=== PATIENT | female | born 1945 | race Caucasian/White ===

== ENCOUNTER 2017-11-05 10:30 | Outpatient (RCR) | payer MEDICARE, OTHER, SELFPAY ==
--- NOTE | 2017-10-08 15:15 | PT.OTN ---
On October 08, 2017 our therapy services consisting of Speech, Occupational, and Physical therapy transitioned from [employer] electronic documentation system to a new [employer] electronic system. All documentation prior to October 08 can be found under [employer] saved data. From October 08 forward, all medical record documentation will be in [employer] 6.1.
--- NOTE | 2017-10-08 16:05 | PT.OTN ---
Physical Therapy Treatment Note PT-OP-B Current Condition Start: 10/08/17 15:48 Freq: Status: Active Protocol: Activity Type Activity Date Activity User E-Sign Co-Sign Detail Recorded Client Recorded Date Recorded By Document 10/08/17 13:45 [facility] [email or web address] 10/08/17 16:05 [facility] 10/08/17 13:45 Current Condition [History of Current Condition] -Current Complaints right sided calf pain with walking up hills or inclines PT-OP-C Subjective Start: 10/08/17 15:48 Freq: Status: Active Protocol: Activity Type Activity Date Activity User E-Sign Co-Sign Detail Recorded Client Recorded Date Recorded By Document 10/08/17 13:45 [facility] [email or web address] 10/08/17 16:05 [facility] 10/08/17 13:45 OP-PT Subjective [Patient Comments] -Patient Comments Sachi notes she was walking in [place] yesterday and didn't notice the pain on a small hill. She has not attempted her regular walking hills yet -Patient Reported Progress Improving PT-OP-Q Treatments Start: 10/08/17 15:48 Freq: Status: Active Protocol: Activity Type Activity Date Activity User E-Sign Co-Sign Detail Recorded Client Recorded Date Recorded By Document 10/08/17 13:45 [facility] [email or web address] 10/08/17 16:05 [facility] 10/08/17 13:45 Therapeutic Exercises [Sitting Exercises] 1 -Sitting Exercise Name seated hamstring stretch -Side bilateral -Reps/Minutes 2 minutes [Standing Exercises] 2 -Standing Exercise Name standing hip abduction in pool -Side bilateral -Reps/Minutes work up to 3 sets of 10 reps 1 -Standing Exercise Name standing DARIN calf stretch ( pt to use her half foam roll for home) -Side bilateral -Reps/Minutes 2 minutes Manual Therapy Treatment [Soft Tissue Mobilization] 1 -Mobilization Type Myofacial release and Soft tissue mobilization -Intensity/Depth Moderate -Body Position Prone -Comments prone on body cushion MFR to the right medial calf and poplitius musculature Self-Care/Home Management Treatment [Education] -Patient Education Home Exercise Program PT-OP-R Modalities Start: 10/08/17 15:48 Freq: Status: Active Protocol: Activity Type Activity Date Activity User E-Sign Co-Sign Detail Recorded Client Recorded Date Recorded By Document 10/08/17 13:45 [facility] [email or web address] 10/08/17 16:05 [facility] 10/08/17 13:45 Ultrasound Therapy [Treatment] right medial gastroc -Patient Position Prone -Coupling Medium Ultrasound Gel -Frequency Setting (mHz) 1 -Mode Setting Continuous -Intensity Setting (w/cm2) 1.5 -Patient Tolerance Good PT-OP-T Assessment and Plan Start: 10/08/17 15:48 Freq: Status: Active Protocol: Activity Type Activity Date Activity User E-Sign Co-Sign Detail Recorded Client Recorded Date Recorded By Document 10/08/17 13:45 [facility] [email or web address] 10/08/17 16:05 [facility] 10/08/17 13:45 Physical Therapy Assessment [Rehab Potential] -Rehabilitation Potential Excellent [Impairments] -Impairments Gait Pain Soft Tissue Mobility Strength [Assessment Summary] -Assessment pain has decreased some with ambulation . With gait assessment today Sachi does tend to adduct the right leg across midline. I will start adding in more lateral hip strengthening exercises to help with this along with balance exercises for Sachi. Physical Therapy Plan [Frequency and Duration] -Frequency of Treatment 2x/Week [Therapeutic Interventions] -Therapeutic Interventions Home Exercise Program Patient/ Caregiver Education Self-Care/Home Management Soft Tissue Mobilization Therapeutic Exercises -Modalities Cold Pack/Ice Massage Ultrasound [Next Visit Focus/Plan] -Next Visit Plan begin working on single leg balance exercises and hip abduction, work on releasing tightness in the medial calf and poplitius musculature Current Diagnoses Pain in right knee (10/08/17)
--- NOTE | 2017-10-10 15:57 | PT.OTN ---
Current Diagnoses Pain in right knee (10/10/17) Physical Therapy Treatment Note PT-OP-B Current Condition Start: 10/08/17 15:48 Freq: Status: Active Protocol: Activity Type Activity Date Activity User E-Sign Co-Sign Detail Recorded Client Recorded Date Recorded By Document 10/08/17 13:45 [facility] [email or web address] 10/08/17 16:05 [facility] 10/08/17 13:45 Current Condition [History of Current Condition] -Current Complaints right sided calf pain with walking up hills or inclines PT-OP-C Subjective Start: 10/08/17 15:48 Freq: Status: Active Protocol: Activity Type Activity Date Activity User E-Sign Co-Sign Detail Recorded Client Recorded Date Recorded By Document 10/10/17 02:30 [facility] [email or web address] 10/10/17 15:57 [facility] 10/10/17 02:30 OP-PT Subjective [Patient Comments] -Patient Comments Sachi reports she may have overdone her stretches and pool exercises as she is a sore today PT-OP-Q Treatments Start: 10/08/17 15:48 Freq: Status: Active Protocol: Activity Type Activity Date Activity User E-Sign Co-Sign Detail Recorded Client Recorded Date Recorded By Document 10/10/17 02:30 [facility] [email or web address] 10/10/17 15:57 [facility] 10/10/17 02:30 Therapeutic Exercises [Supine Exercises] 1 -Supine Exercise Name hamstring and adductor stretch with strap -Reps/Minutes 2 minutes [Sidelying Exercises] 1 -Sidelying Exercise Name clam shells -Side bilateral -Reps/Minutes 2 sets of 10 reps [Sitting Exercises] 1 -Sitting Exercise Name seated hamstring stretch -Side bilateral -Reps/Minutes 2 minutes -Comments one foot up on a chair, hinge forward from hips [Standing Exercises] 2 -Standing Exercise Name standing hip abduction at bars -Side bilateral -Reps/Minutes 2 sets of 10 reps 1 -Standing Exercise Name standing DARIN calf stretch ( pt to use her half foam roll for home) -Side bilateral -Reps/Minutes 2 minutes PT-OP-R Modalities Start: 10/08/17 15:48 Freq: Status: Active Protocol: Activity Type Activity Date Activity User E-Sign Co-Sign Detail Recorded Client Recorded Date Recorded By Document 10/10/17 02:30 [facility] [email or web address] 10/10/17 15:57 [facility] 10/10/17 02:30 Hot Pack/Cold Pack [Treatment] Ice Massage -Location posterior calf and pes anserine -Treatment Duration (minutes) 4 -Comments tolerated well PT-OP-T Assessment and Plan Start: 10/08/17 15:48 Freq: Status: Active Protocol: Activity Type Activity Date Activity User E-Sign Co-Sign Detail Recorded Client Recorded Date Recorded By Document 10/10/17 02:30 [facility] [email or web address] 10/10/17 15:57 [facility] 10/10/17 02:30 Physical Therapy Assessment [Impairments] -Impairments Gait Pain Soft Tissue Mobility Strength [Assessment Summary] -Assessment With palpation today Sachi was actually more tender in the pes anserine region . I added in adductor stretches and we also worked on lateral hip stability exercises as she tends to adduct the right leg with walking Physical Therapy Plan [Frequency and Duration] -Frequency of Treatment 2x/Week [Therapeutic Interventions] -Therapeutic Interventions Home Exercise Program Patient/ Caregiver Education Self-Care/Home Management Soft Tissue Mobilization Therapeutic Exercises [Next Visit Focus/Plan] -Next Visit Plan continue working on stretches and lateral hip stabilization, begin to add in balance exercises
--- NOTE | 2017-10-17 13:18 | PT.OTN ---
Current Diagnoses Pain in right knee (10/17/17) Physical Therapy Treatment Note PT-OP-A Visit Information Start: 10/10/17 15:47 Freq: Status: Active Protocol: Document 10/17/17 13:10 [facility] (Rec: 10/17/17 13:15 [facility] [email or web address]) Out-Patient Physical Therapy Visit Information Visit Information Visit Type Treatment Note Visit Start Time 11:15 Visit Stop Time 12:00 Total Visit Minutes 45 Visit Number 4 Number of [employer] LIBRARIAN Visits 0 PT-OP-B Current Condition Start: 10/08/17 15:48 Freq: Status: Active Protocol: Document 10/17/17 13:10 [facility] (Rec: 10/17/17 13:15 [facility] [email or web address]) Current Condition History of Current Condition Current Complaints right sided calf pain with walking up hills or inclines PT-OP-C Subjective Start: 10/08/17 15:48 Freq: Status: Active Protocol: Document 10/17/17 13:10 [facility] (Rec: 10/17/17 13:15 [facility] [email or web address]) OP-PT Subjective Patient Comments Patient Comments Sachi reports no pain today. She will test out a hill this next week and report back PT-OP-Q Treatments Start: 10/08/17 15:48 Freq: Status: Active Protocol: Document 10/17/17 13:10 [facility] (Rec: 10/17/17 13:15 [facility] [email or web address]) Therapeutic Exercises Standing Exercises 5 Standing Exercise Name standing single leg stance Reps/Minutes holding 10 seconds each 2 reps 4 Standing Exercise Name sit-stand chair squat Reps/Minutes 2 sets of 10 reps 2 Standing Exercise Name standing hip abduction at bars Side bilateral Reps/Minutes 2 sets of 10 reps 1 Standing Exercise Name standing DARIN calf stretch (pt to use her half foam roll for home) Side bilateral Reps/Minutes 2 minutes Manual Therapy Treatment Soft Tissue Mobilization 1 Mobilization Type Myofascial Release Intensity/Depth Moderate Comments prone on body cushion MFR to the right medial calf and poplitius musculature PT-OP-R Modalities Start: 10/08/17 15:48 Freq: Status: Active Protocol: Document 10/17/17 13:10 [facility] (Rec: 10/17/17 13:15 [facility] [email or web address]) Ultrasound Therapy Treatment right medial gastroc Patient Position Prone Coupling Medium Ultrasound Gel Frequency Setting (mHz) 1 Mode Setting Continuous Intensity Setting (w/cm2) 1.5 Patient Tolerance Good PT-OP-T Assessment and Plan Start: 10/08/17 15:48 Freq: Status: Active Protocol: Document 10/17/17 13:15 [facility] (Rec: 10/17/17 13:18 [facility] [email or web address]) Physical Therapy Assessment Assessment Summary Assessment Sachi is making great progress. We added in balance exercises today and there was no pain in the right calf. She does tend to IR her right hip with walking so I am working on lateral hip strengthening exercises as well. Physical Therapy Plan Frequency and Duration Frequency of Treatment 2x/Week Plan of Care Start Date 10/03/17 Plan of Care End Date 11/28/17 Therapeutic Interventions Therapeutic Interventions Home Exercise Program Manual Therapy Patient/Caregiver Education Self-Care/Home Management Soft Tissue Mobilization Therapeutic Exercises Modalities Cold Pack/Ice Massage
--- NOTE | 2017-10-22 12:43 | PT.OTN ---
Current Diagnoses Pain in right knee (10/22/17) Physical Therapy Treatment Note PT-OP-A Visit Information Start: 10/10/17 15:47 Freq: Status: Active Protocol: Document 10/22/17 12:36 [facility] (Rec: 10/22/17 12:43 [facility] [email or web address]) Out-Patient Physical Therapy Visit Information Visit Information Visit Type Treatment Note Visit Start Time 10:30 Visit Stop Time 11:20 Total Visit Minutes 50 Visit Number 5 Number of INTERNAL CARVER Visits 0 PT-OP-B Current Condition Start: 10/08/17 15:48 Freq: Status: Active Protocol: Document 10/17/17 13:10 [facility] (Rec: 10/17/17 13:15 [facility] [email or web address]) Current Condition History of Current Condition Current Complaints right sided calf pain with walking up hills or inclines PT-OP-C Subjective Start: 10/08/17 15:48 Freq: Status: Active Protocol: Document 10/22/17 12:36 [facility] (Rec: 10/22/17 12:43 [facility] [email or web address]) OP-PT Subjective Patient Comments Patient Comments dar notes she tried a small hill and she didn't have pain but notes discomfort like her calf isn't quite ready for hills yet PT-OP-Q Treatments Start: 10/08/17 15:48 Freq: Status: Active Protocol: Document 10/22/17 12:36 [facility] (Rec: 10/22/17 12:43 [facility] [email or web address]) Therapeutic Exercises Supine Exercises 1 Supine Exercise Name hamstring and adductor stretch with strap Reps/Minutes 2 minutes Sidelying Exercises 1 Sidelying Exercise Name clam shells Side bilateral Reps/Minutes 3 sets of 10 reps Standing Exercises 5 Standing Exercise Name standing single leg stance Reps/Minutes holding 10 seconds each 2 reps 4 Standing Exercise Name sit-stand chair squat Reps/Minutes 2 sets of 10 reps 2 Standing Exercise Name standing hip abduction at bars Side bilateral Reps/Minutes 2 sets of 10 reps 1 Standing Exercise Name standing DARIN calf stretch (pt to use her half foam roll for home) Side bilateral Reps/Minutes 2 minutes Manual Therapy Treatment Soft Tissue Mobilization 1 Mobilization Type Myofascial Release Intensity/Depth Moderate Comments prone on body cushion MFR to the right medial calf and poplitius musculature PT-OP-R Modalities Start: 10/08/17 15:48 Freq: Status: Active Protocol: Document 10/22/17 12:36 [facility] (Rec: 10/22/17 12:43 [facility] [email or web address]) Hot Pack/Cold Pack Treatment Ice Massage Location posterior calf and pes anserine Treatment Duration (minutes) 4 Comments tolerated well Ultrasound Therapy Treatment right medial gastroc Patient Position Prone Coupling Medium Ultrasound Gel Frequency Setting (mHz) 1 Mode Setting Continuous Intensity Setting (w/cm2) 1.5 Patient Tolerance Good PT-OP-T Assessment and Plan Start: 10/08/17 15:48 Freq: Status: Active Protocol: Document 10/22/17 12:36 [facility] (Rec: 10/22/17 12:43 [facility] [email or web address]) Physical Therapy Assessment Assessment Summary Assessment improving on balance exercises and able to hold 50 seconds each leg today without pain Physical Therapy Plan Frequency and Duration Frequency of Treatment 2x/Week Plan of Care Start Date 10/03/17 Plan of Care End Date 11/28/17 Therapeutic Interventions Therapeutic Interventions Home Exercise Program Manual Therapy Patient/Caregiver Education Self-Care/Home Management Soft Tissue Mobilization Therapeutic Exercises Next Visit Focus/Plan Next Visit Plan continue working on balance, stretching and add calf raises for strength
--- NOTE | 2017-10-29 11:41 | PT.OTN ---
Current Diagnoses Pain in right knee (10/29/17) Physical Therapy Treatment Note PT-OP-A Visit Information Start: 10/10/17 15:47 Freq: Status: Active Protocol: Document 10/29/17 11:36 [facility] (Rec: 10/29/17 11:41 [facility] [email or web address]) Out-Patient Physical Therapy Visit Information Visit Information Visit Type Treatment Note Visit Start Time 10:40 Visit Stop Time 11:25 Total Visit Minutes 45 Visit Number 6 Number of DIRECTOR OF BANDS Visits 0 PT-OP-B Current Condition Start: 10/08/17 15:48 Freq: Status: Active Protocol: Document 10/17/17 13:10 [facility] (Rec: 10/17/17 13:15 [facility] [email or web address]) Current Condition History of Current Condition Current Complaints right sided calf pain with walking up hills or inclines PT-OP-C Subjective Start: 10/08/17 15:48 Freq: Status: Active Protocol: Document 10/29/17 11:36 [facility] (Rec: 10/29/17 11:41 [facility] [email or web address]) OP-PT Subjective Patient Comments Patient Comments Sachi reports she is sore today behind her knee. She walked with a friend yesterday that is tall and walks faster than she does so she walked at a quick pace PT-OP-Q Treatments Start: 10/08/17 15:48 Freq: Status: Active Protocol: Document 10/22/17 12:36 [facility] (Rec: 10/22/17 12:43 [facility] [email or web address]) Therapeutic Exercises Supine Exercises 1 Supine Exercise Name hamstring and adductor stretch with strap Reps/Minutes 2 minutes Sidelying Exercises 1 Sidelying Exercise Name clam shells Side bilateral Reps/Minutes 3 sets of 10 reps Standing Exercises 5 Standing Exercise Name standing single leg stance Reps/Minutes holding 10 seconds each 2 reps 4 Standing Exercise Name sit-stand chair squat Reps/Minutes 2 sets of 10 reps 2 Standing Exercise Name standing hip abduction at bars Side bilateral Reps/Minutes 2 sets of 10 reps 1 Standing Exercise Name standing DARIN calf stretch (pt to use her half foam roll for home) Side bilateral Reps/Minutes 2 minutes Manual Therapy Treatment Soft Tissue Mobilization 1 Mobilization Type Myofascial Release Intensity/Depth Moderate Comments prone on body cushion MFR to the right medial calf and poplitius musculature PT-OP-R Modalities Start: 10/08/17 15:48 Freq: Status: Active Protocol: Document 10/22/17 12:36 [facility] (Rec: 10/22/17 12:43 [facility] [email or web address]) Hot Pack/Cold Pack Treatment Ice Massage Location posterior calf and pes anserine Treatment Duration (minutes) 4 Comments tolerated well Ultrasound Therapy Treatment right medial gastroc Patient Position Prone Coupling Medium Ultrasound Gel Frequency Setting (mHz) 1 Mode Setting Continuous Intensity Setting (w/cm2) 1.5 Patient Tolerance Good PT-OP-T Assessment and Plan Start: 10/08/17 15:48 Freq: Status: Active Protocol: Document 10/29/17 11:36 [facility] (Rec: 10/29/17 11:41 [facility] [email or web address]) Physical Therapy Assessment Assessment Summary Assessment emphasized warming up before walking and icing following. Sachi tends to walk with hir IR and on her toes a bit which could be placing more torque on the medial hamstring and calf Physical Therapy Plan Frequency and Duration Frequency of Treatment 2x/Week Plan of Care Start Date 10/03/17 Plan of Care End Date 11/28/17 Therapeutic Interventions Therapeutic Interventions Home Exercise Program Manual Therapy Patient/Caregiver Education Self-Care/Home Management Soft Tissue Mobilization Therapeutic Exercises Next Visit Focus/Plan Next Visit Plan gait training with heel strike , continue working on flexibility of both the calf and hamstring musculature Please Sign and Return: I have reviewed this Plan of Care and certify that the skilled therapy services above are required to meet the patient???s needs. Physician Signature Date Printed Name and Credentials Clinical Instructor Signature Printed Name and Credentials
--- NOTE | 2017-11-05 11:45 | PT.OTN ---
Current Diagnoses Pain in right knee (11/05/17) Physical Therapy Treatment Note PT-OP-A Visit Information Start: 10/10/17 15:47 Freq: Status: Active Protocol: Document 11/05/17 11:38 [facility] (Rec: 11/05/17 11:44 [facility] [email or web address]) Out-Patient Physical Therapy Visit Information Visit Information Visit Type Treatment Note Visit Start Time 10:45 Visit Stop Time 11:15 Total Visit Minutes 30 Visit Number 7 Number of CONSTRUCTION WORKER Visits 0 Evaluation Information Evaluation Date 10/03/17 PT-OP-B Current Condition Start: 10/08/17 15:48 Freq: Status: Active Protocol: Document 10/17/17 13:10 [facility] (Rec: 10/17/17 13:15 [facility] [email or web address]) Current Condition History of Current Condition Current Complaints right sided calf pain with walking up hills or inclines PT-OP-C Subjective Start: 10/08/17 15:48 Freq: Status: Active Protocol: Document 11/05/17 11:38 [facility] (Rec: 11/05/17 11:44 [facility] [email or web address]) OP-PT Subjective Patient Comments Patient Comments Sachi reports she over slept today for her appointment. She reports she is feeling good with her exercises for home and would like to make today her last visit. Patient Reported Progress Improving PT-OP-Q Treatments Start: 10/08/17 15:48 Freq: Status: Active Protocol: Document 11/05/17 11:38 [facility] (Rec: 11/05/17 11:44 [facility] [email or web address]) Therapeutic Exercises Supine Exercises 1 Supine Exercise Name hamstring and adductor stretch with strap Reps/Minutes 2 minutes Sidelying Exercises 1 Sidelying Exercise Name clam shells Side bilateral Reps/Minutes 3 sets of 10 reps Standing Exercises 1 Standing Exercise Name standing DARIN calf stretch (pt to use her half foam roll for home) Side bilateral Reps/Minutes 2 minutes Manual Therapy Treatment Soft Tissue Mobilization 1 Mobilization Type Myofascial Release Intensity/Depth Moderate Comments prone on body cushion MFR to the right medial calf and poplitius musculature PT-OP-R Modalities Start: 10/08/17 15:48 Freq: Status: Active Protocol: Document 11/05/17 11:38 [facility] (Rec: 11/05/17 11:44 [facility] [email or web address]) Ultrasound Therapy Treatment right medial gastroc Patient Position Prone Coupling Medium Ultrasound Gel Frequency Setting (mHz) 1 Mode Setting Continuous Intensity Setting (w/cm2) 1.5 Patient Tolerance Good PT-OP-T Assessment and Plan Start: 10/08/17 15:48 Freq: Status: Active Protocol: Document 11/05/17 11:38 [facility] (Rec: 11/05/17 11:44 [facility] [email or web address]) Physical Therapy Assessment Assessment Summary Assessment Sachi has made good overall progress. She is ready to return to trying hills with her walking. She is not complaining of calf pain on flat surfaces. Edwar is showing independence with her home exercise program at this time. SHe has decreased tenderness over the medial gastroc head and is showing improved flexibility of both her calf and hamstring musculature. Physical Therapy Plan Discharge Physical Therapy Discharge Reasons Patient Request Discharge Comments Sachi reports she feels independent with her home program and is ready to work on her own Please Sign and Return: I have reviewed this Plan of Care and certify that the skilled therapy services above are required to meet the patient???s needs. Physician Signature Date Printed Name and Credentials Clinical Instructor Signature Printed Name and Credentials
--- NOTE | 2017-11-05 11:45 | PT.OPDS ---
Current Diagnoses Pain in right knee (11/05/17) Provider Visit Care Team Role Provider Type Shandra Harrison MD Family Provider Non-Staff Primary Care Provider Specialty: Medical Address: [address] [place] [address], [phone] Email: Simi Medrano MD Attending Provider Non-Staff Specialty: Family Practice Address: [address] [place] [address], [place], [address] Email: Discharge Summary PT-OP-B Current Condition Start: 10/08/17 15:48 Freq: Status: Active Protocol: Document 10/17/17 13:10 [facility] (Rec: 10/17/17 13:15 [facility] [email or web address]) Current Condition History of Current Condition Current Complaints right sided calf pain with walking up hills or inclines PT-OP-C Subjective Start: 10/08/17 15:48 Freq: Status: Active Protocol: Document 11/05/17 11:38 [facility] (Rec: 11/05/17 11:44 [facility] [email or web address]) OP-PT Subjective Patient Comments Patient Comments Sachi reports she over slept today for her appointment. She reports she is feeling good with her exercises for home and would like to make today her last visit. Patient Reported Progress Improving PT-OP-T Assessment and Plan Start: 10/08/17 15:48 Freq: Status: Active Protocol: Document 11/05/17 11:38 [facility] (Rec: 11/05/17 11:44 [facility] [email or web address]) Physical Therapy Assessment Assessment Summary Assessment Sachi has made good overall progress. She is ready to return to trying hills with her walking. She is not complaining of calf pain on flat surfaces. Sachi is showing independence with her home exercise program at this time. She has decreased tenderness over the medial gastroc head and is showing improved flexibility of both her calf and hamstring musculature. Physical Therapy Plan Discharge Physical Therapy Discharge Reasons Patient Request Discharge Comments Sachi reports she feels independent with her home program and is ready to work on her own Please Sign and Return: I have reviewed this Plan of Care and certify that the skilled therapy services above are required to meet the patient???s needs. Physician Signature Date Printed Name and Credentials Clinical Instructor Signature Printed Name and Credentials
== END 2017-11-08 09:29 ==
LOC: PHYS 10:30
PROVIDERS: Family Provider Family Medicine; PCP Family Medicine; Visit Provider Family Medicine
DX: M25.561 Pain in right knee (principal)
CPT/HCPCS: 97035; 97110; 97140

== ENCOUNTER → 2018-01-23 08:51 | Outpatient (CLI) | payer MEDICARE, OTHER, SELFPAY ==
[2018-01-23 10:03] LABS: Add Manual Diff / Slide Review NO; Basophils Percent Auto 0.9 % (0-2); Eosinophils Percent Auto 4.6 % (2-4); Hematocrit 44.3 % (36-46); Hemoglobin 15.1 g/dL (12.0-16.0); Lymphocytes Percent Auto 23.4 % (25-40); Mean Corpuscular Hemoglobin 31.3 PG (26-34); Monocytes Percent Auto 6.2 % (3-14); Neutrophils Absolute Auto 4000 /uL (3000-5900); Neutrophils Percent Auto 64.9 % (50-75); Platelet Count 317 X10^3/uL (150-400); Red Blood Cell Count 4.82 X10^6/uL (4.0-5.2); Red Cell Distribution Width 14.2 % (11.6-14.8); White Blood Cell Count 6.2 X10^3/uL (4.5-11.0)
[2018-01-23 10:19] LABS: Alanine Aminotransferase 21 IU/L (9-52); Albumin 4.3 g/dL (3.5-5.0); Albumin Globulin Ratio 1.5 (1.0-2.8); Alkaline Phosphatase 66 U/L (38-126); Aspartate Aminotransferase 23 IU/L (14-36); Bilirubin Total 1.1 mg/dL (0.2-1.3); Blood Urea Nitrogen 24 mg/dL (7-17); Calcium 9.3 mg/dL (8.4-10.2); Carbon Dioxide 26 mmol/L (22-32); Chloride 103 mmol/L (98-107); Estimated Glomerular Filt Rate 54.2 mL/min (>60); Globulin 2.8 g/dL (1.7-4.1); Glucose 107 mg/dL (80-110); HEMOLYSIS < 15 (0-50); Potassium 4.5 mmol/L (3.4-5.1); Sodium 140 mmol/L (137-145); Total Protein 7.1 g/dL (6.3-8.2)
[2018-01-24 15:15] LABS: Cancer Antigen 27.29 26 U/mL (< 38)
== END ==
PROVIDERS: Family Provider Family Medicine; PCP Family Medicine
DX: C50.911 Malignant neoplasm of unspecified site of right female breast (principal)
CPT/HCPCS: 36415; 80053; 85025; 86300

== ENCOUNTER 2018-05-28 11:30 | Outpatient (RCR) | payer MEDICARE, OTHER, SELFPAY ==
--- NOTE | 2018-02-09 08:05 | PT.OIE ---
Current Diagnoses Sacroiliitis, not elsewhere classified (02/05/18) Past Surgical History History of lumpectomy Status post colonoscopy Status post tonsillectomy and adenoidectomy Provider Visit Care Team Role Provider Type Shandra Harrison MD Attending Provider Non-Staff Family Provider Primary Care Provider Specialty: Medical Address: [address] [place] [address], [phone] Email: Physical Therapy Initial Evaluation PT-OP-A Visit Information Start: 02/05/18 12:23 Freq: Status: Active Protocol: Document 02/05/18 12:24 [facility] (Rec: 02/05/18 12:55 [facility] [email or web address]) Out-Patient Physical Therapy Visit Information Visit Information Visit Type Initial Evaluation Visit Start Time 10:45 Visit Stop Time 11:45 Total Visit Minutes 60 Visit Number 1 Evaluation Information Evaluation Date 02/05/18 PT-OP-B Current Condition Start: 02/05/18 12:23 Freq: Status: Active Protocol: Document 02/05/18 12:24 [facility] (Rec: 02/05/18 12:55 [facility] [email or web address]) Current Condition History of Current Condition Onset Date sx began several weeks ago Current Complaints c/o right sided hamstring pain that is also referred into the calf History of Current Condition Symptoms started with what Sachi thought was a hamstring strain. She was seen in PT for this earlier in 2018. At that time she only had hamstring pain when she walked uphill. Sachi was working on her exercises independently and she is not sure what brought on the sciatic symptoms but she is wondering if it was the sit-stand chair squats that may have aggravated her pain. Sitting now aggravates her symptoms and when her symptoms are flared she gets pain into the calf. It hurts to walk as well so she has stopped doing her walking program and has just been doing her aqua aerobics. Sachi misses walking and would like to return to her walking program Prior Treatments and Tests Prior PT earlier in 2018 for hamstring strain Treatment Goals Patient/Caregiver Goals to be able to return to a walking program Current Functional Impairments (Reported) Functional Limitations- ADL's sitting aggravates symptoms and lifting aggravates symptoms Functional Limitations- Mobility/Gait walking is limited due to pain PT-OP-C Subjective Start: 02/05/18 12:23 Freq: Status: Active Protocol: Document 02/05/18 12:24 [facility] (Rec: 02/09/18 08:05 [facility] [email or web address]) OP-PT Pain Assessment Location right hamstring Pain Location Details referred pain with intermittent pain into the posterior calf Intensity 5 Scale Used Numeric (1 - 10) Radiating Location to right hamstring and calf PT-OP-F Manual Assessment Start: 02/05/18 12:23 Freq: Status: Active Protocol: Document 02/05/18 12:24 [facility] (Rec: 02/05/18 12:55 [facility] [email or web address]) Manual Assessments Soft Tissue Assessment Soft Tissue Mobility Assessment very guarded lumbar paraspinal musculature and Sachi stands with the lumbar spine in extension Joint Mobility Assessment Joint Mobility Assessment + SI joint march test for right sided dysfunction Right leg longer in supine and right pelvis anteriorly rotated PT-OP-J Posture/Palpation/Skin Start: 02/05/18 12:23 Freq: Status: Active Protocol: Document 02/05/18 12:24 [facility] (Rec: 02/05/18 12:55 [facility] [email or web address]) Palpation Assessment Location Two Palpation Location lumbar paraspinals Palpation Findings Soft Tissue Tightness Spasm Muscle Guarding One Palpation Location right PSIS Palpation Findings Tenderness PT-OP-K Range of Motion Start: 02/05/18 12:56 Freq: Status: Active Protocol: Document 02/05/18 12:56 [facility] (Rec: 02/05/18 12:57 [facility] [email or web address]) Lumbar Spine Range of Motion Lumbar Spine Active ROM Limitations Soft Tissue Tightness Comments Lumbar spine WFL limited by soft tissue tightness at end range flexion Hip Goniometric Range of Motion Hip Measured in Degrees Left Hip ROM WFL Yes Testing Position Supine Right Hip ROM WFL Yes Testing Position Supine PT-OP-L Special Tests Start: 02/05/18 12:23 Freq: Status: Active Protocol: Document 02/05/18 12:24 [facility] (Rec: 02/05/18 12:55 [facility] [email or web address]) Special Tests Lumbar Spine Special Tests Straight Leg Raise Test Results negative with hamstring tightness only PT-OP-M Strength Start: 02/05/18 12:23 Freq: Status: Active Protocol: Document 02/05/18 12:24 [facility] (Rec: 02/05/18 12:55 [facility] [email or web address]) Trunk Strength Trunk Manual Muscle Testing Core Stabilization decreased TA recruitment PT-OP-Q Treatments Start: 02/05/18 12:23 Freq: Status: Active Protocol: Document 02/05/18 12:24 [facility] (Rec: 02/05/18 12:55 [facility] [email or web address]) Therapeutic Exercises Supine Exercises 3 Supine Exercise Name hooklying transverse abdominus palpation Side bilateral Reps/Minutes hold 5 seconds 2 Supine Exercise Name supine adduction isometric with ball Side bilateral Reps/Minutes hold 30 seconds 1 Supine Exercise Name single knee to chest Side bilateral Reps/Minutes hold 1-2 minutes Other Exercises 1 Other Exercise Name quadraped cat-camel Side bilateral Reps/Minutes 10 reps Manual Therapy Treatment Manual Techniques 2 Body Location sidelying posterior glide of the innominant and lumbar paraspinal release Body Position Sidelying 1 Type MET for right anterior innominant Body Position Supine Reps/Duration 5 reps holding 5 seconds PT-OP-R Modalities Start: 02/05/18 12:23 Freq: Status: Active Protocol: Document 02/05/18 12:24 [facility] (Rec: 02/05/18 12:55 [facility] [email or web address]) Hot Pack/Cold Pack Treatment Cold Pack Location low back ice pack Patient Position Hooklying Treatment Duration (minutes) 10 PT-OP-T Assessment and Plan Start: 02/05/18 12:23 Freq: Status: Active Protocol: Document 02/05/18 12:24 [facility] (Rec: 02/05/18 12:55 [facility] [email or web address]) Physical Therapy Assessment Impairments Impairments Functional Activities Functional Mobility Pain Soft Tissue Mobility Strength Goals Four Impairment pain with walking Flavoring Machine Operator Goal (LTG) Sachi is able to return to her walking program including [place] with overall decreased complaints of pain LTG Duration 8 weeks Three Impairment 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 Short Term Goal (STG) Correct SI joint dysfuction with manual therapy techniques and Sachi is instructed in stabilization exercises to keep her pelvis aligned STG Duration 6 weeks Two Impairment Lumbar paraspinal tightness and guarding Flavoring Machine Operator Goal (LTG) decrease lumbar paraspinal tightness with manual techniques and home stretching program to help improve postural positions LTG Duration 8 weeks One Impairment Pain referred down the right leg rated 5/10 made worse with walking/sitting Short Term Goal (STG) Alvins pain has been reduced from 5/10 to 1-2/10 improving her tolerance for activity STG Duration 6 weeks Assessment Summary Assessment Sachi presents to physical therapy with right sided referred pain down the hamstring region and at times into the calf. She does have a history of a hamstring strain on the right side. With special tests she has tenderness to palpation on the right PSIS and has + SI tests for right anterior innominant rotation. I was not able to reproduce hamstring pain with SLR or slump test. Sachi does have very guarded lumbar parapsinal muscles which may be holding her pelvis in the malaligned position. I worked on MET today to help correct the SI dysfunction and then Sachi was given a few stabilizing exercises as well as lumbar flexion stretches. She is a good candidate for PT Physical Therapy Plan Frequency and Duration Frequency of Treatment 2x/Week Duration of Treatment 8 weeks Plan of Care Start Date 02/05/18 Plan of Care End Date 04/02/18 Therapeutic Interventions Therapeutic Interventions Home Exercise Program Manual Therapy Neuromuscular Re-education Self-Care/Home Management Soft Tissue Mobilization Therapeutic Exercises Modalities Cold Pack/Ice Massage
--- NOTE | 2018-02-09 08:06 | PT.OPPOC ---
Current Diagnoses Sacroiliitis, not elsewhere classified (02/05/18) Provider Visit Care Team Role Provider Type Shandra Harrison MD Attending Provider Non-Staff Family Provider Primary Care Provider Specialty: Medical Address: [address] [place] [address], [phone] Email: Plan Of Care PT-OP-T Assessment and Plan Start: 02/05/18 12:23 Freq: Status: Active Protocol: Document 02/05/18 12:24 [facility] (Rec: 02/05/18 12:55 [facility] [email or web address]) Physical Therapy Assessment Impairments Impairments Functional Activities Functional Mobility Pain Soft Tissue Mobility Strength Goals Four Impairment pain with walking Group Home Goal (LTG) Sachi is able to return to her walking program including [place] with overall decreased complaints of pain LTG Duration 8 weeks Three Impairment 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 Short Term Goal (STG) Correct SI joint dysfuction with manual therapy techniques and Sachi is instructed in stabilization exercises to keep her pelvis aligned STG Duration 6 weeks Two Impairment Lumbar paraspinal tightness and guarding Field Seismologist Goal (LTG) decrease lumbar paraspinal tightness with manual techniques and home stretching program to help improve postural positions LTG Duration 8 weeks One Impairment Pain referred down the right leg rated 5/10 made worse with walking/sitting Short Term Goal (STG) Sachi's pain has been reduced from 5/10 to 1-2/10 improving her tolerance for activity STG Duration 6 weeks Assessment Summary Assessment Sachi presents to physical therapy with right sided refered pain down the hamstring region and at times into the calf. She does have a history of a hamstring strain on the right side. With special tests she has tenderness to palpation on the right PSIS and has + SI tests for right anterior innominant rotation. I was not able to reproduce hamstring pain with SLR or slump test. Sachi does have very guarded lumbar parapsinal muscles which may be holding her pelvis in the malaligned position. I worked on MET today to help correct the SI dysfunction and then Sachi was given a few stabilizing exercises as well as lumbar flexion stretches. She is a good candidate for PT Physical Therapy Plan Frequency and Duration Frequency of Treatment 2x/Week Duration of Treatment 8 weeks Plan of Care Start Date 02/05/18 Plan of Care End Date 04/02/18 Therapeutic Interventions Therapeutic Interventions Home Exercise Program Manual Therapy Neuromuscular Re-education Self-Care/Home Management Soft Tissue Mobilization Therapeutic Exercises Modalities Cold Pack/Ice Massage Plan of Care Dates Plan of Care Start Date 02/05/18 Plan of Care End Date 04/02/18 Please Sign and Return: I have reviewed this Plan of Care and certify that the skilled therapy services above are required to meet the patient?s needs. Physician Signature Date Printed Name and Credentials Clinical Instructor Signature Printed Name and Credentials
--- NOTE | 2018-02-11 15:18 | PT.OTN ---
Current Diagnoses Sacroiliitis, not elsewhere classified (02/11/18) Physical Therapy Treatment Note PT-OP-A Visit Information Start: 02/05/18 12:23 Freq: Status: Active Protocol: Document 02/11/18 10:37 SAK (Rec: 02/11/18 11:17 SAK [id number]) Out-Patient Physical Therapy Visit Information Visit Information Visit Type Treatment Note Visit Start Time 10:30 Visit Stop Time 11:30 Total Visit Minutes 60 Visit Number 2 Number of VICE PRESIDENT SALES Visits 0 PT-OP-B Current Condition Start: 02/05/18 12:23 Freq: Status: Active Protocol: Document 02/05/18 12:24 [facility] (Rec: 02/05/18 12:55 [facility] [email or web address]) Current Condition History of Current Condition Onset Date sx began several weeks ago Current Complaints c/o right sided hamstring pain that is also referred into the calf History of Current Condition Symptoms started with what Sachi thought was a hamstring strain. She was seen in PT for this earlier in 2018. At that time she only had hamstring pain when she walked uphill. Sachi was working on her exercises independently and she is not sure what brought on the sciatic symptoms but she is wondering if it was the sit-stand chair squats that may have aggravated her pain. Sitting now aggravates her symptoms and when her symptoms are flared she gets pain into the calf. It hurts to walk as well so she has stopped doing her walking program and has just been doing her aqua aerobics. Sachi misses walking and would like to return to her walking program Prior Treatments and Tests Prior PT earlier in 2018 for hamstring strain Treatment Goals Patient/Caregiver Goals to be able to return to a walking program Current Functional Impairments (Reported) Functional Limitations- ADL's sitting aggravates symptoms and lifting aggravates symptoms Functional Limitations- Mobility/Gait walking is limited due to pain PT-OP-C Subjective Start: 02/05/18 12:23 Freq: Status: Active Protocol: Document 02/11/18 10:37 SAK (Rec: 02/11/18 11:17 SAK [id number]) OP-PT Subjective Patient Comments Patient Comments Pain level 4-5/10, felt some better after last session. Did HEP. OP-PT Pain Assessment Location right hamstring Intensity 5 Comments Pain Comments 4-5/10 PT-OP-F Manual Assessment Start: 02/05/18 12:23 Freq: Status: Active Protocol: Document 02/05/18 12:24 [facility] (Rec: 02/05/18 12:55 [facility] [email or web address]) Manual Assessments Soft Tissue Assessment Soft Tissue Mobility Assessment very guarded lumbar paraspinal musculature and Sachi stands with the lumbar spine in extension Joint Mobility Assessment Joint Mobility Assessment + SI joint march test for right sided dysfunction Right leg longer in supine and right pelvis anteriorly rotated PT-OP-J Posture/Palpation/Skin Start: 02/05/18 12:23 Freq: Status: Active Protocol: Document 02/05/18 12:24 [facility] (Rec: 02/05/18 12:55 [facility] [email or web address]) Palpation Assessment Location Two Palpation Location lumbar paraspinals Palpation Findings Soft Tissue Tightness Spasm Muscle Guarding One Palpation Location right PSIS Palpation Findings Tenderness PT-OP-K Range of Motion Start: 02/05/18 12:56 Freq: Status: Active Protocol: Document 02/05/18 12:56 [facility]H (Rec: 02/05/18 12:57 [facility] [email or web address]) Lumbar Spine Range of Motion Lumbar Spine Active ROM Limitations Soft Tissue Tightness Comments Lumbar spine WFL limited by soft tissue tightness at end range flexion Hip Goniometric Range of Motion Hip Measured in Degrees Left Hip ROM WFL Yes Testing Position Supine Right Hip ROM WFL Yes Testing Position Supine PT-OP-L Special Tests Start: 02/05/18 12:23 Freq: Status: Active Protocol: Document 02/05/18 12:24 [facility] (Rec: 02/05/18 12:55 [facility] [email or web address]) Special Tests Lumbar Spine Special Tests Straight Leg Raise Test Results negative with hamstring tightness only PT-OP-M Strength Start: 02/05/18 12:23 Freq: Status: Active Protocol: Document 02/05/18 12:24 [facility] (Rec: 02/05/18 12:55 [facility] [email or web address]) Trunk Strength Trunk Manual Muscle Testing Core Stabilization decreased TA recruitment PT-OP-Q Treatments Start: 02/05/18 12:23 Freq: Status: Active Protocol: Document 02/11/18 10:37 SAK (Rec: 02/11/18 11:17 SAK [id number]) Therapeutic Exercises Supine Exercises 4 Supine Exercise Name TA with hip ab/ER Resistance L1 TB 3 Supine Exercise Name hooklying transverse abdominus palpation Side bilateral Reps/Minutes hold 5 seconds 2 Supine Exercise Name supine adduction isometric with ball Side bilateral Reps/Minutes hold 30 seconds 1 Supine Exercise Name single knee to chest Side bilateral Reps/Minutes hold 1-2 minutes Sidelying Exercises 1 Sidelying Exercise Name clam shells Side bilateral Reps/Minutes 3 sets of 10 reps Sitting Exercises 1 Sitting Exercise Name seated hamstring stretch Side bilateral Reps/Minutes 2 minutes Comments one foot up on a chair, hinge forward from hips Other Exercises 1 Other Exercise Name quadraped cat-camel Side bilateral Reps/Minutes 10 reps Manual Therapy Treatment Soft Tissue Mobilization 1 Mobilization Type Myofascial Release Strumming Intensity/Depth Moderate Comments prone on body cushion lumbar paraspinals PT-OP-R Modalities Start: 02/05/18 12:23 Freq: Status: Active Protocol: Document 02/11/18 10:37 SAK (Rec: 02/11/18 15:18 SAK [id number]) Hot Pack/Cold Pack Treatment Cold Pack Location low back ice pack Patient Position Hooklying Treatment Duration (minutes) 10 PT-OP-T Assessment and Plan Start: 02/05/18 12:23 Freq: Status: Active Protocol: Document 02/11/18 10:37 SAK (Rec: 02/11/18 15:18 SAK [id number]) Physical Therapy Assessment Goals Four Impairment pain with walking Returning Officer Goal (LTG) Sachi is able to return to her walking program including hills with overall decreased complaints of pain LTG Duration 8 weeks Three Impairment 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 Short Term Goal (STG) Correct SI joint dysfuction with manual therapy techniques and Sachi is instructed in stabilization exercises to keep her pelvis aligned STG Duration 6 weeks Two Impairment Lumbar paraspinal tightness and guarding Fci Goal (LTG) decrease lumbar paraspinal tightness with manual techniques and home stretching program to help improve postural positions LTG Duration 8 weeks One Impairment Pain referred down the right leg rated 5/10 made worse with walking/sitting Short Term Goal (STG) Sachi's pain has been reduced from 5/10 to 1-2/10 improving her tolerance for activity STG Duration 6 weeks Assessment Summary Assessment Patient reported no pain in calf today, pain concentrated mostly in lumbar spine. Pelvic alignment symmetrical today. Physical Therapy Plan Frequency and Duration Frequency of Treatment 2x/Week Duration of Treatment 8 weeks Plan of Care Start Date 02/05/18 Plan of Care End Date 04/02/18 Therapeutic Interventions Therapeutic Interventions Home Exercise Program Manual Therapy Neuromuscular Re-education Self-Care/Home Management Soft Tissue Mobilization Therapeutic Exercises Modalities Cold Pack/Ice Massage Next Visit Focus/Plan Next Note Type Treatment Note Next Visit Plan Continue PT for pain managment , core stabilization, posture and body mechanics, biomechanics of gait.
--- NOTE | 2018-02-13 12:30 | PT.OTN ---
Current Diagnoses Sacroiliitis, not elsewhere classified (02/13/18) Physical Therapy Treatment Note PT-OP-A Visit Information Start: 02/05/18 12:23 Freq: Status: Active Protocol: Document 02/13/18 12:25 [facility] (Rec: 02/13/18 12:30 [facility] [email or web address]) Out-Patient Physical Therapy Visit Information Visit Information Visit Type Treatment Note Visit Start Time 09:00 Visit Stop Time 09:55 Total Visit Minutes 55 Visit Number 3 Number of FABRIC CUTTER Visits 0 PT-OP-B Current Condition Start: 02/05/18 12:23 Freq: Status: Active Protocol: Document 02/05/18 12:24 [facility] (Rec: 02/05/18 12:55 [facility] [email or web address]) Current Condition History of Current Condition Onset Date sx began several weeks ago Current Complaints c/o right sided hamstring pain that is also referred into the calf History of Current Condition Symptoms started with what Sachi thought was a hamstring strain. She was seen in PT for this earlier in 2018. At that time she only had hamstring pain when she walked uphill. Sachi was working on her exercises independently and she is not sure what brought on the sciatic symptoms but she is wondering if it was the sit-stand chair squats that may have aggravated her pain. Sitting now aggravates her symptoms and when her symptoms are flared she gets pain into the calf. It hurts to walk as well so she has stopped doing her walking program and has just been doing her aqua aerobics. Sachi misses walking and would like to return to her walking program Prior Treatments and Tests Prior PT earlier in 2018 for hamstring strain Treatment Goals Patient/Caregiver Goals to be able to return to a walking program Current Functional Impairments (Reported) Functional Limitations- ADL's sitting aggravates symptoms and lifting aggravates symptoms Functional Limitations- Mobility/Gait walking is limited due to pain PT-OP-C Subjective Start: 02/05/18 12:23 Freq: Status: Active Protocol: Document 02/13/18 12:25 [facility] (Rec: 02/13/18 12:30 [facility] [email or web address]) OP-PT Subjective Patient Comments Patient Comments Sachi reports she has been working on her home program. Roll outs seems to aggravate her hamstring pain PT-OP-F Manual Assessment Start: 02/05/18 12:23 Freq: Status: Active Protocol: Document 02/05/18 12:24 [facility] (Rec: 02/05/18 12:55 [facility] [email or web address]) Manual Assessments Soft Tissue Assessment Soft Tissue Mobility Assessment very guarded lumbar paraspinal musculature and Sachi stands with the lumbar spine in extension Joint Mobility Assessment Joint Mobility Assessment + SI joint march test for right sided dysfunction Right leg longer in supine and right pelvis anteriorly rotated PT-OP-J Posture/Palpation/Skin Start: 02/05/18 12:23 Freq: Status: Active Protocol: Document 02/05/18 12:24 [facility] (Rec: 02/05/18 12:55 [facility] [email or web address]) Palpation Assessment Location Two Palpation Location lumbar paraspinals Palpation Findings Soft Tissue Tightness Spasm Muscle Guarding One Palpation Location right PSIS Palpation Findings Tenderness PT-OP-K Range of Motion Start: 02/05/18 12:56 Freq: Status: Active Protocol: Document 02/05/18 12:56 [facility] (Rec: 02/05/18 12:57 [facility] [email or web address]) Lumbar Spine Range of Motion Lumbar Spine Active ROM Limitations Soft Tissue Tightness Comments Lumbar spine WFL limited by soft tissue tightness at end range flexion Hip Goniometric Range of Motion Hip Measured in Degrees Left Hip ROM WFL Yes Testing Position Supine Right Hip ROM WFL Yes Testing Position Supine PT-OP-L Special Tests Start: 02/05/18 12:23 Freq: Status: Active Protocol: Document 02/05/18 12:24 [facility] (Rec: 02/05/18 12:55 [facility] [email or web address]) Special Tests Lumbar Spine Special Tests Straight Leg Raise Test Results negative with hamstring tightness only PT-OP-M Strength Start: 02/05/18 12:23 Freq: Status: Active Protocol: Document 02/05/18 12:24 [facility] (Rec: 02/05/18 12:55 [facility] [email or web address]) Trunk Strength Trunk Manual Muscle Testing Core Stabilization decreased TA recruitment PT-OP-Q Treatments Start: 02/05/18 12:23 Freq: Status: Active Protocol: Document 02/13/18 12:25 [facility] (Rec: 02/13/18 12:30 [facility] [email or web address]) Therapeutic Exercises Supine Exercises 5 Supine Exercise Name supine iliopsoas stretch in adele test position Reps/Minutes hold 1-2 minutes 2 Supine Exercise Name supine adduction isometric with ball Side bilateral Reps/Minutes hold 30 seconds 1 Supine Exercise Name single knee to chest Side bilateral Reps/Minutes hold 1-2 minutes Standing Exercises 1 Standing Exercise Name standing hip flexor stretch in warrion 1 Other Exercises 1 Other Exercise Name quadraped cat-camel Side bilateral Reps/Minutes 10 reps Manual Therapy Treatment Soft Tissue Mobilization 1 Body Location low back Mobilization Type Myofascial Release Strumming Intensity/Depth Moderate Comments prone on body cushion lumbar paraspinals Manual Techniques 2 Body Location sidelying posterior glide of the innominant and lumbar paraspinal release Body Position Sidelying 1 Type MET for right anterior innominant Body Position Supine Reps/Duration 5 reps holding 5 seconds PT-OP-R Modalities Start: 02/05/18 12:23 Freq: Status: Active Protocol: Document 02/13/18 12:25 [facility] (Rec: 02/13/18 12:30 [facility] [email or web address]) Hot Pack/Cold Pack Treatment Cold Pack Location low back ice pack Patient Position Hooklying Treatment Duration (minutes) 10 PT-OP-T Assessment and Plan Start: 02/05/18 12:23 Freq: Status: Active Protocol: Document 02/13/18 12:25 [facility] (Rec: 02/13/18 12:30 [facility] [email or web address]) Physical Therapy Assessment Assessment Summary Assessment tightness in the right greater than left iliopsoas attachment, could feel paraspinal tightness greater on the right as well. Added in a standing and supine hip flexor stretch Physical Therapy Plan Frequency and Duration Frequency of Treatment 2x/Week Duration of Treatment 8 weeks Plan of Care Start Date 02/05/18 Plan of Care End Date 04/02/18 Therapeutic Interventions Therapeutic Interventions Home Exercise Program Manual Therapy Neuromuscular Re-education Self-Care/Home Management Soft Tissue Mobilization Therapeutic Exercises Modalities Cold Pack/Ice Massage Next Visit Focus/Plan Next Note Type Treatment Note Next Visit Plan Continue PT for pain managment , core stabilization, posture and body mechanics, biomechanics of gait.
--- NOTE | 2018-02-19 09:50 | PT.OTN ---
Current Diagnoses Sacroiliitis, not elsewhere classified (02/18/18) Physical Therapy Treatment Note PT-OP-A Visit Information Start: 02/05/18 12:23 Freq: Status: Active Protocol: Document 02/19/18 09:45 [facility] (Rec: 02/19/18 09:50 [facility] [email or web address]) Out-Patient Physical Therapy Visit Information Visit Information Visit Type Treatment Note Visit Start Time 15:15 Visit Stop Time 16:00 Total Visit Minutes 55 Visit Number 4 Number of TERRITORY MANAGER [employer] SALES Visits 0 Evaluation Information Evaluation Date 02/05/18 PT-OP-B Current Condition Start: 02/05/18 12:23 Freq: Status: Active Protocol: Document 02/05/18 12:24 [facility] (Rec: 02/05/18 12:55 [facility] [email or web address]) Current Condition History of Current Condition Onset Date sx began several weeks ago Current Complaints c/o right sided hamstring pain that is also referred into the calf History of Current Condition Symptoms started with what Sachi thought was a hamstring strain. She was seen in PT for this earlier in 2018. At that time she only had hamstring pain when she walked uphill. Sachi was working on her exercises independently and she is not sure what brought on the sciatic symptoms but she is wondering if it was the sit-stand chair squats that may have aggravated her pain. Sitting now aggravates her symptoms and when her symptoms are flared she gets pain into the calf. It hurts to walk as well so she has stopped doing her walking program and has just been doing her aqua aerobics. Sachi misses walking and would like to return to her walking program Prior Treatments and Tests Prior PT earlier in 2018 for hamstring strain Treatment Goals Patient/Caregiver Goals to be able to return to a walking program Current Functional Impairments (Reported) Functional Limitations- ADL's sitting aggravates symptoms and lifting aggravates symptoms Functional Limitations- Mobility/Gait walking is limited due to pain PT-OP-C Subjective Start: 02/05/18 12:23 Freq: Status: Active Protocol: Document 02/19/18 09:45 [facility] (Rec: 02/19/18 09:50 [facility] [email or web address]) OP-PT Subjective Patient Comments Patient Comments Sachi reports she felt really tired following last visit but felt like a lot of toxins were released. She is feeling symptoms into her right calf OP-PT Pain Assessment Location right hamstring Pain Location Details referred pain with intermittent pain into the posterior calf Intensity 5 Scale Used Numeric (1 - 10) Radiating Location to right hamstring and calf PT-OP-F Manual Assessment Start: 02/05/18 12:23 Freq: Status: Active Protocol: Document 02/05/18 12:24 [facility] (Rec: 02/05/18 12:55 [facility] [email or web address]) Manual Assessments Soft Tissue Assessment Soft Tissue Mobility Assessment very guarded lumbar paraspinal musculature and Sachi stands with the lumbar spine in extension Joint Mobility Assessment Joint Mobility Assessment + SI joint march test for right sided dysfunction Right leg longer in supine and right pelvis anteriorly rotated PT-OP-J Posture/Palpation/Skin Start: 02/05/18 12:23 Freq: Status: Active Protocol: Document 02/05/18 12:24 [facility] (Rec: 02/05/18 12:55 [facility] [email or web address]) Palpation Assessment Location Two Palpation Location lumbar paraspinals Palpation Findings Soft Tissue Tightness Spasm Muscle Guarding One Palpation Location right PSIS Palpation Findings Tenderness PT-OP-K Range of Motion Start: 02/05/18 12:56 Freq: Status: Active Protocol: Document 02/05/18 12:56 [facility] (Rec: 02/05/18 12:57 [facility] [email or web address]) Lumbar Spine Range of Motion Lumbar Spine Active ROM Limitations Soft Tissue Tightness Comments Lumbar spine WFL limited by soft tissue tightness at end range flexion Hip Goniometric Range of Motion Hip Measured in Degrees Left Hip ROM WFL Yes Testing Position Supine Right Hip ROM WFL Yes Testing Position Supine PT-OP-L Special Tests Start: 02/05/18 12:23 Freq: Status: Active Protocol: Document 02/05/18 12:24 [facility] (Rec: 02/05/18 12:55 [facility] [email or web address]) Special Tests Lumbar Spine Special Tests Straight Leg Raise Test Results negative with hamstring tightness only PT-OP-M Strength Start: 02/05/18 12:23 Freq: Status: Active Protocol: Document 02/05/18 12:24 [facility] (Rec: 02/05/18 12:55 [facility] [email or web address]) Trunk Strength Trunk Manual Muscle Testing Core Stabilization decreased TA recruitment PT-OP-Q Treatments Start: 02/05/18 12:23 Freq: Status: Active Protocol: Document 02/19/18 09:45 [facility] (Rec: 02/19/18 09:50 [facility] [email or web address]) Therapeutic Exercises Supine Exercises 1 Supine Exercise Name single knee to chest Side bilateral Reps/Minutes hold 1-2 minutes Other Exercises 1 Other Exercise Name quadraped cat-cow and rafaela pose stretch Side bilateral Reps/Minutes 10 reps Manual Therapy Treatment Soft Tissue Mobilization 1 Body Location low back Mobilization Type Myofascial Release Strumming Intensity/Depth Moderate Comments prone on body cushion lumbar paraspinals PT-OP-R Modalities Start: 02/05/18 12:23 Freq: Status: Active Protocol: Document 02/13/18 12:25 [facility] (Rec: 02/13/18 12:30 [facility] [email or web address]) Hot Pack/Cold Pack Treatment Cold Pack Location low back ice pack Patient Position Hooklying Treatment Duration (minutes) 10 PT-OP-T Assessment and Plan Start: 02/05/18 12:23 Freq: Status: Active Protocol: Document 02/19/18 09:45 [facility] (Rec: 02/19/18 09:50 [facility] [email or web address]) Physical Therapy Assessment Assessment Summary Assessment Sachi reports she is doing her exercises at home, still very tender at the right L3-5 parapspinals but decreased in intensity from last visit. Recheck neural symptoms again next visit. Talked to Sachi about avoiding activities that cause a increased arch in her low back Physical Therapy Plan Frequency and Duration Frequency of Treatment 2x/Week Duration of Treatment 8 weeks Plan of Care Start Date 02/05/18 Plan of Care End Date 04/02/18 Therapeutic Interventions Therapeutic Interventions Home Exercise Program Manual Therapy Neuromuscular Re-education Self-Care/Home Management Soft Tissue Mobilization Therapeutic Exercises Modalities Cold Pack/Ice Massage Next Visit Focus/Plan Next Note Type Treatment Note Next Visit Plan Continue PT for pain managment , core stabilization, posture and body mechanics, biomechanics of gait.
--- NOTE | 2018-02-25 17:00 | PT.OTN ---
Current Diagnoses Sacroiliitis, not elsewhere classified (02/25/18) Physical Therapy Treatment Note PT-OP-A Visit Information Start: 02/05/18 12:23 Freq: Status: Active Protocol: Document 02/25/18 16:55 [facility] (Rec: 02/25/18 17:00 [facility] [email or web address]) Out-Patient Physical Therapy Visit Information Visit Information Visit Type Treatment Note Visit Start Time 15:15 Visit Stop Time 16:00 Total Visit Minutes 55 Visit Number 5 Number of [employer]ILLING GENERAL SUPERINTENDENT Visits 0 PT-OP-B Current Condition Start: 02/05/18 12:23 Freq: Status: Active Protocol: Document 02/05/18 12:24 [facility] (Rec: 02/05/18 12:55 [facility] [email or web address]) Current Condition History of Current Condition Onset Date sx began several weeks ago Current Complaints c/o right sided hamstring pain that is also referred into the calf History of Current Condition Symptoms started with what Sachi thought was a hamstring strain. She was seen in PT for this earlier in 2018. At that time she only had hamstring pain when she walked uphill. Sachi was working on her exercises independently and she is not sure what brought on the sciatic symptoms but she is wondering if it was the sit-stand chair squats that may have aggravated her pain. Sitting now aggravates her symptoms and when her symptoms are flared she gets pain into the calf. It hurts to walk as well so she has stopped doing her walking program and has just been doing her aqua aerobics. Sachi misses walking and would like to return to her walking program Prior Treatments and Tests Prior PT earlier in 2018 for hamstring strain Treatment Goals Patient/Caregiver Goals to be able to return to a walking program Current Functional Impairments (Reported) Functional Limitations- ADL's sitting aggravates symptoms and lifting aggravates symptoms Functional Limitations- Mobility/Gait walking is limited due to pain PT-OP-C Subjective Start: 02/05/18 12:23 Freq: Status: Active Protocol: Document 02/25/18 16:55 [facility] (Rec: 02/25/18 17:00 [facility] [email or web address]) OP-PT Subjective Patient Comments Patient Comments Sachi reports she is doing better this week and she walked more than she has without increased c/o leg pain Patient Reported Progress Improving PT-OP-F Manual Assessment Start: 02/05/18 12:23 Freq: Status: Active Protocol: Document 02/05/18 12:24 [facility] (Rec: 02/05/18 12:55 [facility] [email or web address]) Manual Assessments Soft Tissue Assessment Soft Tissue Mobility Assessment very guarded lumbar paraspinal musculature and Sachi stands with the lumbar spine in extension Joint Mobility Assessment Joint Mobility Assessment + SI joint march test for right sided dysfunction Right leg longer in supine and right pelvis anteriorly rotated PT-OP-J Posture/Palpation/Skin Start: 02/05/18 12:23 Freq: Status: Active Protocol: Document 02/05/18 12:24 [facility] (Rec: 02/05/18 12:55 [facility] [email or web address]) Palpation Assessment Location Two Palpation Location lumbar paraspinals Palpation Findings Soft Tissue Tightness Spasm Muscle Guarding One Palpation Location right PSIS Palpation Findings Tenderness PT-OP-K Range of Motion Start: 02/05/18 12:56 Freq: Status: Active Protocol: Document 02/05/18 12:56 [facility] (Rec: 02/05/18 12:57 [facility] [email or web address]) Lumbar Spine Range of Motion Lumbar Spine Active ROM Limitations Soft Tissue Tightness Comments Lumbar spine WFL limited by soft tissue tightness at end range flexion Hip Goniometric Range of Motion Hip Measured in Degrees Left Hip ROM WFL Yes Testing Position Supine Right Hip ROM WFL Yes Testing Position Supine PT-OP-L Special Tests Start: 02/05/18 12:23 Freq: Status: Active Protocol: Document 02/05/18 12:24 [facility] (Rec: 02/05/18 12:55 [facility] [email or web address]) Special Tests Lumbar Spine Special Tests Straight Leg Raise Test Results negative with hamstring tightness only PT-OP-M Strength Start: 02/05/18 12:23 Freq: Status: Active Protocol: Document 02/05/18 12:24 [facility] (Rec: 02/05/18 12:55 [facility] [email or web address]) Trunk Strength Trunk Manual Muscle Testing Core Stabilization decreased TA recruitment PT-OP-Q Treatments Start: 02/05/18 12:23 Freq: Status: Active Protocol: Document 02/25/18 16:55 [facility] (Rec: 02/25/18 17:00 [facility] [email or web address]) Therapeutic Exercises Other Exercises 1 Other Exercise Name quadraped cat-cow and rafaela pose stretch Side bilateral Reps/Minutes 10 reps Manual Therapy Treatment Soft Tissue Mobilization 1 Body Location low back Mobilization Type Myofascial Release Strumming Intensity/Depth Moderate Comments prone on body cushion lumbar paraspinals PT-OP-R Modalities Start: 02/05/18 12:23 Freq: Status: Active Protocol: Document 02/25/18 17:00 [facility] (Rec: 02/25/18 17:00 [facility] [email or web address]) Ultrasound Therapy Treatment Right Back Patient Position Prone Coupling Medium Ultrasound Gel Applicator Size (cm2) 5 Mode Setting Continuous Duty Cycle 100% PT-OP-T Assessment and Plan Start: 02/05/18 12:23 Freq: Status: Active Protocol: Document 02/25/18 16:55 [facility] (Rec: 02/25/18 17:00 [facility] [email or web address]) Physical Therapy Assessment Assessment Summary Assessment decreasing tightness in the right L3-4 and improved lumbar flexion with rafaela pose. Decrease c/o radicular symtoms down the right posterior leg Physical Therapy Plan Frequency and Duration Frequency of Treatment 2x/Week Duration of Treatment 8 weeks Plan of Care Start Date 02/05/18 Plan of Care End Date 04/02/18 Therapeutic Interventions Therapeutic Interventions Home Exercise Program Manual Therapy Neuromuscular Re-education Self-Care/Home Management Soft Tissue Mobilization Therapeutic Exercises Modalities Cold Pack/Ice Massage Next Visit Focus/Plan Next Note Type Treatment Note Next Visit Plan Continue PT for pain managment , core stabilization, posture and body mechanics, biomechanics of gait.
--- NOTE | 2018-03-05 14:41 | PT.OTN ---
Current Diagnoses Sacroiliitis, not elsewhere classified (03/05/18) Physical Therapy Treatment Note PT-OP-A Visit Information Start: 02/05/18 12:23 Freq: Status: Active Protocol: Document 03/05/18 14:32 [facility] (Rec: 03/05/18 14:41 [facility] [id number]) Out-Patient Physical Therapy Visit Information Visit Information Visit Type Treatment Note Visit Start Time 11:30 Visit Stop Time 12:25 Total Visit Minutes 55 Visit Number 6 Number of WIND SITE MANAGER Visits 0 PT-OP-B Current Condition Start: 02/05/18 12:23 Freq: Status: Active Protocol: Document 02/05/18 12:24 [facility] (Rec: 02/05/18 12:55 [facility] [email or web address]) Current Condition History of Current Condition Onset Date sx began several weeks ago Current Complaints c/o right sided hamstring pain that is also referred into the calf History of Current Condition Symptoms started with what Sachi thought was a hamstring strain. She was seen in PT for this earlier in 2018. At that time she only had hamstring pain when she walked uphill. Sachi was working on her exercises independently and she is not sure what brought on the sciatic symptoms but she is wondering if it was the sit-stand chair squats that may have aggravated her pain. Sitting now aggravates her symptoms and when her symptoms are flared she gets pain into the calf. It hurts to walk as well so she has stopped doing her walking program and has just been doing her aqua aerobics. Sachi misses walking and would like to return to her walking program Prior Treatments and Tests Prior PT earlier in 2018 for hamstring strain Treatment Goals Patient/Caregiver Goals to be able to return to a walking program Current Functional Impairments (Reported) Functional Limitations- ADL's sitting aggravates symptoms and lifting aggravates symptoms Functional Limitations- Mobility/Gait walking is limited due to pain PT-OP-C Subjective Start: 02/05/18 12:23 Freq: Status: Active Protocol: Document 03/05/18 14:32 [facility] (Rec: 03/05/18 14:41 [facility] [id number]) OP-PT Subjective Patient Comments Patient Comments Sachi reports she was able to walk on the [place] today without leg pain PT-OP-F Manual Assessment Start: 02/05/18 12:23 Freq: Status: Active Protocol: Document 02/05/18 12:24 [facility] (Rec: 02/05/18 12:55 [facility] [email or web address]) Manual Assessments Soft Tissue Assessment Soft Tissue Mobility Assessment very guarded lumbar paraspinal musculature and Sachi stands with the lumbar spine in extension Joint Mobility Assessment Joint Mobility Assessment + SI joint march test for right sided dysfunction Right leg longer in supine and right pelvis anteriorly rotated PT-OP-J Posture/Palpation/Skin Start: 02/05/18 12:23 Freq: Status: Active Protocol: Document 02/05/18 12:24 [facility] (Rec: 02/05/18 12:55 [facility] [email or web address]) Palpation Assessment Location Two Palpation Location lumbar paraspinals Palpation Findings Soft Tissue Tightness Spasm Muscle Guarding One Palpation Location right PSIS Palpation Findings Tenderness PT-OP-K Range of Motion Start: 02/05/18 12:56 Freq: Status: Active Protocol: Document 02/05/18 12:56 [facility] (Rec: 02/05/18 12:57 [facility] [email or web address]) Lumbar Spine Range of Motion Lumbar Spine Active ROM Limitations Soft Tissue Tightness Comments Lumbar spine WFL limited by soft tissue tightness at end range flexion Hip Goniometric Range of Motion Hip Measured in Degrees Left Hip ROM WFL Yes Testing Position Supine Right Hip ROM WFL Yes Testing Position Supine PT-OP-L Special Tests Start: 02/05/18 12:23 Freq: Status: Active Protocol: Document 02/05/18 12:24 [facility] (Rec: 02/05/18 12:55 [facility] [email or web address]) Special Tests Lumbar Spine Special Tests Straight Leg Raise Test Results negative with hamstring tightness only PT-OP-M Strength Start: 02/05/18 12:23 Freq: Status: Active Protocol: Document 02/05/18 12:24 [facility] (Rec: 02/05/18 12:55 [facility] [email or web address]) Trunk Strength Trunk Manual Muscle Testing Core Stabilization decreased TA recruitment PT-OP-Q Treatments Start: 02/05/18 12:23 Freq: Status: Active Protocol: Document 03/05/18 14:32 [facility] (Rec: 03/05/18 14:41 [facility] [id number]) Therapeutic Exercises Standing Exercises 5 Standing Exercise Name standing wall slides Reps/Minutes 5 Manual Therapy Treatment Soft Tissue Mobilization 1 Body Location low back Mobilization Type Myofascial Release Strumming Intensity/Depth Moderate Comments prone on body cushion lumbar paraspinals Joint Mobilizations 1 Joint PA glides thoracic spine Manual Techniques 1 Type MET for right anterior innominant Body Position Supine Reps/Duration 5 reps holding 5 seconds PT-OP-R Modalities Start: 02/05/18 12:23 Freq: Status: Active Protocol: Document 03/05/18 14:32 [facility] (Rec: 03/05/18 14:41 [facility] [id number]) Ultrasound Therapy Treatment Right Back Patient Position Prone Coupling Medium Ultrasound Gel Applicator Size (cm2) 5 Mode Setting Continuous Duty Cycle 100% PT-OP-T Assessment and Plan Start: 02/05/18 12:23 Freq: Status: Active Protocol: Document 03/05/18 14:32 [facility] (Rec: 03/05/18 14:41 [facility] [id number]) Physical Therapy Assessment Assessment Summary Assessment Began working on postural techniques today and Sachi is feeling better. Worked on wall slides and gave HEP of rolled up yoga mat stretch in supine. Also began PA glides thoracic spine and this tightness is most likely contributing to Andrew symptoms Physical Therapy Plan Frequency and Duration Frequency of Treatment 2x/Week Duration of Treatment 8 weeks Plan of Care Start Date 02/05/18 Plan of Care End Date 04/02/18 Next Visit Focus/Plan Next Note Type Treatment Note Next Visit Plan begin standing rows next visit and demonstrate foam roll stretch
--- NOTE | 2018-03-12 14:03 | PT.OTN ---
Current Diagnoses Sacroiliitis, not elsewhere classified (03/12/18) Physical Therapy Treatment Note PT-OP-A Visit Information Start: 02/05/18 12:23 Freq: Status: Active Protocol: Document 03/05/18 14:32 [facility] (Rec: 03/05/18 14:41 [facility] [id number]) Out-Patient Physical Therapy Visit Information Visit Information Visit Type Treatment Note Visit Start Time 11:30 Visit Stop Time 12:25 Total Visit Minutes 55 Visit Number 6 Number of MONKEY TRAINER Visits 0 PT-OP-B Current Condition Start: 02/05/18 12:23 Freq: Status: Active Protocol: Document 02/05/18 12:24 [facility] (Rec: 02/05/18 12:55 [facility] [email or web address]) Current Condition History of Current Condition Onset Date sx began several weeks ago Current Complaints c/o right sided hamstring pain that is also referred into the calf History of Current Condition Symptoms started with what Sachi thought was a hamstring strain. She was seen in PT for this earlier in 2018. At that time she only had hamstring pain when she walked uphill. Sachi was working on her exercises independently and she is not sure what brought on the sciatic symptoms but she is wondering if it was the sit-stand chair squats that may have aggravated her pain. Sitting now aggravates her symptoms and when her symptoms are flared she gets pain into the calf. It hurts to walk as well so she has stopped doing her walking program and has just been doing her aqua aerobics. Sachi misses walking and would like to return to her walking program Prior Treatments and Tests Prior PT earlier in 2018 for hamstring strain Treatment Goals Patient/Caregiver Goals to be able to return to a walking program Current Functional Impairments (Reported) Functional Limitations- ADL's sitting aggravates symptoms and lifting aggravates symptoms Functional Limitations- Mobility/Gait walking is limited due to pain PT-OP-C Subjective Start: 02/05/18 12:23 Freq: Status: Active Protocol: Document 03/05/18 14:32 [facility] (Rec: 03/05/18 14:41 [facility] [id number]) OP-PT Subjective Patient Comments Patient Comments Sachi reports she was able to walk on the [employer] trail today without leg pain PT-OP-F Manual Assessment Start: 02/05/18 12:23 Freq: Status: Active Protocol: Document 02/05/18 12:24 [facility] (Rec: 02/05/18 12:55 [facility] [email or web address]) Manual Assessments Soft Tissue Assessment Soft Tissue Mobility Assessment very guarded lumbar paraspinal musculature and Sachi stands with the lumbar spine in extension Joint Mobility Assessment Joint Mobility Assessment + SI joint march test for right sided dysfunction Right leg longer in supine and right pelvis anteriorly rotated PT-OP-J Posture/Palpation/Skin Start: 02/05/18 12:23 Freq: Status: Active Protocol: Document 02/05/18 12:24 [facility] (Rec: 02/05/18 12:55 [facility] [email or web address]) Palpation Assessment Location Two Palpation Location lumbar paraspinals Palpation Findings Soft Tissue Tightness Spasm Muscle Guarding One Palpation Location right PSIS Palpation Findings Tenderness PT-OP-K Range of Motion Start: 02/05/18 12:56 Freq: Status: Active Protocol: Document 02/05/18 12:56 [facility] (Rec: 02/05/18 12:57 [facility] [email or web address]) Lumbar Spine Range of Motion Lumbar Spine Active ROM Limitations Soft Tissue Tightness Comments Lumbar spine WFL limited by soft tissue tightness at end range flexion Hip Goniometric Range of Motion Hip Measured in Degrees Left Hip ROM WFL Yes Testing Position Supine Right Hip ROM WFL Yes Testing Position Supine PT-OP-L Special Tests Start: 02/05/18 12:23 Freq: Status: Active Protocol: Document 02/05/18 12:24 [facility] (Rec: 02/05/18 12:55 [facility] [email or web address]) Special Tests Lumbar Spine Special Tests Straight Leg Raise Test Results negative with hamstring tightness only PT-OP-M Strength Start: 02/05/18 12:23 Freq: Status: Active Protocol: Document 02/05/18 12:24 [facility] (Rec: 02/05/18 12:55 [facility] [email or web address]) Trunk Strength Trunk Manual Muscle Testing Core Stabilization decreased TA recruitment PT-OP-Q Treatments Start: 02/05/18 12:23 Freq: Status: Active Protocol: Document 03/12/18 13:56 [facility] (Rec: 03/12/18 14:03 [facility] [email or web address]) Manual Therapy Treatment Soft Tissue Mobilization 1 Body Location low back and mid back Mobilization Type Myofascial Release Strumming Intensity/Depth Moderate Comments prone on body cushion lumbar paraspinals Joint Mobilizations 1 Joint PA glides thoracic spine PT-OP-R Modalities Start: 02/05/18 12:23 Freq: Status: Active Protocol: Document 03/05/18 14:32 [facility] (Rec: 03/05/18 14:41 [facility] [id number]) Ultrasound Therapy Treatment Right Back Patient Position Prone Coupling Medium Ultrasound Gel Applicator Size (cm2) 5 Mode Setting Continuous Duty Cycle 100% PT-OP-T Assessment and Plan Start: 02/05/18 12:23 Freq: Status: Active Protocol: Document 03/12/18 13:56 [facility] (Rec: 03/12/18 14:03 [facility] [email or web address]) Physical Therapy Assessment Assessment Summary Assessment Sachi notes no complaints of leg pain at this time. She tried using her yoga mat rolled up to stretch over but this did not work well Physical Therapy Plan Frequency and Duration Frequency of Treatment 2x/Week Duration of Treatment 8 weeks Plan of Care Start Date 02/05/18 Plan of Care End Date 04/02/18 Next Visit Focus/Plan Next Note Type Treatment Note Next Visit Plan begin standing rows next visit and continue to emphaszise posture
--- NOTE | 2018-03-26 09:54 | PT.OTN ---
Current Diagnoses Sacroiliitis, not elsewhere classified (03/25/18) Physical Therapy Treatment Note PT-OP-A Visit Information Start: 02/05/18 12:23 Freq: Status: Active Protocol: Document 03/25/18 09:45 [facility] (Rec: 03/26/18 09:54 [facility] [email or web address]) Out-Patient Physical Therapy Visit Information Visit Information Visit Type Treatment Note Visit Start Time 09:00 Visit Stop Time 09:45 Total Visit Minutes 45 Visit Number 8 Number of CLEANER INDUSTRIAL Visits 0 PT-OP-B Current Condition Start: 02/05/18 12:23 Freq: Status: Active Protocol: Document 02/05/18 12:24 [facility] (Rec: 02/05/18 12:55 [facility] [email or web address]) Current Condition History of Current Condition Onset Date sx began several weeks ago Current Complaints c/o right sided hamstring pain that is also referred into the calf History of Current Condition Symptoms started with what Sachi thought was a hamstring strain. She was seen in PT for this earlier in 2018. At that time she only had hamstring pain when she walked uphill. Sachi was working on her exercises independently and she is not sure what brought on the sciatic symptoms but she is wondering if it was the sit-stand chair squats that may have aggravated her pain. Sitting now aggravates her symptoms and when her symptoms are flared she gets pain into the calf. It hurts to walk as well so she has stopped doing her walking program and has just been doing her aqua aerobics. Sachi misses walking and would like to return to her walking program Prior Treatments and Tests Prior PT earlier in 2018 for hamstring strain Treatment Goals Patient/Caregiver Goals to be able to return to a walking program Current Functional Impairments (Reported) Functional Limitations- ADL's sitting aggravates symptoms and lifting aggravates symptoms Functional Limitations- Mobility/Gait walking is limited due to pain PT-OP-C Subjective Start: 02/05/18 12:23 Freq: Status: Active Protocol: Document 03/25/18 09:45 [facility] (Rec: 03/26/18 09:54 [facility] [email or web address]) OP-PT Subjective Patient Comments Patient Comments Sachi reports she is hurting in her neck today and is having a constant headache. She is doing better overall with her leg pain and also reports reduced low back pain PT-OP-F Manual Assessment Start: 02/05/18 12:23 Freq: Status: Active Protocol: Document 02/05/18 12:24 [facility] (Rec: 02/05/18 12:55 [facility] [email or web address]) Manual Assessments Soft Tissue Assessment Soft Tissue Mobility Assessment very guarded lumbar paraspinal musculature and Sachi stands with the lumbar spine in extension Joint Mobility Assessment Joint Mobility Assessment + SI joint march test for right sided dysfunction Right leg longer in supine and right pelvis anteriorly rotated PT-OP-J Posture/Palpation/Skin Start: 02/05/18 12:23 Freq: Status: Active Protocol: Document 02/05/18 12:24 [facility] (Rec: 02/05/18 12:55 [facility] [email or web address]) Palpation Assessment Location Two Palpation Location lumbar paraspinals Palpation Findings Soft Tissue Tightness Spasm Muscle Guarding One Palpation Location right PSIS Palpation Findings Tenderness PT-OP-K Range of Motion Start: 02/05/18 12:56 Freq: Status: Active Protocol: Document 02/05/18 12:56 [facility] (Rec: 02/05/18 12:57 [facility] [email or web address]) Lumbar Spine Range of Motion Lumbar Spine Active ROM Limitations Soft Tissue Tightness Comments Lumbar spine WFL limited by soft tissue tightness at end range flexion Hip Goniometric Range of Motion Hip Measured in Degrees Left Hip ROM WFL Yes Testing Position Supine Right Hip ROM WFL Yes Testing Position Supine PT-OP-L Special Tests Start: 02/05/18 12:23 Freq: Status: Active Protocol: Document 02/05/18 12:24 [facility] (Rec: 02/05/18 12:55 [facility] [email or web address]) Special Tests Lumbar Spine Special Tests Straight Leg Raise Test Results negative with hamstring tightness only PT-OP-M Strength Start: 02/05/18 12:23 Freq: Status: Active Protocol: Document 02/05/18 12:24 [facility] (Rec: 02/05/18 12:55 [facility] [email or web address]) Trunk Strength Trunk Manual Muscle Testing Core Stabilization decreased TA recruitment PT-OP-Q Treatments Start: 02/05/18 12:23 Freq: Status: Active Protocol: Document 03/25/18 09:45 [facility] (Rec: 03/26/18 09:54 [facility] [email or web address]) Therapeutic Exercises Supine Exercises 6 Supine Exercise Name supine chin tucks Manual Therapy Treatment Soft Tissue Mobilization 2 Body Location cervical spine suboccipital release and STM to the upper trapezius region Manual Techniques 2 Type manual cervical traction Self-Care/Home Management Treatment Education Patient Education Home Exercise Program PT-OP-R Modalities Start: 02/05/18 12:23 Freq: Status: Active Protocol: Document 03/05/18 14:32 [facility] (Rec: 03/05/18 14:41 [facility] [id number]) Ultrasound Therapy Treatment Right Back Patient Position Prone Coupling Medium Ultrasound Gel Applicator Size (cm2) 5 Mode Setting Continuous Duty Cycle 100% PT-OP-T Assessment and Plan Start: 02/05/18 12:23 Freq: Status: Active Protocol: Document 03/25/18 09:45 [facility] (Rec: 03/26/18 09:54 [facility] [email or web address]) Physical Therapy Assessment Assessment Summary Assessment worked on stretching and releasing the cervcial spine and added in chin tucks. Sachi would benefit from reviewing her postural exercises. Leg pain is improved overall and she has returned to her walking program Physical Therapy Plan Frequency and Duration Frequency of Treatment 2x/Week Duration of Treatment 8 weeks Plan of Care Start Date 02/05/18 Plan of Care End Date 04/02/18 Therapeutic Interventions Therapeutic Interventions Home Exercise Program Manual Therapy Neuromuscular Re-education Self-Care/Home Management Soft Tissue Mobilization Therapeutic Exercises Modalities Cold Pack/Ice Massage Next Visit Focus/Plan Next Note Type Treatment Note Next Visit Plan revisit standing rows and postural program
--- NOTE | 2018-04-01 16:35 | PT.OPPN ---
Current Diagnoses Sacroiliitis, not elsewhere classified (04/01/18) Physical Therapy Progress Note PT-OP-A Visit Information Start: 02/05/18 12:23 Freq: Status: Active Protocol: Document 04/01/18 16:27 [facility] (Rec: 04/01/18 16:35 [facility] [email or web address]) Out-Patient Physical Therapy Visit Information Visit Information Visit Type Progress Note Visit Start Time 13:45 Visit Stop Time 14:30 Total Visit Minutes 45 Visit Number 9 Number of KOSHER SEALER Visits 0 PT-OP-B Current Condition Start: 02/05/18 12:23 Freq: Status: Active Protocol: Document 02/05/18 12:24 [facility] (Rec: 02/05/18 12:55 [facility] [email or web address]) Current Condition History of Current Condition Onset Date sx began several weeks ago Current Complaints c/o right sided hamstring pain that is also referred into the calf History of Current Condition Symptoms started with what Sachi thought was a hamstring strain. She was seen in PT for this earlier in 2018. At that time she only had hamstring pain when she walked uphill. Sachi was working on her exercises independently and she is not sure what brought on the sciatic symptoms but she is wondering if it was the sit-stand chair squats that may have aggravated her pain. Sitting now aggravates her symptoms and when her symptoms are flared she gets pain into the calf. It hurts to walk as well so she has stopped doing her walking program and has just been doing her aqua aerobics. Sachi misses walking and would like to return to her walking program Prior Treatments and Tests Prior PT earlier in 2018 for hamstring strain Treatment Goals Patient/Caregiver Goals to be able to return to a walking program Current Functional Impairments (Reported) Functional Limitations- ADL's sitting aggravates symptoms and lifting aggravates symptoms Functional Limitations- Mobility/Gait walking is limited due to pain PT-OP-C Subjective Start: 02/05/18 12:23 Freq: Status: Active Protocol: Document 04/01/18 16:27 [facility] (Rec: 04/01/18 16:35 [facility] [email or web address]) OP-PT Subjective Patient Comments Patient Comments Sachi notes her headache decreased significantly after last visit. She was able to take a dance lesson this past week as well Patient Reported Progress Improving PT-OP-F Manual Assessment Start: 02/05/18 12:23 Freq: Status: Active Protocol: Document 02/05/18 12:24 [facility] (Rec: 02/05/18 12:55 [facility] [email or web address]) Manual Assessments Soft Tissue Assessment Soft Tissue Mobility Assessment very guarded lumbar paraspinal musculature and Sachi stands with the lumbar spine in extension Joint Mobility Assessment Joint Mobility Assessment + SI joint march test for right sided dysfunction Right leg longer in supine and right pelvis anteriorly rotated PT-OP-J Posture/Palpation/Skin Start: 02/05/18 12:23 Freq: Status: Active Protocol: Document 02/05/18 12:24 [facility] (Rec: 02/05/18 12:55 [facility] [email or web address]) Palpation Assessment Location Two Palpation Location lumbar paraspinals Palpation Findings Soft Tissue Tightness Spasm Muscle Guarding One Palpation Location right PSIS Palpation Findings Tenderness PT-OP-K Range of Motion Start: 02/05/18 12:56 Freq: Status: Active Protocol: Document 02/05/18 12:56 [facility] (Rec: 02/05/18 12:57 [facility] [email or web address]) Lumbar Spine Range of Motion Lumbar Spine Active ROM Limitations Soft Tissue Tightness Comments Lumbar spine WFL limited by soft tissue tightness at end range flexion Hip Goniometric Range of Motion Hip Measured in Degrees Left Hip ROM WFL Yes Testing Position Supine Right Hip ROM WFL Yes Testing Position Supine PT-OP-L Special Tests Start: 02/05/18 12:23 Freq: Status: Active Protocol: Document 02/05/18 12:24 [facility] (Rec: 02/05/18 12:55 [facility] [email or web address]) Special Tests Lumbar Spine Special Tests Straight Leg Raise Test Results negative with hamstring tightness only PT-OP-M Strength Start: 02/05/18 12:23 Freq: Status: Active Protocol: Document 02/05/18 12:24 [facility] (Rec: 02/05/18 12:55 [facility] [email or web address]) Trunk Strength Trunk Manual Muscle Testing Core Stabilization decreased TA recruitment PT-OP-T Assessment and Plan Start: 02/05/18 12:23 Freq: Status: Active Protocol: Document 04/01/18 16:27 [facility] (Rec: 04/01/18 16:35 [facility] [email or web address]) Physical Therapy Assessment Assessment Summary Assessment Sachi has made great overall progress. She is no longer complaining of posterior nerve pain and has been able to return to a modified walking routine. She has experienced a flare of upper back and neck pain so we have been addressing this as well. Today we reviewed postural exercise for Sachi to do at home along with her stretching routine. She would benefit from continued PT Physical Therapy Plan Frequency and Duration Frequency of Treatment 2x/Week Duration of Treatment 8 weeks Plan of Care Start Date 04/01/18 Plan of Care End Date 05/28/18 Therapeutic Interventions Therapeutic Interventions Home Exercise Program Manual Therapy Neuromuscular Re-education Self-Care/Home Management Soft Tissue Mobilization Therapeutic Exercises Modalities Cold Pack/Ice Massage Next Visit Focus/Plan Next Note Type Treatment Note Next Visit Plan continue progressing postural exercises and focus on a home program
--- NOTE | 2018-04-01 16:35 | PT.OPPOC ---
Current Diagnoses Sacroiliitis, not elsewhere classified (04/01/18) Provider Visit Care Team Role Provider Type Shandra Harrison MD Attending Provider Non-Staff Family Provider Primary Care Provider Specialty: Medical Address: [address] [place] [address], [phone] Email: Plan Of Care PT-OP-T Assessment and Plan Start: 02/05/18 12:23 Freq: Status: Active Protocol: Document 04/01/18 16:27 [facility] (Rec: 04/01/18 16:35 [facility] [email or web address]) Physical Therapy Assessment Assessment Summary Assessment Sachi has made great overall progress. She is no longer complaining of posterior nerve pain and has been able to return to a modified walking routine. She has experienced a flare of upper back and neck pain so we have been addressing this as well. Today we reviewed postural exercise for Sachi to do at home along with her stretching routine. She would benefit from continued PT Physical Therapy Plan Frequency and Duration Frequency of Treatment 2x/Week Duration of Treatment 8 weeks Plan of Care Start Date 04/01/18 Plan of Care End Date 05/28/18 Therapeutic Interventions Therapeutic Interventions Home Exercise Program Manual Therapy Neuromuscular Re-education Self-Care/Home Management Soft Tissue Mobilization Therapeutic Exercises Modalities Cold Pack/Ice Massage Next Visit Focus/Plan Next Note Type Treatment Note Next Visit Plan continue progressing postural exercises and focus on a home program Plan of Care Dates Plan of Care Start Date 04/01/18 Plan of Care End Date 05/28/18 Please Sign and Return: I have reviewed this Plan of Care and certify that the skilled therapy services above are required to meet the patient?s needs. Physician Signature Date Printed Name and Credentials Clinical Instructor Signature Printed Name and Credentials
--- NOTE | 2018-04-03 13:24 | PT.OTN ---
Current Diagnoses Sacroiliitis, not elsewhere classified (04/03/18) Physical Therapy Treatment Note PT-OP-A Visit Information Start: 02/05/18 12:23 Freq: Status: Active Protocol: Document 04/03/18 13:21 [facility] (Rec: 04/03/18 13:23 [facility] [email or web address]) Out-Patient Physical Therapy Visit Information Visit Information Visit Type Treatment Note Visit Start Time 09:00 Visit Stop Time 09:45 Total Visit Minutes 45 Visit Number 10 Number of TRADE MARK EXAMINER Visits 0 Evaluation Information Evaluation Date 02/05/18 PT-OP-B Current Condition Start: 02/05/18 12:23 Freq: Status: Active Protocol: Document 02/05/18 12:24 [facility] (Rec: 02/05/18 12:55 [facility] [email or web address]) Current Condition History of Current Condition Onset Date sx began several weeks ago Current Complaints c/o right sided hamstring pain that is also referred into the calf History of Current Condition Symptoms started with what Sachi thought was a hamstring strain. She was seen in PT for this earlier in 2018. At that time she only had hamstring pain when she walked uphill. Sachi was working on her exercises independently and she is not sure what brought on the sciatic symptoms but she is wondering if it was the sit-stand chair squats that may have aggravated her pain. Sitting now aggravates her symptoms and when her symptoms are flared she gets pain into the calf. It hurts to walk as well so she has stopped doing her walking program and has just been doing her aqua aerobics. Sachi misses walking and would like to return to her walking program Prior Treatments and Tests Prior PT earlier in 2018 for hamstring strain Treatment Goals Patient/Caregiver Goals to be able to return to a walking program Current Functional Impairments (Reported) Functional Limitations- ADL's sitting aggravates symptoms and lifting aggravates symptoms Functional Limitations- Mobility/Gait walking is limited due to pain PT-OP-C Subjective Start: 02/05/18 12:23 Freq: Status: Active Protocol: Document 04/01/18 16:27 [facility] (Rec: 04/01/18 16:35 [facility] [email or web address]) OP-PT Subjective Patient Comments Patient Comments Sachi notes her headache decreased significantly after last visit. She was able to take a dance lesson this past week as well Patient Reported Progress Improving PT-OP-F Manual Assessment Start: 02/05/18 12:23 Freq: Status: Active Protocol: Document 02/05/18 12:24 [facility] (Rec: 02/05/18 12:55 [facility] [email or web address]) Manual Assessments Soft Tissue Assessment Soft Tissue Mobility Assessment very guarded lumbar paraspinal musculature and Sachi stands with the lumbar spine in extension Joint Mobility Assessment Joint Mobility Assessment + SI joint march test for right sided dysfunction Right leg longer in supine and right pelvis anteriorly rotated PT-OP-J Posture/Palpation/Skin Start: 02/05/18 12:23 Freq: Status: Active Protocol: Document 02/05/18 12:24 [facility] (Rec: 02/05/18 12:55 [facility] [email or web address]) Palpation Assessment Location Two Palpation Location lumbar paraspinals Palpation Findings Soft Tissue Tightness Spasm Muscle Guarding One Palpation Location right PSIS Palpation Findings Tenderness PT-OP-K Range of Motion Start: 02/05/18 12:56 Freq: Status: Active Protocol: Document 02/05/18 12:56 [facility] (Rec: 02/05/18 12:57 [facility] [email or web address]) Lumbar Spine Range of Motion Lumbar Spine Active ROM Limitations Soft Tissue Tightness Comments Lumbar spine WFL limited by soft tissue tightness at end range flexion Hip Goniometric Range of Motion Hip Measured in Degrees Left Hip ROM WFL Yes Testing Position Supine Right Hip ROM WFL Yes Testing Position Supine PT-OP-L Special Tests Start: 02/05/18 12:23 Freq: Status: Active Protocol: Document 02/05/18 12:24 [facility] (Rec: 02/05/18 12:55 [facility] [email or web address]) Special Tests Lumbar Spine Special Tests Straight Leg Raise Test Results negative with hamstring tightness only PT-OP-M Strength Start: 02/05/18 12:23 Freq: Status: Active Protocol: Document 02/05/18 12:24 [facility] (Rec: 02/05/18 12:55 [facility] [email or web address]) Trunk Strength Trunk Manual Muscle Testing Core Stabilization decreased TA recruitment PT-OP-Q Treatments Start: 02/05/18 12:23 Freq: Status: Active Protocol: Document 04/03/18 13:21 [facility] (Rec: 04/03/18 13:23 [facility] [email or web address]) Manual Therapy Treatment Soft Tissue Mobilization 2 Body Location cervical spine suboccipital release and STM to the upper trapezius region 1 Body Location low back and mid back Mobilization Type Myofascial Release Strumming Intensity/Depth Moderate Comments prone on body cushion lumbar paraspinals Manual Techniques 2 Type manual cervical traction PT-OP-R Modalities Start: 02/05/18 12:23 Freq: Status: Active Protocol: Document 04/03/18 13:23 [facility] (Rec: 04/03/18 13:24 [facility] [email or web address]) Ultrasound Therapy Treatment Right Neck Treatment Duration (minutes) 8 Patient Position Prone Applicator Size (cm2) 5 Mode Setting Continuous Intensity Setting (w/cm2) 1.0 PT-OP-T Assessment and Plan Start: 02/05/18 12:23 Freq: Status: Active Protocol: Document 04/03/18 13:21 [facility] (Rec: 04/03/18 13:23 [facility] [email or web address]) Physical Therapy Assessment Assessment Summary Assessment working on improving thoracic kyphosis and chin retraction. Reviewed home postural program for Sachi to be working on Physical Therapy Plan Frequency and Duration Frequency of Treatment 2x/Week Duration of Treatment 8 weeks Plan of Care Start Date 04/01/18 Plan of Care End Date 05/28/18 Next Visit Focus/Plan Next Note Type Treatment Note Next Visit Plan continue progressing postural exercises and focus on a home program
--- NOTE | 2018-04-08 17:59 | PT.OTN ---
Current Diagnoses Sacroiliitis, not elsewhere classified (04/08/18) Physical Therapy Treatment Note PT-OP-A Visit Information Start: 02/05/18 12:23 Freq: Status: Active Protocol: Document 04/08/18 17:56 [facility] (Rec: 04/08/18 17:59 [facility] [email or web address]) Out-Patient Physical Therapy Visit Information Visit Information Visit Type Treatment Note Visit Start Time 13:45 Visit Stop Time 14:30 Total Visit Minutes 45 Visit Number 11 Number of [employer] P[employer] Visits 0 PT-OP-B Current Condition Start: 02/05/18 12:23 Freq: Status: Active Protocol: Document 02/05/18 12:24 [facility] (Rec: 02/05/18 12:55 [facility] [email or web address]) Current Condition History of Current Condition Onset Date sx began several weeks ago Current Complaints c/o right sided hamstring pain that is also referred into the calf History of Current Condition Symptoms started with what Sachi thought was a hamstring strain. She was seen in PT for this earlier in 2018. At that time she only had hamstring pain when she walked uphill. Sachi was working on her exercises independently and she is not sure what brought on the sciatic symptoms but she is wondering if it was the sit-stand chair squats that may have aggravated her pain. Sitting now aggravates her symptoms and when her symptoms are flared she gets pain into the calf. It hurts to walk as well so she has stopped doing her walking program and has just been doing her aqua aerobics. Sachi misses walking and would like to return to her walking program Prior Treatments and Tests Prior PT earlier in 2018 for hamstring strain Treatment Goals Patient/Caregiver Goals to be able to return to a walking program Current Functional Impairments (Reported) Functional Limitations- ADL's sitting aggravates symptoms and lifting aggravates symptoms Functional Limitations- Mobility/Gait walking is limited due to pain PT-OP-C Subjective Start: 02/05/18 12:23 Freq: Status: Active Protocol: Document 04/01/18 16:27 [facility] (Rec: 04/01/18 16:35 [facility] [email or web address]) OP-PT Subjective Patient Comments Patient Comments Sachi notes her headache decreased significantly after last visit. She was able to take a dance lesson this past week as well Patient Reported Progress Improving PT-OP-F Manual Assessment Start: 02/05/18 12:23 Freq: Status: Active Protocol: Document 02/05/18 12:24 [facility] (Rec: 02/05/18 12:55 [facility] [email or web address]) Manual Assessments Soft Tissue Assessment Soft Tissue Mobility Assessment very guarded lumbar paraspinal musculature and Sachi stands with the lumbar spine in extension Joint Mobility Assessment Joint Mobility Assessment + SI joint march test for right sided dysfunction Right leg longer in supine and right pelvis anteriorly rotated PT-OP-J Posture/Palpation/Skin Start: 02/05/18 12:23 Freq: Status: Active Protocol: Document 02/05/18 12:24 [facility] (Rec: 02/05/18 12:55 [facility] [email or web address]) Palpation Assessment Location Two Palpation Location lumbar paraspinals Palpation Findings Soft Tissue Tightness Spasm Muscle Guarding One Palpation Location right PSIS Palpation Findings Tenderness PT-OP-K Range of Motion Start: 02/05/18 12:56 Freq: Status: Active Protocol: Document 02/05/18 12:56 [facility] (Rec: 02/05/18 12:57 [facility] [email or web address]) Lumbar Spine Range of Motion Lumbar Spine Active ROM Limitations Soft Tissue Tightness Comments Lumbar spine WFL limited by soft tissue tightness at end range flexion Hip Goniometric Range of Motion Hip Measured in Degrees Left Hip ROM WFL Yes Testing Position Supine Right Hip ROM WFL Yes Testing Position Supine PT-OP-L Special Tests Start: 02/05/18 12:23 Freq: Status: Active Protocol: Document 02/05/18 12:24 [facility] (Rec: 02/05/18 12:55 [facility] [email or web address]) Special Tests Lumbar Spine Special Tests Straight Leg Raise Test Results negative with hamstring tightness only PT-OP-M Strength Start: 02/05/18 12:23 Freq: Status: Active Protocol: Document 02/05/18 12:24 [facility] (Rec: 02/05/18 12:55 [facility] [email or web address]) Trunk Strength Trunk Manual Muscle Testing Core Stabilization decreased TA recruitment PT-OP-Q Treatments Start: 02/05/18 12:23 Freq: Status: Active Protocol: Document 04/08/18 17:56 [facility] (Rec: 04/08/18 17:59 [facility] [email or web address]) Manual Therapy Treatment Soft Tissue Mobilization 2 Body Location cervical spine suboccipital release and STM to the upper trapezius region 1 Body Location low back and mid back Mobilization Type Myofascial Release Strumming Intensity/Depth Moderate Comments prone on body cushion lumbar paraspinals Manual Techniques 2 Type manual cervical traction PT-OP-R Modalities Start: 02/05/18 12:23 Freq: Status: Active Protocol: Document 04/08/18 17:56 [facility] (Rec: 04/08/18 17:59 [facility] [email or web address]) Ultrasound Therapy Treatment Right Neck Treatment Duration (minutes) 8 Patient Position Prone Applicator Size (cm2) 5 Mode Setting Continuous Intensity Setting (w/cm2) 1.0 PT-OP-T Assessment and Plan Start: 02/05/18 12:23 Freq: Status: Active Protocol: Document 04/08/18 17:56 [facility] (Rec: 04/08/18 17:59 [facility] [email or web address]) Physical Therapy Assessment Assessment Summary Assessment much improvement overall and no complaints of headaches or vertigo. Sachi reports she has been taking dancing lessons and has been tolerating this well Physical Therapy Plan Frequency and Duration Frequency of Treatment 2x/Week Duration of Treatment 8 weeks Plan of Care Start Date 04/01/18 Plan of Care End Date 05/28/18 Next Visit Focus/Plan Next Note Type Treatment Note Next Visit Plan reassess next visit and DC to independent home program if she continues to do well
--- NOTE | 2018-04-15 15:57 | PT.OTN ---
Current Diagnoses Sacroiliitis, not elsewhere classified (04/15/18) Physical Therapy Treatment Note PT-OP-A Visit Information Start: 02/05/18 12:23 Freq: Status: Active Protocol: Document 04/10/18 09:45 [facility] (Rec: 04/15/18 15:56 [facility] [email or web address]) Out-Patient Physical Therapy Visit Information Visit Information Visit Type Treatment Note Visit Start Time 09:45 Visit Stop Time 10:30 Total Visit Minutes 45 Visit Number 12 Number of TEST CLERK Visits 0 PT-OP-B Current Condition Start: 02/05/18 12:23 Freq: Status: Active Protocol: Document 02/05/18 12:24 [facility] (Rec: 02/05/18 12:55 [facility] [email or web address]) Current Condition History of Current Condition Onset Date sx began several weeks ago Current Complaints c/o right sided hamstring pain that is also referred into the calf History of Current Condition Symptoms started with what Sachi thought was a hamstring strain. She was seen in PT for this earlier in 2018. At that time she only had hamstring pain when she walked uphill. Sachi was working on her exercises independently and she is not sure what brought on the sciatic symptoms but she is wondering if it was the sit-stand chair squats that may have aggravated her pain. Sitting now aggravates her symptoms and when her symptoms are flared she gets pain into the calf. It hurts to walk as well so she has stopped doing her walking program and has just been doing her aqua aerobics. Sachi misses walking and would like to return to her walking program Prior Treatments and Tests Prior PT earlier in 2018 for hamstring strain Treatment Goals Patient/Caregiver Goals to be able to return to a walking program Current Functional Impairments (Reported) Functional Limitations- ADL's sitting aggravates symptoms and lifting aggravates symptoms Functional Limitations- Mobility/Gait walking is limited due to pain PT-OP-C Subjective Start: 02/05/18 12:23 Freq: Status: Active Protocol: Document 04/10/18 09:45 [facility] (Rec: 04/15/18 15:56 [facility] [email or web address]) OP-PT Subjective Patient Comments Patient Comments Sachi reprots she has been able to take her dancing class but she is still sore in her neck PT-OP-F Manual Assessment Start: 02/05/18 12:23 Freq: Status: Active Protocol: Document 02/05/18 12:24 [facility] (Rec: 02/05/18 12:55 [facility] [email or web address]) Manual Assessments Soft Tissue Assessment Soft Tissue Mobility Assessment very guarded lumbar paraspinal musculature and Sachi stands with the lumbar spine in extension Joint Mobility Assessment Joint Mobility Assessment + SI joint march test for right sided dysfunction Right leg longer in supine and right pelvis anteriorly rotated PT-OP-J Posture/Palpation/Skin Start: 02/05/18 12:23 Freq: Status: Active Protocol: Document 02/05/18 12:24 [facility] (Rec: 02/05/18 12:55 [facility] [email or web address]) Palpation Assessment Location Two Palpation Location lumbar paraspinals Palpation Findings Soft Tissue Tightness Spasm Muscle Guarding One Palpation Location right PSIS Palpation Findings Tenderness PT-OP-K Range of Motion Start: 02/05/18 12:56 Freq: Status: Active Protocol: Document 02/05/18 12:56 [facility] (Rec: 02/05/18 12:57 [facility] [email or web address]) Lumbar Spine Range of Motion Lumbar Spine Active ROM Limitations Soft Tissue Tightness Comments Lumbar spine WFL limited by soft tissue tightness at end range flexion Hip Goniometric Range of Motion Hip Measured in Degrees Left Hip ROM WFL Yes Testing Position Supine Right Hip ROM WFL Yes Testing Position Supine PT-OP-L Special Tests Start: 02/05/18 12:23 Freq: Status: Active Protocol: Document 02/05/18 12:24 [facility] (Rec: 02/05/18 12:55 [facility] [email or web address]) Special Tests Lumbar Spine Special Tests Straight Leg Raise Test Results negative with hamstring tightness only PT-OP-M Strength Start: 02/05/18 12:23 Freq: Status: Active Protocol: Document 02/05/18 12:24 [facility] (Rec: 02/05/18 12:55 [facility] [email or web address]) Trunk Strength Trunk Manual Muscle Testing Core Stabilization decreased TA recruitment PT-OP-Q Treatments Start: 02/05/18 12:23 Freq: Status: Active Protocol: Document 04/10/18 09:45 [facility] (Rec: 04/15/18 15:56 [facility] [email or web address]) Therapeutic Exercises Supine Exercises 8 Supine Exercise Name chin tuck 7 Supine Exercise Name foam roll stretch Manual Therapy Treatment Soft Tissue Mobilization 2 Body Location cervical spine suboccipital release and STM to the upper trapezius region 1 Body Location low back and mid back Mobilization Type Myofascial Release Strumming Intensity/Depth Moderate Comments prone on body cushion lumbar paraspinals Manual Techniques 2 Type manual cervical traction PT-OP-R Modalities Start: 02/05/18 12:23 Freq: Status: Active Protocol: Document 04/08/18 17:56 [facility] (Rec: 04/08/18 17:59 [facility] [email or web address]) Ultrasound Therapy Treatment Right Neck Treatment Duration (minutes) 8 Patient Position Prone Applicator Size (cm2) 5 Mode Setting Continuous Intensity Setting (w/cm2) 1.0 PT-OP-T Assessment and Plan Start: 02/05/18 12:23 Freq: Status: Active Protocol: Document 04/10/18 09:45 [facility] (Rec: 04/15/18 15:56 [facility] [email or web address]) Physical Therapy Assessment Assessment Summary Assessment good tolerance of the foam roll, very tender today at T1 with treatment. We talked about her postural exercises and how loosening up that thoracic spine can help her neck Physical Therapy Plan Frequency and Duration Frequency of Treatment 2x/Week Duration of Treatment 8 weeks Plan of Care Start Date 04/01/18 Plan of Care End Date 05/28/18 Therapeutic Interventions Therapeutic Interventions Home Exercise Program Manual Therapy Neuromuscular Re-education Self-Care/Home Management Soft Tissue Mobilization Therapeutic Exercises Modalities Cold Pack/Ice Massage Next Visit Focus/Plan Next Note Type Treatment Note Next Visit Plan continue PT focusing on postural exercises and stretching as well as manual release of the cervical spine
--- NOTE | 2018-04-15 16:00 | PT.OTN ---
Current Diagnoses Sacroiliitis, not elsewhere classified (04/15/18) Physical Therapy Treatment Note PT-OP-A Visit Information Start: 02/05/18 12:23 Freq: Status: Active Protocol: Document 04/15/18 15:57 [facility] (Rec: 04/15/18 16:00 [facility] [email or web address]) Out-Patient Physical Therapy Visit Information Visit Information Visit Type Treatment Note Visit Start Time 13:45 Visit Stop Time 14:30 Total Visit Minutes 45 Visit Number 13 Evaluation Information Evaluation Date 02/05/18 PT-OP-B Current Condition Start: 02/05/18 12:23 Freq: Status: Active Protocol: Document 02/05/18 12:24 [facility] (Rec: 02/05/18 12:55 [facility] [email or web address]) Current Condition History of Current Condition Onset Date sx began several weeks ago Current Complaints c/o right sided hamstring pain that is also referred into the calf History of Current Condition Symptoms started with what Sachi thought was a hamstring strain. She was seen in PT for this earlier in 2018. At that time she only had hamstring pain when she walked uphill. Sachi was working on her exercises independently and she is not sure what brought on the sciatic symptoms but she is wondering if it was the sit-stand chair squats that may have aggravated her pain. Sitting now aggravates her symptoms and when her symptoms are flared she gets pain into the calf. It hurts to walk as well so she has stopped doing her walking program and has just been doing her aqua aerobics. Sachi misses walking and would like to return to her walking program Prior Treatments and Tests Prior PT earlier in 2018 for hamstring strain Treatment Goals Patient/Caregiver Goals to be able to return to a walking program Current Functional Impairments (Reported) Functional Limitations- ADL's sitting aggravates symptoms and lifting aggravates symptoms Functional Limitations- Mobility/Gait walking is limited due to pain PT-OP-C Subjective Start: 02/05/18 12:23 Freq: Status: Active Protocol: Document 04/15/18 15:57 [facility] (Rec: 04/15/18 16:00 [facility] [email or web address]) OP-PT Subjective Patient Comments Patient Comments Sachi notes she has been really working on the postural stretch at home over her yoga mat. PT-OP-F Manual Assessment Start: 02/05/18 12:23 Freq: Status: Active Protocol: Document 02/05/18 12:24 [facility] (Rec: 02/05/18 12:55 [facility] [email or web address]) Manual Assessments Soft Tissue Assessment Soft Tissue Mobility Assessment very guarded lumbar paraspinal musculature and Sachi stands with the lumbar spine in extension Joint Mobility Assessment Joint Mobility Assessment + SI joint march test for right sided dysfunction Right leg longer in supine and right pelvis anteriorly rotated PT-OP-J Posture/Palpation/Skin Start: 02/05/18 12:23 Freq: Status: Active Protocol: Document 02/05/18 12:24 [facility] (Rec: 02/05/18 12:55 [facility] [email or web address]) Palpation Assessment Location Two Palpation Location lumbar paraspinals Palpation Findings Soft Tissue Tightness Spasm Muscle Guarding One Palpation Location right PSIS Palpation Findings Tenderness PT-OP-K Range of Motion Start: 02/05/18 12:56 Freq: Status: Active Protocol: Document 02/05/18 12:56 [facility] (Rec: 02/05/18 12:57 [facility] [email or web address]) Lumbar Spine Range of Motion Lumbar Spine Active ROM Limitations Soft Tissue Tightness Comments Lumbar spine WFL limited by soft tissue tightness at end range flexion Hip Goniometric Range of Motion Hip Measured in Degrees Left Hip ROM WFL Yes Testing Position Supine Right Hip ROM WFL Yes Testing Position Supine PT-OP-L Special Tests Start: 02/05/18 12:23 Freq: Status: Active Protocol: Document 02/05/18 12:24 [facility] (Rec: 02/05/18 12:55 [facility] [email or web address]) Special Tests Lumbar Spine Special Tests Straight Leg Raise Test Results negative with hamstring tightness only PT-OP-M Strength Start: 02/05/18 12:23 Freq: Status: Active Protocol: Document 02/05/18 12:24 [facility] (Rec: 02/05/18 12:55 [facility] [email or web address]) Trunk Strength Trunk Manual Muscle Testing Core Stabilization decreased TA recruitment PT-OP-Q Treatments Start: 02/05/18 12:23 Freq: Status: Active Protocol: Document 04/15/18 15:57 [facility] (Rec: 04/15/18 16:00 [facility] [email or web address]) Manual Therapy Treatment Soft Tissue Mobilization 2 Body Location cervical spine suboccipital release and STM to the upper trapezius region 1 Body Location low back and mid back Mobilization Type Myofascial Release Strumming Intensity/Depth Moderate Comments prone on body cushion lumbar paraspinals Manual Techniques 2 Type manual cervical traction PT-OP-R Modalities Start: 02/05/18 12:23 Freq: Status: Active Protocol: Document 04/08/18 17:56 [facility] (Rec: 04/08/18 17:59 [facility] [email or web address]) Ultrasound Therapy Treatment Right Neck Treatment Duration (minutes) 8 Patient Position Prone Applicator Size (cm2) 5 Mode Setting Continuous Intensity Setting (w/cm2) 1.0 PT-OP-T Assessment and Plan Start: 02/05/18 12:23 Freq: Status: Active Protocol: Document 04/15/18 15:57 [facility] (Rec: 04/15/18 16:00 [facility] [email or web address]) Physical Therapy Assessment Assessment Summary Assessment left greater than right sided upper trapezius tightness but overall improving cervical ROM Physical Therapy Plan Frequency and Duration Frequency of Treatment 2x/Week Duration of Treatment 8 weeks Plan of Care Start Date 04/01/18 Plan of Care End Date 05/28/18 Therapeutic Interventions Therapeutic Interventions Home Exercise Program Manual Therapy Neuromuscular Re-education Self-Care/Home Management Soft Tissue Mobilization Therapeutic Exercises Modalities Cold Pack/Ice Massage Next Visit Focus/Plan Next Note Type Treatment Note Next Visit Plan continue PT focusing on postural exercises and stretching as well as manual release of the cervical spine
--- NOTE | 2018-05-06 17:36 | PT.OTN ---
Current Diagnoses Sacroiliitis, not elsewhere classified (05/06/18) Physical Therapy Treatment Note PT-OP-A Visit Information Start: 02/05/18 12:23 Freq: Status: Active Protocol: Document 05/06/18 17:33 [facility] (Rec: 05/06/18 17:36 [facility] [email or web address]) Out-Patient Physical Therapy Visit Information Visit Information Visit Type Treatment Note Visit Start Time 13:45 Visit Stop Time 14:30 Total Visit Minutes 45 Visit Number 14 Evaluation Information Evaluation Date 02/05/18 PT-OP-B Current Condition Start: 02/05/18 12:23 Freq: Status: Active Protocol: Document 02/05/18 12:24 [facility] (Rec: 02/05/18 12:55 [facility] [email or web address]) Current Condition History of Current Condition Onset Date sx began several weeks ago Current Complaints c/o right sided hamstring pain that is also referred into the calf History of Current Condition Symptoms started with what Sachi thought was a hamstring strain. She was seen in PT for this earlier in 2018. At that time she only had hamstring pain when she walked uphill. Sachi was working on her exercises independently and she is not sure what brought on the sciatic symptoms but she is wondering if it was the sit-stand chair squats that may have aggravated her pain. Sitting now aggravates her symptoms and when her symptoms are flared she gets pain into the calf. It hurts to walk as well so she has stopped doing her walking program and has just been doing her aqua aerobics. Sachi misses walking and would like to return to her walking program Prior Treatments and Tests Prior PT earlier in 2018 for hamstring strain Treatment Goals Patient/Caregiver Goals to be able to return to a walking program Current Functional Impairments (Reported) Functional Limitations- ADL's sitting aggravates symptoms and lifting aggravates symptoms Functional Limitations- Mobility/Gait walking is limited due to pain PT-OP-C Subjective Start: 02/05/18 12:23 Freq: Status: Active Protocol: Document 05/06/18 17:33 [facility] (Rec: 05/06/18 17:36 [facility] [email or web address]) OP-PT Subjective Patient Comments Patient Comments Sachi notes she hasn't been able to do as many stretches this week with the holida PT-OP-F Manual Assessment Start: 02/05/18 12:23 Freq: Status: Active Protocol: Document 02/05/18 12:24 [facility] (Rec: 02/05/18 12:55 [facility] [email or web address]) Manual Assessments Soft Tissue Assessment Soft Tissue Mobility Assessment very guarded lumbar paraspinal musculature and Sachi stands with the lumbar spine in extension Joint Mobility Assessment Joint Mobility Assessment + SI joint march test for right sided dysfunction Right leg longer in supine and right pelvis anteriorly rotated PT-OP-J Posture/Palpation/Skin Start: 02/05/18 12:23 Freq: Status: Active Protocol: Document 02/05/18 12:24 [facility] (Rec: 02/05/18 12:55 [facility] [email or web address]) Palpation Assessment Location Two Palpation Location lumbar paraspinals Palpation Findings Soft Tissue Tightness Spasm Muscle Guarding One Palpation Location right PSIS Palpation Findings Tenderness PT-OP-K Range of Motion Start: 02/05/18 12:56 Freq: Status: Active Protocol: Document 02/05/18 12:56 [facility] (Rec: 02/05/18 12:57 [facility] [email or web address]) Lumbar Spine Range of Motion Lumbar Spine Active ROM Limitations Soft Tissue Tightness Comments Lumbar spine WFL limited by soft tissue tightness at end range flexion Hip Goniometric Range of Motion Hip Measured in Degrees Left Hip ROM WFL Yes Testing Position Supine Right Hip ROM WFL Yes Testing Position Supine PT-OP-L Special Tests Start: 02/05/18 12:23 Freq: Status: Active Protocol: Document 02/05/18 12:24 [facility] (Rec: 02/05/18 12:55 [facility] [email or web address]) Special Tests Lumbar Spine Special Tests Straight Leg Raise Test Results negative with hamstring tightness only PT-OP-M Strength Start: 02/05/18 12:23 Freq: Status: Active Protocol: Document 02/05/18 12:24 [facility] (Rec: 02/05/18 12:55 [facility] [email or web address]) Trunk Strength Trunk Manual Muscle Testing Core Stabilization decreased TA recruitment PT-OP-Q Treatments Start: 02/05/18 12:23 Freq: Status: Active Protocol: Document 05/06/18 17:33 [facility] (Rec: 05/06/18 17:36 [facility] [email or web address]) Manual Therapy Treatment Soft Tissue Mobilization 2 Body Location cervical spine suboccipital release and STM to the upper trapezius region 1 Body Location low back and mid back Mobilization Type Myofascial Release Strumming Intensity/Depth Moderate Comments prone on body cushion lumbar paraspinals Manual Techniques 2 Type manual cervical traction PT-OP-R Modalities Start: 02/05/18 12:23 Freq: Status: Active Protocol: Document 04/08/18 17:56 [facility] (Rec: 04/08/18 17:59 [facility] [email or web address]) Ultrasound Therapy Treatment Right Neck Treatment Duration (minutes) 8 Patient Position Prone Applicator Size (cm2) 5 Mode Setting Continuous Intensity Setting (w/cm2) 1.0 PT-OP-T Assessment and Plan Start: 02/05/18 12:23 Freq: Status: Active Protocol: Document 05/06/18 17:33 [facility] (Rec: 05/06/18 17:36 [facility] [email or web address]) Physical Therapy Assessment Assessment Summary Assessment tolerated well, decreased c/o vertigo symptoms and headaches Physical Therapy Plan Frequency and Duration Frequency of Treatment 2x/Week Duration of Treatment 8 weeks Plan of Care Start Date 04/01/18 Plan of Care End Date 05/28/18 Therapeutic Interventions Therapeutic Interventions Home Exercise Program Manual Therapy Neuromuscular Re-education Self-Care/Home Management Soft Tissue Mobilization Therapeutic Exercises Modalities Cold Pack/Ice Massage Next Visit Focus/Plan Next Note Type Treatment Note Next Visit Plan emphasize postural education for home and stretching
--- NOTE | 2018-05-22 13:27 | PT.OTN ---
Current Diagnoses Sacroiliitis, not elsewhere classified (05/21/18) Physical Therapy Treatment Note PT-OP-A Visit Information Start: 02/05/18 12:23 Freq: Status: Active Protocol: Document 05/21/18 13:20 [facility] (Rec: 05/22/18 13:27 [facility] [email or web address]) Out-Patient Physical Therapy Visit Information Visit Information Visit Type Treatment Note Visit Start Time 11:35 Visit Stop Time 12:15 Total Visit Minutes 40 Visit Number 15 Evaluation Information Evaluation Date 02/05/18 PT-OP-B Current Condition Start: 02/05/18 12:23 Freq: Status: Active Protocol: Document 02/05/18 12:24 [facility] (Rec: 02/05/18 12:55 [facility] [email or web address]) Current Condition History of Current Condition Onset Date sx began several weeks ago Current Complaints c/o right sided hamstring pain that is also referred into the calf History of Current Condition Symptoms started with what Sachi thought was a hamstring strain. She was seen in PT for this earlier in 2018. At that time she only had hamstring pain when she walked uphill. Sachi was working on her exercises independently and she is not sure what brought on the sciatic symptoms but she is wondering if it was the sit-stand chair squats that may have aggravated her pain. Sitting now aggravates her symptoms and when her symptoms are flared she gets pain into the calf. It hurts to walk as well so she has stopped doing her walking program and has just been doing her aqua aerobics. Sachi misses walking and would like to return to her walking program Prior Treatments and Tests Prior PT earlier in 2018 for hamstring strain Treatment Goals Patient/Caregiver Goals to be able to return to a walking program Current Functional Impairments (Reported) Functional Limitations- ADL's sitting aggravates symptoms and lifting aggravates symptoms Functional Limitations- Mobility/Gait walking is limited due to pain PT-OP-C Subjective Start: 02/05/18 12:23 Freq: Status: Active Protocol: Document 05/21/18 13:20 [facility] (Rec: 05/22/18 13:27 [facility] [email or web address]) OP-PT Subjective Patient Comments Patient Comments Sachi states she has been walking more now she can feel her hamstring again. Her headaches are better PT-OP-F Manual Assessment Start: 02/05/18 12:23 Freq: Status: Active Protocol: Document 02/05/18 12:24 [facility] (Rec: 02/05/18 12:55 [facility] [email or web address]) Manual Assessments Soft Tissue Assessment Soft Tissue Mobility Assessment very guarded lumbar paraspinal musculature and Sachi stands with the lumbar spine in extension Joint Mobility Assessment Joint Mobility Assessment + SI joint march test for right sided dysfunction Right leg longer in supine and right pelvis anteriorly rotated PT-OP-J Posture/Palpation/Skin Start: 02/05/18 12:23 Freq: Status: Active Protocol: Document 02/05/18 12:24 [facility] (Rec: 02/05/18 12:55 [facility] [email or web address]) Palpation Assessment Location Two Palpation Location lumbar paraspinals Palpation Findings Soft Tissue Tightness Spasm Muscle Guarding One Palpation Location right PSIS Palpation Findings Tenderness PT-OP-K Range of Motion Start: 02/05/18 12:56 Freq: Status: Active Protocol: Document 02/05/18 12:56 [facility] (Rec: 02/05/18 12:57 [facility] [email or web address]) Lumbar Spine Range of Motion Lumbar Spine Active ROM Limitations Soft Tissue Tightness Comments Lumbar spine WFL limited by soft tissue tightness at end range flexion Hip Goniometric Range of Motion Hip Measured in Degrees Left Hip ROM WFL Yes Testing Position Supine Right Hip ROM WFL Yes Testing Position Supine PT-OP-L Special Tests Start: 02/05/18 12:23 Freq: Status: Active Protocol: Document 02/05/18 12:24 [facility] (Rec: 02/05/18 12:55 [facility] [email or web address]) Special Tests Lumbar Spine Special Tests Straight Leg Raise Test Results negative with hamstring tightness only PT-OP-M Strength Start: 02/05/18 12:23 Freq: Status: Active Protocol: Document 02/05/18 12:24 [facility] (Rec: 02/05/18 12:55 [facility] [email or web address]) Trunk Strength Trunk Manual Muscle Testing Core Stabilization decreased TA recruitment PT-OP-Q Treatments Start: 02/05/18 12:23 Freq: Status: Active Protocol: Document 05/21/18 13:20 [facility] (Rec: 05/22/18 13:27 [facility] [email or web address]) Manual Therapy Treatment Soft Tissue Mobilization 3 Body Location upper trapezius Comments MFR in prone and supine 2 Body Location cervical spine suboccipital release and STM to the upper trapezius region 1 Body Location mid back Mobilization Type Myofascial Release Strumming Intensity/Depth Moderate Comments prone on body cushion lumbar paraspinals Manual Techniques 2 Type manual cervical traction PT-OP-R Modalities Start: 02/05/18 12:23 Freq: Status: Active Protocol: Document 04/08/18 17:56 [facility] (Rec: 04/08/18 17:59 [facility] [email or web address]) Ultrasound Therapy Treatment Right Neck Treatment Duration (minutes) 8 Patient Position Prone Applicator Size (cm2) 5 Mode Setting Continuous Intensity Setting (w/cm2) 1.0 PT-OP-T Assessment and Plan Start: 02/05/18 12:23 Freq: Status: Active Protocol: Document 05/21/18 13:20 [facility] (Rec: 05/22/18 13:27 [facility] [email or web address]) Physical Therapy Assessment Assessment Summary Assessment Headaches reduced and Sachi has been stretching on her yoga mat rolled up to act like a foam roll. This has helped loosen her mid back Physical Therapy Plan Frequency and Duration Frequency of Treatment 2x/Week Duration of Treatment 8 weeks Plan of Care Start Date 04/01/18 Plan of Care End Date 05/28/18 Therapeutic Interventions Therapeutic Interventions Home Exercise Program Manual Therapy Neuromuscular Re-education Self-Care/Home Management Soft Tissue Mobilization Therapeutic Exercises Modalities Cold Pack/Ice Massage Next Visit Focus/Plan Next Note Type Treatment Note Next Visit Plan emphasize postural education for home and stretching
--- NOTE | 2018-05-28 14:16 | PT.OTN ---
Current Diagnoses Sacroiliitis, not elsewhere classified (05/28/18) Physical Therapy Treatment Note PT-OP-A Visit Information Start: 02/05/18 12:23 Freq: Status: Active Protocol: Document 05/28/18 14:11 [facility] (Rec: 05/28/18 14:15 [facility] [email or web address]) Out-Patient Physical Therapy Visit Information Visit Information Visit Type Discharge Summary Visit Start Time 11:35 Visit Stop Time 12:15 Total Visit Minutes 40 Visit Number 16 Evaluation Information Evaluation Date 02/05/18 PT-OP-B Current Condition Start: 02/05/18 12:23 Freq: Status: Active Protocol: Document 02/05/18 12:24 [facility] (Rec: 02/05/18 12:55 [facility] [email or web address]) Current Condition History of Current Condition Onset Date sx began several weeks ago Current Complaints c/o right sided hamstring pain that is also referred into the calf History of Current Condition Symptoms started with what Sachi thought was a hamstring strain. She was seen in PT for this earlier in 2018. At that time she only had hamstring pain when she walked uphill. Sachi was working on her exercises independently and she is not sure what brought on the sciatic symptoms but she is wondering if it was the sit-stand chair squats that may have aggravated her pain. Sitting now aggravates her symptoms and when her symptoms are flared she gets pain into the calf. It hurts to walk as well so she has stopped doing her walking program and has just been doing her aqua aerobics. Sachi misses walking and would like to return to her walking program Prior Treatments and Tests Prior PT earlier in 2018 for hamstring strain Treatment Goals Patient/Caregiver Goals to be able to return to a walking program Current Functional Impairments (Reported) Functional Limitations- ADL's sitting aggravates symptoms and lifting aggravates symptoms Functional Limitations- Mobility/Gait walking is limited due to pain PT-OP-C Subjective Start: 02/05/18 12:23 Freq: Status: Active Protocol: Document 05/21/18 13:20 [facility] (Rec: 05/22/18 13:27 [facility] [email or web address]) OP-PT Subjective Patient Comments Patient Comments Sachi states she has been walking more now she can feel her hamstring again. Her headaches are better PT-OP-F Manual Assessment Start: 02/05/18 12:23 Freq: Status: Active Protocol: Document 02/05/18 12:24 [facility] (Rec: 02/05/18 12:55 [facility] [email or web address]) Manual Assessments Soft Tissue Assessment Soft Tissue Mobility Assessment very guarded lumbar paraspinal musculature and Sachi stands with the lumbar spine in extension Joint Mobility Assessment Joint Mobility Assessment + SI joint march test for right sided dysfunction Right leg longer in supine and right pelvis anteriorly rotated PT-OP-J Posture/Palpation/Skin Start: 02/05/18 12:23 Freq: Status: Active Protocol: Document 02/05/18 12:24 [facility] (Rec: 02/05/18 12:55 [facility] [email or web address]) Palpation Assessment Location Two Palpation Location lumbar paraspinals Palpation Findings Soft Tissue Tightness Spasm Muscle Guarding One Palpation Location right PSIS Palpation Findings Tenderness PT-OP-K Range of Motion Start: 02/05/18 12:56 Freq: Status: Active Protocol: Document 05/28/18 14:11 [facility] (Rec: 05/28/18 14:15 [facility] [email or web address]) Lumbar Spine Range of Motion Lumbar Spine Active Comments ROM now WFL PT-OP-L Special Tests Start: 02/05/18 12:23 Freq: Status: Active Protocol: Document 02/05/18 12:24 [facility] (Rec: 02/05/18 12:55 [facility] [email or web address]) Special Tests Lumbar Spine Special Tests Straight Leg Raise Test Results negative with hamstring tightness only PT-OP-M Strength Start: 02/05/18 12:23 Freq: Status: Active Protocol: Document 02/05/18 12:24 [facility] (Rec: 02/05/18 12:55 [facility] [email or web address]) Trunk Strength Trunk Manual Muscle Testing Core Stabilization decreased TA recruitment PT-OP-Q Treatments Start: 02/05/18 12:23 Freq: Status: Active Protocol: Document 05/28/18 14:15 [facility] (Rec: 05/28/18 14:16 [facility] [email or web address]) Manual Therapy Treatment Soft Tissue Mobilization 3 Body Location upper trapezius Comments MFR in prone and supine 2 Body Location cervical spine suboccipital release and STM to the upper trapezius region 1 Body Location mid back Mobilization Type Myofascial Release Strumming Intensity/Depth Moderate Comments prone on body cushion lumbar paraspinals PT-OP-R Modalities Start: 02/05/18 12:23 Freq: Status: Active Protocol: Document 05/28/18 14:16 [facility] (Rec: 05/28/18 14:16 [facility] [email or web address]) Ultrasound Therapy Treatment Right Neck Treatment Duration (minutes) 8 Patient Position Prone Applicator Size (cm2) 5 Mode Setting Continuous Intensity Setting (w/cm2) 1.0 PT-OP-T Assessment and Plan Start: 02/05/18 12:23 Freq: Status: Active Protocol: Document 05/28/18 14:11 [facility] (Rec: 05/28/18 14:15 [facility] [email or web address]) Physical Therapy Assessment Progress Towards Goals Progress Towards Goals Goals Met Assessment Summary Assessment Sachi has been able to return to her exercise program and walking routine. Although she is not 100% she is improved with her ROM and decreased muscular tightness and decreased pain. She will be discharged from PT at this time Physical Therapy Plan Discharge Physical Therapy Discharge Reasons Goals Met
--- NOTE | 2018-07-23 10:39 | PT.OPDS ---
Current Diagnoses Sacroiliitis, not elsewhere classified (05/28/18) Provider Visit Care Team Role Provider Type Shandra Harrison MD Attending Provider Non-Staff Family Provider Primary Care Provider Specialty: Medical Address: [address] [place] [address], [phone] Email: Visit Number Visit Number 16 Discharge Summary PT-OP-B Current Condition Start: 02/05/18 12:23 Freq: Status: Active Protocol: Document 02/05/18 12:24 [facility] (Rec: 02/05/18 12:55 [facility] [email or web address]) Current Condition History of Current Condition Onset Date sx began several weeks ago Current Complaints c/o right sided hamstring pain that is also referred into the calf History of Current Condition Symptoms started with what Sachi thought was a hamstring strain. She was seen in PT for this earlier in 2018. At that time she only had hamstring pain when she walked uphill. Sachi was working on her exercises independently and she is not sure what brought on the sciatic symptoms but she is wondering if it was the sit-stand chair squats that may have aggravated her pain. Sitting now aggravates her symptoms and when her symptoms are flared she gets pain into the calf. It hurts to walk as well so she has stopped doing her walking program and has just been doing her aqua aerobics. Sachi misses walking and would like to return to her walking program Prior Treatments and Tests Prior PT earlier in 2018 for hamstring strain Treatment Goals Patient/Caregiver Goals to be able to return to a walking program Current Functional Impairments (Reported) Functional Limitations- ADL's sitting aggravates symptoms and lifting aggravates symptoms Functional Limitations- Mobility/Gait walking is limited due to pain PT-OP-C Subjective Start: 02/05/18 12:23 Freq: Status: Active Protocol: Document 05/21/18 13:20 [facility] (Rec: 05/22/18 13:27 [facility] [email or web address]) OP-PT Subjective Patient Comments Patient Comments Sachi states she has been walking more now she can feel her hamstring again. Her headaches are better PT-OP-F Manual Assessment Start: 02/05/18 12:23 Freq: Status: Active Protocol: Document 02/05/18 12:24 [facility] (Rec: 02/05/18 12:55 [facility] [email or web address]) Manual Assessments Soft Tissue Assessment Soft Tissue Mobility Assessment very guarded lumbar paraspinal musculature and Sachi stands with the lumbar spine in extension Joint Mobility Assessment Joint Mobility Assessment + SI joint march test for right sided dysfunction Right leg longer in supine and right pelvis anteriorly rotated PT-OP-J Posture/Palpation/Skin Start: 02/05/18 12:23 Freq: Status: Active Protocol: Document 02/05/18 12:24 [facility] (Rec: 02/05/18 12:55 [facility] [email or web address]) Palpation Assessment Location Two Palpation Location lumbar paraspinals Palpation Findings Soft Tissue Tightness Spasm Muscle Guarding One Palpation Location right PSIS Palpation Findings Tenderness PT-OP-K Range of Motion Start: 02/05/18 12:56 Freq: Status: Active Protocol: Document 05/28/18 14:11 [facility] (Rec: 05/28/18 14:15 [facility] [email or web address]) Lumbar Spine Range of Motion Lumbar Spine Active Comments ROM now WFL PT-OP-L Special Tests Start: 02/05/18 12:23 Freq: Status: Active Protocol: Document 02/05/18 12:24 [facility] (Rec: 02/05/18 12:55 [facility] [email or web address]) Special Tests Lumbar Spine Special Tests Straight Leg Raise Test Results negative with hamstring tightness only PT-OP-M Strength Start: 02/05/18 12:23 Freq: Status: Active Protocol: Document 02/05/18 12:24 [facility] (Rec: 02/05/18 12:55 [facility] [email or web address]) Trunk Strength Trunk Manual Muscle Testing Core Stabilization decreased TA recruitment PT-OP-T Assessment and Plan Start: 02/05/18 12:23 Freq: Status: Active Protocol: Document 07/23/18 10:38 [facility] (Rec: 07/23/18 10:39 [facility] [email or web address]) Physical Therapy Assessment Progress Towards Goals Progress Towards Goals Progressing Toward Goals Goals Met Progress Comments Sachi has been able to return to her walking routine which was one of her goals. She feels independent with her home program at this time Assessment Summary Assessment Sachi has been able to return to her exercise program and walking routine. Although she is not 100% she is improved with her ROM and decreased muscular tightness and decreased pain. She will be discharged from PT at this time Physical Therapy Plan Discharge Physical Therapy Discharge Reasons Goals Met
== END 2018-05-29 11:55 ==
LOC: PHYS 11:30
PROVIDERS: Family Provider Family Medicine; PCP Family Medicine; Visit Provider Family Medicine
DX: M46.1 Sacroiliitis, not elsewhere classified (principal)
CPT/HCPCS: 97010; 97035; 97110; 97140; 97161; 97530

== ENCOUNTER → 2018-07-17 08:45 | Outpatient (CLI) | payer MEDICARE, OTHER, SELFPAY ==
[2018-07-17 09:35] LABS: Add Manual Diff / Slide Review NO; Basophils Absolute Auto 100 /uL (0-100); Basophils Percent Auto 0.9 % (0-2); Eosinophils Absolute Auto 100 /uL (0-450); Hematocrit 46.1 % (36-46); Hemoglobin 15.3 g/dL (12.0-16.0); Lymphocytes Absolute Auto 1400 /uL (1100-4500); Lymphocytes Percent Auto 23.7 % (25-40); Mean Corpuscular HGB Conc 33.2 % (30-36); Mean Corpuscular Hemoglobin 30.2 PG (26-34); Monocytes Absolute Auto 400 /uL (0-900); Monocytes Percent Auto 6.7 % (3-14); Neutrophils Absolute Auto 3900 /uL (1500-7000); Neutrophils Percent Auto 67.7 % (50-75); Platelet Count 347 X10^3/uL (150-400); Red Blood Cell Count 5.07 X10^6/uL (4.0-5.2); Red Cell Distribution Width 14.6 % (11.6-14.8); White Blood Cell Count 5.8 X10^3/uL (4.5-11.0)
[2018-07-17 10:27] LABS: Alanine Aminotransferase 31 IU/L (9-52); Albumin 4.7 g/dL (3.5-5.0); Albumin Globulin Ratio 1.8 (1.0-2.8); Alkaline Phosphatase 66 U/L (38-126); Aspartate Aminotransferase 26 IU/L (14-36); BUN Creatinine Ratio 28.3 (6-22); Bilirubin Total 1.7 mg/dL (0.2-1.3); Blood Urea Nitrogen 34 mg/dL (7-17); Carbon Dioxide 27 mmol/L (22-32); Chloride 100 mmol/L (98-107); Estimated Glomerular Filt Rate 43.9 mL/min (>60); Globulin 2.6 g/dL (1.7-4.1); Glucose 84 mg/dL (80-110); HEMOLYSIS < 15 (0-50); Potassium 5.1 mmol/L (3.4-5.1); Sodium 138 mmol/L (137-145); Total Protein 7.3 g/dL (6.3-8.2)
[2018-07-18 14:59] LABS: Cancer Antigen 27.29 28 U/mL (< 38)
== END ==
PROVIDERS: Family Provider Family Medicine; PCP Family Medicine
DX: C50.911 Malignant neoplasm of unspecified site of right female breast (principal)
CPT/HCPCS: 36415; 80053; 85025; 86300

== ENCOUNTER → 2018-07-29 11:30 | Outpatient (CLI) | payer MEDICARE, OTHER, SELFPAY ==
--- NOTE | 2018-07-29 11:33 | DI.RAD.S_ITS ---
PROCEDURE: XR HIP W PEL IF DONE LT 2V INDICATIONS: l hip pain x 6 weeks TECHNIQUE: AP pelvis with lateral view(s) of the left hip(s). COMPARISON: [facility], , [id number] W PEL IF PERFORMED, 04/11/2017, 12:20. FINDINGS: Bones: No fractures or dislocations. Pelvic ring appears intact. No suspicious bony lesions. Mild bilateral degeneration which appears grossly unchanged. Lower lumbar spondylosis. Soft tissues: The visualized bowel gas pattern is normal. No suspicious soft tissue calcifications. IMPRESSION: Mild bilateral hip degeneration, grossly unchanged since 04/11/17. Dictated by: Alexander Ventura M.D. on 07/29/2018 at 14:14 Approved by: Alexander Ventura M.D. on 07/29/2018 at 14:16
== END ==
PROVIDERS: PCP Family Medicine
DX: M25.552 Pain in left hip (principal); C50.919 Malignant neoplasm of unspecified site of unspecified female breast; M16.0 Bilateral primary osteoarthritis of hip
CPT/HCPCS: 73502; 99214

== ENCOUNTER → 2018-07-30 13:51 | Outpatient (CLI) | payer MEDICARE, OTHER, SELFPAY | PROVIDERS: PCP Family Medicine | DX: C50.919 Malignant neoplasm of unspecified site of unspecified female breast (principal); M85.851 Other specified disorders of bone density and structure, right thigh; Z78.0 Asymptomatic menopausal state; Z82.62 Family history of osteoporosis; Z87.891 Personal history of nicotine dependence | CPT/HCPCS: 77080 ==

== ENCOUNTER → 2018-10-08 12:42 | Outpatient (CLI) | payer MEDICARE, OTHER, SELFPAY ==
--- NOTE | 2018-10-08 12:43 | DI.MG.S_ITS ---
BILATERAL DIGITAL DIAGNOSTIC MAMMOGRAM 3D/2D: 10/08/2018 CLINICAL: Personal history of right breast cancer. Comparison is made to exams dated: 10/07/2017 mammogram - [facility], 10/05/2016 mammogram, and 10/03/2015 mammogram - [facility]. The tissue of both breasts is heterogeneously dense. This may lower the sensitivity of mammography. There are a stable benign area of fat necrosis and post operative findings in the right breast. There also are stable benign calcifications in the right breast. Additionally, there are benign calcifications in the left breast. No significant masses, calcifications, or other findings are seen in either breast. There has been no significant interval change. IMPRESSION: There is no mammographic evidence of malignancy. A 1 year screening mammogram is recommended. This exam was interpreted at Station ID: [id number]. NOTE: For mammograms, a report in lay terms will be sent to the patient. Approximately 15% of breast malignancies will not be visualized mammographically. In the management of a palpable breast mass, a negative mammogram must not discourage biopsy of a clinically suspicious lesion. Electronically Signed By: Philippe demarco/roya:10/08/2018 13:37:40 copy to: Omayra Man M.D., [facility] [employer], ph: [phone], fax: [phone] copy to: Greg Moralez letter sent: Normal Exam ACR BI-RADS Category 2: Benign Finding(s) 3342F
== END ==
PROVIDERS: Family Provider Internal Medicine; PCP Family Medicine
DX: R92.8 Other abnormal and inconclusive findings on diagnostic imaging of breast (principal); Z85.3 Personal history of malignant neoplasm of breast
CPT/HCPCS: 77066; G0279

== ENCOUNTER → 2018-11-20 10:33 | Outpatient (CLI) | payer MEDICARE, OTHER, SELFPAY ==
[2018-11-20 11:26] LABS: Add Manual Diff / Slide Review NO; Basophils Absolute Auto 100 /uL (0-100); Eosinophils Absolute Auto 100 /uL (0-450); Eosinophils Percent Auto 1.5 % (2-4); Hematocrit 43.9 % (36-46); Hemoglobin 14.8 g/dL (12.0-16.0); Lymphocytes Absolute Auto 1400 /uL (1100-4500); Lymphocytes Percent Auto 27.3 % (25-40); Mean Corpuscular HGB Conc 33.6 % (30-36); Mean Corpuscular Hemoglobin 30.7 PG (26-34); Mean Corpuscular Volume 91.3 fL (80-100); Monocytes Absolute Auto 300 /uL (0-900); Monocytes Percent Auto 5.9 % (3-14); Neutrophils Absolute Auto 3400 /uL (1500-7000); Neutrophils Percent Auto 64.3 % (50-75); Platelet Count 311 X10^3/uL (150-400); Red Blood Cell Count 4.81 X10^6/uL (4.0-5.2); Red Cell Distribution Width 14.9 % (11.6-14.8); White Blood Cell Count 5.3 X10^3/uL (4.5-11.0)
[2018-11-20 12:01] LABS: Erythrocyte Sedimentation Rate 10 MM/HR (0-20)
[2018-11-20 12:07] LABS: Alanine Aminotransferase 28 IU/L (9-52); Albumin 4.5 g/dL (3.5-5.0); Albumin Globulin Ratio 1.6 (1.0-2.8); Alkaline Phosphatase 82 U/L (38-126); Aspartate Aminotransferase 35 IU/L (14-36); BUN Creatinine Ratio 23.1 (6-22); Bilirubin Total 1.4 mg/dL (0.2-1.3); Blood Urea Nitrogen 30 mg/dL (7-17); C-Reactive Protein Quant 0.5 mg/dL (<1.0); Calcium 11.9 mg/dL (8.4-10.2); Carbon Dioxide 32 mmol/L (22-32); Chloride 100 mmol/L (98-107); Cholesterol 182 mg/dL (140-199); Estimated Glomerular Filt Rate 39.9 mL/min (>60); Globulin 2.8 g/dL (1.7-4.1); Glucose 101 mg/dL (80-110); HDL Cholesterol 50 mg/dL (40-60); HEMOLYSIS < 15 (0-50); LDL Cholesterol Calculated 106 mg/dL (<100); Potassium 4.7 mmol/L (3.4-5.1); Sodium 139 mmol/L (137-145); Total Protein 7.3 g/dL (6.3-8.2); Triglycerides 129 mg/dL (35-150)
[2018-11-20 12:36] LABS: TSH w/ Reflex to FT4 1.18 uIU/mL (0.47-4.68)
[2018-11-20 14:41] LABS: Vitamin D 25 Hydroxy (D3) 59.4 ng/mL (30.0-100.0)
[2018-11-22 14:39] LABS: Parathyroid Hormone Int 14 pg/mL (14-64)
[2018-11-22 15:23] LABS: ANA Screen, IFA Positive (Negative); ANA Titer 1:40 titer (<1:40)
== END ==
PROVIDERS: PCP Family Medicine; Visit Provider Internal Medicine
DX: K51.919 Ulcerative colitis, unspecified with unspecified complications (principal); N18.3 Chronic kidney disease, stage 3 (moderate); R76.8 Other specified abnormal immunological findings in serum; R53.82 Chronic fatigue, unspecified; Z13.220 Encounter for screening for lipoid disorders; E83.52 Hypercalcemia; M85.869 Other specified disorders of bone density and structure, unspecified lower leg; Z85.3 Personal history of malignant neoplasm of breast
CPT/HCPCS: 36415; 80053; 80061; 82306; 83970; 84443; 85025; 85651; 86038; 86140

== ENCOUNTER → 2018-12-15 09:01 | Outpatient (CLI) | payer MEDICARE, OTHER, SELFPAY ==
[2018-12-15 11:15] LABS: Albumin 4.5 g/dL (3.5-5.0); BUN Creatinine Ratio 25.5 (6-22); Blood Urea Nitrogen 28 mg/dL (7-17); Calcium 11.8 mg/dL (8.4-10.2); Carbon Dioxide 30 mmol/L (22-32); Chloride 99 mmol/L (98-107); Estimated Glomerular Filt Rate 48.4 mL/min (>60); Glucose 83 mg/dL (80-110); HEMOLYSIS < 15 (0-50); Magnesium 1.8 mg/dL (1.6-2.3); Phosphorous 4.4 mg/dL (2.8-4.1); Potassium 4.4 mmol/L (3.4-5.1); Sodium 138 mmol/L (137-145)
[2018-12-15 11:17] LABS: Collection Time Urine 24 Hours; Creatinine 24 Hour Urine 1072 mg/day (800-1800); Creatinine Urine Random 38.3 mg/dL; Total Volume Urine 2800 mL
[2018-12-15 11:20] LABS: Creatinine Urine Random 38.6 mg/dL; Protein (Total) Urine Random 19 mg/dL (0-12); Protein Creatinine Ratio Urine 0.49 GRAM/24H
[2018-12-15 11:59] LABS: Calcium 24 Hour Urine 417 mg/day (100-300); Calcium Urine Random 14.9; Collection Time Urine 24 Hours; Total Volume Urine 2800 mL
[2018-12-15 12:44] LABS: Globulin 2.5 g/dL (1.7-4.1)
[2018-12-18 15:44] LABS: Ionized Calcium 6.2 mg/dL (4.8-5.6)
== END ==
PROVIDERS: PCP Internal Medicine; Visit Provider Internal Medicine
DX: R13.10 Dysphagia, unspecified (principal)
CPT/HCPCS: 36415; 80048; 82040; 82330; 82340; 82570; 83735; 84100; 84155; 84156

== ENCOUNTER → 2018-12-17 08:39 | Outpatient (CLI) | payer MEDICARE, OTHER, SELFPAY ==
--- NOTE | 2018-12-17 | DI.CT.S_ITS ---
PROCEDURE: CT CHEST WO CON INDICATIONS: Dysphagia, unspecified TECHNIQUE: Noncontrast 5 mm thick sections acquired from the pulmonary apices to the posterior costophrenic angles. 7 mm thick coronal and sagittal MIP reformats were then acquired. For radiation dose reduction, the following was used: automated exposure control, adjustment of mA and/or kV according to patient size. COMPARISON: [facility], CT, THORAX WITHOUT CONTRAST, 12/14/2015, 9:37. FINDINGS: Image quality: Excellent. Lungs and pleura: Mild platelike atelectatic changes are seen in the right middle lobe, and along the posterior aspect of the lingula, similar to slightly progressed compared to the prior study. Chronic nodular density centrally at the base of the right lower lobe. Mild posterior lung base scarring. Minor bilateral upper lobe emphysema. No pleural effusions or pneumothorax. Central and peripheral airways are patent and normal in caliber. Mediastinum: Heart size is at the upper limits of normal. No pericardial effusion. No mediastinal adenopathy by size criteria. Thoracic aorta and central pulmonary arteries are normal in size. The esophagus is mildly patulous. The proximal portion is air-filled. The subcarinal, mid to distal portion demonstrates a small amount of dependent mucus or debris. The distal portion is decompressed. There is no hiatal hernia visible. No suspicious wall thickening or periesophageal nodules. Bones and chest wall: No suspicious bony lesions. Prominent degenerative endplate sclerotic changes, anterior disc height loss and anterior spurring in the thoracic spine, mildly progressed compared to the prior study. No vertebral body compression fractures. No axillary or supraclavicular adenopathy by size criteria. Surgical clips present in the right breast medially. Thyroid gland is normal. Abdomen: Visualized upper abdomen demonstrates a stable low density 1.4 cm nodule arising from the medial limb of the right adrenal gland. IMPRESSION: 1. Mildly patulous esophagus with small amount of mid to distal esophageal fluid/debris demonstrates stable morphology when compared to the prior study. 2. Heart size at the upper limits of normal. 3. Chronic right middle lobe and lingular atelectatic changes. No other suspicious pulmonary pathology. 4. Stable right adrenal nodule, likely benign adenoma. 5. Right breast surgical changes. Dictated by: Holly Mcclure M.D. on 12/17/2018 at 10:21 Approved by: Holly Mcclure M.D. on 12/17/2018 at 10:33
--- NOTE | 2018-12-17 | DI.RAD.S_ITS ---
PROCEDURE: [place] BARIUM SWALLOW INDICATIONS: Dysphagia, unspecified COMPARISON: None. FINDINGS: Function: There is normal esophageal peristalsis. There was only mild elicited gastroesophageal reflux. There is delayed transit of a calibrated barium tablet through the distal esophagus into the stomach where a fixed stricture may be present with slight irregularity. Morphology: Air-contrast images demonstrate normal mucosal morphology. Single contrast views show no or superior esophageal strictures, extrinsic mass effects, or diverticula. Limited images of the stomach demonstrate normal appearance. IMPRESSION: The patient reports significant history of reflux symptoms but during the course of this study only a mild degree of gastroesophageal reflux was observed. There was a delay in transit of a 13 mm caliber barium tablet through the far distal esophagus or a fixed stricture is suspected. The distal esophageal borders at the site of narrowing are slightly irregular but a definite malignant appearing mass is not found. At approximately the junction of the [id number] esophagus a persistent smoothly marginated esophageal ring was identified, above the expected level for a Schatzki's ring but this may represent sequela of chronic reflux. Endoscopic evaluation appears warranted for more accurate assessment through these areas. Dictated by: Johny Cooper M.D. on 12/17/2018 at 12:16 Approved by: Johny Cooper M.D. on 12/17/2018 at 12:20
--- NOTE | 2018-12-17 08:55 | DI.CT.S_ITS ---
PROCEDURE: CT SOFT TISSUE NECK W CON INDICATIONS: Dysphagia, unspecified TECHNIQUE: After the administration of intravenous contrast, 3.0 mm axial sections acquired from the sella to the aortic arch. Additional oblique axial 3.0 mm sections acquired through the pharynx. 3 mm thick coronal and sagittal reformats were generated. For radiation dose reduction, the following was used: automated exposure control. COMPARISON: [facility], [place], [place] BARIUM SWMLLOW, 12/17/2018, 9:57. [facility], CT, CT CHEST WO CON, 12/17/2018, 8:54. FINDINGS: Image quality: Excellent. Lymph nodes: No enlarged lymph nodes seen throughout the neck. Vessels: Visualized vasculature appears patent. Neck spaces: The oropharynx, nasopharynx, and pharynx demonstrate no mucosal lesions. The vocal cords, false vocal cords, pyriform sinuses, epiglottis, vallecula, and tongue base all appear normal. Extramucosal spaces appear unremarkable. Glands: The parotid and submandibular glands appear normal. Thyroid gland demonstrates no significant CT abnormality. Miscellaneous: Visualized brain and orbits appear normal. Lung apices appear clear. Superficial soft tissues appear normal. Bones: No suspicious bony lesions. Visualized sinuses and mastoids appear unremarkable. Degenerative changes are seen, which are overall most prominent at the C5-C6 level. IMPRESSION: A cause of dysphasia is not identified. No masses or enlarged lymph nodes are detected. As clinically appropriate, please consider laryngoscopy for further evaluation. Incidental note is made of: Scoliotic curvature and degenerative change. Dictated by: Malick Laureano M.D. on 12/17/2018 at 10:05 Approved by: Malick Laureano M.D. on 12/17/2018 at 10:08
== END ==
PROVIDERS: PCP Internal Medicine; Visit Provider Internal Medicine
DX: R13.10 Dysphagia, unspecified (principal); K21.9 Gastro-esophageal reflux disease without esophagitis; E27.9 Disorder of adrenal gland, unspecified; M47.812 Spondylosis without myelopathy or radiculopathy, cervical region; M41.9 Scoliosis, unspecified
CPT/HCPCS: 70491; 71250; 74220; Q9967

== ENCOUNTER → 2019-01-13 11:40 | Oncology outpatient (ONC) | payer MEDICARE, OTHER, SELFPAY ==
[2018-01-29 11:49] VITALS: BP 146/96; PULSE 79; RESP 15; TEMP 36.8; O2SAT 98
--- NOTE | 2018-01-29 12:32 | ONC.PN ---
Assessment and Plan (1) Breast cancer Problem details: 72-year-old woman with a history of stage I her 2 positive ER positive breast cancer. She has about 5 years out from her diagnosis. She has no evidence of recurrence and is doing well. She will continue with her hormone therapy for about 1 more year. She will be due for denosumab injection in the fall. She will return to clinic in about 6 months for follow-up. She will be due for a mammogram next September. Current visit: No Status: Acute PN -Subjective Interval history: Diagnosis: Right-sided breast cancer, T1 N0 triple positive Previous treatment: 1. Lumpectomy in August 2012. 2. Adriamycin and Cytoxan for 4 cycles followed by weekly paclitaxel and Herceptin followed by maintenance Herceptin finishing in November 2013. 3. Exemestane beginning in December 2013 later changing to the anastrozole her to be completed in December 2018. 4. Denosumab 60 mg every 6 months. Interval history: The patient is a 72-year-old woman who returns today for follow-up. She has a history of stage I her 2 positive ER positive breast cancer. She continues on hormone therapy with anastrozole and has been tolerating it reasonably well. She does have some difficulty sleeping and insomnia. She denies any significant hot flashes. She has not noted any adenopathy or changes in the breast. No shortness of breath or cough. She has had some pain in her right leg behind the knee. She did see physical therapy but it was not particularly helpful. She has not had any swelling in the legs. There has not been any erythema the skin. She is otherwise without complaints today. Her past medical history is notable for ulcerative colitis. She has a history of some osteopenia. She did have an outbreak of shingles about 5 or 6 months ago. - Patient Self-Reported Symptoms SR Musculoskeletal issues: Muscle pain or cramps Results - Imaging Additional studies: Procedures Arthroscopy, shoulder (04/12/11) Injection of anesthetic into peripheral nerve for analgesia (04/12/11) Other partial ostectomy, scapula, clavicle, and thorax [ribs and sternum] (04/12/11) Rotator cuff repair (04/12/11) Home Medications and Allergies Home Medications Medication Instructions Recorded Confirmed Type CA PANTOTHENATE/FOLIC ACID/VIT 1 tab PO QDAY #0 12/09/12 History (MULTIVITAMIN) mesalamine [Lialda] 1.2 gm PO Q DAY #0 12/09/12 History lorazepam [Ativan] 0.5 mg PO PRN #60 04/11/17 Rx anastrozole 1 mg PO QDAY #90 tab 05/21/17 Rx omeprazole #0 09/21/17 History acyclovir 400 mg PO 5XD #25 tab 09/24/17 Rx ciprofloxacin HCl [Cipro] 500 mg PO BID #20 tab 09/24/17 Rx Allergies Allergy/AdvReac Type Severity Reaction Status Date / Time codeine Allergy Unknown Verified 01/29/18 11:52 Sulfa (Sulfonamide Allergy Unknown Verified 01/29/18 11:52 Antibiotics) Exam Vital signs: Last Vital Signs Temp 98.3 F 01/29/18 11:49 Pulse 79 01/29/18 11:49 Resp 15 01/29/18 11:49 BP 146/96 H 01/29/18 11:49 Pulse Ox 98 01/29/18 11:49 - Constitutional positive no acute distress, positive average body habitus - Routine HEENT Exam Head: Present: normocephalic, atraumatic Eye: Present: EOMI, PERRL. Absent: conjunctival icterus, scleral injection ENT: Present: mucous membranes moist, oropharynx clear, dentition normal - Routine Neck Exam Present: supple. Absent: lymphadenopathy, thyromegaly - Routine Chest/Breast/Axilla Exam Chest wall exam standard: Absent: tenderness Breast: Absent: tenderness, mass (She has a well-healed incision on the medial right breast. There are no masses in the left breast. She does have fibrocystic changes.) Axillae: Absent: lymphadenopathy - Routine Respiratory Exam Present: Clear to auscultation bilaterally. Absent: rales, wheezes - Routine Cardiovascular Exam Present: RRR, S1, S2. Absent: murmur - Routine Abdominal Exam Present: soft, normoactive bowel sounds. Absent: tenderness, organomegaly, mass - Routine Extremities Exam Present: full ROM, pulses intact. Absent: edema, palpable cord, Chidi's sign, joint swelling - Routine Back/Spine Exam Back/Spine: Absent: paraspinal tenderness, vertebral tenderness - Routine Neurological Exam Present: alert, oriented X3 - Routine Psychiatric Exam Present: normal affect, normal thought process
[2018-04-08] MEDS: DENOSUMAB 60 MG/ML SYRINGE SUBCUT (15:17)
[2018-07-29 10:56] VITALS: BP 133/78; PULSE 66; RESP 16; TEMP 36.5
--- NOTE | 2018-07-29 11:12 | ONC.PN ---
PN -Subjective Interval history: Diagnosis: Right-sided breast cancer, T1 N0 triple positive Previous treatment: 1. Lumpectomy in August 2012. 2. Adriamycin and Cytoxan for 4 cycles followed by weekly paclitaxel and Herceptin followed by maintenance Herceptin finishing in November 2013. 3. Exemestane beginning in December 2013 later changing to the anastrozole her to be completed in December 2018. 4. Denosumab 60 mg every 6 months. Interval history: The patient is a 72-year-old woman who returns today for follow-up. She has a history of stage I her 2 positive ER positive breast cancer. She continues on hormone therapy with anastrozole and has been tolerating it reasonably well. Since her last visit here, she has been feeling about the same. She has noted some pain in her left hip area that is been present for about 6 or 8 weeks. There is no prior trauma. She notices the pain worse while she is walking, particularly uphill. She takes an occasional Tylenol for it. She has not noticed any other aches or pains. She has not noted any adenopathy. Her appetite and energy level have been stable. She denies any worsening shortness of breath or cough. No GI complaints. She does continue to struggle with some insomnia which has been a chronic problem for her. She denies any other changes in her health. - Patient Self-Reported Symptoms SR Musculoskeletal issues: Muscle pain or cramps Home Medications and Allergies Home Medications Medication Instructions Recorded Confirmed Type CA PANTOTHENATE/FOLIC ACID/VIT 1 tab PO QDAY #0 12/09/12 01/29/18 History (MULTIVITAMIN) mesalamine [Lialda] 1.2 gm PO Q DAY #0 12/09/12 01/29/18 History anastrozole 1 mg PO QDAY #90 tab 05/21/17 01/29/18 Rx omeprazole 1 tab PO DAILY #0 09/21/17 01/29/18 History anastrozole 1 mg PO DAILY #90 tab 07/29/18 Rx biotin 07/29/18 History cyanocobalamin (vitamin B-12) 07/29/18 History [Vitamin B-12] krill oil 07/29/18 History lorazepam [Ativan] 0.5 mg PO PRN #60 tab 07/29/18 Rx Allergies Allergy/AdvReac Type Severity Reaction Status Date / Time codeine Allergy Unknown Verified 01/29/18 11:52 Sulfa (Sulfonamide Allergy Unknown Verified 01/29/18 11:52 Antibiotics) Exam - Constitutional positive no acute distress, positive average body habitus - Routine HEENT Exam Head: Present: normocephalic, atraumatic Eye: Present: EOMI, PERRL. Absent: conjunctival icterus, scleral injection ENT: Present: mucous membranes moist, oropharynx clear - Routine Neck Exam Present: supple. Absent: lymphadenopathy, thyromegaly - Routine Chest/Breast/Axilla Exam Breast: Absent: tenderness, mass Axillae: Absent: lymphadenopathy - Routine Respiratory Exam Present: Clear to auscultation bilaterally. Absent: rales, wheezes - Routine Cardiovascular Exam Present: RRR, S1, S2, murmur Comments: She has a 2/6 systolic murmur - Routine Abdominal Exam Present: soft, normoactive bowel sounds. Absent: tenderness, organomegaly, mass - Routine Extremities Exam Absent: cyanosis, clubbing, edema Comments: There is no tenderness to palpation over the pelvic bones or over the proximal femur on the left. - Routine Back/Spine Exam Back/Spine: Absent: paraspinal tenderness, vertebral tenderness - Routine Skin Exam Present: intact. Absent: petechiae, rash - Routine Neurological Exam Present: alert, oriented X3 - Routine Psychiatric Exam Present: normal affect, normal thought process Results - Labs White count was 5.8 hemoglobin 15.3 hematocrit 46 platelets [id number] creatinine was 1.2. - Imaging Additional studies: Procedures Arthroscopy, shoulder (04/12/11) Injection of anesthetic into peripheral nerve for analgesia (04/12/11) Other partial ostectomy, scapula, clavicle, and thorax [ribs and sternum] (04/12/11) Rotator cuff repair (04/12/11) Assessment and Plan (1) Breast cancer Problem details: 72-year-old woman with a history of stage I her 2 positive ER positive breast cancer. She has completed about 4 and half years of endocrine therapy. She has no evidence of disease and is doing well. She is due for a mammogram in September. She will be due for a DEXA scan at the same time. I would anticipate that she will complete her hormone therapy this summer. She does have some left hip pain that I think is probably bursitis. I recommended that she continue with Tylenol as needed. We will plan on checking plain x-ray just to rule out any bony problem. She will return to clinic in 6 months for follow-up. Current visit: No Status: Acute
--- NOTE | 2018-12-30 15:54 | PC.NURSE ---
Patient was informed per her inquiry that last prolia injection was 04/08/18. Dr. Wick was informed by this nurse and it was reported to patient that he he will discuss this with her at her January appointment.
[2019-01-13 11:40] VITALS: BP 135/85; PULSE 77; RESP 16; TEMP 36.9; O2SAT 95
--- NOTE | 2019-01-13 12:39 | ONC.PN ---
PN -Subjective Interval history: Diagnosis: Right-sided breast cancer, T1 N0 triple positive Previous treatment: 1. Lumpectomy in August 2012. 2. Adriamycin and Cytoxan for 4 cycles followed by weekly paclitaxel and Herceptin followed by maintenance Herceptin finishing in November 2013. 3. Exemestane beginning in December 2013 later changing to the anastrozole until January 2019 4. Denosumab 60 mg every 6 months. Interval history: The patient is a 72-year-old woman who returns today for follow-up. She has a history of stage I her 2 positive ER positive breast cancer. Since her last visit, she has been feeling more poorly. She notes that she has been found to have a high calcium. Her parathyroid hormone was normal. She had a CT scan of the neck and chest that did not show any obvious masses. She does have an appointment pending with a supervisor cell operation. She has had some reflux symptoms as well as some trouble swallowing. Her weight has been stable however. She denies any nausea or vomiting. She has not noted any adenopathy. No fevers chills or sweats. She does note some increasing fatigue, dyspnea on exertion and has had a little bit of a cough as well. She denies any diarrhea or constipation. She has not noticed any focal numbness or weakness. She has not noticed any changes in the breast. - Patient Self-Reported Symptoms SR Constitution: Weight loss/gain, Fatigue/Malaise, Night Sweats SR respiratory issues: Cough SR Gastrointestinal issues: Heartburn SR Musculoskeletal issues: Joint pain or swelling Home Medications and Allergies Home Medications Medication Instructions Recorded Confirmed Type CA PANTOTHENATE/FOLIC ACID/VIT 1 tab PO QDAY #0 12/09/12 01/29/18 History (MULTIVITAMIN) mesalamine [Lialda] 1.2 gm PO Q DAY #0 12/09/12 01/29/18 History omeprazole 1 tab PO DAILY #0 09/21/17 01/29/18 History anastrozole 1 mg PO DAILY #90 tab 07/29/18 01/13/19 Rx biotin 07/29/18 History cyanocobalamin (vitamin B-12) 07/29/18 History [Vitamin B-12] krill oil 07/29/18 History lorazepam [Ativan] 0.5 mg PO PRN #60 tab 07/29/18 Rx Allergies Allergy/AdvReac Type Severity Reaction Status Date / Time codeine Allergy Unknown Verified 01/29/18 11:52 Sulfa (Sulfonamide Allergy Unknown Verified 01/29/18 11:52 Antibiotics) Exam Vital signs: Vital Signs Temp Pulse Resp BP Pulse Ox 01/13/19 11:40 98.4 F 77 16 135/85 95 Intake and Output 01/12/19 01/13/19 01/13/19 23:59 07:59 15:59 Other: Weight 70.3 kg Patient Weight 01/13/19 23:59 Weight 70.3 kg - Constitutional positive no acute distress, positive average body habitus - Routine HEENT Exam Head: Present: normocephalic, atraumatic Eye: Present: EOMI, PERRL. Absent: conjunctival icterus, scleral injection ENT: Present: mucous membranes moist, oropharynx clear - Routine Neck Exam Present: supple. Absent: lymphadenopathy, thyromegaly - Routine Chest/Breast/Axilla Exam Comments: Breast exam shows a well-healed incision on the medial right breast. There are no suspicious masses. I do not feel any masses in the left breast. No axillary adenopathy on either side. - Routine Respiratory Exam Present: Clear to auscultation bilaterally. Absent: rales, wheezes - Routine Cardiovascular Exam Present: RRR, S1, S2. Absent: murmur - Routine Abdominal Exam Present: soft, normoactive bowel sounds. Absent: tenderness, organomegaly, mass - Routine Extremities Exam Absent: cyanosis, clubbing, edema - Routine Skin Exam Present: intact. Absent: petechiae, rash - Routine Neurological Exam Present: alert, oriented X3 - Routine Psychiatric Exam Present: normal affect, normal thought process Results - Imaging Additional studies: Procedures Arthroscopy, shoulder (04/12/11) Injection of anesthetic into peripheral nerve for analgesia (04/12/11) Other partial ostectomy, scapula, clavicle, and thorax [ribs and sternum] (04/12/11) Rotator cuff repair (04/12/11) Assessment and Plan (1) Breast cancer Problem details: 72-year-old woman with a history of stage I her 2 positive ER positive breast cancer. She has completed 5 years of hormone therapy and will stop her anastrozole at this point. She will be due for mammogram next winter. She did have a DEXA scan that showed only mild osteopenia with a T-score of -1.3 in the hip. Bone density in other locations was normal. I think she can stop her Prolia. She will follow up with her other physicians regarding her hypercalcemia. She return to clinic in 1 year for follow-up. Current visit: No Status: Acute
--- NOTE | 2019-04-07 09:32 | ONC.SCHED ---
Patient called back and doesn't know why she is being referred over here as she is already a patient seeing Dr. Wick annually. She was quite frustrated because her primary Catalina Gregory did not give her any information. I told patient I would contact her pcp and have their office contact her. I did call Yuki Gregory's office and let them know and they said they would contact the patient.
== END ==
PROVIDERS: Family Provider Internal Medicine; PCP Internal Medicine
DX: C50.911 Malignant neoplasm of unspecified site of right female breast (principal); M85.88 Other specified disorders of bone density and structure, other site; E83.52 Hypercalcemia; Z17.0 Estrogen receptor positive status [ER+]; Z79.811 Long term (current) use of aromatase inhibitors
CPT/HCPCS: 96372; 99214; 99215; J0897

== ENCOUNTER → 2019-03-09 08:20 | Outpatient (CLI) | payer MEDICARE, OTHER, SELFPAY ==
--- NOTE | 2019-03-09 | DI.US.S_ITS ---
PROCEDURE: US THYROID INDICATIONS: HYPERCALCEMIA TECHNIQUE: Real-time scanning was performed of the thyroid gland, with image documentation. COMPARISON: None. FINDINGS: Right: Thyroid lobe measures 4.6 x 1.5 x 1.3 cm. Left: Thyroid lobe measures 4.4 x 1.5 x 1.1 cm. Isthmus: Approximately 2 mm thick. Nodule number: 1 Location: Left inferior Size: 0.6 x 0.4 x 0.7 cm. Composition: Predominantly solid Echogenicity: Hypoechoic Shape: wider than tall. Margins: Smooth Echogenic foci: None Total points: 4 ACR TI-RADS category: 4, moderately suspicious. By published criteria, no followup is recommended for a nodule of this size. Nodule number: 2 Location: Right superior thyroid Size: 0.7 x 0.4 x 0.7 cm. Composition: Solid Echogenicity: Hypoechoic Shape: wider than tall. Margins: Smooth Echogenic foci: None Total points: 4 ACR TI-RADS category: 4, moderately suspicious. By published criteria, no followup is recommended for a nodule of this size. Posterior to the inferior aspect of the right thyroid, there is a nodule seen, which is believed to be separate thyroid itself measures 0.8 x 0.5 x 0.8 cm. This nodule has a solid appearance and is hypoechoic to the adjacent normal thyroid. It has smooth margins, without internal calcification. No abnormal vascularity can be seen. IMPRESSION: There is an 8mm nodule seen posterior to the inferior pole of the right thyroid, which is suspicious for a parathyroid adenoma in this patient with a given history of hypercalcemia. If clinically appropriate, please consider a dedicated parathyroid protocol CT for further evaluation. Bilateral subcentimeter thyroid nodules are seen, for which no specific followup is recommended. ACR TI-RADS definitions and recommendations: TI-RADS 1 (benign): 0 points. FNA not needed. TI-RADS 2 (not suspicious): 2 points. FNA not needed. TI-RADS 3 (mildly suspicious): 3 points. * FNA if 2.5 cm or larger, follow up if 1.5 cm or larger (at 1, 3, and 5 years). TI-RADS 4 (moderately suspicious): 4-6 points. * FNA if 1.5 cm or larger, follow up if 1 cm or larger (at 1, 2, 3, and 5 years). TI-RADS 5 (highly suspicious): 7 points or more. * FNA if 1 cm or larger, follow up if 0.5 cm or larger (every year for 5 years). Dictated by: Malick Laureano M.D. on 03/09/2019 at 8:56 Approved by: Malick Laureano M.D. on 03/09/2019 at 9:02
[2019-03-09 11:25] LABS: Alanine Aminotransferase 22 IU/L (9-52); Albumin 4.5 g/dL (3.5-5.0); Albumin Globulin Ratio 1.6 (1.0-2.8); Alkaline Phosphatase 108 U/L (38-126); Aspartate Aminotransferase 27 IU/L (14-36); Bilirubin Total 1.2 mg/dL (0.2-1.3); Blood Urea Nitrogen 26 mg/dL (7-17); Calcium 10.5 mg/dL (8.4-10.2); Carbon Dioxide 30 mmol/L (22-32); Chloride 100 mmol/L (98-107); Estimated Glomerular Filt Rate 54.1 mL/min (>60); Globulin 2.9 g/dL (1.7-4.1); Glucose 101 mg/dL (80-110); HEMOLYSIS < 15 (0-50); Potassium 4.1 mmol/L (3.4-5.1); Sodium 138 mmol/L (137-145); Total Protein 7.4 g/dL (6.3-8.2)
[2019-03-09 11:54] LABS: TSH w/ Reflex to FT4 3.38 uIU/mL (0.47-4.68)
[2019-03-11 13:47] LABS: Parathyroid Hormone Int 20 pg/mL (14-64)
[2019-03-11 21:25] LABS: Alpha 1 Globulin 0.3 g/dL (0.2-0.3); Alpha 2 Globulin 0.8 g/dL (0.5-0.9); Beta 1 Globulin 0.4 g/dL (0.4-0.6); Gamma Globulin 0.8 g/dL (0.8-1.7); Protein, Total 6.6 g/dL (6.1-8.1)
[2019-03-12 13:59] LABS: 1 25 Dihydroxy Vitamin D 19 pg/mL (18-72)
[2019-03-12 19:21] LABS: Albumin 100 %; Protein/ Creatinine Ratio 106 mg/g creat (21-161); Total Urine Protein 6 mg/dL (5-24); Urine Creatinine, Random 57 mg/dL (20-275)
[2019-03-13 03:29] LABS: Vitamin A 83 mcg/dL (38-98)
== END ==
PROVIDERS: PCP Internal Medicine; Visit Provider Internal Medicine
DX: E83.52 Hypercalcemia (principal); E04.2 Nontoxic multinodular goiter
CPT/HCPCS: 76536; 80053; 82306; 82652; 83970; 84155; 84156; 84165; 84166; 84443; 84590

== ENCOUNTER → 2019-03-31 08:48 | Outpatient (CLI) | payer MEDICARE, OTHER, SELFPAY ==
[2019-04-02 10:39] LABS: Ionized Calcium 5.4 mg/dL (4.8-5.6)
[2019-04-04 15:14] LABS: Parathyroid Hormone Int 29 pg/mL (14-64)
== END ==
PROVIDERS: PCP Internal Medicine; Visit Provider Internal Medicine Endocrinology, Diabetes & Metabolism
DX: E83.52 Hypercalcemia (principal)
CPT/HCPCS: 36415; 82330; 83970

== ENCOUNTER → 2019-07-15 08:55 | Outpatient (CLI) | payer MEDICARE, OTHER, SELFPAY ==
[2019-07-17 12:59] LABS: Ionized Calcium 5.3 mg/dL (4.8-5.6)
[2019-07-18 13:33] LABS: Parathyroid Hormone Int 17 pg/mL (14-64)
== END ==
PROVIDERS: PCP Internal Medicine; Referring Provider Internal Medicine Endocrinology, Diabetes & Metabolism; Visit Provider Internal Medicine Endocrinology, Diabetes & Metabolism
DX: E83.52 Hypercalcemia (principal)
CPT/HCPCS: 36415; 82330; 83970

== ENCOUNTER 2019-10-11 15:12 | Emergency (ER) | payer MEDICARE, OTHER, SELFPAY ==
[2019-10-11] VITALS (11 sets, daily range): BP systolic 152–182; BP diastolic 65–79; PULSE 63–66; RESP 14–27; TEMP 36.4–36.6; O2SAT 96–97
--- NOTE | 2019-10-11 15:18 | ED_ITS ---
HPI - Altered Mental Status General Chief Complaint: Neuro Symptoms/Deficit Stated Complaint: stroke symptoms, memory issues Time Seen by Provider: 10/11/19 15:13 Source: patient Mode of arrival: Wheelchair Limitations: altered mental status History of Present Illness HPI narrative: This is a 74-year-old female who is brought to the emergency department by a friend. Patient had sudden onset confusion with difficulty remembering things like her birthday and other details about 20 minutes prior to arrival. She does not appreciate any facial droop. She states she can say the words she wants to stay she does does not remember details about her life. Patient denies any numbness, tingling weakness. She does feel off balance. She denies any chest pain or shortness of breath. No nausea, vomiting other GI or urinary symptoms. Patient states she can not remember her current medications but denies any blood thinners and states she does take something for her stomach. She know she has had a surgery in the past but not exactly what. She knows she has allergies but cannot remember them. For her medical record she has history of breast cancer, COPD and hypertension. Related Data Home Medications Medication Instructions Recorded Confirmed CA PANTOTHENATE/FOLIC ACID/VIT 1 tab PO QDAY #0 12/09/12 01/29/18 (MULTIVITAMIN) mesalamine [Lialda] 1.2 gm PO Q DAY #0 12/09/12 01/29/18 omeprazole 1 tab PO DAILY #0 09/21/17 01/29/18 biotin 07/29/18 cyanocobalamin (vitamin B-12) 07/29/18 [Vitamin B-12] krill oil 07/29/18 Previous Rx's Medication Instructions Recorded anastrozole 1 mg PO DAILY #90 tab 07/29/18 lorazepam [Ativan] 0.5 mg PO PRN #60 tab 07/29/18 Allergies Allergy/AdvReac Type Severity Reaction Status Date / Time codeine Allergy Unknown Verified 01/29/18 11:52 Sulfa (Sulfonamide Allergy Unknown Verified 01/29/18 11:52 Antibiotics) Review of Systems Review of Systems ROS Unobtainable: All systems reviewed & are unremarkable except as noted in HPI and below Patient History Surgical History History of lumpectomy Status post colonoscopy Status post tonsillectomy and adenoidectomy Family History (Updated 04/25/16 @ 00:00 by Conversion Provider) Father Malignant neoplasm of lung, unspecified laterality, unspecified part of lung ST elevation myocardial infarction (STEMI), unspecified artery Mother Emphysema, unspecified Exam Narrative Exam Narrative: GEN: well nourished, well appearing female, alert, patient has difficulty with the year, patient appears to be in mild distress. HEENT: Atraumatic, pupils are equal round reactive to light, extraocular movements are intact, nares are clear, throat is clear without any exudates, erythema, tonsillar enlargement or uvular deviation, no facial droop HEART: Regular rate and rhythm without murmur, clicks, rubs. Pulses are equal in upper extremities LUNGS:Lungs clear to auscultation, no wheezes, rales, crackles, chest moves symmetrically, no tachypnea, no accessory muscle use. ABD:bowel sounds normal, soft, non-tender, no guarding, rebound, rigidity, no masses noted, no hepatosplenomegaly :No CVA tenderness MSCL: Non-tender, no muscle atrophy, muscles strength 5/5 upper and lower ex tremities, full range of motion, gait not tested. NEURO:CN 2-12 intact, sensation normal, reflexes 2/4 upper and lower extremities. finger nose finger test normal, heel benito test normal, romberg norm al. + for expressive aphasia, no dysarthria noted. Patient is unable to visualize fingers accurately on right and on right side of NIH (picture/words/sentences) cards. Initial Vital Signs Initial Vital Signs: Vital Signs Pulse Rate 65 10/11/19 16:00 Blood Pressure 162/79 H 10/11/19 16:00 Pulse Oximetry 96 10/11/19 16:00 Scores NIH Stroke Scale Level of Conciousness: Alert, keenly responsive Ask month/age: Answers neither question correctly, aphasic, stuporous, coma Open/close eyes, close hand: Performs both tasks correctly Best gaze horizontal: Normal Visual figueroa: Complete hemianopia Facial palsy: Normal symetrical movement Left arm drift: No drift for full 10 sec Right arm drift: No drift for full 10 sec Left leg drift: No drift for full 10 sec Right leg drift: No drift for full 10 sec Limb ataxia: Absent Sensory on face/arms/legs: Normal, no sensory loss Best language: Mild to moderate, slurs some words Dysarthria: Normal Extinction or inattention: No abnormality Total NIH Stroke scale score: 5 Course Orders Ordered: ED Orders 10/11/19 15:[address] angio head and neck Stat Urine Drug Screen, Rapid Stat EKG-12 Lead Stat 10/11/19 15:25 Basic Metabolic Panel Stat Complete Blood Count AUTO DIFF Stat Partial Thromboplastin Time Stat Prothrombin Time INR Stat Troponin & CK Cardiac Panel Stat 10/11/19 17:47 CT head/brain wo con Stat 10/11/19 18:13 Urinalysis and Microscopic Stat Sodium Chloride (Normal Saline 0.9%) 1,000 mls @ 150 mls/hr IV CONT LORNE Last Admin: 10/11/19 15:55 Dose: 150 mls/hr Documented by: DAVID Ondansetron HCl (Zofran) 4 mg IV Q6HR PRN PRN Reason: Nausea And Vomiting Discontinued Medications Alteplase, Recombinant (Activase) 66.2 mg IV NOW ONE Stop: 10/11/19 17:01 Last Admin: 10/11/19 16:55 Dose: 66.2 mg Documented by: DAVID Aspirin (Aspirin Chew) 324 mg PO NOW ONE Stop: 10/11/19 16:20 Last Admin: 10/11/19 16:40 Dose: 324 mg Documented by: DAVID Fentanyl (Sublimaze) 25 mcg IV NOW ONE Stop: 10/11/19 17:48 Vital Signs Vital signs: Vital Signs - 8 hr 10/11/19 16:00 10/11/19 16:31 10/11/19 16:56 Temperature Pulse Rate 65 66 66 Respiratory Rate 14 24 Blood Pressure [Right Arm] 162/79 H 162/79 H 152/70 H Pulse Oximetry 96 97 96 10/11/19 17:00 10/11/19 17:15 10/11/19 17:30 Temperature Pulse Rate 66 65 66 Respiratory Rate 24 24 16 Blood Pressure [Right Arm] 159/70 H 182/73 H 155/77 H Pulse Oximetry 97 97 96 10/11/19 18:00 Temperature 97.6 F Pulse Rate 66 Respiratory Rate 24 Blood Pressure [Right Arm] 153/77 H Pulse Oximetry 96 MDM - Altered Mental Status Lab Data Attestation: I reviewed the patient's lab results. Result diagrams: 10/11/19 15:25 10/11/19 15:25 Labs: Lab Results 10/11/19 10/11/19 10/11/19 Range/Units 15:25 15:25 15:25 WBC 7.3 (4.5-11.0) X10^3/uL RBC 4.82 (4.0-5.2) X10^6/uL Hgb 14.7 (12.0-16.0) g/dL Hct 44.0 (36-46) % MCV 91.2 (80-100) fL MCH 30.5 (26-34) PG MCHC 33.4 (30-36) % RDW 14.2 (11.6-14.8) % Plt Count 328 (150-400) X10^3/uL Neut % (Auto) 61.3 (50-75) % Lymph % (Auto) 29.2 (25-40) % [place] % (Auto) 6.3 (3-14) % Eos % (Auto) 2.1 (2-4) % Baso % (Auto) 1.1 (0-2) % Neut # (Auto) 4400 (1889-5568) /uL Lymph # (Auto) 2100 (6994-0069) /uL [place] # (Auto) 500 (0-900) /uL Eos # (Auto) 200 (0-450) /uL Baso # (Auto) 100 (0-100) /uL PT 10.3 (10.1-12.7) SECONDS INR 0.9 (0.9-1.3) APTT 32 (26.4-36.2) SECONDS Sodium 135 L (137-145) mmol/L Potassium 4.5 (3.4-5.1) mmol/L Chloride 105 (98-107) mmol/L Carbon Dioxide 21 L (22-32) mmol/L BUN 39 H (7-17) mg/dL Creatinine 1.10 H (0.52-1.04) mg/dL Estimated GFR 48.3 L (>60) mL/min BUN/Creatinine Ratio 35.5 H (6-22) Glucose 113 H (80-110) mg/dL Calcium 10.0 (8.4-10.2) mg/dL Total Creatine Kinase 106 (30-135) U/L CK-MB (CK-2) < 0.22 (<2.37) ng/mL CK-MB (CK-2) Rel Index 0.2 L (1.5-5.0) % Troponin I < 0.012 (0.01-0.034) ng/mL Point of Care Testing Glucose POC [address] scan - head: Radiologist's Impression: [address] [address] [address] Scan Report Signed Patient: Sachi Garza [facility]#: [id number] : 4Acct:[id number] Age/Sex: 74 / FDate of Service: 10/11/19 Loc: ED Accession Number: [id number] Procedure: CT Stroke Ordering Provider: Ellen Palma D.O. PROCEDURE: CT STROKE INDICATIONS: confusion, feels off balance TECHNIQUE: Noncontrast 4.5 mm thick angled axial sections acquired from the foramen magnum to the vertex, with coronal reformats. For radiation dose reduction, the following was used: automated exposure control, adjustment of mA and/or kV according to patient size. COMPARISON: [facility] [address] [facility] , CT, BRAIN W/O CONTRAST, 08/08/2006, 11:16. FINDINGS: Image quality: Diagnostic. CSF spaces: Basal cisterns are patent. No extra-axial fluid collections. Ventricles are mildly prominent with coarse parenchymal volume loss. Brain: No midline shift. No intracranial masses or hemorrhage. Reyes-white matter interface is normal. Small areas of low-attenuation are seen within the periventricular white matter of the bilateral frontal lobes, similar to the previous exam. No large area of parenchymal edema is appreciated. Skull and face: Calvarium and visualized facial bones are intact, without suspicious lesions. Sinuses: Visualized sinuses and mastoids are clear. IMPRESSION: 1. No acute intracranial hemorrhage. 2. Mild chronic small vessel ischemic changes improvement volume loss are similar to the previous study. Note: Findings were discussed with Dr. Palma at 1547 hours (PST) on 10/11/19. This study fulfills neurological imaging criteria for inclusion or exclusion of acute stroke therapies based on available published neurological imaging guidelines. Dictated by: Adria Reid M.D. on 10/11/2019 at 14:45 Approved by: Adria Reid M.D. on 10/11/2019 at 14:48 CTA head and neck: Radiologist's Impression: [address] [address] [address] Scan Report Signed Patient: Sachi Garza [facility]#: [id number] : 4Acct:[id number] Age/Sex: 74 / FDate of Service: 10/11/19 Loc: ED Accession Number: [id number] Procedure: CT angio head and neck Ordering Provider: Ellen Palma D.O. PROCEDURE: CT ANGIO HEAD AND NECK INDICATIONS: confusion, feels off balance TECHNIQUE: Pre-contrast 4.5 mm thick sections acquired from the foramen magnum to the vert ex. After the administration of intravenous contrast, 1 mm thick sections acquired from the aortic arch through the [employer] [place] [facility] [place]. Post-contrast 4.5 mm thick sections then re- acquired from the foramen magnum to the vertex. 3-dimensional fnyiwsj-mbodidcjg-dxbodijypp (MIP) and/or volume rendering reformats were acquired of the central intracranial vasculature and neck separately. COMPARISON: [facility], CT, CT SOFT TISSUE NECK W CON, 12/17/2018, 8:54. FINDINGS: Image quality: Excellent. BRAIN: CSF spaces: Ventricles are normal in size and shape. Basal cisterns are patent. No extra-axial fluid collections. Brain: No midline shift. No intracranial bleeds or masses. Reyes-white matter interface appears intact. No suspicious enhancement involving the brain is evident. Skull and face: Calvarium and facial bones appear intact, without suspicious lesions. Orbits appear normal. Sinuses: Sinuses and mastoids are clear. HEAD CT ANGIOGRAPHY: Anterior circulation: Intracranial internal carotid arteries are normal in size and flow. However, there is minimal associated atherosclerosis involving the intracranial portions of the bilateral internal carotid arteries without significant luminal narrowing. The flow within the paired anterior cerebral arteries is normal and symmetric. The flow within the middle cerebral arteries is normal and symmetric. The anterior communicating artery is seen. No aneurysms are seen. Posterior circulation: Visualized portions of the vertebral arteries demonstrate normal caliber, and join to form a normal appearing basilar artery. Flow within the posterior cerebral arteries is normal and symmetric. No aneurysms are seen. NECK CT ANGIOGRAPHY: Carotid system: The great vessels demonstrate a conventional anatomy as they arise from the aortic arch. The origins of the common carotid arteries appear patent. The common carotid arteries demonstrate normal caliber and courses. The bifurcation regions are both widely patent. The internal carotid arteries demonstrate normal calibers and courses. There is mild atherosclerosis evident involving the left carotid bulb without significant luminal narrowing. Otherwise, the remainder of the cervical left internal carotid artery is unremarkable. No significant atherosclerosis of the right carotid bulb or cervical right internal carotid artery is evident. Posterior circulation: The origins of the vertebral arteries both appear widely patent. The more superior extracranial portions of both vertebral arteries also demonstrate normal courses and calibers. They join to form a normal appearing basilar artery. Soft tissues: Visualized neck soft tissues demonstrate no suspicious abnormalities. Bones: No suspicious bony lesions. Visualized cervical spine appears normally aligned. IMPRESSION: 1. Mild atherosclerosis of the left carotid bulb without hemodynamically significant stenosis. 2. Minimal atherosclerosis involving the intracranial portions of the bilateral internal carotid arteries without significant narrowing or hemodynamically significant stenosis. 3. No occlusions, aneurysms, dissections, or high-grade narrowing is evident involving the vertebral/carotid arteries of the neck or of the major intracranial arteries of the brain. Any quantitative measurements of stenosis were performed using NASCET criteria. Dictated by: Adria Reid M.D. on 10/11/2019 at 15:11 Approved by: Adria Reid M.D. on 10/11/2019 at 15:[address]: Radiologist's Impression: [place] [address] CT Scan Report Signed Patient: Sachi Garza [facility]#: [id number] : 4Acct:[id number] Age/Sex: 74 / FDate of Service: 10/11/19 Loc: ED Accession Number: [id number] Procedure: CT head/brain wo con Ordering Provider: Ellen Palma D.O. PROCEDURE: CT HEAD/BRAIN WO CON INDICATIONS: headache is worse, s/p tpa TECHNIQUE: Noncontrast 4.5 mm thick angled axial sections acquired from the foramen magnum to the vertex, with coronal and sagittal reformats. For radiation dose reduction, the following was used: automated exposure control, adjustment of mA and/or kV according to patient size. COMPARISON: [facility], CT, CT STROKE, 10/11/2019, 15:14. FINDINGS: Image quality: Excellent. CSF spaces: Basal cisterns are patent. No extra-axial fluid collections. The ventricles are symmetric in size and shape. Brain: No intracranial bleeds or masses. There is cerebral volume loss for age, with resultant ventricular and sulcal prominence. There are periventricular and deep white matter chronic small vessel ischemic changes. There is intracranial internal carotid artery atherosclerosis. Skull and face: Calvarium and visualized facial bones appear intact, without suspicious lesions. Sinuses: Visualized sinuses and mastoids are clear. IMPRESSION: No CT evidence of acute intracranial pathology. No significant changes from earlier study. Dictated by: Jose Damon M.D. on 10/11/2019 at 18:18 Approved by: Jose Damon M.D. on 10/11/2019 at 18:20 ECG Data Attestation: I personally reviewed and interpreted this ECG as follows: Prior ECG tracings: not available for review Interpretation: Sinus rhythm rate of 61 NH 168 QRS 84 and QTC of 436. No ST elevation or depression appreciated. MDM Narrative Medical decision making narrative: This is a 74-year-old female who comes in with complaint of sudden onset expressive aphasia, feeling off balance with severe left sided headache. Patient's NIH is 5. Patient is within the window for tPA, she does not have any obvious contraindications at this time. Case was discussed with Dr. Altman-Red with tele stroke and we discussed plan to give tPA. She asked that we would speak with the ICU hospitalist for transfer as she would not be the accepting physician at this time. We did discuss with the patient risks versus benefits she is aware of the potential for serious sometimes fatal bleeding. Patient elects at this time to go ahead and receive tPA. Her head CT initially is negative, CTA does not show any severe stenosis, it does show some mild atherosclerosis but no hemodynamically significant stenosis. No occlusions Dara aneurysms or dissections or high-grade narrowing are evident. Patient's EKG shows a sinus rhythm. Her CBC does not show any acute changes with normal platelets, normal coags, creatinine is 1.1 with a GFR 48, electrolytes show mild low sodium, CO2 of 21 and BUN of 39 and glucose of 113, patient's troponin is negative. Spoke with the neurointensivist, Dr. Sapp who accepts for transfer. Patient has had headache, she states it does feel worse after tpa. Head CT repeated and is negative. Patient given morphine and zofran IV for headache. BP has been below 180 in department. Critical Care Time Critical Care Time Critical Care Time: Yes Total Critical Care Time: 70 Attestation: The high probability of a clinically significant, sudden or life threatening deterioration of the [neurological] system(s) required my full and direct attention, intervention and personal management. The aggregate critical care time was [] minutes. This time is in addition to time spent performing reported procedures but includes the following: [x] Data Review and interpretation [x] Patient assessment and monitoring of vital signs [x] Documentation [x] Medication orders and management Discharge Plan Departure Patient Disposition: [facility] Clinical Impression: Acute CVA (cerebrovascular accident) Prescriptions: No Action mesalamine [Lialda] 1.2 GM tablet,delayed release (DR/EC) 1.2 gm PO Q DAY Qty: 0 RF: 0 CA PANTOTHENATE/FOLIC ACID/VIT (MULTIVITAMIN) 1 tab PO QDAY Qty: 0 RF: 0 omeprazole 20 MG capsule,delayed release(DR/EC) 1 tab PO DAILY Qty: 0 RF: 0 lorazepam [Ativan] 0.5 MG tablet 0.5 mg PO PRN Qty: 60 RF: 1 biotin 5 mg Capsule RF: 0 cyanocobalamin (vitamin B-12) [Vitamin B-12] 1,000 mcg Tablet RF: 0 krill oil 500 mg Capsule RF: 0 anastrozole 1 mg Tablet 1 mg PO DAILY Qty: 90 RF: 1 Referrals: Yuki Gregory MD [Primary Care Provider] -
[2019-10-11 15:32] LABS: Add Manual Diff / Slide Review NO; Basophils Absolute Auto 100 /uL (0-100); Basophils Percent Auto 1.1 % (0-2); Eosinophils Absolute Auto 200 /uL (0-450); Eosinophils Percent Auto 2.1 % (2-4); Hemoglobin 14.7 g/dL (12.0-16.0); Lymphocytes Absolute Auto 2100 /uL (1100-4500); Lymphocytes Percent Auto 29.2 % (25-40); Mean Corpuscular HGB Conc 33.4 % (30-36); Mean Corpuscular Hemoglobin 30.5 PG (26-34); Mean Corpuscular Volume 91.2 fL (80-100); Monocytes Absolute Auto 500 /uL (0-900); Monocytes Percent Auto 6.3 % (3-14); Neutrophils Absolute Auto 4400 /uL (1500-7000); Neutrophils Percent Auto 61.3 % (50-75); Platelet Count 328 X10^3/uL (150-400); Red Blood Cell Count 4.82 X10^6/uL (4.0-5.2); Red Cell Distribution Width 14.2 % (11.6-14.8); White Blood Cell Count 7.3 X10^3/uL (4.5-11.0)
[2019-10-11 15:42] LABS: INR 0.9 (0.9-1.3); Prothrombin Time 10.3 SECONDS (10.1-12.7)
[2019-10-11 15:45] LABS: PTT Partial Thromboplastin Tim 32 SECONDS (26.4-36.2)
[2019-10-11 15:51] LABS: BUN Creatinine Ratio 35.5 (6-22); Blood Urea Nitrogen 39 mg/dL (7-17); Carbon Dioxide 21 mmol/L (22-32); Chloride 105 mmol/L (98-107); Creatine Kinase 106 U/L (30-135); Estimated Glomerular Filt Rate 48.3 mL/min (>60); Glucose 113 mg/dL (80-110); HEMOLYSIS < 15 (0-50); Potassium 4.5 mmol/L (3.4-5.1); Sodium 135 mmol/L (137-145)
--- NOTE | 2019-10-11 15:51 | PC.NURSE ---
Patient having difficulty remembering birthdate and address. Reports headache left temporal
[2019-10-11] MEDS: SODIUM CHLORIDE 0.9% 1,000 ML 150 ML IV (15:55)
[2019-10-11 16:02] LABS: Troponin I < 0.012 ng/mL (0.01-0.034)
[2019-10-11 16:07] LABS: CKMB % Relative Index 0.2 % (1.5-5.0); Creatine Kinase MB < 0.22 ng/mL (<2.37)
[2019-10-11] MEDS: ASPIRIN 81 MG CHEW TAB 324 MG PO (16:40)
[2019-10-11] MEDS: ALTEPLASE 100 MG VIAL 66.2 MG IV (16:55)
--- NOTE | 2019-10-11 17:30 | PC.NURSE ---
Pt reports decreasing vision in Right eye. States no change in FRANCES. 6/10 pain.
--- NOTE | 2019-10-11 17:47 | DI.CT.S_ITS ---
PROCEDURE: CT HEAD/BRAIN WO CON INDICATIONS: headache is worse, s/p tpa TECHNIQUE: Noncontrast 4.5 mm thick angled axial sections acquired from the foramen magnum to the vertex, with coronal and sagittal reformats. For radiation dose reduction, the following was used: automated exposure control, adjustment of mA and/or kV according to patient size. COMPARISON: [facility], CT, CT STROKE, 10/11/2019, 15:14. FINDINGS: Image quality: Excellent. CSF spaces: Basal cisterns are patent. No extra-axial fluid collections. The ventricles are symmetric in size and shape. Brain: No intracranial bleeds or masses. There is cerebral volume loss for age, with resultant ventricular and sulcal prominence. There are periventricular and deep white matter chronic small vessel ischemic changes. There is intracranial internal carotid artery atherosclerosis. Skull and face: Calvarium and visualized facial bones appear intact, without suspicious lesions. Sinuses: Visualized sinuses and mastoids are clear. IMPRESSION: No CT evidence of acute intracranial pathology. No significant changes from earlier study. Dictated by: Jose Damon M.D. on 10/11/2019 at 18:18 Approved by: Jose Damon M.D. on 10/11/2019 at 18:20
[2019-10-11 18:38] LABS: Appearance Urine UA CLEAR; Bilirubin Urine UA NEGATIVE (NEGATIVE); Color Urine UA YELLOW; Glucose Urine UA NEGATIVE (Negative); Ketones Urine UA NEGATIVE (NEGATIVE); Leukocyte Esterase Urine UA TRACE (NEGATIVE); Nitrite Urine UA NEGATIVE (Negative); Occult Blood Urine UA 1+ (Negative); Protein Urine UA NEGATIVE (Negative); Specific Gravity Urine UA <=1.005 (1.000-1.035); Urobilinogen Urine UA 0.2 E.U./dL (0.2)
[2019-10-11 18:43] LABS: UR Morphine/Opiate cutoff 300 Negative (Negative); Ur Creatinine Normal (Normal); Ur Specific Gravity Normal (Normal); Urine Amphetamines Negative (Negative); Urine Barbiturates Negative (Negative); Urine Benzodiazepines Negative (Negative); Urine Cocaine Negative (Negative); Urine MDMA Negative (Negative); Urine Methadone Negative (Negative); Urine Methamphetamines Negative (Negative); Urine Oxycodone Negative (Negative); Urine Phencyclidine Negative (Negative); Urine Tetrahydrocannabinol Negative (Negative); Urine Tricyclic Antidepressant Negative (Negative); Urine pH Normal (Normal)
[2019-10-11 18:45] LABS: Bacteria Urine Moderate (10-30); Culture Indicated Urine Specimen Cultured; RBC Urine 1-5/HPF (0-5/HPF); Squamous Epithelial Cell Urine 0-1 /HPF (0-5/HPF); WBC Urine 5-10/HPF (0-5/HPF)
== END 2019-10-11 19:10 | disposition short-term general hospital (02) ==
PROVIDERS: Emergency Provider Emergency Medicine; PCP Internal Medicine
DX: I63.9 Cerebral infarction, unspecified (principal); R47.01 Aphasia; R51 Headache
CPT/HCPCS: 36415; 70450; 70496; 70498; 80048; 80305; 81001; 82550; 82553; 82962; 84484; 85025; 85610; 85730; 87077; 87086; 87186; 93005; 96361; 96374; 99285; 99291; 99292; J2997; Q9967

== ENCOUNTER 2019-10-19 13:21 | Emergency (ER) | payer MEDICARE, OTHER, SELFPAY ==
[2019-10-19 13:35] VITALS: BP 201/91; PULSE 65; RESP 16; TEMP 36.6; O2SAT 95
--- NOTE | 2019-10-19 13:41 | DI.RAD.S_ITS ---
PROCEDURE: XR CHEST 1V INDICATIONS: Possible stroke TECHNIQUE: One view of the chest was acquired. COMPARISON: [facility], CT, CT CHEST WO CON, 12/17/2018, 8:54. [facility], CT, CT STROKE, 10/19/2019, 13:38. [facility], CR, CHEST 2 VIEW, 09/24/2017, 13:18. FINDINGS: Surgical changes and devices: Right breast clips are seen. Lungs and pleura: Lungs are clear. No pleural effusions or pneumothorax. Mediastinum: The cardiac contours are within normal limits. The aorta demonstrates calcification and tortuosity. Bones and chest wall: No suspicious bony lesions. Age-appropriate bony degenerative changes are seen. Mild dextroconvex scoliotic curvature is seen. Overlying soft tissues appear unremarkable. IMPRESSION: Portable chest within normal limits for age. Postoperative and degenerative changes are seen. Dictated by: Malick Laureano M.D. on 10/19/2019 at 14:09 Approved by: Malick Laureano M.D. on 10/19/2019 at 14:10
--- NOTE | 2019-10-19 13:41 | DI.CT.S_ITS ---
PROCEDURE: CT STROKE INDICATIONS: vision changes TECHNIQUE: Noncontrast 4.5 mm thick angled axial sections acquired from the foramen magnum to the vertex, with coronal reformats. For radiation dose reduction, the following was used: automated exposure control, adjustment of mA and/or kV according to patient size. COMPARISON: [facility], CT, CT HEAD/BRAIN WO CON, 10/11/2019, 17:44. FINDINGS: Image quality: Excellent. CSF spaces: Basal cisterns are patent. No extra-axial fluid collections. The ventricles are symmetric in size and shape. Brain: No intracranial bleeds or masses. Hypodensity with loss of summers-white matter differentiation noted in the inferior and mesial margin of the left occipital lobe compatible with subacute infarct. There is cerebral volume loss for age, with resultant ventricular and sulcal prominence. There are periventricular and deep white matter chronic small vessel ischemic changes. There is intracranial internal carotid artery and vertebral artery atherosclerosis. Skull and face: Calvarium and visualized facial bones appear intact, without suspicious lesions. Sinuses: Visualized sinuses and mastoids are clear. IMPRESSION: 1. Subacute left occipital infarct. 2. No intracranial hemorrhage. Findings telephoned to Dr. Hdz on 10/19/2019 at 1401 hrs. This study fulfills neurological imaging criteria for inclusion or exclusion of acute stroke therapies based on available published neurological guidelines. Dictated by: Gunjan Ventura MD, PhD on 10/19/2019 at 14:00 Approved by: Gunjan Ventura MD, PhD on 10/19/2019 at 14:04
--- NOTE | 2019-10-19 14:02 | ED_ITS ---
HPI - Eye Problem General Chief complaint: Eye Problems Stated complaint: prev stroke Time Seen by Provider: 10/19/19 14:01 Source: patient Mode of arrival: Ambulatory History of Present Illness HPI Narrative: CC: Had a stroke 1 week ago and now she has abnormal changes in her vision. HPI: The patient is a 74-year-old female who states that she is normally very active and walking all the time. She was seen on October 10 here in [facility] diagnosed to have a in occipital stroke and was started on tPA and transferred to [facility]. The patient states that she has had the loss of her peripheral vision in her right eye. The patient sometimes has difficulty in walking because of the loss of vision. Today the that change in vision seem to change a little bit and was curving. The patient's primary care physician is Dr. Yuki Gregory. Patient states that since she has had her stroke she has a posterior occipital headache which seems to be relieved by Tylenol or ibuprofen. The patient denies a history of myocardial infarction congestive heart failure hypertension diabetes mellitus but admits to the stroke as we described it. Her blood pressure today was 140/80. The patient denies being seen by a neuro mortar worker. Related Data Home Medications Medication Instructions Recorded Confirmed CA PANTOTHENATE/FOLIC ACID/VIT 1 tab PO QDAY #0 12/09/12 01/29/18 (MULTIVITAMIN) mesalamine [Lialda] 1.2 gm PO Q DAY #0 12/09/12 01/29/18 omeprazole 1 tab PO DAILY #0 09/21/17 01/29/18 biotin 07/29/18 cyanocobalamin (vitamin B-12) 07/29/18 [Vitamin B-12] krill oil 07/29/18 Previous Rx's Medication Instructions Recorded anastrozole 1 mg PO DAILY #90 tab 07/29/18 lorazepam [Ativan] 0.5 mg PO PRN #60 tab 07/29/18 Allergies Allergy/AdvReac Type Severity Reaction Status Date / Time codeine Allergy Unknown Verified 10/19/19 13:34 Sulfa (Sulfonamide Allergy Unknown Verified 10/19/19 13:34 Antibiotics) Review of Systems Review of Systems Narrative: REVIEW OF SYSTEMS: CONSTITUTIONAL: No fever chills or sweats NEUROLOGICAL: The patient has a posterior occipital headache but denies any numbness tingling paresthesias paresis or paralysis EENT: The patient denies any nasal drainage sinus congestion sore throat or dysphagia. The patient has a homonymous hemianopsia on the right. CARDIO-PULMONARY: The patient denies any chest pain cough shortness of breath palpitations irregular heartbeat. GASTROINTESTINAL: The patient denies any abdominal pain nausea vomiting diarrhea change in bowel habits GENITAL URINARY: She denies any urinary symptoms. MUSCULOSKELETAL/ RHEUMATOLOGICAL: She has no back pain or joint pain more than usual. Patient History Surgical History History of lumpectomy Status post colonoscopy Status post tonsillectomy and adenoidectomy Family History Father Malignant neoplasm of lung, unspecified laterality, unspecified part of lung ST elevation myocardial infarction (STEMI), unspecified artery Mother Emphysema, unspecified Social History Smoking Status: Former smoker Smoking Status: Former smoker alcohol intake frequency: a few times a week Substance Use Type: does not use Exam Narrative Exam Narrative: PHYSICAL EXAM: CONSTITUTIONAL: Awake, Alert, Oriented, Coherent, Cooperative in NAD. The patient is very anxious over her symptomatology HEAD: AT/NC, the patient is diffusely tender to palpation of the occipital nuchal ridge EENT: PERRL, FROM of eyes, no discharge, the patient has a right homonymous hemianopsia out visual field defect MOUTH: The patient is wearing a mask NECK: Supple, no obvious JVD, Trachea is midline without stridor, no palpable LN. SPINE: Palpationof the cervical, Thoracic, Lumbar or Sacral spine reveals no gross deformity or tenderness. No CVA tenderness. THORAX: No deformity, retractions, chest wall tenderness. LUNGS: Clear, symmetrical breath sounds without respiratory distress. HEART: Normal heart tones, regular rhythm and rate without murmur. The patient's heart rate at this time is not irregular irregular ABDOMEN: Soft, non-tender, normal bowel sounds without guarding, rebound, rigidity or palpable mass. EXTREMITIES: No edema, deformity, tenderness or cyanosis. SKIN: No rash, bruising, petechiae or purpura. NEURO: Awake, alert, oriented, conversive, cranial nerves II-XII are symmetrical , moves all 4 extremities and is ambulatory. Initial Vital Signs Initial Vital Signs: Vital Signs Temperature 97.8 F 10/19/19 13:35 Pulse Rate 65 10/19/19 13:35 Respiratory Rate 16 10/19/19 13:35 Blood Pressure 201/91 H 10/19/19 13:35 Pulse Oximetry 95 10/19/19 13:35 Course Course Course Narrative: 1400: Radiology called stating that the patient has a subacute left occipital infarct ( stroke). 1436: I am currently calling the [facility] neurology consult. The patient's repeat CT scan today shows a subacute left occipital infarct. There is no intracranial hemorrhage per the radiologist. The patient is complaining of peripheral loss of vision on the right side and on confrontation appears to have a right hemianopsia. With a posterior occipital headache. 1512: I discussed this with the neurologist at [facility] and they had no other recommendations other than continuing to have the repeat CT scan at [facility] to make sure that she is not bleeding into the area before they start her on anticoagulation. They agree that her slight changes in symptoms is secondary to the her brain injury and adaptations. 1613 the patient's EKG obtained on October 18 at 15:5 7:13 a.m. revealed a sinus bradycardia with a ventricular rate of 59. The patient's QRS is 92 milliseconds. QTC is normal at 427 milliseconds the patient has a left axis deviation. The patient has a QS wave in lead V1. There are inverted T-waves in V1 and lead III. There are no other acute diagnostic ST segment changes. Orders Ordered: ED Orders 10/19/19 13:41 CT Stroke Stat XR chest 1V Stat EKG-12 Lead Stat Vital Signs Vital signs: Vital Signs - 8 hr 10/19/19 13:35 10/19/19 15:12 10/19/19 17:10 Temperature 97.8 F Pulse Rate 65 65 64 Respiratory Rate 16 16 16 Blood Pressure 201/91 H 150/78 H Blood Pressure [Left Arm] 163/74 H Pulse Oximetry 95 95 94 Discharge Plan Departure Patient Disposition: Home Clinical Impression: Hemianopia, homonymous, right, Occipital stroke, Paroxysmal A-fib, Occipital headache Discharge Date/Time: 10/19/19 17:19 Instructions: DI for Stroke-Ischemic, DI for Atrial Fibrillation, DI for Hemianopsia Activity Restrictions/Additional Instructions: 1. Follow-up with your primary care physician and your neurologist for your stroke at [facility]. 2. Continue your current medications. 3. Follow-up with CT scan ordered by Dr. Ventura at [facility]. Dr. Ventura once that repeat CT scan to check the extent of damage in injury from your stroke and to use that CT scan to determine his anticoagulation therapy 4. If you develop any other symptoms of a stroke such as loss of sensation in arm or leg weakness or paralysis of your arm or your leg face you need to return to the emergency department for further evaluation. 5. For the posterior occipital headache take Tylenol/acetaminophen 500 mg every 4 hours or 1 g every 6 hours for the pain and discomfort. You may also use ibuprofen 3, 200 mg tablets every 6 hours for pain and discomfort. Prescriptions: No Action mesalamine [Lialda] 1.2 GM tablet,delayed release (DR/EC) 1.2 gm PO Q DAY Qty: 0 RF: 0 CA PANTOTHENATE/FOLIC ACID/VIT (MULTIVITAMIN) 1 tab PO QDAY Qty: 0 RF: 0 omeprazole 20 MG capsule,delayed release(DR/EC) 1 tab PO DAILY Qty: 0 RF: 0 lorazepam [Ativan] 0.5 MG tablet 0.5 mg PO PRN Qty: 60 RF: 1 biotin 5 mg Capsule RF: 0 cyanocobalamin (vitamin B-12) [Vitamin B-12] 1,000 mcg Tablet RF: 0 krill oil 500 mg Capsule RF: 0 anastrozole 1 mg Tablet 1 mg PO DAILY Qty: 90 RF: 1 Referrals: Yuki Gregory MD [Primary Care Provider] -
[2019-10-19 15:12] VITALS: BP 163/74; PULSE 65; RESP 16; O2SAT 95
[2019-10-19 17:10] VITALS: BP 150/78; PULSE 64; RESP 16; O2SAT 94
== END 2019-10-19 17:19 | disposition home or self-care (01) ==
PROVIDERS: Emergency Provider Emergency Medicine; PCP Internal Medicine
DX: I63.9 Cerebral infarction, unspecified (principal); H53.461 Homonymous bilateral field defects, right side; R51 Headache; I48.0 Paroxysmal atrial fibrillation
CPT/HCPCS: 70450; 71045; 93005; 99283; 99284

== ENCOUNTER → 2019-12-22 09:26 | Outpatient (CLI) | payer MEDICARE, OTHER, SELFPAY ==
[2019-12-22 10:51] LABS: Alanine Aminotransferase 52 IU/L (<35); Albumin 4.5 g/dL (3.5-5.0); Alkaline Phosphatase 166 U/L (38-126); Aspartate Aminotransferase 50 IU/L (14-36); BUN Creatinine Ratio 22.8 (6-22); Bilirubin Total 1.8 mg/dL (0.2-1.3); Blood Urea Nitrogen 26 mg/dL (7-17); Calcium 10.4 mg/dL (8.4-10.2); Carbon Dioxide 24 mmol/L (22-32); Chloride 103 mmol/L (98-107); Estimated Glomerular Filt Rate 46.3 mL/min (>60); Globulin 2.3 g/dL (1.7-4.1); Glucose 91 mg/dL (80-110); HEMOLYSIS < 15 (0-50); Potassium 4.7 mmol/L (3.4-5.1); Sodium 137 mmol/L (137-145); Total Protein 6.8 g/dL (6.3-8.2)
[2019-12-24 13:10] LABS: Cholesterol, Total 131 mg/dL (100-199); HDL-Cholesterol 58 mg/dL (>39); HDL-Particle (Total) 37.5 umol/L (>=30.5); LDL Particle 729 nmol/L (<1000); LDL Size 20.2 nm (>20.5); LDL-Cholsterol 56 mg/dL (0-99); LP-IR Score 36 (<=45); Small LDL- Particle 396 nmol/L (<=527); Triglycerides 83 mg/dL (0-149)
== END ==
PROVIDERS: PCP Internal Medicine; Referring Provider Specialist; Visit Provider Specialist
DX: I48.0 Paroxysmal atrial fibrillation (principal); E78.2 Mixed hyperlipidemia
CPT/HCPCS: 36415; 80053; 80061; 83704

== ENCOUNTER → 2020-01-01 15:02 | Outpatient (CLI) | payer MEDICARE, OTHER, SELFPAY ==
--- NOTE | 2020-01-01 | DI.MG.S_ITS ---
BILATERAL DIGITAL SCREENING MAMMOGRAM 3D/2D WITH CAD POST LUMPECTOMY: 01/01/2020 CLINICAL: Routine screening. Personal history of right breast cancer. Comparison is made to exams dated: 10/08/2018 mammogram, 10/07/2017 mammogram - [facility], and 10/05/2016 mammogram - [facility]. The tissue of both breasts is heterogeneously dense. This may lower the sensitivity of mammography. Current study was also evaluated with a Computer Aided Detection (CAD) system. There are benign calcifications in both breasts. There also are benign post operative findings in the right breast. No significant masses, calcifications, or other findings are seen in either breast. There has been no significant interval change. IMPRESSION: There is no mammographic evidence of malignancy. A 1 year screening mammogram is recommended. This exam was interpreted at Station ID: [id number]. NOTE: For mammograms, a report in lay terms will be sent to the patient. Approximately 15% of breast malignancies will not be visualized mammographically. In the management of a palpable breast mass, a negative mammogram must not discourage biopsy of a clinically suspicious lesion. Electronically Signed By: Mary Alice connolly/roya:01/01/2020 15:45:17 letter sent: Normal Exam ACR BI-RADS Category 2: Benign Finding(s) 3342F
== END ==
PROVIDERS: PCP Internal Medicine; Referring Provider Internal Medicine; Visit Provider Internal Medicine
DX: Z12.31 Encounter for screening mammogram for malignant neoplasm of breast (principal); Z85.3 Personal history of malignant neoplasm of breast
CPT/HCPCS: 77063; 77067

== ENCOUNTER → 2020-04-29 09:15 | Outpatient (CLI) | payer MEDICARE, OTHER, SELFPAY ==
[2020-04-29 11:06] LABS: Alanine Aminotransferase 27 IU/L (<35); Albumin 4.1 g/dL (3.5-5.0); Albumin Globulin Ratio 1.5 (1.0-2.8); Alkaline Phosphatase 94 U/L (38-126); Aspartate Aminotransferase 31 IU/L (14-36); BUN Creatinine Ratio 24.2 (6-22); Bilirubin Total 1.6 mg/dL (0.2-1.3); Blood Urea Nitrogen 29 mg/dL (7-17); Calcium 10.1 mg/dL (8.4-10.2); Carbon Dioxide 27 mmol/L (22-32); Chloride 102 mmol/L (98-107); Estimated Glomerular Filt Rate 43.7 mL/min (>60); Globulin 2.8 g/dL (1.7-4.1); Glucose 94 mg/dL (80-110); HEMOLYSIS < 15 (0-50); Magnesium 2.2 mg/dL (1.6-2.3); Potassium 4.8 mmol/L (3.4-5.1); Sodium 134 mmol/L (137-145); Total Protein 6.9 g/dL (6.3-8.2)
[2020-05-11 13:24] LABS: LDL Particle 708; LDL-Cholsterol 60
[2020-05-11 13:25] LABS: HDL-Cholesterol 58
[2020-05-11 13:26] LABS: Cholesterol, Total 136; Triglycerides 94
[2020-05-11 13:27] LABS: HDL-Particle (Total) 38.8; LDL Size 20.6; Small LDL- Particle 313
[2020-05-11 13:31] LABS: LP-IR Score 31
== END ==
PROVIDERS: PCP Internal Medicine; Referring Provider Specialist; Visit Provider Specialist
DX: E78.2 Mixed hyperlipidemia (principal); I48.0 Paroxysmal atrial fibrillation; R94.5 Abnormal results of liver function studies
CPT/HCPCS: 36415; 80053; 80061; 83704; 83735

== ENCOUNTER → 2020-08-17 09:17 | Outpatient (CLI) | payer MEDICARE, OTHER, SELFPAY ==
[2020-08-17 10:37] LABS: Add Manual Diff / Slide Review NO; Basophils Absolute Auto 100 /uL (0-100); Basophils Percent Auto 0.8 % (0-2); Eosinophils Absolute Auto 100 /uL (0-450); Eosinophils Percent Auto 1.6 % (2-4); Hematocrit 45.2 % (36-46); Hemoglobin 14.6 g/dL (12.0-16.0); Lymphocytes Absolute Auto 1500 /uL (1100-4500); Lymphocytes Percent Auto 22.8 % (25-40); Mean Corpuscular HGB Conc 32.2 % (30-36); Mean Corpuscular Hemoglobin 29.7 PG (26-34); Mean Corpuscular Volume 92.1 fL (80-100); Monocytes Absolute Auto 400 /uL (0-900); Monocytes Percent Auto 5.9 % (3-14); Neutrophils Absolute Auto 4600 /uL (1500-7000); Neutrophils Percent Auto 68.9 % (50-75); Platelet Count 309 X10^3/uL (150-400); Red Blood Cell Count 4.91 X10^6/uL (4.0-5.2); Red Cell Distribution Width 14.3 % (11.6-14.8); White Blood Cell Count 6.7 X10^3/uL (4.5-11.0)
[2020-08-17 11:10] LABS: Alanine Aminotransferase 26 IU/L (<35); Albumin 4.2 g/dL (3.5-5.0); Albumin Globulin Ratio 1.8 (1.0-2.8); Alkaline Phosphatase 93 U/L (38-126); Aspartate Aminotransferase 32 IU/L (14-36); BUN Creatinine Ratio 30.4 (6-22); Bilirubin Total 1.4 mg/dL (0.2-1.3); Blood Urea Nitrogen 34 mg/dL (7-17); Calcium 9.9 mg/dL (8.4-10.2); Carbon Dioxide 26 mmol/L (22-32); Chloride 103 mmol/L (98-107); Estimated Glomerular Filt Rate 47.3 mL/min (>60); Globulin 2.4 g/dL (1.7-4.1); Glucose 96 mg/dL (80-110); HEMOLYSIS < 15 (0-50); Potassium 4.4 mmol/L (3.4-5.1); Sodium 137 mmol/L (137-145); Total Protein 6.6 g/dL (6.3-8.2)
== END ==
PROVIDERS: PCP Internal Medicine; Referring Provider Internal Medicine Gastroenterology; Visit Provider Internal Medicine Gastroenterology
DX: K51.90 Ulcerative colitis, unspecified, without complications (principal)
CPT/HCPCS: 36415; 80053; 85025

== ENCOUNTER → 2021-01-02 10:01 | Outpatient (CLI) | payer MEDICARE, OTHER, SELFPAY ==
--- NOTE | 2021-01-02 | DI.MG.S_ITS ---
BILATERAL DIGITAL SCREENING MAMMOGRAM 3D/2D WITH CAD: 01/02/2021 CLINICAL: Routine screening. Breast cancer. Comparison is made to exams dated: 01/01/2020 mammogram, 10/08/2018 mammogram, and 10/07/2017 mammogram - [facility]. The tissue of both breasts is heterogeneously dense. This may lower the sensitivity of mammography. Current study was also evaluated with a Computer Aided Detection (CAD) system. There are benign calcifications in both breasts. There also are benign post operative findings in the right breast. No significant masses, calcifications, or other findings are seen in either breast. There has been no significant interval change. IMPRESSION: BENIGN There is no mammographic evidence of malignancy. A 1 year screening mammogram is recommended. This exam was interpreted at Station ID: [id number]. NOTE: For mammograms, a report in lay terms will be sent to the patient. Approximately 15% of breast malignancies will not be visualized mammographically. In the management of a palpable breast mass, a negative mammogram must not discourage biopsy of a clinically suspicious lesion. Electronically Signed By: Romulo martínez/roya:01/02/2021 10:49:21 letter sent: Normal Exam ACR BI-RADS Category 2: Benign Finding(s) [id number]
== END ==
PROVIDERS: PCP Internal Medicine; Referring Provider Internal Medicine; Visit Provider Internal Medicine
DX: Z85.3 Personal history of malignant neoplasm of breast (principal); Z12.31 Encounter for screening mammogram for malignant neoplasm of breast; M85.852 Other specified disorders of bone density and structure, left thigh; Z78.0 Asymptomatic menopausal state; Z87.891 Personal history of nicotine dependence; Z82.62 Family history of osteoporosis
CPT/HCPCS: 77063; 77067; 77080

== ENCOUNTER 2021-01-11 10:30 | Outpatient (RCR) | payer MEDICARE, OTHER, SELFPAY ==
--- NOTE | 2020-11-01 11:30 | PT.OIE ---
Current Diagnoses Strain of muscle, fascia and tendon of pelvis, initial encounter (10/25/20) Past Surgical History (Last Reviewed 10/19/19 @ 18:30 by Mark Davis MD) History of lumpectomy Status post colonoscopy Status post tonsillectomy and adenoidectomy Visit Care Team Role Provider Type Han Chinchilla MD Attending Provider Physician Primary Care Provider Referring Provider Specialty: Internal Medicine Address: [address] [place] [address], [facility] Email: [email or web address] Physical Therapy Initial Evaluation PT-OP-A Visit Information Start: 10/25/20 15:18 Freq: Status: Active Protocol: Document 10/25/20 15:15 [facility] (Rec: 10/25/20 15:28 [facility] [id number]) Out-Patient Physical Therapy Visit Information Visit Information Visit Type Initial Evaluation Visit Start Time 15:15 Visit Stop Time 16:00 Total Visit Minutes 45 Visit Number 1 Evaluation Information Evaluation Date 10/25/20 PT-OP-B Current Condition Start: 10/25/20 15:18 Freq: Status: Active Protocol: Document 10/25/20 15:15 [facility] (Rec: 10/25/20 15:28 [facility] [id number]) Current Condition History of Current Condition Onset Date October 2019 Current Complaints Right side inner hip and groin pain History of Current Condition pt reports she had a stroke Oct 11 2019. She lost her peripheral vision right side. She finally got back to driving this past month. She had PT and speech therapy at home. She walks every day 1-2 miles. Walking isn't a issue but getting into bed is painful. Several months now. She reports pain getting into and out of bed and getting into and out of the car Treatment Goals Patient/Caregiver Goals Sachi's goals include decreasing hip pain especially with climbing into and out of bed and getting into and out of the car PT-OP-C Subjective Start: 10/25/20 15:18 Freq: Status: Active Protocol: Document 10/25/20 15:15 [facility] (Rec: 11/01/20 10:00 [facility] [email or web address]) OP-PT Pain Assessment Location right anterior hip Intensity 1 Scale Used Numeric (0 - 10) Description With Movement Frequency Intermittent PT-OP-J Posture/Palpation/Skin Start: 10/25/20 15:18 Freq: Status: Active Protocol: Document 10/25/20 15:15 [facility] (Rec: 11/01/20 09:55 [facility] [id number]) Posture Evaluation Comments Posture Comments pt stands with a slight lean to the left side Palpation Assessment Location right anterior hip Palpation Location right anterior hip Palpation Findings Soft Tissue Tightness, Tenderness PT-OP-K Range of Motion Start: 10/25/20 15:18 Freq: Status: Active Protocol: Document 10/25/20 15:15 [facility] (Rec: 11/01/20 09:55 [facility] [email or web address]) Hip Goniometric Range of Motion Hip Left Hip ROM WFL Yes Testing Position Supine Right Hip ROM WFL No Flexion w/Knee Flexed 100 Comments hip impingement pain with hip flexion past 100 degrees, increased pain with hip IR Hip ROM Limitations Hip ROM Limitations Soft Tissue Tightness,Pain Comments impingement type pain with hip flexion and internal rotation PT-OP-M Strength Start: 10/25/20 15:18 Freq: Status: Active Protocol: Document 10/25/20 15:15 [facility] (Rec: 11/01/20 09:56 [facility] [email or web address]) Hip Strength Hip Manual Muscle Testing Left Flexion (L2) 4 Good Extension (S1) 4 Good Abduction 4 Good External Rotation 4 Good Right Flexion (L2) 3 Fair Extension (S1) 3 Fair Abduction 3 Fair External Rotation 3 Fair PT-OP-Q Treatments Start: 10/25/20 15:18 Freq: Status: Active Protocol: Document 10/25/20 15:15 [facility] (Rec: 10/25/20 15:56 [facility] [id number]) Therapeutic Exercises Supine Exercises bridges with theraband Reps/Minutes level 2 x 10 reps theraband roll outs Reps/Minutes level 2 3x10 PT-OP-T Assessment and Plan Start: 10/25/20 15:18 Freq: Status: Active Protocol: Document 10/25/20 15:15 [facility] (Rec: 11/01/20 10:01 [facility] [email or web address]) Physical Therapy Assessment Goals Sachi is limited with hip ROM R Short Term Goal (STG) Sachi is able to perform full hip flexion and IR without increased complaints of pain STG Duration 4 weeks decreased hip strength right Halfway Goal (LTG) improve right sided hip strength with emphasis on the gluteus medius to 4/5 MMT or better LTG Duration 8 weeks right hip pain made worse with getting in and out of bed Halfway Goal (LTG) Sachi is able to transfer in and out of bed without complaints of right sided hip pain LTG Duration 8 weeks Assessment Summary Assessment Sachi is a 75 year old female who presents to PT today with right sided hip pain with specific activites. She reports pain getting into and out of bed and getting into and out of the car. The pain is located in the anterior groin. Sachi did also suffer from a CVA October 2019. Her greatest deficit following the stroke that she reports is loss of perpherial vision on the right side of her eyes. She does not notice any residual weakness. With evaluation today she tests weaker on her right side in her hip musculature, she is impinging with hip flexion and has pain past 100 degrees. Treatment will emphasis improved hip ROM, reducing muscle spasm, and improving strength of the gluteus medius musculature. Treatment will progress to gait and dynamic strengthening in standing. Physical Therapy Plan Frequency and Duration Frequency of Treatment 2x/Week Duration of Treatment 8 Plan of Care Start Date 10/25/20 Plan of Care End Date 12/20/20 Therapeutic Interventions Therapeutic Interventions Balance Training,Home Exercise Program,Manual Therapy, Patient/Caregiver Education, Self-Care/Home Management,Soft Tissue Mobilization, Therapeutic Exercises Next Visit Focus/Plan Next Note Type Treatment Note Next Visit Plan review stabilization exercises that were given, manual therapy techniques to decompress the hip joint, core stabilization, lateral hip stabilization progression.
--- NOTE | 2020-11-01 11:30 | PT.OPPOC ---
Physical, Occupational & Speech Therapy At [facility] Current Diagnoses Strain of muscle, fascia and tendon of pelvis, initial encounter (10/25/20) Visit Care Team Role Provider Type Han Chinchilla MD Attending Provider Physician Primary Care Provider Referring Provider Specialty: Internal Medicine Address: [address] [place] [address], [id number] Email: [email or web address] Plan Of Care PT-OP-T Assessment and Plan Start: 10/25/20 15:18 Freq: Status: Active Protocol: Document 10/25/20 15:15 [facility] (Rec: 11/01/20 10:01 [facility] [email or web address]) Physical Therapy Assessment Goals Sachi is limited with hip ROM R Short Term Goal (STG) Sachi is able to perform WFL hip flexion and IR without increased complaints of pain STG Duration 4 weeks decreased hip strength right Long-Term Goal (LTG) improve right sided hip strength with emphasis on the gluteus medius to 4/5 MMT or better LTG Duration 8 weeks right hip pain made worse with getting in and out of bed Marketing Communications Coordinator Goal (LTG) Sachi is able to transfer in and out of bed without complaints of right sided hip pain LTG Duration 8 weeks Assessment Summary Assessment Sachi is a 75 year old female who presents to PT today with right sided hip pain with specific activities. She reports pain getting into and out of bed and getting into and out of the car. The pain is located in the anterior groin. Sachi did also suffer from a CVA October 2019. Her greatest deficit following the stroke that she reports is loss of peripheral vision on the right side of her eyes. She does not notice any residual weakness. With evaluation today she tests weaker on her right side in her hip musculature, she is impinging with hip flexion and has pain past 100 degrees. Treatment will emphasis improved hip ROM, reducing muscle spasm, and improving strength of the gluteus medius musculature. Treatment will progress to gait and dynamic strengthening in standing. Physical Therapy Plan Frequency and Duration Frequency of Treatment 2x/Week Duration of Treatment 8 Plan of Care Start Date 10/25/20 Plan of Care End Date 12/20/20 Therapeutic Interventions Therapeutic Interventions Balance Training,Home Exercise Program,Manual Therapy, Patient/Caregiver Education, Self-Care/Home Management,Soft Tissue Mobilization, Therapeutic Exercises Next Visit Focus/Plan Next Note Type Treatment Note Next Visit Plan review stabilization exercises that were given, manual therapy techniques to decompress the hip joint, core stabilization, lateral hip stabilization progression. Plan of Care Dates Plan of Care Start Date 10/25/20 Plan of Care End Date 12/20/20 Electronically Signed by: Kavya Woodruff, PT 11/01/20 9320 Please Sign and Return: I have reviewed this Plan of Care and certify that the skilled therapy services above are required to meet the patient?s needs. Physician Signature Date Printed Name and Credentials Clinical Instructor Signature Printed Name and Credentials
--- NOTE | 2020-11-08 13:16 | PT.OTN ---
Current Diagnoses Strain of muscle, fascia and tendon of pelvis, initial encounter (11/08/20) Physical Therapy Treatment Note PT-OP-A Visit Information Start: 10/25/20 15:18 Freq: Status: Active Protocol: Document 11/08/20 11:25 [facility] (Rec: 11/08/20 11:50 [facility] [id number]) Out-Patient Physical Therapy Visit Information Visit Information Visit Type Treatment Note Visit Start Time 11:25 Visit Stop Time 12:05 Total Visit Minutes 40 Visit Number 2 PT-OP-B Current Condition Start: 10/25/20 15:18 Freq: Status: Active Protocol: Document 10/25/20 15:15 [facility] (Rec: 10/25/20 15:28 [facility] [id number]) Current Condition History of Current Condition Onset Date October 2019 Current Complaints Right side inner hip and groin pain History of Current Condition pt reports she had a stroke Oct 11 2019. She lost her perpherial vision right side. SHe finally got back to driving this past month. She had PT and speech therapy at home. SHe walks every day 1-2 miles. Walking isn't a issue but getting into bed is painful. Several months now. She reports pain getting into and out of bed and getting into and out of the car Treatment Goals Patient/Caregiver Goals Sharons goals include decreasing hip pain especially with climbing into and out of bed and getting into and out of the car PT-OP-C Subjective Start: 10/25/20 15:18 Freq: Status: Active Protocol: Document 11/08/20 11:25 [facility] (Rec: 11/08/20 11:50 [facility] [id number]) OP-PT Subjective Patient Comments Patient Comments pt reports she has been dealing with vertigo this past week and had to cx last visit . Patient Reported Progress Same PT-OP-J Posture/Palpation/Skin Start: 10/25/20 15:18 Freq: Status: Active Protocol: Document 10/25/20 15:15 [facility] (Rec: 11/01/20 09:55 [facility] [email or web address]) Posture Evaluation Comments Posture Comments pt stands with a slight lean to the left side Palpation Assessment Location right anterior hip Palpation Location right anterior hip Palpation Findings Soft Tissue Tightness, Tenderness PT-OP-K Range of Motion Start: 10/25/20 15:18 Freq: Status: Active Protocol: Document 10/25/20 15:15 [facility] (Rec: 11/01/20 09:55 [facility] [email or web address]) Hip Goniometric Range of Motion Hip Left Hip ROM WFL Yes Testing Position Supine Right Hip ROM WFL No Flexion w/Knee Flexed 100 Comments hip impingement pain with hip flexion past 100 degrees, increased pain with hip IR Hip ROM Limitations Hip ROM Limitations Soft Tissue Tightness,Pain Comments impingement type pain with hip flexion and internal rotation PT-OP-M Strength Start: 10/25/20 15:18 Freq: Status: Active Protocol: Document 10/25/20 15:15 [facility] (Rec: 11/01/20 09:56 [facility] [email or web address]) Hip Strength Hip Manual Muscle Testing Left Flexion (L2) 4 Good Extension (S1) 4 Good Abduction 4 Good External Rotation 4 Good Right Flexion (L2) 3 Fair Extension (S1) 3 Fair Abduction 3 Fair External Rotation 3 Fair PT-OP-Q Treatments Start: 10/25/20 15:18 Freq: Status: Active Protocol: Document 11/08/20 11:25 [facility] (Rec: 11/08/20 13:16 [facility] [email or web address]) Manual Therapy Treatment Soft Tissue Mobilization adductor release Mobilization Type Myofascial Release Body Position Hooklying Comments tenderness right adductors Manual Techniques gentle long axis hip distration Comments good tolerance PT-OP-T Assessment and Plan Start: 10/25/20 15:18 Freq: Status: Active Protocol: Document 11/08/20 11:25 [facility] (Rec: 11/08/20 13:14 [facility] [email or web address]) Physical Therapy Assessment Assessment Summary Assessment worked on log rolling today and core stabilization, she didn't have the pain with getting onto the treatment table today. We stayed in one positon on her back today due to vertigo she is experiencing Physical Therapy Plan Frequency and Duration Frequency of Treatment 2x/Week Duration of Treatment 8 Plan of Care Start Date 10/25/20 Plan of Care End Date 12/20/20 Therapeutic Interventions Therapeutic Interventions Balance Training,Home Exercise Program,Manual Therapy, Patient/Caregiver Education, Self-Care/Home Management,Soft Tissue Mobilization, Therapeutic Exercises Next Visit Focus/Plan Next Note Type Treatment Note Next Visit Plan review stabilization exercises that were given, manual therapy techniques to decompress the hip joint, core stabilization, lateral hip stabilization progression.
--- NOTE | 2020-11-15 12:23 | PT.OTN ---
Current Diagnoses Strain of muscle, fascia and tendon of pelvis, initial encounter (11/15/20) Physical Therapy Treatment Note PT-OP-A Visit Information Start: 10/25/20 15:18 Freq: Status: Active Protocol: Document 11/15/20 11:20 [facility] (Rec: 11/15/20 11:24 [facility] [id number]) Out-Patient Physical Therapy Visit Information Visit Information Visit Type Treatment Note Visit Start Time 11:21 Visit Stop Time 12:00 Total Visit Minutes 39 Visit Number 3 PT-OP-B Current Condition Start: 10/25/20 15:18 Freq: Status: Active Protocol: Document 10/25/20 15:15 [facility] (Rec: 10/25/20 15:28 [facility] [id number]) Current Condition History of Current Condition Onset Date October 2019 Current Complaints Right side inner hip and groin pain History of Current Condition pt reports she had a stroke Oct 11 2019. She lost her perpherial vision right side. SHe finally got back to driving this past month. She had PT and speech therapy at home. SHe walks every day 1-2 miles. Walking isn't a issue but getting into bed is painful. Several months now. She reports pain getting into and out of bed and getting into and out of the car Treatment Goals Patient/Caregiver Goals Sharons goals include decreasing hip pain especially with climbing into and out of bed and getting into and out of the car PT-OP-C Subjective Start: 10/25/20 15:18 Freq: Status: Active Protocol: Document 11/15/20 11:20 [facility] (Rec: 11/15/20 11:24 [facility] [id number]) OP-PT Subjective Patient Comments Patient Comments hip feeling a little better with her hip. Her hip seems to be better getting in and out of bed. PT-OP-J Posture/Palpation/Skin Start: 10/25/20 15:18 Freq: Status: Active Protocol: Document 10/25/20 15:15 [facility] (Rec: 11/01/20 09:55 [facility] [email or web address]) Posture Evaluation Comments Posture Comments pt stands with a slight lean to the left side Palpation Assessment Location right anterior hip Palpation Location right anterior hip Palpation Findings Soft Tissue Tightness, Tenderness PT-OP-K Range of Motion Start: 10/25/20 15:18 Freq: Status: Active Protocol: Document 10/25/20 15:15 [facility] (Rec: 11/01/20 09:55 [facility] [id number]) Hip Goniometric Range of Motion Hip Left Hip ROM WFL Yes Testing Position Supine Right Hip ROM WFL No Flexion w/Knee Flexed 100 Comments hip impingement pain with hip flexion past 100 degrees, increased pain with hip IR Hip ROM Limitations Hip ROM Limitations Soft Tissue Tightness,Pain Comments impingement type pain with hip flexion and internal rotation PT-OP-M Strength Start: 10/25/20 15:18 Freq: Status: Active Protocol: Document 10/25/20 15:15 [facility] (Rec: 11/01/20 09:56 [facility] [email or web address]) Hip Strength Hip Manual Muscle Testing Left Flexion (L2) 4 Good Extension (S1) 4 Good Abduction 4 Good External Rotation 4 Good Right Flexion (L2) 3 Fair Extension (S1) 3 Fair Abduction 3 Fair External Rotation 3 Fair PT-OP-Q Treatments Start: 10/25/20 15:18 Freq: Status: Active Protocol: Document 11/15/20 11:20 [facility] (Rec: 11/15/20 12:15 [facility] [id number]) Therapeutic Exercises Supine Exercises TA with marches Reps/Minutes x 20 reps pelvic tilts Reps/Minutes x 10 reps bridges with theraband Reps/Minutes 2 x10 theraband roll outs Reps/Minutes 3 x 10 reps Standing Exercises single leg stance Reps/Minutes 2 x 30 sec each standing hip abduction Reps/Minutes 2 x 10 reps side steps with support Reps/Minutes x 2 minutes Manual Therapy Treatment Soft Tissue Mobilization adductor release Mobilization Type Myofascial Release Body Position Hooklying Comments tenderness right adductors Manual Techniques gentle long axis hip distration Comments good tolerance PT-OP-T Assessment and Plan Start: 10/25/20 15:18 Freq: Status: Active Protocol: Document 11/15/20 11:20 [facility] (Rec: 11/15/20 12:23 [facility] [email or web address]) Physical Therapy Assessment Assessment Summary Assessment pt tolerating exercises well and no pain with exercises. She is suffering from vertigo and rolling over increases her symptoms. I have stayed away from sidelying exercises but she may benefit from adding these in in the future if vertigo subsides Physical Therapy Plan Frequency and Duration Frequency of Treatment 2x/Week Duration of Treatment 8 Plan of Care Start Date 10/25/20 Plan of Care End Date 12/20/20 Therapeutic Interventions Therapeutic Interventions Balance Training,Home Exercise Program,Manual Therapy, Patient/Caregiver Education, Self-Care/Home Management,Soft Tissue Mobilization, Therapeutic Exercises Next Visit Focus/Plan Next Note Type Treatment Note Next Visit Plan continue to progress ther ex for hip and abdominal stabilization.
--- NOTE | 2020-11-22 14:09 | PT.OTN ---
Current Diagnoses Strain of muscle, fascia and tendon of pelvis, initial encounter (11/22/20) Physical Therapy Treatment Note PT-OP-A Visit Information Start: 10/25/20 15:18 Freq: Status: Active Protocol: Document 11/22/20 11:27 [facility] (Rec: 11/22/20 11:32 [facility] [id number]) Out-Patient Physical Therapy Visit Information Visit Information Visit Type Treatment Note Visit Start Time 11:25 Visit Stop Time 12:10 Total Visit Minutes 45 Visit Number 4 PT-OP-B Current Condition Start: 10/25/20 15:18 Freq: Status: Active Protocol: Document 10/25/20 15:15 [facility] (Rec: 10/25/20 15:28 [facility] [id number]) Current Condition History of Current Condition Onset Date October 2019 Current Complaints Right side inner hip and groin pain History of Current Condition pt reports she had a stroke Oct 11 2019. She lost her perpherial vision right side. SHe finally got back to driving this past month. She had PT and speech therapy at home. SHe walks every day 1-2 miles. Walking isn't a issue but getting into bed is painful. Several months now. She reports pain getting into and out of bed and getting into and out of the car Treatment Goals Patient/Caregiver Goals Sharons goals include decreasing hip pain especially with climbing into and out of bed and getting into and out of the car PT-OP-C Subjective Start: 10/25/20 15:18 Freq: Status: Active Protocol: Document 11/22/20 11:27 [facility] (Rec: 11/22/20 11:32 [facility] [id number]) OP-PT Subjective Patient Comments Patient Comments pt notes she is feeling worse with her vertigo PT-OP-J Posture/Palpation/Skin Start: 10/25/20 15:18 Freq: Status: Active Protocol: Document 10/25/20 15:15 [facility] (Rec: 11/01/20 09:55 [facility] [email or web address]) Posture Evaluation Comments Posture Comments pt stands with a slight lean to the left side Palpation Assessment Location right anterior hip Palpation Location right anterior hip Palpation Findings Soft Tissue Tightness, Tenderness PT-OP-K Range of Motion Start: 10/25/20 15:18 Freq: Status: Active Protocol: Document 10/25/20 15:15 [facility] (Rec: 11/01/20 09:55 [facility] [email or web address]) Hip Goniometric Range of Motion Hip Left Hip ROM WFL Yes Testing Position Supine Right Hip ROM WFL No Flexion w/Knee Flexed 100 Comments hip impingement pain with hip flexion past 100 degrees, increased pain with hip IR Hip ROM Limitations Hip ROM Limitations Soft Tissue Tightness,Pain Comments impingement type pain with hip flexion and internal rotation PT-OP-M Strength Start: 10/25/20 15:18 Freq: Status: Active Protocol: Document 10/25/20 15:15 [facility] (Rec: 11/01/20 09:56 [facility] [email or web address]) Hip Strength Hip Manual Muscle Testing Left Flexion (L2) 4 Good Extension (S1) 4 Good Abduction 4 Good External Rotation 4 Good Right Flexion (L2) 3 Fair Extension (S1) 3 Fair Abduction 3 Fair External Rotation 3 Fair PT-OP-Q Treatments Start: 10/25/20 15:18 Freq: Status: Active Protocol: Document 11/22/20 12:09 [facility] (Rec: 11/22/20 12:11 [facility] [id number]) Therapeutic Exercises Supine Exercises adductor stretch Comments withstrap hamstring stretch Comments with strap pelvic tilts Reps/Minutes x 10 reps bridges with theraband Reps/Minutes 2 x10 theraband roll outs Reps/Minutes 3 x 10 reps Manual Therapy Treatment Soft Tissue Mobilization adductor release Mobilization Type Myofascial Release Body Position Hooklying Comments tenderness right adductors, worked into the attachements at the medial knee PT-OP-T Assessment and Plan Start: 10/25/20 15:18 Freq: Status: Active Protocol: Document 11/22/20 14:02 [facility] (Rec: 11/22/20 14:08 [facility] [email or web address]) Physical Therapy Assessment Goals Sachi is limited with hip ROM R Short Term Goal (STG) Sachi is able to perform full hip flexion and IR without increased complaints of pain Excellent progress with decreased c/o pain rolling in bed STG Duration 4 weeks decreased hip strength right Group Home Goal (LTG) improve right sided hip strength with emphasis on the gluteus medius to 4/5 MMT or better Good progress LTG Duration 8 weeks right hip pain made worse with getting in and out of bed Group Home Goal (LTG) Sachi is able to transfer in and out of bed without complaints of right sided hip pain EXCELLENT PROGRESS LTG Duration 8 weeks Progress Towards Goals Progress Comments Sachi is progressing towards her goals and reports decreased c/o hip pain. She has been doing her exercises and walking regularly. She has pretty severe vertigo that comes on with positional changes so we have stayed in a supine position for most of her exercises. She would benefit from a recheck in 4-6 weeks Assessment Summary Assessment I worked today on the adductor attachment to the medial knee as Sachi was sore here. THis released well with US, manual work and stretching and felt better following treatment. Treatment today was limited to supine position due to severe vertigo. Sachi is I with her home program but will recheck in 4- 6 weeks. Her hip pain has improved overall Physical Therapy Plan Frequency and Duration Frequency of Treatment 2x/Week Duration of Treatment 8 Plan of Care Start Date 11/22/20 Plan of Care End Date 01/24/21 Therapeutic Interventions Therapeutic Interventions Balance Training,Home Exercise Program,Manual Therapy, Patient/Caregiver Education, Self-Care/Home Management,Soft Tissue Mobilization, Therapeutic Exercises Next Visit Focus/Plan Next Note Type Treatment Note Next Visit Plan recheck hip ROM and strength next visit, review HEP. Pt to seek MD consult for persistent vertigo
--- NOTE | 2020-11-22 14:09 | PT.OPPOC ---
Physical, Occupational & Speech Therapy At [facility] Current Diagnoses Strain of muscle, fascia and tendon of pelvis, initial encounter (11/22/20) Visit Care Team Role Provider Type Han Chinchilla MD Attending Provider Physician Primary Care Provider Referring Provider Specialty: Internal Medicine Address: [address] [place] [address], [id number] Email: [email or web address] PT-OP-T Assessment and Plan Start: 10/25/20 15:18 Freq: Status: Active Protocol: Document 11/22/20 14:02 [facility] (Rec: 11/22/20 14:08 [facility] [email or web address]) Physical Therapy Assessment Goals Sachi is limited with hip ROM R Short Term Goal (STG) Sachi is able to perform full hip flexion and IR without increased complaints of pain Excellent progress with decreased c/o pain rolling in bed STG Duration 4 weeks decreased hip strength right [employer] Goal (LTG) improve right sided hip strength with emphasis on the gluteus medius to 4/5 MMT or better Good progress LTG Duration 8 weeks right hip pain made worse with getting in and out of bed Intermediate Goal (LTG) Sachi is able to transfer in and out of bed without complaints of right sided hip pain EXCELLENT PROGRESS LTG Duration 8 weeks Progress Towards Goals Progress Comments Sachi is progressing towards her goals and reports decreased c/o hip pain. She has been doing her exercises and walking regularly. She has pretty severe vertigo that comes on with positional changes so we have stayed in a supine position for most of her exercises. She would benefit from a recheck in 4-6 weeks Assessment Summary Assessment I worked today on the adductor attachment to the medial knee as Sachi was sore here. THis released well with manual work and stretching and felt better following treatment. Treatment today was limited to supine position due to severe vertigo. Sachi is I with her home program but will recheck in 4- 6 weeks. Her hip pain has improved overall Physical Therapy Plan Frequency and Duration Frequency of Treatment 2x/Week Duration of Treatment 8 Plan of Care Start Date 11/22/20 Plan of Care End Date 01/24/21 Therapeutic Interventions Therapeutic Interventions Balance Training,Home Exercise Program,Manual Therapy, Patient/Caregiver Education, Self-Care/Home Management,Soft Tissue Mobilization, Therapeutic Exercises Next Visit Focus/Plan Next Note Type Treatment Note Next Visit Plan recheck hip ROM and strength next visit, review HEP. Pt to seek MD consult for persistent vertigo Plan of Care Dates Plan of Care Start Date 11/22/20 Plan of Care End Date 01/24/21 Electronically Signed by: Kavya Woodruff, PT 11/22/20 [id number] Please Sign and Return: I have reviewed this Plan of Care and certify that the skilled therapy services above are required to meet the patient?s needs. Physician Signature Date Printed Name and Credentials Clinical Instructor Signature Printed Name and Credentials
--- NOTE | 2021-01-12 17:39 | PT.OTN ---
Current Diagnoses Strain of muscle, fascia and tendon of pelvis, initial encounter (01/11/21) Physical Therapy Treatment Note PT-OP-A Visit Information Start: 10/25/20 15:18 Freq: Status: Active Protocol: Document 01/11/21 10:35 [facility] (Rec: 01/12/21 17:39 [facility] [email or web address]) Out-Patient Physical Therapy Visit Information Visit Information Visit Type Treatment Note Visit Start Time 10:35 Visit Stop Time 11:20 Total Visit Minutes 45 Visit Number 5 PT-OP-B Current Condition Start: 10/25/20 15:18 Freq: Status: Active Protocol: Document 10/25/20 15:15 [facility] (Rec: 10/25/20 15:28 [facility] [id number]) Current Condition History of Current Condition Onset Date October 2019 Current Complaints Right side inner hip and groin pain History of Current Condition pt reports she had a stroke Oct 11 2019. She lost her perpherial vision right side. SHe finally got back to driving this past month. She had PT and speech therapy at home. SHe walks every day 1-2 miles. Walking isn't a issue but getting into bed is painful. Several months now. She reports pain getting into and out of bed and getting into and out of the car Treatment Goals Patient/Caregiver Goals Sharons goals include decreasing hip pain especially with climbing into and out of bed and getting into and out of the car PT-OP-C Subjective Start: 10/25/20 15:18 Freq: Status: Active Protocol: Document 01/11/21 10:35 [facility] (Rec: 01/12/21 17:39 [facility] [email or web address]) OP-PT Subjective Patient Comments Patient Comments pt reports her hip is feeling better and she is doing her stretches. Her pain is now in her calf. She is also doing speech therapy so feels that she needs to hold off on her hip PT at this time PT-OP-J Posture/Palpation/Skin Start: 10/25/20 15:18 Freq: Status: Active Protocol: Document 10/25/20 15:15 [facility] (Rec: 11/01/20 09:55 [facility] [email or web address]) Posture Evaluation Comments Posture Comments pt stands with a slight lean to the left side Palpation Assessment Location right anterior hip Palpation Location right anterior hip Palpation Findings Soft Tissue Tightness, Tenderness PT-OP-K Range of Motion Start: 10/25/20 15:18 Freq: Status: Active Protocol: Document 10/25/20 15:15 [facility] (Rec: 11/01/20 09:55 [facility] [email or web address]) Hip Goniometric Range of Motion Hip Left Hip ROM WFL Yes Testing Position Supine Right Hip ROM WFL No Flexion w/Knee Flexed 100 Comments hip impingement pain with hip flexion past 100 degrees, increased pain with hip IR Hip ROM Limitations Hip ROM Limitations Soft Tissue Tightness,Pain Comments impingement type pain with hip flexion and internal rotation PT-OP-M Strength Start: 10/25/20 15:18 Freq: Status: Active Protocol: Document 10/25/20 15:15 [facility] (Rec: 11/01/20 09:56 [facility] [email or web address]) Hip Strength Hip Manual Muscle Testing Left Flexion (L2) 4 Good Extension (S1) 4 Good Abduction 4 Good External Rotation 4 Good Right Flexion (L2) 3 Fair Extension (S1) 3 Fair Abduction 3 Fair External Rotation 3 Fair PT-OP-Q Treatments Start: 10/25/20 15:18 Freq: Status: Active Protocol: Document 01/11/21 10:35 [facility] (Rec: 01/12/21 17:39 [facility] [email or web address]) Therapeutic Exercises Supine Exercises ankle circles, DF.PF with theraband Reps/Minutes x 20 reps each hamstring stretch Comments with strap Standing Exercises standing heel rises Reps/Minutes x 20 standing calf stretch Reps/Minutes 60 seconds Manual Therapy Treatment Soft Tissue Mobilization right posterior tibialis release Mobilization Type Myofascial Release Body Position Prone Comments pt advised to use a arch support for her walking as her posterior tibials was very tight today Manual Techniques gentle long axis hip distration Comments good tolerance PT-OP-T Assessment and Plan Start: 10/25/20 15:18 Freq: Status: Active Protocol: Document 01/11/21 10:35 [facility] (Rec: 01/12/21 17:39 [facility] [email or web address]) Physical Therapy Assessment Assessment Summary Assessment Sachi is doing better overall with her hip and is I with a HEP. At this point she will be discharged so that she can focus on speech therapy. Physical Therapy Plan Discharge Physical Therapy Discharge Reasons Patient Request
== END 2021-01-17 14:04 | disposition home or self-care (01) ==
LOC: PHYS 10:30
PROVIDERS: PCP Internal Medicine; Referring Provider Internal Medicine; Visit Provider Internal Medicine
DX: S39.013A Strain of muscle, fascia and tendon of pelvis, initial encounter (principal)
CPT/HCPCS: 97110; 97140; 97161

== ENCOUNTER 2021-01-31 10:30 | Outpatient (RCR) | payer MEDICARE, OTHER, SELFPAY ==
--- NOTE | 2020-12-28 17:19 | ST.OPIE ---
Visit Care Team Role Provider Type Elbert Mckinley MD Attending Provider Non-Staff Primary Care Provider Referring Provider Specialty: Internal Medicine Address: [address] [place] [address], [id number] Email: Speech-Language Pathology Initial Evaluation [facility] Adult Cognitive Linguistic Eval Start: 12/28/20 11:51 Freq: Status: Active Protocol: Document 12/28/20 18:09 EB (Rec: 12/28/20 18:12 EB [id number]) Adult Cognitive Linguistic Evaluation Session Time Visit Start Time 14:30 Visit Stop Time 15:30 Total Visit Minutes 60 Visit Information Visit Number Initial Evaluation Plan of Care Dates 12/28/20-03/30/21 Insurance Information Medicare Referral Referring Provider Elbert Mckinley Reason for Referral Difficulty with speech Setting Assessment Location Outpatient Care Visit Type Note Type Initial evaluation Next Note Type Next Note Type Treatment Note Patient Information Identification Type Name Medical History Pt is a 75 year old female who experienced a 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 Her primary complaint at this time is WFD. Pt also reported hx of arthritis, blood clots, dizziness, heart disease, kidney disease, and osteopenia . 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 Vision Vision Status Impaired Comments Half of peripheral in right eye; midpoint to nose in left eye Previous Therapy Previous Speech-Language Therapy Yes History of Therapy Pt previously received 4-5 sessions of speech services via homehealth sometime after her stroke in 2019. Pt discontinued therapy because she felt what was being targeted during these sessions was not functional/beneficial . Subjective Patient Report Pt arrived on time and unaccompanied for assessment. Pt reported that she feels she is high functioning and that her primary concern is word finding which she most often notices when attempting to recall locations such as names of countries she has visited or when recalling numbers (i.e. house numbers or zip code). Pt was initially resistant to participating in assessment, but once it was explained that it was needed for insurance and to guide POC , she did participate. Pt specifically requested to work with [employer] due to attending 3 of [employer]'s community memory workshops. Assessment conducted and note written by student [employer] Nancy Hidalgo. Mental Status Alert,Responsive,Cooperative, Impulsive Assessment Oral Motor Examination Completed No Informal Assessment Receptive Language Normal Yes Expressive Language Normal Yes Pragmatic Language Normal Yes Speech Normal Yes Cognition Normal No: Mild Deficits Cognitive Impairment(s) Attention,Executive functioning,Impulsivity Formal Assessment Standardized Test/Screener Type Cognitive Linguistic Quick Test (CLQT) Administration Complete Results Pt scored WNL on scales of Memory and Language, as well as the Clock Drawing task. Pt scored Mild severity on scales of Attention, Executive Functions, and Visuospatial Skills. These scores combined give the pt a composite severity rating of mild. Pt completed all tasks in a timely manner but had a tendency of starting tasks before [employer] student was finished providing directions. Notable subtest scores include: Picture Cancellation pt scored 9/12, Mazes scored 0 /8, and Design Generation scored 5/13 (created 13 total but 6 were perseverations and 2 were errors). Pt's scores on these subtests may have been impacted by her visual deficits. In the story task, pt recalled 10/18 details and answered 5/ 6 related questions (memory recognition). Findings/Results Language Function Within normal limits Cognitive Function Mildly impaired Findings The pt presents with mild cognitive communication deficits primarily in areas of attention, executive functions, and visuospatial skills which may impact her activities and participation in overall communication/ conversation. Pt was noted to be mildly impulsive during the assessment, several times interrupting or starting tasks while [employer] student was still giving directions. Pt also incorrectly stated that a shirt is an accessory worn by men with a suit, likely due to decreased attention when this prompt was given. While expressive, receptive, and pragmatic language were WNL during the assessment, pt reports that she is bothered by WFD in conversation and further assessment is warranted to determine what contexts/patterns her WFD presents itself. Skilled intervention is medically necessary to improve her cognitive linguistic skills so she can fully participate in conversation and ADL. Cognitive Communication Deficits Self-awareness of Cognitive- Situational awareness ( Communication Deficits recognition of problem in context;in real time) Concomitant Factors Concomitant Factors Visual field neglect,Hearing loss Prognosis Prognosis Good Based on Cognitive status,Time since onset Plan of Care Speech-Language Treatment Yes Frequency Weekly Duration 45 Minutes Patient/Caregiver Education Patient expressed understanding of evaluation, Patient expressed agreement with goals and treatment plans ,Patient requires further education/training Short Term Goals 1. The pt will participate in further assessment of expressive and receptive communication skills to guide POC. 2. Pt will demonstrate understanding of word recall strategies by completing structured tasks with 90% accuracy. 3. The pt will complete sustained attention tasks with 80% accuracy to improve ability to attend to stimuli. 4. The pt will complete visuospatial tasks with 80% accuracy to decrease visual neglect. 5. The pt will perform tasks targeting inhibitory control and planning with 90% accuracy to improve executive functions. Clock Smith Goals 1. The pt will demonstrate expressive, receptive, cognitive skills WFL to maintain independence and complete ADL as measured by pt report and clinician judgment. Discharge Recommendations Home,Outpatient therapy [facility] Clinical Instructor Line Start: 01/02/21 15:01 Freq: Status: Active Protocol: Document 01/02/21 17:14 PAUL (Rec: 01/02/21 17:14 [email or web address] [email or web address]) Clinical Instructor Signature Clinical Instructor Clinical Instructor Yes
--- NOTE | 2021-01-02 17:15 | ST.OPIE ---
Visit Care Team Role Provider Type Elbert Mckinley MD Attending Provider Non-Staff Primary Care Provider Referring Provider Specialty: Internal Medicine Address: [address] [place] [address], [id number] Email: Speech-Language Pathology Initial Evaluation CALL SPECIALIST Adult Cognitive Linguistic Eval Start: 12/28/20 11:51 Freq: Status: Active Protocol: Document 12/28/20 18:09 EB (Rec: 12/28/20 18:12 EB [id number]) Adult Cognitive Linguistic Evaluation Session Time Visit Start Time 14:30 Visit Stop Time 15:30 Total Visit Minutes 60 Visit Information Visit Number Initial Evaluation Plan of Care Dates 12/28/20-03/30/21 Insurance Information Medicare Referral Referring Provider Elbert Mckinley Reason for Referral Difficulty with speech Setting Assessment Location Outpatient Care Visit Type Note Type Initial evaluation Next Note Type Next Note Type Treatment Note Patient Information Identification Type Name Medical History Pt is a 75 year old female who experienced a 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 Her primary complaint at this time is WFD. Pt also reported hx of arthritis, blood clots, dizziness, heart disease, kidney disease, and osteopenia . 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 Vision Vision Status Impaired Comments Half of peripheral in right eye; midpoint to nose in left eye Previous Therapy Previous Speech-Language Therapy Yes History of Therapy Pt previously received 4-5 sessions of speech services via home health sometime after her stroke in 2019. Pt discontinued therapy because she felt what was being targeted during these sessions was not functional/beneficial . Subjective Patient Report Pt arrived on time and unaccompanied for assessment. Pt reported that she feels she is high functioning and that her primary concern is word finding which she most often notices when attempting to recall locations such as names of countries she has visited or when recalling numbers (i.e. house numbers or zip code). Pt was initially resistant to participating in assessment, but once it was explained that it was needed for insurance and to guide POC , she did participate. Pt specifically requested to work with CALL SPECIALIST due to attending 3 of CALL SPECIALIST's community memory workshops. Assessment conducted and note written by student CALL SPECIALIST Nancy Hidalgo. Mental Status Alert,Responsive,Cooperative, Impulsive Assessment Oral Motor Examination Completed No Informal Assessment Receptive Language Normal Yes Expressive Language Normal Yes Pragmatic Language Normal Yes Speech Normal Yes Cognition Normal No: Mild Deficits Cognitive Impairment(s) Attention,Executive functioning,Impulsivity Formal Assessment Standardized Test/Screener Type Cognitive Linguistic Quick Test (CLQT) Administration Complete Results Pt scored WNL on scales of Memory and Language, as well as the Clock Drawing task. Pt scored Mild severity on scales of Attention, Executive Functions, and Visuospatial Skills. These scores combined give the pt a composite severity rating of mild. Pt completed all tasks in a timely manner but had a tendency of starting tasks before CALL SPECIALIST student was finished providing directions. Notable sub-test scores include: Picture Cancellation pt scored 9/12, Mazes scored 0 /8, and Design Generation scored 5/13 (created 13 total but 6 were perseverations and 2 were errors). Pt's scores on these sub-tests may have been impacted by her visual deficits. In the story task, pt recalled 10/18 details and answered 5/ 6 related questions (memory recognition). Findings/Results Language Function Within normal limits Cognitive Function Mildly impaired Findings The pt presents with mild cognitive communication deficits primarily in areas of attention, executive functions, and visuospatial skills which may impact her activities and participation in overall communication/ conversation. Pt was noted to be mildly impulsive during the assessment, several times interrupting or starting tasks while CALL SPECIALIST student was still giving directions. Pt also incorrectly stated that a shirt is an accessory worn by men with a suit, likely due to decreased attention when this prompt was given. While expressive, receptive, and pragmatic language were WNL during the assessment, pt reports that she is bothered by WFD in conversation and further assessment is warranted to determine what contexts/patterns her WFD presents itself. Skilled intervention is medically necessary to improve her cognitive linguistic skills so she can fully participate in conversation and ADL. Cognitive Communication Deficits Self-awareness of Cognitive- Situational awareness ( Communication Deficits recognition of problem in context;in real time) Concomitant Factors Concomitant Factors Visual field neglect,Hearing loss Prognosis Prognosis Good Based on Cognitive status,Time since onset Plan of Care Speech-Language Treatment Yes Frequency Weekly Duration 45 Minutes Patient/Caregiver Education Patient expressed understanding of evaluation, Patient expressed agreement with goals and treatment plans ,Patient requires further education/training Short Term Goals 1. The pt will participate in further assessment of expressive and receptive communication skills to guide POC. 2. Pt will demonstrate understanding of word recall strategies by completing structured tasks with 90% accuracy. 3. The pt will complete sustained attention tasks with 80% accuracy to improve ability to attend to stimuli. 4. The pt will complete visuospatial tasks with 80% accuracy to decrease visual neglect. 5. The pt will perform tasks targeting inhibitory control and planning with 90% accuracy to improve executive functions. Rn Vascular Goals 1. The pt will demonstrate expressive, receptive, cognitive skills WFL to maintain independence and complete ADL as measured by pt report and clinician judgement. Discharge Recommendations Home,Outpatient therapy CALL SPECIALIST Clinical Instructor Line Start: 01/02/21 15:01 Freq: Status: Active Protocol: Document 01/02/21 17:14 PAUL (Rec: 01/02/21 17:14 PAUL [email or web address]) Clinical Instructor Signature Clinical Instructor Clinical Instructor Yes
--- NOTE | 2021-01-04 15:25 | ST.OPTN ---
Visit Care Team Role Provider Type Elbert Mckinley MD Attending Provider Non-Staff Primary Care Provider Referring Provider Address: [address] [place] [address], [id number] STEAM FLATTENER Treatment Note STEAM FLATTENER Clinical Instructor Line Start: 01/02/21 15:01 Freq: Status: Active Protocol: Document 01/02/21 17:14 PAUL (Rec: 01/02/21 17:14 PAUL [email or web address]) Clinical Instructor Signature Clinical Instructor Clinical Instructor Yes STEAM FLATTENER Treatment Note Start: 01/05/21 11:55 Freq: Status: Active Protocol: Document 01/05/21 11:55 PAUL (Rec: 01/05/21 11:56 PAUL [email or web address]) Speech Pathology Treatment Note Session Time Visit Start Time 14:30 Visit Stop Time 15:25 Total Visit Minutes 55 Visit Information Visit Number 06/19 Plan of Care Dates 12/28/20-03/30/21 Insurance Information Medicare Setting Treatment Setting Outpatient Care Next Note Type Next Note Type Treatment Note General Information General Information Pt is a 75 year old female who experienced a 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 Her primary complaint at this time is WFD. Pt also reported hx of arthritis, blood clots, dizziness, heart disease, kidney disease, and osteopenia . Subjective Others Present Student Observations/Patient Presentation Pt arrived on time. She expressed being very unhappy about being assessed a student STEAM FLATTENER last week. The student was present to hear the pt's comments. Today's session was led by primary/supervising STEAM FLATTENER . At end of session, the pt was agreeable to continuing with treatment beyond today. Chief Complaint(s) Cognitive Rehab Expectation/Goals: Patient Goals Improve recall of words, primarily places and numbers Patient Knowledge/Awareness of STEAM FLATTENER Role Good in Treatment Objective Short Term Goals 1. The pt will participate in further assessment of expressive and receptive communication skills to guide POC. 2. Pt will demonstrate understanding of word recall strategies by completing structured tasks with 90% accuracy. 3. The pt will complete sustained attention tasks with 80% accuracy to improve ability to attend to stimuli. 4. The pt will complete visuospatial tasks with 80% accuracy to decrease visual neglect. 5. The pt will perform tasks targeting inhibtory control and planning with 90% accuracy to improve executive functions. Senior Living Goals 1. The pt will demonstrate expressive, receptive, cognitive skills WFL to maintain independence and complete ADL as measured by pt report and clinician judgement. Treatment Activities Educated pt in assessment results. Discussed likely impacts of vision deficits (vs cognition) on visuospatial scores. Administered [place] Naming Test for further evaluation of word recall skills. Pt independently named 49/60 items (82% acc) with delayed responses (up to 5 sec) x2 items. She was responsive to stimulus cues x3/14 (21% responsiveness), phonemic cues x5/12 (42% responsiveness), and to multiple choices x5/6 ( 83% responsiveness). Initiated internal memory strategy training targeting giving oneself extended time for word recall; association, visualization, and increased attention. Pt was highly engaged in training, initially verbalizing doubt of effectiveness of strategies but expressing an openness to trying to use them by end of session. Recommended the pt initiate a daily journal to promote word recall via written expression, including keeping a log of words she has difficulty recalling in conversation. She was agreeable to this. Assessment Patient Response to Treatment Good Rehab Potential Good Impairments Identified Cognitive-Linguistic Skills, Expressive Language,Memory - Short Term,Memory - Working, Written Expression Assessment of Improvement The pt presented with mild- moderate WFDs as measured by [place] Naming Test. She was most responsive to phonemic cueing and exhibited high word recognition when presented with multiple choices. The pt was increasingly receptive to education and training provided today, and agreeable to STEAM FLATTENER's recommendations. Reviewed with Patient Goals,Home Exercise Program Patient/Caregiver Understanding Good Plan Amount of Therapy Recommended 1-2 Months Frequency of Treatment Once a Week Length of Session 45 Minutes Therapeutic Contents Client Education,Cognitive- Linguistic Training,Expressive Language Training,Home Exercise Program,Written Expression Provided Patient/Caregiver Instruction Home Exercise Program,Plan of Care,Questions/Concerns Therapy Recommendations Continue with Current Program
--- NOTE | 2021-01-04 15:58 | ST.OPTN ---
Visit Care Team Role Provider Type Elbert Mckinley MD Attending Provider Non-Staff Primary Care Provider Referring Provider Address: [address] [place] [address], [id number] CUSTOMER RESOLUTION SPECIALIST Treatment Note CUSTOMER RESOLUTION SPECIALIST Clinical Instructor Line Start: 01/02/21 15:01 Freq: Status: Active Protocol: Document 01/02/21 17:14 PAUL (Rec: 01/02/21 17:14 PAUL [email or web address]) Clinical Instructor Signature Clinical Instructor Clinical Instructor Yes CUSTOMER RESOLUTION SPECIALIST Treatment Note Start: 01/05/21 11:55 Freq: Status: Active Protocol: Document 01/05/21 11:55 PAUL (Rec: 01/05/21 11:56 PAUL [email or web address]) Speech Pathology Treatment Note Session Time Visit Start Time 14:30 Visit Stop Time 15:25 Total Visit Minutes 55 Visit Information Visit Number 06/19 Plan of Care Dates 12/28/20-03/30/21 Insurance Information Medicare Setting Treatment Setting Outpatient Care Next Note Type Next Note Type Treatment Note General Information General Information Pt is a 75 year old female who experienced a 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 Her primary complaint at this time is WFD. Pt also reported hx of arthritis, blood clots, dizziness, heart disease, kidney disease, and osteopenia . Subjective Others Present Student Observations/Patient Presentation Pt arrived on time. She expressed being very unhappy about being assessed a student CUSTOMER RESOLUTION SPECIALIST last week. The student was present to hear the pt's comments. Today's session was led by primary/supervising CUSTOMER RESOLUTION SPECIALIST . At end of session, the pt was agreeable to continuing with treatment beyond today. Chief Complaint(s) Cognitive Rehab Expectation/Goals: Patient Goals Improve recall of words, primarily places and numbers Patient Knowledge/Awareness of CUSTOMER RESOLUTION SPECIALIST Role Good in Treatment Objective Short Term Goals 1. The pt will participate in further assessment of expressive and receptive communication skills to guide POC. 2. Pt will demonstrate understanding of word recall strategies by completing structured tasks with 90% accuracy. 3. The pt will complete sustained attention tasks with 80% accuracy to improve ability to attend to stimuli. 4. The pt will complete visuospatial tasks with 80% accuracy to decrease visual neglect. 5. The pt will perform tasks targeting inhibtory control and planning with 90% accuracy to improve executive functions. Correction Goals 1. The pt will demonstrate expressive, receptive, cognitive skills WFL to maintain independence and complete ADL as measured by pt report and clinician judgement. Treatment Activities Educated pt in assessment results. Discussed likely impacts of vision deficits (vs cognition) on visuospatial scores. Administered [place] Naming Test for further evaluation of word recall skills. Pt independently named 49/60 items (82% acc) with delayed responses (up to 5 sec) x2 items. She was responsive to stimulus cues x3/14 (21% responsiveness), phonemic cues x5/12 (42% responsiveness), and to multiple choices x5/6 ( 83% responsiveness). Initiated internal memory strategy training targeting giving oneself extended time for word recall; association, visualization, and increased attention. Pt was highly engaged in training, initially verbalizing doubt of effectiveness of strategies but expressing an openness to trying to use them by end of session. Recommended the pt initiate a daily journal to promote word recall via written expression, including keeping a log of words she has difficulty recalling in conversation. She was agreeable to this. Assessment Patient Response to Treatment Good Rehab Potential Good Impairments Identified Cognitive-Linguistic Skills, Expressive Language,Memory - Short Term,Memory - Working, Written Expression Assessment of Improvement The pt presented with mild- moderate WFDs as measured by [place] Naming Test. She was most responsive to phonemic cueing and exhibited high word recognition when presented with multiple choices. The pt was increasingly receptive to education and training provided today, and agreeable to CUSTOMER RESOLUTION SPECIALIST's recommendations. Reviewed with Patient Goals,Home Exercise Program Patient/Caregiver Understanding Good Plan Amount of Therapy Recommended 1-2 Months Frequency of Treatment Once a Week Length of Session 45 Minutes Therapeutic Contents Client Education,Cognitive- Linguistic Training,Expressive Language Training,Home Exercise Program,Written Expression Provided Patient/Caregiver Instruction Home Exercise Program,Plan of Care,Questions/Concerns Therapy Recommendations Continue with Current Program
--- NOTE | 2021-01-04 17:36 | ST.OPTN ---
Visit Care Team Role Provider Type Elbert Mckinley MD Attending Provider Non-Staff Primary Care Provider Referring Provider Address: [address] [place] [address], [id number] NUCLEAR REACTOR OPERATOR Treatment Note Freq: Status: Active Protocol: Document 01/02/21 17:14 PAUL (Rec: 01/02/21 17:14 PAUL [email or web address]) Clinical Instructor Signature Clinical Instructor Clinical Instructor Yes NUCLEAR REACTOR OPERATOR Treatment Note Start: 01/04/21 11:55 Freq: Status: Active Protocol: Document 01/04/21 11:55 PAUL (Rec: 01/05/21 11:56 PAUL [email or web address]) Speech Pathology Treatment Note Session Time Visit Start Time 14:30 Visit Stop Time 15:25 Total Visit Minutes 55 Visit Information Visit Number 06/19 Plan of Care Dates 12/28/20-03/30/21 Insurance Information Medicare Setting Treatment Setting Outpatient Care Next Note Type Next Note Type Treatment Note General Information General Information Pt is a 75 year old female who experienced a 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 Her primary complaint at this time is WFD. Pt also reported hx of arthritis, blood clots, dizziness, heart disease, kidney disease, and osteopenia . Subjective Others Present Student Observations/Patient Presentation Pt arrived on time. She expressed being very unhappy about being assessed a student NUCLEAR REACTOR OPERATOR last week. The student was present to hear the pt's comments. Today's session was led by primary/supervising NUCLEAR REACTOR OPERATOR . At end of session, the pt was agreeable to continuing with treatment beyond today. Chief Complaint(s) Cognitive Rehab Expectation/Goals: Patient Goals Improve recall of words, primarily places and numbers Patient Knowledge/Awareness of NUCLEAR REACTOR OPERATOR Role Good in Treatment Objective Short Term Goals 1. The pt will participate in further assessment of expressive and receptive communication skills to guide POC. 2. Pt will demonstrate understanding of word recall strategies by completing structured tasks with 90% accuracy. 3. The pt will complete sustained attention tasks with 80% accuracy to improve ability to attend to stimuli. 4. The pt will complete visuospatial tasks with 80% accuracy to decrease visual neglect. 5. The pt will perform tasks targeting inhibtory control and planning with 90% accuracy to improve executive functions. Baking Factory Worker Goals 1. The pt will demonstrate expressive, receptive, cognitive skills WFL to maintain independence and complete ADL as measured by pt report and clinician judgement. Treatment Activities Educated pt in assessment results. Discussed likely impacts of vision deficits (vs cognition) on visuospatial scores. Administered [place] Naming Test for further evaluation of word recall skills. Pt independently named 49/60 items (82% acc) with delayed responses (up to 5 sec) x2 items. She was responsive to stimulus cues x3/14 (21% responsiveness), phonemic cues x5/12 (42% responsiveness), and to multiple choices x5/6 ( 83% responsiveness). Initiated internal memory strategy training targeting giving oneself extended time for word recall; association, visualization, and increased attention. Pt was highly engaged in training, initially verbalizing doubt of effectiveness of strategies but expressing an openness to trying to use them by end of session. Recommended the pt initiate a daily journal to promote word recall via written expression, including keeping a log of words she has difficulty recalling in conversation. She was agreeable to this. Assessment Patient Response to Treatment Good Rehab Potential Good Impairments Identified Cognitive-Linguistic Skills, Expressive Language,Memory - Short Term,Memory - Working, Written Expression Assessment of Improvement The pt presented with mild- moderate WFDs as measured by [place] Naming Test. She was most responsive to phonemic cueing and exhibited high word recognition when presented with multiple choices. The pt was increasingly receptive to education and training provided today, and agreeable to NUCLEAR REACTOR OPERATOR's recommendations. Reviewed with Patient Goals,Home Exercise Program Patient/Caregiver Understanding Good Plan Amount of Therapy Recommended 1-2 Months Frequency of Treatment Once a Week Length of Session 45 Minutes Therapeutic Contents Client Education,Cognitive- Linguistic Training,Expressive Language Training,Home Exercise Program,Written Expression Provided Patient/Caregiver Instruction Home Exercise Program,Plan of Care,Questions/Concerns Therapy Recommendations Continue with Current Program
--- NOTE | 2021-01-17 16:39 | ST.OPTN ---
Visit Care Team Role Provider Type Elbert Mckinley MD Attending Provider Non-Staff Primary Care Provider Referring Provider Address: [address] [place] [address], [id number] VALUE STREAM COACH Treatment Note VALUE STREAM COACH Clinical Instructor Line Start: 01/02/21 15:01 Freq: Status: Active Protocol: Document 01/02/21 17:14 PAUL (Rec: 01/02/21 17:14 PAUL [email or web address]) Clinical Instructor Signature Clinical Instructor Clinical Instructor Yes VALUE STREAM COACH Treatment Note Start: 01/05/21 11:55 Freq: Status: Active Protocol: Document 01/17/21 16:36 PAUL (Rec: 01/17/21 16:39 PAUL [email or web address]) Speech Pathology Treatment Note Session Time Visit Start Time 15:30 Visit Stop Time 16:20 Total Visit Minutes 50 Visit Information Visit Number 07/20 Plan of Care Dates 12/28/20-03/30/21 Insurance Information Medicare Setting Treatment Setting Outpatient Care Next Note Type Next Note Type Treatment Note General Information General Information Pt is a 75 year old female who experienced a 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 Her primary complaint at this time is WFD. Pt also reported hx of arthritis, blood clots, dizziness, heart disease, kidney disease, and osteopenia . Subjective Others Present Student Observations/Patient Presentation Pt arrived on time. No new complaints. Unable to journal d/t arthritis in hands. Chief Complaint(s) Cognitive Rehab Expectation/Goals: Patient Goals Improve recall of words, primarily places and numbers Patient Knowledge/Awareness of VALUE STREAM COACH Role Good in Treatment Objective Short Term Goals 1. The pt will participate in further assessment of expressive and receptive communication skills to guide POC. 2. Pt will demonstrate understanding of word recall strategies by completing structured tasks with 90% accuracy. 3. The pt will complete sustained attention tasks with 80% accuracy to improve ability to attend to stimuli. 4. The pt will complete visuospatial tasks with 80% accuracy to decrease visual neglect. 5. The pt will perform tasks targeting inhibtory control and planning with 90% accuracy to improve executive functions. Shelter Goals 1. The pt will demonstrate expressive, receptive, cognitive skills WFL to maintain independence and complete ADL as measured by pt report and clinician judgement. Treatment Activities Continued training in internal memory strategies including associations, plays on words, visualizations, and increasing attention. Using names of places the pt has visited, pt and VALUE STREAM COACH collaborated to create associations. Pt demonstrated increased independence over course of session. Skilled feedback and answers to pt's questions were provided. Assessment Patient Response to Treatment Good Rehab Potential Good Impairments Identified Cognitive-Linguistic Skills, Expressive Language,Memory - Short Term,Memory - Working, Written Expression Progress Towards Goals Slow Progress Assessment of Overall Progress Improving Assessment of Improvement The pt was responsive to training and education provided. Demonstrated improved ability to create associations. Able to recall geographic locations with extended time (~15-20 sec) x2. Reviewed with Patient Goals,Progress Being Made,Home Exercise Program Patient/Caregiver Understanding Good Plan Amount of Therapy Recommended 1-2 Months Frequency of Treatment Once a Week Length of Session 45 Minutes Therapeutic Contents Client Education,Cognitive- Linguistic Training,Expressive Language Training,Home Exercise Program,Written Expression Provided Patient/Caregiver Instruction Home Exercise Program,Plan of Care,Questions/Concerns Therapy Recommendations Continue with Current Program
--- NOTE | 2021-01-31 12:17 | ST.OPTN ---
Visit Care Team Role Provider Type Elbert Mckinley MD Attending Provider Non-Staff Primary Care Provider Referring Provider Address: [address] [place] [address], [id number] FLIGHT KITCHEN MANAGER Treatment Note FLIGHT KITCHEN MANAGER Clinical Instructor Line Start: 01/02/21 15:01 Freq: Status: Active Protocol: Document 01/02/21 17:14 PAUL (Rec: 01/02/21 17:14 [facility]UL [email or web address]) Clinical Instructor Signature Clinical Instructor Clinical Instructor Yes FLIGHT KITCHEN MANAGER Treatment Note Start: 01/05/21 11:55 Freq: Status: Active Protocol: Document 01/31/21 11:59 PAUL (Rec: 01/31/21 12:17 PAUL [email or web address]) Speech Pathology Treatment Note Session Time Visit Start Time 10:30 Visit Stop Time 11:20 Total Visit Minutes 50 Visit Information Visit Number 08/17 Plan of Care Dates 12/28/20-03/30/21 Insurance Information Medicare Setting Treatment Setting Outpatient Care Visit Type Note Type Treatment Note Next Note Type Next Note Type Treatment Note General Information General Information Pt is a 75 year old female who experienced a 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 Her primary complaint at this time is WFD. Pt also reported hx of arthritis, blood clots, dizziness, heart disease, kidney disease, and osteopenia . Subjective Observations/Patient Presentation Pt arrived on time. No new complaints. Chief Complaint(s) Cognitive Rehab Expectation/Goals: Patient Goals Improve recall of words, primarily places and numbers Patient Knowledge/Awareness of FLIGHT KITCHEN MANAGER Role Good in Treatment Objective Short Term Goals 1. The pt will participate in further assessment of expressive and receptive communication skills to guide POC. 2. Pt will demonstrate understanding of word recall strategies by completing structured tasks with 90% accuracy. 3. The pt will complete sustained attention tasks with 80% accuracy to improve ability to attend to stimuli. 4. The pt will complete visuospatial tasks with 80% accuracy to decrease visual neglect. 5. The pt will perform tasks targeting inhibtory control and planning with 90% accuracy to improve executive functions. Prison Goals 1. The pt will demonstrate expressive, receptive, cognitive skills WFL to maintain independence and complete ADL as measured by pt report and clinician judgement. Treatment Activities Initiated training in thought organization and word recall using categorical naming. Following education and instruction, the pt named 17- 27 items in concrete categories, including 23 names of countries the pt has visited. Difficulty recalling these places is the pt's primary complaint and goal for improvement. Skilled feedback was provided. Pt benefited from giving herself mildly extended processing time, talking aloud about associations, and using gestures. Assessment Patient Response to Treatment Good Rehab Potential Good Impairments Identified Cognitive-Linguistic Skills, Expressive Language,Memory - Short Term,Memory - Working, Written Expression Progress Towards Goals Slow Progress Assessment of Overall Progress Improving Assessment of Improvement The pt was responsive to training and education provided. Generated good numbers of items in concrete categories without time limits imposed. She verbalized feeling that she is improving and was positive in her responses to treatment tasks and FLIGHT KITCHEN MANAGER feedback. Reviewed with Patient Goals,Progress Being Made,Home Exercise Program Patient/Caregiver Understanding Good Plan Amount of Therapy Recommended 1-2 Months Frequency of Treatment Once a Week Length of Session 45 Minutes Therapeutic Contents Client Education,Cognitive- Linguistic Training,Expressive Language Training,Home Exercise Program,Written Expression Provided Patient/Caregiver Instruction Home Exercise Program,Plan of Care,Questions/Concerns Therapy Recommendations Continue with Current Program
--- NOTE | 2021-04-26 13:52 | ST.OPDS ---
Visit Care Team Role Provider Type Elbert Mckinley MD Attending Provider Non-Staff Primary Care Provider Referring Provider Address: [address] [place] [address], [id number] FRANCHISE FIELD CONSULTANT Treatment Note FRANCHISE FIELD CONSULTANT Clinical Instructor Line Start: 01/02/21 15:01 Freq: Status: Active Protocol: Document 01/02/21 17:14 PAUL (Rec: 01/02/21 17:14 PAUL [email or web address]) Clinical Instructor Signature Clinical Instructor Clinical Instructor Yes FRANCHISE FIELD CONSULTANT Treatment Note Start: 01/05/21 11:55 Freq: Status: Active Protocol: Document 04/26/21 13:50 PAUL (Rec: 04/26/21 13:52 PAUL [email or web address]) Speech Pathology Treatment Note Visit Information Plan of Care Dates 12/28/20-03/30/21 Insurance Information Medicare Setting Treatment Setting Outpatient Care Visit Type Note Type Discharge Summary General Information General Information Pt is a 75 year old female who experienced a 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 Her primary complaint at this time is WFD. Pt also reported hx of arthritis, blood clots, dizziness, heart disease, kidney disease, and osteopenia . Subjective Observations/Patient Presentation The pt was last seen Jan 31, when she noted improvement in cognitive communication skills. She has not returned nor contacted this clinic for further intervention. She is discharged from Speech Therapy services at this time. Chief Complaint(s) Cognitive Objective Short Term Goals 1. The pt will participate in further assessment of expressive and receptive communication skills to guide POC. 2. Pt will demonstrate understanding of word recall strategies by completing structured tasks with 90% accuracy. 3. The pt will complete sustained attention tasks with 80% accuracy to improve ability to attend to stimuli. 4. The pt will complete visuospatial tasks with 80% accuracy to decrease visual neglect. 5. The pt will perform tasks targeting inhibtory control and planning with 90% accuracy to improve executive functions. Prison Goals 1. The pt will demonstrate expressive, receptive, cognitive skills WFL to maintain independence and complete ADL as measured by pt report and clinician judgement. Plan Therapy Recommendations Discharge from Speech Therapy
== END 2021-07-11 09:41 ==
LOC: SP 10:30
PROVIDERS: PCP Internal Medicine; Referring Provider Internal Medicine; Visit Provider Internal Medicine
DX: R47.9 Unspecified speech disturbances (principal)
CPT/HCPCS: 92507; 96125; 97129; 97130

== ENCOUNTER → 2021-02-14 09:04 | Outpatient (CLI) | payer MEDICARE, OTHER, SELFPAY ==
[2021-02-14 10:05] LABS: Add Manual Diff / Slide Review NO; Basophils Absolute Auto 100 /uL (0-100); Basophils Percent Auto 0.9 % (0-2); Eosinophils Absolute Auto 100 /uL (0-450); Eosinophils Percent Auto 1.9 % (2-4); Hemoglobin 14.8 g/dL (12.0-16.0); Lymphocytes Absolute Auto 1500 /uL (1100-4500); Lymphocytes Percent Auto 21.7 % (25-40); Mean Corpuscular HGB Conc 32.9 % (30-36); Mean Corpuscular Hemoglobin 30.3 PG (26-34); Monocytes Absolute Auto 400 /uL (0-900); Monocytes Percent Auto 5.7 % (3-14); Neutrophils Absolute Auto 4900 /uL (1500-7000); Neutrophils Percent Auto 69.8 % (50-75); Platelet Count 317 X10^3/uL (150-400); Red Cell Distribution Width 14.5 % (11.6-14.8)
[2021-02-14 10:13] LABS: Hemoglobin A1C% w Est Avg Glu 5.8 % (4.0-6.0)
[2021-02-14 10:17] LABS: Alanine Aminotransferase 26 IU/L (<35); Albumin 4.3 g/dL (3.5-5.0); Albumin Globulin Ratio 1.7 (1.0-2.8); Alkaline Phosphatase 87 U/L (38-126); Aspartate Aminotransferase 33 IU/L (14-36); BUN Creatinine Ratio 31.4 (6-22); Bilirubin Total 1.5 mg/dL (0.2-1.3); Blood Urea Nitrogen 32 mg/dL (7-17); Calcium 9.5 mg/dL (8.4-10.2); Carbon Dioxide 21 mmol/L (22-32); Chloride 109 mmol/L (98-107); Estimated Glomerular Filt Rate 52.5 mL/min (>60); Globulin 2.5 g/dL (1.7-4.1); Glucose 109 mg/dL (80-110); HEMOLYSIS < 15 (0-50); Potassium 4.1 mmol/L (3.4-5.1); Sodium 136 mmol/L (137-145); Total Protein 6.8 g/dL (6.3-8.2)
[2021-02-14 11:18] LABS: Vitamin D 25 Hydroxy (D3) 64.2 ng/mL (30.0-100.0)
[2021-02-14 11:30] LABS: TSH w/ Reflex to FT4 2.26 uIU/mL (0.47-4.68)
[2021-02-15 07:36] LABS: Parathyroid Hormone Int 57 pg/mL (15-65)
== END ==
PROVIDERS: PCP Internal Medicine; Referring Provider Internal Medicine; Visit Provider Internal Medicine
DX: N18.31 Chronic kidney disease, stage 3a (principal)
CPT/HCPCS: 36415; 80053; 82306; 83036; 83970; 84100; 84443; 85025

== ENCOUNTER → 2021-02-22 08:05 | Outpatient (CLI) | payer MEDICARE, OTHER, SELFPAY ==
--- NOTE | 2021-02-22 08:09 | DI.ECHO.S_ITS ---
[facility]---------+ [facility] +---------+ : : [address] : : : : [id number] : : : : Phone: [phone]+ Echocardiogram Report + + :Name: ROXANE MILLARD Study Date: 02/22/2021 Height: 64 in : :[facility] ReadingLocation: Weight: 165 lb : : Gender: Female BSA: 1.8 m2 : :: 1945 Age: 75 yrs BP: 131/86 mmHg: :Reason For Study: AORTIC STENOSIS : :Ordering Physician: DUSTY, : :ALDEN Performed By: Chika Nava : :Referring: ALDEN MONTANO : + + Interpretation Summary Left ventricular systolic function remains normal with an estimated ejection fraction of 60 to 65% without any focal wall motion abnormality. There is borderline concentric LVH with slight septal prominence but this is unchanged from the previous exam. There is a probable diastolic relaxation abnormality with probable normal filling pressures although likely slightly higher compared to the previous study. The right ventricle appears normal and unchanged. Right ventricular systolic pressure is estimated at 32 mmHg with a CVP of 3 mmHg, and is likely higher compared to the previous study. The left atrium is mildly enlarged and measures larger compared to the previous study. There is mild mitral regurgitation that is slightly more prominent compared to the previous study. There is mild aortic stenosis, mildly progressive since the previous study, with a peak velocity of 2.6 m/s and a mean gradient of 13 mmHg, compared to 1.8 m/s and 7 mmHg, respectively, on the previous study. The severity ratio is 0.39 compared to 0.53 previously. There is trace aortic regurgitation that appears unchanged. The ascending aorta is mildly enlarged but unchanged from the previous exam. Procedure: A two-dimensional transthoracic echocardiogram with color flow and Doppler was performed. The study quality was technically adequate. Comparison is made with the echocardiogram of 12/14/2016. The patient was in sinus rhythm with heart rates between 60-70 bpm during the exam. Left Ventricle: The left ventricle is normal in size. There is borderline concentric left ventricular hypertrophy. There is mild proximal septal thickening noted. Left ventricular systolic function appears normal without focal wall motion abnormalities. The ejection fraction is estimated to be 60- 65%. This is unchanged compared to the previous study. Diastolic parameters suggest a relaxation abnormality of the left ventricle, consistent with probable normal filling pressures. This is slightly higher compared to the previous study. Right Ventricle: The right ventricle is normal in size and function. This is unchanged compared to the previous study. Atria: The left atrium is mildly dilated. The left atrium has mildly increased in size since the prior echo exam. Right atrial size is normal. This is unchanged compared to the previous study. There is no Doppler evidence for an interatrial shunt. Mitral Valve: There is mild to moderate mitral annular calcification. There is mild mitral regurgitation. This is slightly more prominent compared to the previous study. Aortic Valve: The aortic valve is trileaflet. The aortic valve is moderately calcified. There is mildly reduced leaflet mobility. There is mild aortic stenosis. This is more prominent compared to the previous study. The peak aortic velocity is 2.6 m/sec. The peak aortic velocity on the previous exam was 1.8 m/sec. The aortic valve mean gradient is 13 mmHg. The calculated aortic valve area is 1.1 cm2. There is trace aortic regurgitation. This is unchanged compared to the previous study. Tricuspid Valve: The tricuspid valve is normal in structure and function. There is trace tricuspid regurgitation. This is unchanged compared to the previous study. The right ventricular systolic pressure is estimated to be at least 32 mmHg based on an estimated right atrial pressure of 3 mm Hg. This is likely higher compared to the previous study. Pulmonic Valve: The pulmonic valve leaflets are thin and pliable; valve motion is normal. There is no pulmonic valvular regurgitation. Great Vessels: The aortic root is normal size. The ascending aorta is mildly enlarged. This is unchanged compared to the previous study. The IVC is of normal diameter and collapses greater than 50% with a sniff. This suggests a low right atrial pressure of 3 mm Hg. Pericardium/ Pleura There is no pericardial effusion. There is no pleural effusion. MMode/2D Measurements & Calculations LVIDd: 4.2 cm LVOT diam: 2.0 cm LVIDs: 2.8 cm Ao root diam: 3.0 cm FS: 33.2 % asc Aorta Diam: 3.6 cm IVSd: 1.3 cm Ao Arch Diam (Prox Trans): 2.5 cm LVPWd: 0.89 cm LV tovar. diameter/BSA (cm/m^2): 2.3 LV sys. diameter/BSA (cm/m^2): 1.6 LA A2 area: 21.3 cm2 RA long axis: 4.9 cm LA A4 area: 18.0 cm2 RA area: 13.5 cm2 LA length (vol): 5.0 cm RA vol: 31.4 ml LA vol: 65.1 ml RA : 17.4 ml/m2 LA vol index: 36.1 ml/m2 IVC diam: 0.73 cm RVD1 (basal): 3.4 cm TAPSE: 2.2 cm Doppler Measurements & Calculations Ao V2 max: 255.6 cm/sec LVOT Max Nnamdi: 89.2 cm/sec Ao V2 mean: 161.6 cm/sec LV V1 max P.2 mmHg Ao max P.8 mmHg LV V1 VTI: 21.5 cm Ao mean P.4 mmHg DIA(I,D): 1.3 cm2 Ao V2 VTI: 55.1 cm DIA(V,D): 1.1 cm2 sev ratio: 0.39 DIA indexed to BSA (cm^2/m^2): 0.71 MV E max nnamdi: 65.6 cm/sec TR max nnamdi: 267.6 cm/sec MV A max nnamdi: 78.1 cm/sec TR max P.6 mmHg MV E/A: 0.84 PA V2 max: 109.6 cm/sec Med Peak E' Nnamdi: 5.8 cm/sec PA V2 mean: 69.8 cm/sec E/E' med: 11.4 PA mean P.3 mmHg Lat Peak E' Nnamdi: 6.1 cm/sec PA pr(Accel): 49.9 mmHg E/E' lat: 10.8 E/e' average: 11.1 MV dec time: 0.30 sec SV(LVOT): 70.9 ml Reading Physician:04:57 PM
[2021-02-22 09:49] LABS: Alanine Aminotransferase 33 IU/L (<35); Albumin 4.5 g/dL (3.5-5.0); Albumin Globulin Ratio 1.6 (1.0-2.8); Alkaline Phosphatase 85 U/L (38-126); Aspartate Aminotransferase 39 IU/L (14-36); BUN Creatinine Ratio 21.7 (6-22); Bilirubin Total 1.4 mg/dL (0.2-1.3); Blood Urea Nitrogen 23 mg/dL (7-17); Calcium 10.1 mg/dL (8.4-10.2); Carbon Dioxide 30 mmol/L (22-32); Chloride 105 mmol/L (98-107); Estimated Glomerular Filt Rate 50.3 mL/min (>60); Globulin 2.9 g/dL (1.7-4.1); Glucose 102 mg/dL (80-110); HEMOLYSIS < 15 (0-50); Magnesium 2.3 mg/dL (1.6-2.3); Potassium 4.4 mmol/L (3.4-5.1); Sodium 140 mmol/L (137-145); Total Protein 7.4 g/dL (6.3-8.2)
[2021-02-24 18:21] LABS: Cholesterol, Total 136 mg/dL (100-199); HDL-Cholesterol 62 mg/dL (>39); HDL-Particle (Total) 39.9 umol/L (>=30.5); LDL Particle 670 nmol/L (<1000); LDL Size 20.7 nm (>20.5); LDL-Cholsterol 58 mg/dL (0-99); LP-IR Score 35 (<=45); Small LDL- Particle 329 nmol/L (<=527); Triglycerides 86 mg/dL (0-149)
== END ==
PROVIDERS: PCP Internal Medicine; Visit Provider Specialist
DX: I35.0 Nonrheumatic aortic (valve) stenosis (principal); I48.0 Paroxysmal atrial fibrillation; E78.5 Hyperlipidemia, unspecified; E78.2 Mixed hyperlipidemia; I34.0 Nonrheumatic mitral (valve) insufficiency; I51.7 Cardiomegaly
CPT/HCPCS: 36415; 80053; 80061; 83704; 83735; 93306

== ENCOUNTER → 2021-05-25 07:03 | Outpatient (CLI) | payer MEDICARE, OTHER, SELFPAY ==
--- NOTE | 2021-05-25 | DI.US.S_ITS ---
PROCEDURE: US RENAL COMPLETE INDICATIONS: STAGE 3A CHRONIC KIDNEY DISEASE TECHNIQUE: Real-time scanning was performed of the kidneys and bladder, with image documentation. COMPARISON: CT, CT CHEST WO CON, 12/17/2018, 8:54. FINDINGS: Kidneys: Kidneys are normal in size. Right kidney measures 9.7 cm long; left kidney measures 10 cm long. Right renal cortical thickness is 1.8 cm; left renal cortical thickness is 1.4 cm. Renal cortical echotexture is normal. No hydronephrosis or nephrolithiasis. No suspicious solid mass lesions. Bladder: Urinary bladder decompressed and suboptimally visualized. Miscellaneous: No free pelvic fluid. IMPRESSION: Normal appearance of the kidneys bilaterally. Dictated by: David Shoemaker RR Interpreted: Iain Robin MD on 05/25/2021 at 10:06 Transcribed by: YANIV on 05/25/2021 at 10:07 Approved by: Iain Robin M.D. on 05/25/2021 at 13:51
[2021-05-25 08:43] LABS: Phosphorous 3.9 mg/dL (2.8-4.1)
[2021-05-26 07:36] LABS: Calcium 9.5 mg/dL (8.7-10.3); Parathyroid Hormone, Intact 37 pg/mL (15-65)
[2021-06-01 14:51] LABS: 1,25-Dihydroxy, Vitamin D-2 <10 pg/mL (.)
== END ==
PROVIDERS: PCP Internal Medicine; Referring Provider Internal Medicine; Visit Provider Internal Medicine
DX: N18.31 Chronic kidney disease, stage 3a (principal); R10.9 Unspecified abdominal pain
CPT/HCPCS: 36415; 76770; 82310; 82652; 83970; 84100

== ENCOUNTER → 2021-07-18 09:08 | Outpatient (CLI) | payer MEDICARE, OTHER, SELFPAY ==
[2021-07-18 10:54] LABS: Add Manual Diff / Slide Review NO; Basophils Absolute Auto 100 /uL (0-100); Basophils Percent Auto 0.9 % (0-2); Eosinophils Absolute Auto 100 /uL (0-450); Eosinophils Percent Auto 1.8 % (2-4); Hematocrit 44.1 % (36-46); Hemoglobin 14.7 g/dL (12.0-16.0); Lymphocytes Absolute Auto 1300 /uL (1100-4500); Lymphocytes Percent Auto 18.4 % (25-40); Mean Corpuscular HGB Conc 33.4 % (30-36); Mean Corpuscular Hemoglobin 30.5 PG (26-34); Mean Corpuscular Volume 91.5 fL (80-100); Monocytes Absolute Auto 400 /uL (0-900); Monocytes Percent Auto 6.3 % (3-14); Neutrophils Absolute Auto 5000 /uL (1500-7000); Neutrophils Percent Auto 72.6 % (50-75); Platelet Count 280 X10^3/uL (150-400); Red Blood Cell Count 4.82 X10^6/uL (4.0-5.2); Red Cell Distribution Width 14.1 % (11.6-14.8); White Blood Cell Count 6.8 X10^3/uL (4.5-11.0)
[2021-07-20 10:54] LABS: Alanine Aminotransferase 27 IU/L (<35); Albumin 4.2 g/dL (3.5-5.0); Albumin Globulin Ratio 1.8 (1.0-2.8); Alkaline Phosphatase 83 U/L (38-126); Aspartate Aminotransferase 36 IU/L (14-36); Blood Urea Nitrogen 29 mg/dL (7-17); Calcium 10.1 mg/dL (8.4-10.2); Carbon Dioxide 28 mmol/L (22-32); Chloride 103 mmol/L (98-107); Globulin 2.4 g/dL (1.7-4.1); Glucose 76 mg/dL (80-110); HEMOLYSIS < 15 (0-50); Potassium 4.8 mmol/L (3.4-5.1); Sodium 137 mmol/L (137-145); Total Protein 6.6 g/dL (6.3-8.2)
[2021-07-20 11:17] LABS: Bilirubin Total 1.6 mg/dL (0.2-1.3)
== END ==
PROVIDERS: Internal Medicine Gastroenterology; PCP Internal Medicine; Referring Provider Internal Medicine; Visit Provider Internal Medicine
DX: K51.90 Ulcerative colitis, unspecified, without complications (principal)
CPT/HCPCS: 36415; 80053; 85025

== ENCOUNTER → 2021-10-10 08:20 | Outpatient (CLI) | payer MEDICARE, OTHER, SELFPAY ==
[2021-10-10 10:35] LABS: Alanine Aminotransferase 24 IU/L (<35); Albumin Globulin Ratio 1.7 (1.0-2.8); Alkaline Phosphatase 85 U/L (38-126); Aspartate Aminotransferase 30 IU/L (14-36); BUN Creatinine Ratio 20.2 (6-22); Bilirubin Total 1.3 mg/dL (0.2-1.3); Blood Urea Nitrogen 24 mg/dL (7-17); Calcium 9.6 mg/dL (8.4-10.2); Carbon Dioxide 23 mmol/L (22-32); Chloride 105 mmol/L (98-107); Estimated Glomerular Filt Rate 47 mL/min (>60); Globulin 2.3 g/dL (1.7-4.1); Glucose 106 mg/dL (80-110); HEMOLYSIS < 15 (0-50); Potassium 4.6 mmol/L (3.4-5.1); Sodium 137 mmol/L (137-145); Total Protein 6.3 g/dL (6.3-8.2)
[2021-10-12 10:45] LABS: Cholesterol, Total 132 mg/dL (100-199); HDL-Cholesterol 60 mg/dL (>39); LDL Particle 747 nmol/L (<1000); LDL Size 20.2 nm (>20.5); LDL-Cholsterol 54 mg/dL (0-99); LP-IR Score 27 (<=45); Small LDL- Particle 415 nmol/L (<=527); Triglycerides 99 mg/dL (0-149)
== END ==
PROVIDERS: PCP Internal Medicine; Referring Provider Specialist; Visit Provider Specialist
DX: I48.0 Paroxysmal atrial fibrillation (principal); E78.2 Mixed hyperlipidemia
CPT/HCPCS: 36415; 80053; 80061; 83704; 83735

== ENCOUNTER → 2022-01-04 10:18 | Outpatient (CLI) | payer MEDICARE, OTHER, SELFPAY ==
--- NOTE | 2022-01-04 | DI.MG.S_ITS ---
BILATERAL DIGITAL SCREENING MAMMOGRAM 3D/2D WITH CAD: 01/04/2022 CLINICAL: Routine screening. Personal history of right breast cancer. Comparison is made to exams dated: 01/02/2021 mammogram, 01/01/2020 mammogram, and 10/08/2018 mammogram - [facility]. There are scattered fibroglandular elements in both breasts. Current study was also evaluated with a Computer Aided Detection (CAD) system. There are benign calcifications in both breasts. There also are benign post operative findings in the right breast. No significant masses, calcifications, or other findings are seen in either breast. There has been no significant interval change. IMPRESSION: BENIGN There is no mammographic evidence of malignancy. A 1 year screening mammogram is recommended. This exam was interpreted at Station ID: [id number]. NOTE: For mammograms, a report in lay terms will be sent to the patient. Approximately 15% of breast malignancies will not be visualized mammographically. In the management of a palpable breast mass, a negative mammogram must not discourage biopsy of a clinically suspicious lesion. Electronically Signed By: Holly pollack/roya:01/04/2022 13:49:21 letter sent: Normal Exam ACR BI-RADS Category 2: Benign Finding(s) 3342F
== END ==
PROVIDERS: PCP Internal Medicine; Referring Provider Internal Medicine; Visit Provider Internal Medicine
DX: Z12.31 Encounter for screening mammogram for malignant neoplasm of breast (principal); Z85.3 Personal history of malignant neoplasm of breast
CPT/HCPCS: 77063; 77067

== ENCOUNTER → 2022-05-22 15:07 | Outpatient (CLI) | payer MEDICARE, OTHER, SELFPAY ==
--- NOTE | 2022-05-22 | DI.RAD.S_ITS ---
PROCEDURE: XR CHEST 2V INDICATIONS: left chest wall pain TECHNIQUE: 2 views of the chest were acquired. COMPARISON: [facility], , XR CHEST 1V, 10/19/2019, 14:47. FINDINGS: Surgical changes and devices: Right breast surgical clips.. Lungs and pleura: Lungs are clear. No pleural effusions or pneumothorax. Mediastinum: Mediastinal contours are normal. Heart size is normal. Bones and chest wall: No suspicious bony abnormalities. Soft tissues appear unremarkable. IMPRESSION: No acute cardiopulmonary disease process. Dictated by: Gunjan Ventura MD, PhD on 05/22/2022 at 15:55 Approved by: Gunjan Ventura MD, PhD on 05/22/2022 at 15:57
== END ==
PROVIDERS: PCP Internal Medicine; Referring Provider Internal Medicine; Visit Provider Internal Medicine
DX: R07.89 Other chest pain (principal)
CPT/HCPCS: 71046

== ENCOUNTER → 2022-06-01 09:24 | Outpatient (CLI) | payer MEDICARE, OTHER, SELFPAY ==
--- NOTE | 2022-06-01 09:26 | DI.US.S_ITS ---
PROCEDURE: US CAROTID DOPPLER BI INDICATIONS: History of cerebrovascular accident TECHNIQUE: Color and pulse Doppler interrogation was performed of both carotid systems, with image documentation and velocity measurements. COMPARISON: [facility], CT, CT ANGIO HEAD AND NECK, 10/11/2019, 15:14. FINDINGS: Stenosis calculations are based on SRU (Society of Radiologists in Ultrasound) criteria. Right side: Brachial blood pressure: 152/93 mm Hg. Common carotid artery peak systolic velocity: 78 cm/sec. Internal carotid artery peak systolic velocity: 113 cm/sec. Internal carotid artery end diastolic velocity: 13 cm/sec. External carotid artery peak systolic velocity: 75 cm/sec. ICA/CCA peak systolic ratio: 0.96. Reyes scale imaging description: Trace plaque. Percent internal carotid artery stenosis: Less than 50% stenosis . Vertebral artery: Flow direction is antegrade. Left side: Brachial blood pressure: 162/98 mm Hg. Common carotid artery peak systolic velocity: 63 cm/sec. Internal carotid artery peak systolic velocity: 81 cm/sec. Internal carotid artery end diastolic velocity: 26 cm/sec. External carotid artery peak systolic velocity: 90 cm/sec. ICA/CCA peak systolic ratio: 1.28. Reyes scale imaging description: Mild calcified plaque. Percent internal carotid artery stenosis: Less than 50% stenosis. . Vertebral artery: Flow direction is antegrade. IMPRESSION: 1. Right ICA: Less than 50 % stenosis. 2. Left ICA: Less than 50 % stenosis. 3. Antegrade flow in the bilateral vertebral arteries. Dictated by: Power Power M.D. on 06/01/2022 at 10:51 Approved by: Power Power M.D. on 06/01/2022 at 10:58
== END ==
PROVIDERS: PCP Internal Medicine; Referring Provider Specialist; Visit Provider Specialist
DX: Z86.73 Personal history of transient ischemic attack (TIA), and cerebral infarction without residual deficits (principal); I65.23 Occlusion and stenosis of bilateral carotid arteries
CPT/HCPCS: 93880

== ENCOUNTER → 2022-06-07 08:18 | Outpatient (CLI) | payer MEDICARE, OTHER, SELFPAY ==
[2022-06-07 09:26] LABS: Alanine Aminotransferase 34 IU/L (<35); Albumin 4.3 g/dL (3.5-5.0); Albumin Globulin Ratio 1.6 (1.0-2.8); Alkaline Phosphatase 87 U/L (38-126); Aspartate Aminotransferase 38 IU/L (14-36); BUN Creatinine Ratio 27.8 (6-22); Bilirubin Total 1.3 mg/dL (0.2-1.3); Blood Urea Nitrogen 32 mg/dL (7-17); Carbon Dioxide 26 mmol/L (22-32); Chloride 102 mmol/L (98-107); Cholesterol 140 mg/dL (140-199); Estimated Glomerular Filt Rate 49 mL/min (>60); Globulin 2.7 g/dL (1.7-4.1); Glucose 93 mg/dL (80-110); HDL Cholesterol 59 mg/dL (40-60); HEMOLYSIS < 15 (0-50); LDL Cholesterol Calculated 56 mg/dL (<100); Potassium 4.4 mmol/L (3.4-5.1); Sodium 139 mmol/L (137-145); Triglycerides 126 mg/dL (35-150)
== END ==
PROVIDERS: PCP Internal Medicine; Referring Provider Specialist; Visit Provider Specialist
DX: E78.2 Mixed hyperlipidemia (principal)
CPT/HCPCS: 36415; 80053; 80061

== ENCOUNTER → 2022-08-22 08:21 | Outpatient (CLI) | payer MEDICARE, SELFPAY ==
[2022-08-22 10:03] LABS: Add Manual Diff / Slide Review NO; Basophils Absolute Auto 100 /uL (0-100); Basophils Percent Auto 1.2 % (0-2); Eosinophils Absolute Auto 100 /uL (0-450); Eosinophils Percent Auto 2.2 % (2-4); Hematocrit 45.3 % (36-46); Hemoglobin 14.6 g/dL (12.0-16.0); Lymphocytes Absolute Auto 1500 /uL (1100-4500); Lymphocytes Percent Auto 25.4 % (25-40); Mean Corpuscular HGB Conc 32.3 % (30-36); Mean Corpuscular Hemoglobin 30.1 PG (26-34); Mean Corpuscular Volume 93.2 fL (80-100); Monocytes Absolute Auto 400 /uL (0-900); Monocytes Percent Auto 7.2 % (3-14); Neutrophils Absolute Auto 3900 /uL (1500-7000); Platelet Count 278 X10^3/uL (150-400); Red Blood Cell Count 4.86 X10^6/uL (4.0-5.2); Red Cell Distribution Width 13.9 % (11.6-14.8)
[2022-08-22 10:30] LABS: Alanine Aminotransferase 24 IU/L (<35); Albumin 4.1 g/dL (3.5-5.0); Albumin Globulin Ratio 1.6 (1.0-2.8); Alkaline Phosphatase 90 U/L (38-126); Aspartate Aminotransferase 29 IU/L (14-36); BUN Creatinine Ratio 22.2 (6-22); Bilirubin Total 1.5 mg/dL (0.2-1.3); Blood Urea Nitrogen 26 mg/dL (7-17); Carbon Dioxide 28 mmol/L (22-32); Chloride 103 mmol/L (98-107); Estimated Glomerular Filt Rate 48 mL/min (>60); Globulin 2.5 g/dL (1.7-4.1); Glucose 98 mg/dL (80-110); HEMOLYSIS < 15 (0-50); Potassium 4.6 mmol/L (3.4-5.1); Sodium 139 mmol/L (137-145); Total Protein 6.6 g/dL (6.3-8.2)
[2022-08-22 10:32] LABS: Erythrocyte Sedimentation Rate 6 MM/HR (0-20)
== END ==
PROVIDERS: PCP Family Medicine; Referring Provider Internal Medicine Gastroenterology; Visit Provider Internal Medicine Gastroenterology
DX: K51.90 Ulcerative colitis, unspecified, without complications (principal)
CPT/HCPCS: 36415; 80053; 85025; 85651

== ENCOUNTER → 2022-10-26 08:42 | Outpatient (CLI) | payer MEDICARE, SELFPAY ==
[2022-10-26 09:05] LABS: COVID19 -Nasal RAPID Negative (Negative)
== END ==
PROVIDERS: PCP Family Medicine; Visit Provider Nurse Practitioner Family
DX: Z20.822 Contact with and (suspected) exposure to COVID-19 (principal); J02.9 Acute pharyngitis, unspecified
CPT/HCPCS: 87070; 87635

== ENCOUNTER → 2023-01-08 09:14 | Outpatient (CLI) | payer MEDICARE, SELFPAY ==
--- NOTE | 2023-01-08 | DI.MG.S_ITS ---
BILATERAL DIGITAL SCREENING MAMMOGRAM 3D/2D WITH CAD: 01/08/2023 CLINICAL: Routine screening. Breast cancer. Comparison is made to exams dated: 01/04/2022 mammogram, 01/02/2021 mammogram, and 01/01/2020 mammogram - [facility]. There are scattered areas of fibroglandular density in both breasts (category b / 25%-50% glandular tissue). Current study was also evaluated with a Computer Aided Detection (CAD) system. There are benign calcifications in both breasts. There also are benign post operative findings in the right breast. No significant masses, calcifications, or other findings are seen in either breast. There has been no significant interval change. IMPRESSION: BENIGN There is no mammographic evidence of malignancy. A 1 year screening mammogram is recommended. This exam was interpreted at Station ID: [id number]. NOTE: For mammograms, a report in lay terms will be sent to the patient. Approximately 15% of breast malignancies will not be visualized mammographically. In the management of a palpable breast mass, a negative mammogram must not discourage biopsy of a clinically suspicious lesion. Electronically Signed By: Castillo Becerra M.D. acr/penrad:01/08/2023 10:10:42 letter sent: Normal Exam ACR BI-RADS Category 2: Benign Finding(s) 3342F
== END ==
PROVIDERS: PCP Family Medicine; Referring Provider Family Medicine; Visit Provider Family Medicine
DX: Z12.31 Encounter for screening mammogram for malignant neoplasm of breast (principal); Z85.3 Personal history of malignant neoplasm of breast
CPT/HCPCS: 77063; 77067

== ENCOUNTER → 2023-04-30 08:43 | Outpatient (CLI) | payer MEDICARE, SELFPAY ==
[2023-04-30 10:41] LABS: Alanine Aminotransferase 34 IU/L (<35); Albumin 4.2 g/dL (3.5-5.0); Albumin Globulin Ratio 1.5 (1.0-2.8); Alkaline Phosphatase 91 U/L (38-126); Aspartate Aminotransferase 38 IU/L (14-36); BUN Creatinine Ratio 22.8 (6-22); Bilirubin Total 1.8 mg/dL (0.2-1.3); Blood Urea Nitrogen 26 mg/dL (7-17); Calcium 10.6 mg/dL (8.4-10.2); Carbon Dioxide 26 mmol/L (22-32); Chloride 102 mmol/L (98-107); Estimated Glomerular Filt Rate 49 mL/min (>60); Globulin 2.8 g/dL (1.7-4.1); Glucose 101 mg/dL (80-110); HEMOLYSIS < 15 (0-50); Magnesium 2.1 mg/dL (1.6-2.3); Potassium 4.7 mmol/L (3.4-5.1); Sodium 136 mmol/L (137-145)
[2023-05-03 18:07] LABS: Cholesterol, Total 144 mg/dL (100-199); HDL-Cholesterol 58 mg/dL (>39); HDL-Particle (Total) 39.8 umol/L (>=30.5); LDL Particle 846 nmol/L (<1000); LDL Size 20.7 nm (>20.5); LDL-Cholsterol 68 mg/dL (0-99); LP-IR Score 35 (<=45); Small LDL- Particle 351 nmol/L (<=527); Triglycerides 99 mg/dL (0-149)
== END ==
PROVIDERS: Family Provider Family Medicine; PCP Family Medicine; Referring Provider Specialist; Visit Provider Specialist
DX: E78.2 Mixed hyperlipidemia (principal); I48.0 Paroxysmal atrial fibrillation
CPT/HCPCS: 36415; 80053; 80061; 83704; 83735

== ENCOUNTER → 2023-05-01 12:31 | Outpatient (CLI) | payer MEDICARE, SELFPAY ==
--- NOTE | 2023-05-01 | DI.ECHO.S_ITS ---
[facility] +---------+ : : [address] [place] : : : : [id number] : : : : Phone: [phone]---------+ Echocardiogram Report + + :Name: ROXANE MILLARD Study Date: 05/01/2023 Height: 64 in : :[facility] ReadingLocation: Weight: 160 lb : : Gender: Female BSA: 1.8 m2 : :: 1945 Age: 77 yrs BP: 134/87 mmHg: :Reason For Study: CHEST PAIN : :Ordering Physician: DUSTY, : :ALDEN Performed By: Chika Nava : :Referring: ALDEN MONTANO : + + Interpretation Summary Left ventricular systolic function remains normal with an estimated ejection fraction of 60 to 65% without any focal wall motion abnormality. Left ventricular size and wall thickness remain normal with a probable diastolic relaxation abnormality with normal filling pressures, possibly slightly lower compared to the previous exam. The right ventricle remains normal and unchanged. Right ventricular systolic pressure is likely 29 mmHg with a CVP of 3 mmHg and is similar to the previous exam. There is mild left atrial enlargement but that is unchanged. There is mild to moderate mitral regurgitation that is slightly more prominent and mild tricuspid regurgitation that is unchanged. There is moderate aortic stenosis with a peak velocity of 2.5 m/s and a mean gradient of 13 mmHg, nearly identical to the previous exam, although the severity ratio has decreased from 0.39 down to 0.34. There continues to be mild aortic regurgitation that is unchanged. The ascending aorta remains mildly enlarged at 3.5 cm but unchanged from the previous exam. Procedure: A two-dimensional transthoracic echocardiogram with color flow and Doppler was performed. The study quality was technically adequate. Comparison is made with the echocardiogram of 02/22/2021. The patient was in sinus rhythm with heart rates between 57-61 bpm during the exam. Left Ventricle: The left ventricle is normal in size and wall thickness. Proximal septal thickening is noted. The estimated left ventricular end diastolic volume is 53 ml compared to previous 56 ml. Left ventricular systolic function appears normal without focal wall motion abnormalities. The ejection fraction is estimated to be 60-65%. Diastolic parameters suggest a relaxation abnormality of the left ventricle, consistent with probable normal filling pressures. This is possibly slightly lower compared to the previous study. Right Ventricle: The right ventricle is normal in size and function. This is unchanged compared to the previous study. Atria: The left atrium is mildly dilated. Right atrial size is normal. This is unchanged compared to the previous study. There is no Doppler evidence for an interatrial shunt. Mitral Valve: There is mild to moderate mitral annular calcification. The mitral valve leaflets appear borderline thickened, but open well. There is mild to moderate mitral regurgitation. This is slightly more prominent compared to the previous study. Aortic Valve: The aortic valve is trileaflet. The aortic valve is moderately calcified. There is moderately reduced leaflet mobility. There is moderate aortic stenosis. This is unchanged compared to the previous study. The peak aortic velocity is 2.5 m/sec. The aortic valve mean gradient is 13 mmHg. The severity ratio has decreased from 0.39 down to 0.34. There is mild aortic regurgitation. This is unchanged compared to the previous study. Tricuspid Valve: The tricuspid valve is normal in structure and function. There is mild tricuspid regurgitation. This is unchanged compared to the previous study. The right ventricular systolic pressure is estimated to be at least 29 mmHg based on an estimated right atrial pressure of 3 mm Hg. This is similar compared to the previous study. Pulmonic Valve: The pulmonic valve leaflets are thin and pliable; valve motion is normal. There is trace pulmonic regurgitation. Great Vessels: The aortic root is normal size. The ascending aorta is mildly enlarged. This is unchanged compared to the previous study. The IVC is of normal diameter and collapses greater than 50% with a sniff. This suggests a low right atrial pressure of 3 mm Hg. Pericardium/ Pleura There is no pericardial effusion. There is no pleural effusion. MMode/2D Measurements & Calculations LVIDd: 4.3 cm LVOT diam: 2.0 cm LVIDs: 3.0 cm Ao root diam: 3.0 cm FS: 30.2 % asc Aorta Diam: 3.5 cm EPSS: 0.78 cm Ao Arch Diam (Prox Trans): 2.6 cm IVSd: 1.1 cm LVPWd: 0.86 cm LV tovar. diameter/BSA (cm/m^2): 2.4 LV sys. diameter/BSA (cm/m^2): 1.7 LA A2 area: 19.7 cm2 RA long axis: 4.7 cm LA A4 area: 18.3 cm2 RA area: 13.3 cm2 LA length (vol): 4.9 cm RA vol: 31.7 ml LA vol: 62.7 ml RA : 17.8 ml/m2 LA vol index: 35.3 ml/m2 IVC diam: 1.2 cm RVD1 (basal): 2.9 cm RVD2 (mid): 2.5 cm TAPSE: 2.1 cm Doppler Measurements & Calculations Ao V2 max: 247.1 cm/sec LVOT Max Nnamdi: 86.1 cm/sec Ao V2 mean: 171.0 cm/sec LV V1 max P.0 mmHg Ao max P.8 mmHg LV V1 VTI: 19.0 cm Ao mean P.1 mmHg DIA(I,D): 1.1 cm2 Ao V2 VTI: 55.7 cm DIA(V,D): 1.1 cm2 sev ratio: 0.34 DIA indexed to BSA (cm^2/m^2): 0.61 MV E max nnamdi: 48.0 cm/sec TR max nnamdi: 247.6 cm/sec MV A max nnamdi: 72.3 cm/sec TR max P.5 mmHg MV E/A: 0.66 PA V2 max: 94.1 cm/sec Med Peak E' Nnamdi: 5.9 cm/sec PA V2 mean: 62.6 cm/sec E/E' med: 8.2 PA mean P.7 mmHg Lat Peak E' Nnamdi: 6.3 cm/sec PA pr(Accel): 43.0 mmHg E/E' lat: 7.7 E/e' average: 7.9 MV dec time: 0.40 sec SV(LVOT): 60.5 ml Reading Physician:07:55 AM
== END ==
PROVIDERS: Family Provider Family Medicine; PCP Family Medicine; Referring Provider Specialist; Visit Provider Specialist
DX: I08.3 Combined rheumatic disorders of mitral, aortic and tricuspid valves (principal); I77.89 Other specified disorders of arteries and arterioles
CPT/HCPCS: 93306

== ENCOUNTER → 2023-08-13 08:34 | Outpatient (CLI) | payer MEDICARE, SELFPAY ==
[2023-08-13 09:45] LABS: Add Manual Diff / Slide Review NO; Basophils Absolute Auto 0 /uL (0-100); Basophils Percent Auto 0.7 % (0-2); Eosinophils Absolute Auto 100 /uL (0-450); Eosinophils Percent Auto 1.4 % (2-4); Hematocrit 43.2 % (36-46); Hemoglobin 14.6 g/dL (12.0-16.0); Lymphocytes Absolute Auto 1300 /uL (1100-4500); Lymphocytes Percent Auto 20.6 % (25-40); Mean Corpuscular HGB Conc 33.8 % (30-36); Mean Corpuscular Hemoglobin 31.1 PG (26-34); Mean Corpuscular Volume 91.9 fL (80-100); Monocytes Absolute Auto 500 /uL (0-900); Monocytes Percent Auto 7.5 % (3-14); Neutrophils Absolute Auto 4400 /uL (1500-7000); Neutrophils Percent Auto 69.8 % (50-75); Platelet Count 278 X10^3/uL (150-400); Red Cell Distribution Width 14.4 % (11.6-14.8); White Blood Cell Count 6.3 X10^3/uL (4.5-11.0)
[2023-08-13 10:55] LABS: Alanine Aminotransferase 23 IU/L (<35); Albumin 4.1 g/dL (3.5-5.0); Albumin Globulin Ratio 1.5 (1.0-2.8); Alkaline Phosphatase 79 U/L (38-126); Aspartate Aminotransferase 30 IU/L (14-36); BUN Creatinine Ratio 24.8 (6-22); Bilirubin Total 1.4 mg/dL (0.2-1.3); Blood Urea Nitrogen 30 mg/dL (7-17); C-Reactive Protein Quant 0.6 mg/dL (<1.0); Calcium 9.8 mg/dL (8.4-10.2); Carbon Dioxide 26 mmol/L (22-32); Chloride 105 mmol/L (98-107); Estimated Glomerular Filt Rate 46 mL/min (>60); Globulin 2.7 g/dL (1.7-4.1); Glucose 92 mg/dL (80-110); HEMOLYSIS < 15 (0-50); Potassium 4.3 mmol/L (3.4-5.1); Sodium 137 mmol/L (137-145); Total Protein 6.8 g/dL (6.3-8.2)
== END ==
PROVIDERS: Family Provider Family Medicine; PCP Family Medicine; Referring Provider Internal Medicine Gastroenterology; Visit Provider Internal Medicine Gastroenterology
DX: K51.90 Ulcerative colitis, unspecified, without complications (principal)
CPT/HCPCS: 36415; 80053; 85025; 86140

== ENCOUNTER → 2023-08-15 09:46 | Outpatient (CLI) | payer MEDICARE, SELFPAY ==
[2023-08-22 17:49] LABS: Calprotectin, Stool 59 ug/g (0-120)
== END ==
PROVIDERS: Family Provider Family Medicine; PCP Family Medicine; Referring Provider Internal Medicine Gastroenterology; Visit Provider Internal Medicine Gastroenterology
DX: K51.90 Ulcerative colitis, unspecified, without complications (principal)
CPT/HCPCS: 83993

== ENCOUNTER → 2023-12-30 08:07 | Outpatient (CLI) | payer MEDICARE, SELFPAY ==
[2023-12-30 09:29] LABS: Alanine Aminotransferase 17 IU/L (<35); Albumin 3.9 g/dL (3.5-5.0); Albumin Globulin Ratio 1.8 (1.0-2.8); Alkaline Phosphatase 85 U/L (38-126); Aspartate Aminotransferase 24 IU/L (14-36); BUN Creatinine Ratio 26.2 (6-22); Bilirubin Total 1.5 mg/dL (0.2-1.3); Blood Urea Nitrogen 27 mg/dL (7-17); Calcium 9.4 mg/dL (8.4-10.2); Carbon Dioxide 20 mmol/L (22-32); Chloride 110 mmol/L (98-107); Estimated Glomerular Filt Rate 55 mL/min (>60); Globulin 2.2 g/dL (1.7-4.1); Glucose 102 mg/dL (80-110); HEMOLYSIS < 15 (0-50); Magnesium 2.1 mg/dL (1.6-2.3); Potassium 4.5 mmol/L (3.4-5.1); Sodium 138 mmol/L (137-145); Total Protein 6.1 g/dL (6.3-8.2)
== END ==
PROVIDERS: Family Provider Family Medicine; PCP Family Medicine; Referring Provider Specialist; Visit Provider Specialist
DX: I48.0 Paroxysmal atrial fibrillation (principal); E78.2 Mixed hyperlipidemia
CPT/HCPCS: 80053; 83735

== ENCOUNTER → 2024-01-13 09:03 | Outpatient (CLI) | payer MEDICARE, SELFPAY ==
--- NOTE | 2024-01-13 09:04 | DI.MG.S_ITS ---
BILATERAL DIGITAL SCREENING MAMMOGRAM 3D/2D WITH CAD POST LUMPECTOMY: 01/13/2024 CLINICAL: Routine screening. Breast cancer. Comparison is made to exams dated: 01/08/2023 mammogram, 01/04/2022 mammogram, and 01/02/2021 mammogram - [facility]. There are scattered areas of fibroglandular density in both breasts (category b / 25%-50% glandular tissue). Current study was also evaluated with a Computer Aided Detection (CAD) system. There are benign calcifications in both breasts. There also are benign post operative findings in the right breast. No significant masses, calcifications, or other findings are seen in either breast. There has been no significant interval change. IMPRESSION: BENIGN There is no mammographic evidence of malignancy. A 1 year screening mammogram is recommended. This exam was interpreted at Station ID: [id number]. NOTE: For mammograms, a report in lay terms will be sent to the patient. Approximately 15% of breast malignancies will not be visualized mammographically. In the management of a palpable breast mass, a negative mammogram must not discourage biopsy of a clinically suspicious lesion. Electronically Signed By: Romulo martínez/roya:01/13/2024 13:50:06 letter sent: Normal Exam ACR BI-RADS Category 2: Benign Finding(s) 3342F
== END ==
PROVIDERS: Family Provider Family Medicine; PCP Family Medicine; Referring Provider Family Medicine; Visit Provider Family Medicine
DX: Z12.31 Encounter for screening mammogram for malignant neoplasm of breast (principal); R92.323 Mammographic fibroglandular density, bilateral breasts; Z85.3 Personal history of malignant neoplasm of breast
CPT/HCPCS: 77063; 77067

== ENCOUNTER → 2024-06-29 14:47 | Outpatient (RCR) | payer MEDICARE, SELFPAY ==
--- NOTE | 2023-03-28 13:02 | PT.OIE ---
Current Diagnoses Other instability, right shoulder (03/28/23) Stiffness of right shoulder, not elsewhere classified (03/28/23) Stiffness of left shoulder, not elsewhere classified (03/28/23) Other shoulder lesions, left shoulder (03/28/23) Pain in right arm (03/28/23) Pain in left arm (03/28/23) Past Medical History (Last Updated 12/06/22 @ 11:45 by Corine Sigala DO) Atrial fibrillation (~2019) Carpal tunnel syndrome Cataracts, bilateral Chicken pox Chronic obstructive pulmonary disease (04/24/16) Deafness in left ear Essential hypertension (04/24/16) Glaucoma (~2009) History of kidney disease (~1973) Malignant neoplasm of female breast (04/24/16) Measles Nonrheumatic aortic valve insufficiency (04/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) Osteopenia Other ulcerative colitis without complication (1994) Partial blindness (~2019) Stroke (~2019) Past Surgical History (Last Updated 08/26/22 @ 18:45 by Jane Smith) Anesthesia History of eye surgery History of kidney surgery (~1983) History of lumpectomy History of rotator cuff surgery (~2002) Status post colonoscopy Status post tonsillectomy and adenoidectomy Visit Care Team Role Provider Type Corine Sigala DO Attending Provider Physician Family Provider Primary Care Provider Referring Provider Specialty: Medical Address: [address] [place] [address], [facility] [address], [place], [facility] Email: [email or web address] Physical Therapy Initial Evaluation PT-OP-A Visit Information Start: 03/28/23 10:29 Freq: Status: Active Protocol: Document 03/28/23 10:30 [facility] (Rec: 03/28/23 10:37 [facility] [id number]) Out-Patient Physical Therapy Visit Information Visit Information Visit Type Initial Evaluation Visit Start Time 10:30 Visit Stop Time 11:15 Total Visit Minutes 45 Visit Number 1 PT-OP-B Current Condition Start: 03/28/23 10:29 Freq: Status: Active Protocol: Document 03/28/23 10:30 [facility] (Rec: 03/28/23 10:37 [facility] [id number]) Current Condition History of Current Condition Onset Date several months History of Current Condition L>R sided shoulder pain, moving her shoulder back causes pain, she calls this a stabbing pain, it feels like its in the muscle PT-OP-C Subjective Start: 03/28/23 10:29 Freq: Status: Active Protocol: Document 03/28/23 10:30 [facility] (Rec: 04/02/23 12:49 [facility] [id number]) Patient Questionnaires Quick Dash- Upper Extremity Quick Dash UE Score 30 Quick Dash UE Impairment 20 to 39% Impaired (Score 20- 39) OP-PT Pain Assessment Pain Assessment Grid Paper Pain Assessment Grid Completed Yes Location posterior B shoulders Pain Location Details pain is in posterior shoulder with shoulder extension L>R side Intensity 4 Scale Used Numeric (0 - 10) Frequency Intermittent Pain Duration with shoulder extension activities Pain Aggravating Factors Activity PT-OP-F Manual Assessment Start: 03/28/23 10:29 Freq: Status: Active Protocol: Document 03/28/23 10:30 [facility] (Rec: 04/02/23 12:49 [facility] [id number]) Manual Assessments Soft Tissue Assessment Soft Tissue Mobility Assessment decreased soft tissue mobility of the upper trapezius and pec minor for forward displacement of the shoulders B L>R Joint Mobility Assessment Joint Mobility Assessment poor posterior glide of the shoulder joint B, shoulder is in an anteriorly rotated position PT-OP-J Posture/Palpation/Skin Start: 03/28/23 10:29 Freq: Status: Active Protocol: Document 03/28/23 10:30 [facility] (Rec: 04/02/23 12:49 [facility] [id number]) Palpation Assessment Location shoulders Palpation Location posterior shoulder capsule Palpation Findings Tenderness PT-OP-K Range of Motion Start: 03/28/23 10:29 Freq: Status: Active Protocol: Document 03/28/23 10:30 [facility] (Rec: 04/02/23 12:49 [facility] [id number]) Shoulder Goniometric Range of Motion Shoulder Right Shoulder ROM WFL No Testing Position Standing Flexion 155 Extension 10 Abduction 115 External Rotation at 0 degrees Abduction 30 Internal Rotation Behind Back (text) sacrum Comments pain at end range ER Left Shoulder ROM WFL No Testing Position Standing Flexion 150 Extension 10 Abduction 110 External Rotation at 0 degrees Abduction 30 Internal Rotation Behind Back (text) sacrum Comments pain at end range ER worse in position of abduction with ER PT-OP-M Strength Start: 03/28/23 10:29 Freq: Status: Active Protocol: Document 03/28/23 10:30 [facility] (Rec: 04/02/23 12:49 [facility] [id number]) Shoulder Strength Shoulder Manual Muscle Testing Left Flexion 3 Fair Extension 3 Fair Abduction (C5) 3 Fair External Rotation 3 Fair Internal Rotation 3 Fair Right Flexion 3 Fair Extension 3 Fair Abduction (C5) 3 Fair External Rotation 3 Fair Internal Rotation 3 Fair PT-OP-Q Treatments Start: 03/28/23 10:29 Freq: Status: Active Protocol: Document 03/28/23 10:30 [facility] (Rec: 03/28/23 16:19 [facility] [id number]) Therapeutic Exercises Standing Exercises standing doorway stretch Reps/Minutes standing pec stretch in the doorway Comments hold 30 sec x 2 reps standing B shoulder ER Reps/Minutes 2 x 10 reps Comments with elbows at the side standign posterior shoulder rolls Reps/Minutes x 10 2 xms per day Manual Therapy Treatment Soft Tissue Mobilization left upper trapzeius Mobilization Type Myofascial Release Intensity/Depth Moderate Body Position Sidelying Comments pt in right sidelying working on releasing the left upper trapezius PT-OP-T Assessment and Plan Start: 03/28/23 10:29 Freq: Status: Active Protocol: Document 03/28/23 10:30 [facility] (Rec: 03/28/23 16:21 [facility] [id number]) Physical Therapy Assessment Goals 4 Impairment Decreased shoulder ROM B with pain at end range ER and abduction with ER and extension Assisted Goal (LTG) Sachi presents with ROM WFL and is no longer complaining of pain at the end range LTG Duration 12 weeks 3 Impairment Decreased shoulder strength B Short Term Goal (STG) Sachi is educated in a HEP for shoulder strengthening STG Duration 8 weeks 2 Impairment pec minor and upper trapezius tightness bilaterally Assisted Goal (LTG) with a home stretching program and manual therapy techniques Sachi presents with improved mobility of her shoulder with decreased fascial tightness LTG Duration 8 weeks 1 Impairment Bilateral shoulder pain L>R rated 4/10 with shoulder extension, abduction, ER Dairy Nutritionist Goal (LTG) Sachi reports a overall reduction in pain and is no longer experiencing sharp shoulder pain when with reaching behind her LTG Duration 8 weeks Assessment Summary Assessment Sachi is a 77 year old female who presents to PT today with L>R sided shoulder pain with reaching behind her. She notes she will experience a sharp jolt of pain with reaching behind her. It is short lived but very painful at the time. With evaluation Sachi presents with anteriorly rotated shoulders B and tightness of the pec minor and upper trapezius muscles. She is in a forward shoulder posture. Her posterior capsule is tight B and pain is reproduced with shoulder ER end range and with abduction and ER. She presents with shoulder weakness B and would benefit from both a flexibility as well as strengthening program. Manual therapy techniques to reduce fascial and muscle tightness will also be used. Sachi is a good candidate for PT Physical Therapy Plan Frequency and Duration Frequency of Treatment 2x/Week Duration of treatment (weeks) 8 Plan of Care Start Date 03/28/23 Plan of Care End Date 05/23/23 Therapeutic Interventions Therapeutic Interventions Home Exercise Program,Joint Mobilizations,Manual Therapy, Patient/Caregiver Education, Self-Care/Home Management,Soft Tissue Mobilization, Therapeutic Exercises Modalities Ultrasound Next Visit Focus/Plan Next Note Type Treatment Note Next Visit Plan review stretches started today and progress HEP, manual therapy techniques for fascial release and stretching
--- NOTE | 2023-03-28 13:03 | PT.OPPOC ---
Physical, Occupational & Speech Therapy At [facility] Current Diagnoses Other instability, right shoulder (03/28/23) Stiffness of right shoulder, not elsewhere classified (03/28/23) Stiffness of left shoulder, not elsewhere classified (03/28/23) Other shoulder lesions, left shoulder (03/28/23) Pain in right arm (03/28/23) Pain in left arm (03/28/23) Visit Care Team Role Provider Type Corine Sigala DO Attending Provider Physician Family Provider Primary Care Provider Referring Provider Specialty: Medical Address: [address] [place] [address], [address], [place], [address] Email: [email or web address] Plan Of Care PT-OP-T Assessment and Plan Start: 03/28/23 10:29 Freq: Status: Active Protocol: Document 03/28/23 10:30 [facility] (Rec: 03/28/23 16:21 [facility] [id number]) Physical Therapy Assessment Goals 4 Impairment Decreased shoulder ROM B with pain at end range ER and abduction with ER and extension Stave Saw Operator Goal (LTG) Sachi presents with ROM WFL and is no longer complaining of pain at the end range LTG Duration 12 weeks 3 Impairment Decreased shoulder strength B Short Term Goal (STG) Sachi is educated in a HEP for shoulder strengthening STG Duration 8 weeks 2 Impairment pec minor and upper trapezius tightness bilaterally Half-Way Goal (LTG) with a home stretching program and manual therapy techniques Sachi presents with improved mobility of her shoulder with decreased fascial tightness LTG Duration 8 weeks 1 Impairment Bilateral shoulder pain L>R rated 4/10 with shoulder extension, abduction, ER Stave Saw Operator Goal (LTG) Sachi reports a overall reduction in pain and is no longer experiencing sharp shoulder pain when with reaching behind her LTG Duration 8 weeks Assessment Summary Assessment Sachi is a 77 year old female who presents to PT today with L>R sided shoulder pain with reaching behind her. She notes she will experience a sharp jolt of pain with reaching behind her. It is short lived but very painful at the time. With evaluation Sachi presents with anteriorly rotated shoulders B and tightness of the pec minor and upper trapezius muscles. She is in a forward shoulder posture. Her posterior capsule is tight B and pain is reproduced with shoulder ER end range and with abduction and ER. She presents with shoulder weakness B and would benefit from both a flexibility as well as strengthening program. Manual therapy techniques to reduce fascial and muscle tightness will also be used. Sachi is a good candidate for PT Physical Therapy Plan Frequency and Duration Frequency of Treatment 2x/Week Duration of treatment (weeks) 8 Plan of Care Start Date 03/28/23 Plan of Care End Date 05/23/23 Therapeutic Interventions Therapeutic Interventions Home Exercise Program,Joint Mobilizations,Manual Therapy, Patient/Caregiver Education, Self-Care/Home Management,Soft Tissue Mobilization, Therapeutic Exercises Modalities Ultrasound Next Visit Focus/Plan Next Note Type Treatment Note Next Visit Plan review stretches started today and progress HEP, manual therapy techniques for fascial release and stretching Plan of Care Dates Plan of Care Start Date 03/28/23 Plan of Care End Date 05/23/23 Electronically Signed by: Kavya Woodruff, PT 04/02/23 [id number] If you are in agreement with this Plan of Care, please return a signed and dated copy. I have reviewed this Plan of Care and certify that the skilled therapy services above are required to meet the patient?s needs. Physician Signature Date Printed Name and Credentials Clinical Instructor Signature Printed Name and Credentials
--- NOTE | 2023-04-04 16:47 | PT.OTN ---
Current Diagnoses Other instability, right shoulder (04/04/23) Stiffness of right shoulder, not elsewhere classified (04/04/23) Stiffness of left shoulder, not elsewhere classified (04/04/23) Other shoulder lesions, left shoulder (04/04/23) Pain in right arm (04/04/23) Pain in left arm (04/04/23) Physical Therapy Treatment Note PT-OP-A Visit Information Start: 03/28/23 10:29 Freq: Status: Active Protocol: Document 04/04/23 09:08 [facility] (Rec: 04/04/23 10:14 [facility] [id number]) Out-Patient Physical Therapy Visit Information Visit Information Visit Type Treatment Note Visit Start Time 09:15 Visit Stop Time 10:00 Total Visit Minutes 45 PT-OP-B Current Condition Start: 03/28/23 10:29 Freq: Status: Active Protocol: Document 03/28/23 10:30 [facility] (Rec: 03/28/23 10:37 [facility] [id number]) Current Condition History of Current Condition Onset Date several months History of Current Condition L>R sided shoulder pain, moving her shoulder back causes pain, she calls this a stabbing pain, it feels like its in the muscle PT-OP-C Subjective Start: 03/28/23 10:29 Freq: Status: Active Protocol: Document 04/04/23 09:08 [facility] (Rec: 04/04/23 16:42 [facility] [id number]) OP-PT Subjective Patient Comments Patient Comments Sachi notes her pain is sharp but intermittent and only when she moves her shoulder behind her and out to the side , I dont like the doorway stretch PT-OP-F Manual Assessment Start: 03/28/23 10:29 Freq: Status: Active Protocol: Document 03/28/23 10:30 [facility] (Rec: 04/02/23 12:49 [facility] [id number]) Manual Assessments Soft Tissue Assessment Soft Tissue Mobility Assessment decreased soft tissue mobility of the upper trapezius and pec minor for forward displacement of the shoulders B L>R Joint Mobility Assessment Joint Mobility Assessment poor posterior glide of the shoulder joint B, shoulder is in an anteriorly rotated position PT-OP-J Posture/Palpation/Skin Start: 03/28/23 10:29 Freq: Status: Active Protocol: Document 03/28/23 10:30 [facility] (Rec: 04/02/23 12:49 [facility] [id number]) Palpation Assessment Location shoulders Palpation Location posterior shoulder capsule Palpation Findings Tenderness PT-OP-K Range of Motion Start: 03/28/23 10:29 Freq: Status: Active Protocol: Document 03/28/23 10:30 [facility] (Rec: 04/02/23 12:49 [facility] [id number]) Shoulder Goniometric Range of Motion Shoulder Right Shoulder ROM WFL No Testing Position Standing Flexion 155 Extension 10 Abduction 115 External Rotation at 0 degrees Abduction 30 Internal Rotation Behind Back (text) sacrum Comments pain at end range ER Left Shoulder ROM WFL No Testing Position Standing Flexion 150 Extension 10 Abduction 110 External Rotation at 0 degrees Abduction 30 Internal Rotation Behind Back (text) sacrum Comments pain at end range ER worse in position of abduction with ER PT-OP-M Strength Start: 03/28/23 10:29 Freq: Status: Active Protocol: Document 03/28/23 10:30 [facility] (Rec: 04/02/23 12:49 [facility] [id number]) Shoulder Strength Shoulder Manual Muscle Testing Left Flexion 3 Fair Extension 3 Fair Abduction (C5) 3 Fair External Rotation 3 Fair Internal Rotation 3 Fair Right Flexion 3 Fair Extension 3 Fair Abduction (C5) 3 Fair External Rotation 3 Fair Internal Rotation 3 Fair PT-OP-Q Treatments Start: 03/28/23 10:29 Freq: Status: Active Protocol: Document 04/04/23 09:08 [facility] (Rec: 04/04/23 10:14 [facility] [id number]) Therapeutic Exercises Standing Exercises standing wall slides Equipment Used x2x10 reps Reps/Minutes with pillow case standing wall slides standing wand shoulder abduction AAROM Reps/Minutes 2 x 10 B standing wand shoulder extension Reps/Minutes 2 x 10 reps standign posterior shoulder rolls Reps/Minutes x 10 2 xms per day Manual Therapy Treatment Soft Tissue Mobilization left upper trapzeius Mobilization Type Myofascial Release Intensity/Depth Moderate Body Position Sidelying Comments pt in right sidelying working on releasing the left upper trapezius then switched sides to work on right side Manual Techniques PROM shoulder B Comments with end range stretch each direction of flexion,abduction , ER PT-OP-R Modalities Start: 03/28/23 10:29 Freq: Status: Active Protocol: Document 04/04/23 16:44 [facility] (Rec: 04/04/23 16:44 [facility] [id number]) Ultrasound Therapy Treatment left lateral shoulder Treatment Duration (minutes) 8 Patient Position Sidelying Coupling Medium Ultrasound Gel Applicator Size (cm2) 5 Mode Setting Continuous Intensity Setting (w/cm2) 1.5 PT-OP-T Assessment and Plan Start: 03/28/23 10:29 Freq: Status: Active Protocol: Document 04/04/23 09:08 [facility] (Rec: 04/04/23 16:42 [facility] [id number]) Physical Therapy Assessment Assessment Summary Assessment Door way stretch was switched to wall slides today and AAROM was added for shoulder abduction and extension. Sachi presents with forward shoulder posture placing her at risk for impingement Physical Therapy Plan Frequency and Duration Frequency of Treatment 2x/Week Duration of treatment (weeks) 8 Plan of Care Start Date 03/28/23 Plan of Care End Date 05/23/23 Therapeutic Interventions Therapeutic Interventions Home Exercise Program,Joint Mobilizations,Manual Therapy, Patient/Caregiver Education, Self-Care/Home Management,Soft Tissue Mobilization, Therapeutic Exercises Modalities Ultrasound Next Visit Focus/Plan Next Note Type Treatment Note Next Visit Plan review stretches started today and progress HEP, manual therapy techniques for fascial release and stretching
--- NOTE | 2023-04-09 09:06 | PT.OTN ---
Current Diagnoses Other instability, right shoulder (04/09/23) Stiffness of right shoulder, not elsewhere classified (04/09/23) Stiffness of left shoulder, not elsewhere classified (04/09/23) Other shoulder lesions, left shoulder (04/09/23) Pain in right arm (04/09/23) Pain in left arm (04/09/23) Physical Therapy Treatment Note PT-OP-A Visit Information Start: 03/28/23 10:29 Freq: Status: Active Protocol: Document 04/09/23 08:00 [facility] (Rec: 04/09/23 15:00 [facility] [id number]) Out-Patient Physical Therapy Visit Information Visit Information Visit Type Treatment Note Visit Start Time 08:00 Visit Stop Time 08:45 Total Visit Minutes 45 Visit Number 3 PT-OP-B Current Condition Start: 03/28/23 10:29 Freq: Status: Active Protocol: Document 03/28/23 10:30 [facility] (Rec: 03/28/23 10:37 [facility] [id number]) Current Condition History of Current Condition Onset Date several months History of Current Condition L>R sided shoulder pain, moving her shoulder back causes pain, she calls this a stabbing pain, it feels like its in the muscle PT-OP-C Subjective Start: 03/28/23 10:29 Freq: Status: Active Protocol: Document 04/09/23 08:00 [facility] (Rec: 04/09/23 15:00 [facility] [id number]) OP-PT Subjective Patient Comments Patient Comments Sachi reports she has been doing the yoga class at [facility] and the movements aggravaged her shoulders. PT-OP-F Manual Assessment Start: 03/28/23 10:29 Freq: Status: Active Protocol: Document 03/28/23 10:30 [facility] (Rec: 04/02/23 12:49 [facility] [id number]) Manual Assessments Soft Tissue Assessment Soft Tissue Mobility Assessment decreased soft tissue mobility of the upper trapezius and pec minor for forward displacement of the shoulders B L>R Joint Mobility Assessment Joint Mobility Assessment poor posterior glide of the shoulder joint B, shoulder is in an anteriorly rotated position PT-OP-J Posture/Palpation/Skin Start: 03/28/23 10:29 Freq: Status: Active Protocol: Document 03/28/23 10:30 [facility] (Rec: 04/02/23 12:49 [facility] [id number]) Palpation Assessment Location shoulders Palpation Location posterior shoulder capsule Palpation Findings Tenderness PT-OP-K Range of Motion Start: 03/28/23 10:29 Freq: Status: Active Protocol: Document 03/28/23 10:30 [facility] (Rec: 04/02/23 12:49 [facility] [id number]) Shoulder Goniometric Range of Motion Shoulder Right Shoulder ROM WFL No Testing Position Standing Flexion 155 Extension 10 Abduction 115 External Rotation at 0 degrees Abduction 30 Internal Rotation Behind Back (text) sacrum Comments pain at end range ER Left Shoulder ROM WFL No Testing Position Standing Flexion 150 Extension 10 Abduction 110 External Rotation at 0 degrees Abduction 30 Internal Rotation Behind Back (text) sacrum Comments pain at end range ER worse in position of abduction with ER PT-OP-M Strength Start: 03/28/23 10:29 Freq: Status: Active Protocol: Document 03/28/23 10:30 [facility] (Rec: 04/02/23 12:49 [facility] [id number]) Shoulder Strength Shoulder Manual Muscle Testing Left Flexion 3 Fair Extension 3 Fair Abduction (C5) 3 Fair External Rotation 3 Fair Internal Rotation 3 Fair Right Flexion 3 Fair Extension 3 Fair Abduction (C5) 3 Fair External Rotation 3 Fair Internal Rotation 3 Fair PT-OP-Q Treatments Start: 03/28/23 10:29 Freq: Status: Active Protocol: Document 04/09/23 08:00 [facility] (Rec: 04/10/23 09:05 [facility] [id number]) Therapeutic Exercises Standing Exercises standing shoulder rows with TB Equipment Used level 2 TB Reps/Minutes 2 x 10 reps standing wall slides Equipment Used x2x10 reps Reps/Minutes with pillow case standing wall slides standing wand shoulder abduction AAROM Reps/Minutes 2 x 10 B standing wand shoulder extension Reps/Minutes 2 x 10 reps standing doorway stretch Reps/Minutes hold 30 sec B standing B shoulder ER Reps/Minutes x 20 standign posterior shoulder rolls Reps/Minutes 2x10 reps Manual Therapy Treatment Soft Tissue Mobilization left upper trapzeius Mobilization Type Myofascial Release Intensity/Depth Moderate Body Position Sidelying Comments pt in right sidelying working on releasing the left upper trapezius then switched sides to work on right side Manual Techniques PROM shoulder B Comments with end range stretch each direction of flexion,abduction , ER PT-OP-R Modalities Start: 03/28/23 10:29 Freq: Status: Active Protocol: Document 04/09/23 08:00 [facility] (Rec: 04/10/23 09:05 [facility] [id number]) Ultrasound Therapy Treatment left lateral shoulder Treatment Duration (minutes) 8 Patient Position Sidelying Coupling Medium Ultrasound Gel Applicator Size (cm2) 5 Mode Setting Continuous Intensity Setting (w/cm2) 1.5 PT-OP-T Assessment and Plan Start: 03/28/23 10:29 Freq: Status: Active Protocol: Document 04/09/23 08:00 [facility] (Rec: 04/10/23 09:05 [facility] [id number]) Physical Therapy Assessment Assessment Summary Assessment continue to encourage shoulder extension and ER and stretch the anterior chest to decrease forward shoulder position Physical Therapy Plan Frequency and Duration Frequency of Treatment 2x/Week Duration of treatment (weeks) 8 Plan of Care Start Date 03/28/23 Plan of Care End Date 05/23/23 Therapeutic Interventions Therapeutic Interventions Home Exercise Program,Joint Mobilizations,Manual Therapy, Patient/Caregiver Education, Self-Care/Home Management,Soft Tissue Mobilization, Therapeutic Exercises Modalities Ultrasound Next Visit Focus/Plan Next Note Type Treatment Note Next Visit Plan continue with exercises to open up the anterior chest and strengthen rotator cuff and posterior stabilizers
--- NOTE | 2023-04-30 16:24 | PT.OTN ---
Current Diagnoses Other instability, right shoulder (05/07/23) Stiffness of right shoulder, not elsewhere classified (05/07/23) Stiffness of left shoulder, not elsewhere classified (05/07/23) Other shoulder lesions, left shoulder (05/07/23) Pain in right arm (05/07/23) Pain in left arm (05/07/23) Physical Therapy Treatment Note PT-OP-A Visit Information Start: 03/28/23 10:29 Freq: Status: Active Protocol: Document 04/30/23 13:45 [facility] (Rec: 05/07/23 16:24 [facility] [id number]) Out-Patient Physical Therapy Visit Information Visit Information Visit Type Treatment Note Visit Start Time 13:45 Visit Stop Time 14:30 Total Visit Minutes 45 Visit Number 4 PT-OP-B Current Condition Start: 03/28/23 10:29 Freq: Status: Active Protocol: Document 03/28/23 10:30 [facility] (Rec: 03/28/23 10:37 [facility] [id number]) Current Condition History of Current Condition Onset Date several months History of Current Condition L>R sided shoulder pain, moving her shoulder back causes pain, she calls this a stabbing pain, it feels like its in the muscle PT-OP-C Subjective Start: 03/28/23 10:29 Freq: Status: Active Protocol: Document 04/30/23 13:35 [facility] (Rec: 04/30/23 14:31 [facility] [id number]) OP-PT Subjective Patient Comments Patient Comments Sachi notes she has some good days and some not so good, left shoulder bothers her more than the right PT-OP-F Manual Assessment Start: 03/28/23 10:29 Freq: Status: Active Protocol: Document 03/28/23 10:30 [facility] (Rec: 04/02/23 12:49 [facility] [id number]) Manual Assessments Soft Tissue Assessment Soft Tissue Mobility Assessment decreased soft tissue mobility of the upper trapezius and pec minor for forward displacement of the shoulders B L>R Joint Mobility Assessment Joint Mobility Assessment poor posterior glide of the shoulder joint B, shoulder is in an anteriorly rotated position PT-OP-J Posture/Palpation/Skin Start: 03/28/23 10:29 Freq: Status: Active Protocol: Document 03/28/23 10:30 [facility] (Rec: 04/02/23 12:49 [facility] [id number]) Palpation Assessment Location shoulders Palpation Location posterior shoulder capsule Palpation Findings Tenderness PT-OP-K Range of Motion Start: 03/28/23 10:29 Freq: Status: Active Protocol: Document 03/28/23 10:30 [facility] (Rec: 04/02/23 12:49 [facility] [id number]) Shoulder Goniometric Range of Motion Shoulder Right Shoulder ROM WFL No Testing Position Standing Flexion 155 Extension 10 Abduction 115 External Rotation at 0 degrees Abduction 30 Internal Rotation Behind Back (text) sacrum Comments pain at end range ER Left Shoulder ROM WFL No Testing Position Standing Flexion 150 Extension 10 Abduction 110 External Rotation at 0 degrees Abduction 30 Internal Rotation Behind Back (text) sacrum Comments pain at end range ER worse in position of abduction with ER PT-OP-M Strength Start: 03/28/23 10:29 Freq: Status: Active Protocol: Document 03/28/23 10:30 [facility] (Rec: 04/02/23 12:49 [facility] [id number]) Shoulder Strength Shoulder Manual Muscle Testing Left Flexion 3 Fair Extension 3 Fair Abduction (C5) 3 Fair External Rotation 3 Fair Internal Rotation 3 Fair Right Flexion 3 Fair Extension 3 Fair Abduction (C5) 3 Fair External Rotation 3 Fair Internal Rotation 3 Fair PT-OP-Q Treatments Start: 03/28/23 10:29 Freq: Status: Active Protocol: Document 04/30/23 13:35 [facility] (Rec: 04/30/23 14:31 [facility] [id number]) Therapeutic Exercises Standing Exercises standing shoulder rows with TB Equipment Used level 2 TB Reps/Minutes 2 x 10 reps standing wall slides Equipment Used x2x10 reps Reps/Minutes with pillow case standing wall slides standing wand shoulder abduction AAROM Reps/Minutes 2 x 10 B standing wand shoulder extension Reps/Minutes 2 x 10 reps standing doorway stretch Reps/Minutes hold 30 sec B standing B shoulder ER Reps/Minutes x 20 standign posterior shoulder rolls Reps/Minutes 2x10 reps PT-OP-R Modalities Start: 03/28/23 10:29 Freq: Status: Active Protocol: Document 04/09/23 08:00 [facility] (Rec: 04/10/23 09:05 [facility] [id number]) Ultrasound Therapy Treatment left lateral shoulder Treatment Duration (minutes) 8 Patient Position Sidelying Coupling Medium Ultrasound Gel Applicator Size (cm2) 5 Mode Setting Continuous Intensity Setting (w/cm2) 1.5 PT-OP-T Assessment and Plan Start: 03/28/23 10:29 Freq: Status: Active Protocol: Document 04/30/23 13:45 [facility] (Rec: 05/07/23 16:24 [facility] [id number]) Physical Therapy Assessment Assessment Summary Assessment Sachi was having gastro upset today and did not wish to exercise in the gym, her exercises were done on the treatment room. I am continuing to encourage postural modifications to help decrease strain to her shoulders Physical Therapy Plan Frequency and Duration Frequency of Treatment 2x/Week Duration of treatment (weeks) 8 Plan of Care Start Date 03/28/23 Plan of Care End Date 05/23/23 Therapeutic Interventions Therapeutic Interventions Home Exercise Program,Joint Mobilizations,Manual Therapy, Patient/Caregiver Education, Self-Care/Home Management,Soft Tissue Mobilization, Therapeutic Exercises Modalities Ultrasound Next Visit Focus/Plan Next Note Type Treatment Note Next Visit Plan continue with exercises to open up the anterior chest and strengthen rotator cuff and posterior stabilizers
--- NOTE | 2023-05-07 16:33 | PT.OTN ---
Current Diagnoses Other instability, right shoulder (05/07/23) Stiffness of right shoulder, not elsewhere classified (05/07/23) Stiffness of left shoulder, not elsewhere classified (05/07/23) Other shoulder lesions, left shoulder (05/07/23) Pain in right arm (05/07/23) Pain in left arm (05/07/23) Physical Therapy Treatment Note PT-OP-A Visit Information Start: 03/28/23 10:29 Freq: Status: Active Protocol: Document 05/07/23 16:24 [facility] (Rec: 05/07/23 16:33 [facility] [id number]) Out-Patient Physical Therapy Visit Information Visit Information Visit Type Treatment Note Visit Start Time 13:45 Visit Stop Time 14:30 Total Visit Minutes 45 Visit Number 5 PT-OP-B Current Condition Start: 03/28/23 10:29 Freq: Status: Active Protocol: Document 03/28/23 10:30 [facility] (Rec: 03/28/23 10:37 [facility] [id number]) Current Condition History of Current Condition Onset Date several months History of Current Condition L>R sided shoulder pain, moving her shoulder back causes pain, she calls this a stabbing pain, it feels like its in the muscle PT-OP-C Subjective Start: 03/28/23 10:29 Freq: Status: Active Protocol: Document 05/07/23 16:24 [facility] (Rec: 05/07/23 16:33 [facility] [id number]) OP-PT Subjective Patient Comments Patient Comments Sachi notes she will be getting a tooth pulled tomorrow and she has been really tight in her shoulder thinking about it. PT-OP-F Manual Assessment Start: 03/28/23 10:29 Freq: Status: Active Protocol: Document 03/28/23 10:30 [facility] (Rec: 04/02/23 12:49 [facility] [id number]) Manual Assessments Soft Tissue Assessment Soft Tissue Mobility Assessment decreased soft tissue mobility of the upper trapezius and pec minor for forward displacement of the shoulders B L>R Joint Mobility Assessment Joint Mobility Assessment poor posterior glide of the shoulder joint B, shoulder is in an anteriorly rotated position PT-OP-J Posture/Palpation/Skin Start: 03/28/23 10:29 Freq: Status: Active Protocol: Document 03/28/23 10:30 [facility] (Rec: 04/02/23 12:49 [facility] [id number]) Palpation Assessment Location shoulders Palpation Location posterior shoulder capsule Palpation Findings Tenderness PT-OP-K Range of Motion Start: 03/28/23 10:29 Freq: Status: Active Protocol: Document 03/28/23 10:30 [facility] (Rec: 04/02/23 12:49 [facility] [id number]) Shoulder Goniometric Range of Motion Shoulder Right Shoulder ROM WFL No Testing Position Standing Flexion 155 Extension 10 Abduction 115 External Rotation at 0 degrees Abduction 30 Internal Rotation Behind Back (text) sacrum Comments pain at end range ER Left Shoulder ROM WFL No Testing Position Standing Flexion 150 Extension 10 Abduction 110 External Rotation at 0 degrees Abduction 30 Internal Rotation Behind Back (text) sacrum Comments pain at end range ER worse in position of abduction with ER PT-OP-M Strength Start: 03/28/23 10:29 Freq: Status: Active Protocol: Document 03/28/23 10:30 [facility] (Rec: 04/02/23 12:49 [facility] [id number]) Shoulder Strength Shoulder Manual Muscle Testing Left Flexion 3 Fair Extension 3 Fair Abduction (C5) 3 Fair External Rotation 3 Fair Internal Rotation 3 Fair Right Flexion 3 Fair Extension 3 Fair Abduction (C5) 3 Fair External Rotation 3 Fair Internal Rotation 3 Fair PT-OP-Q Treatments Start: 03/28/23 10:29 Freq: Status: Active Protocol: Document 05/07/23 16:24 [facility] (Rec: 05/07/23 16:33 [facility] [id number]) Manual Therapy Treatment Soft Tissue Mobilization left upper trapzeius Body Location B upper trapezius Mobilization Type Myofascial Release Body Position Supine Comments Tightness notes bilateral upper trapezius today Manual Techniques manual pec minor stretch Body Location B pec minor Body Position Supine Comments worked on B pec minor release PROM shoulder B Comments with end range stretch each direction of flexion,abduction , ER PT-OP-R Modalities Start: 03/28/23 10:29 Freq: Status: Active Protocol: Document 05/07/23 16:24 [facility] (Rec: 05/07/23 16:33 [facility] [id number]) Ultrasound Therapy Treatment Right Neck Treatment Duration (minutes) 8 Patient Position Sidelying Coupling Medium Ultrasound Gel Applicator Size (cm2) 5 Frequency Setting (mHz) 1 Mode Setting Continuous Duty Cycle 100% Intensity Setting (w/cm2) 1.5 Comments right upper trapezius PT-OP-T Assessment and Plan Start: 10/19/23 10:29 Freq: Status: Active Protocol: Document 05/07/23 16:24 [facility] (Rec: 05/07/23 16:33 [facility] [id number]) Physical Therapy Assessment Goals 4 Impairment Decreased shoulder ROM B with pain at end range ER and abduction with ER and extension Fdc Goal (LTG) Sachi presents with ROM WFL and is no longer complaining of pain at the end range LTG Duration 12 weeks 3 Impairment Decreased core strength and lateral hip strength Short Term Goal (STG) Sachi is educated in a HEP for shoulder strengthening STG Duration 8 weeks 2 Impairment right sided piriformis tightness and guarding Fdc Goal (LTG) with a home stretching program and manual therapy techniques Sachi presents with improved mobility of her shoulder with decreased fascial tightness LTG Duration 8 weeks 1 Impairment right hip pain rated 4/10 worse at night with sleeping that radiates down the posterior leg to the calf Fdc Goal (LTG) Sachi reports a overall reduction in pain and is no longer experiencing sharp shoulder pain when with reaching behind her LTG Duration 8 weeks Assessment Summary Assessment Sachi was tight and guarded today in the upper trapezius, I worked on releasing her upper trap and worked on pec minor release. Her exercises were reviewed and encouraged for home. Physical Therapy Plan Frequency and Duration Frequency of Treatment 2x/Week Duration of treatment (weeks) 8 Plan of Care Start Date 03/28/23 Plan of Care End Date 05/23/23 Therapeutic Interventions Therapeutic Interventions Home Exercise Program,Joint Mobilizations,Manual Therapy, Patient/Caregiver Education, Self-Care/Home Management,Soft Tissue Mobilization, Therapeutic Exercises Modalities Ultrasound Next Visit Focus/Plan Next Note Type Treatment Note Next Visit Plan continue with exercises to open up the anterior chest and strengthen rotator cuff and posterior stabilizers
--- NOTE | 2023-05-16 17:48 | PT.OTN ---
Current Diagnoses Other instability, right shoulder (05/16/23) Stiffness of right shoulder, not elsewhere classified (05/16/23) Stiffness of left shoulder, not elsewhere classified (05/16/23) Other shoulder lesions, left shoulder (05/16/23) Pain in right arm (05/16/23) Pain in left arm (05/16/23) Physical Therapy Treatment Note PT-OP-A Visit Information Start: 03/28/23 10:29 Freq: Status: Active Protocol: Document 05/16/23 10:35 [facility] (Rec: 05/19/23 17:48 [facility] [id number]) Out-Patient Physical Therapy Visit Information Visit Information Visit Type Treatment Note Visit Start Time 10:35 Visit Stop Time 11:20 Total Visit Minutes 40 Visit Number 6 PT-OP-B Current Condition Start: 03/28/23 10:29 Freq: Status: Active Protocol: Document 03/28/23 10:30 [facility] (Rec: 03/28/23 10:37 [facility] [id number]) Current Condition History of Current Condition Onset Date several months History of Current Condition L>R sided shoulder pain, moving her shoulder back causes pain, she calls this a stabbing pain, it feels like its in the muscle PT-OP-C Subjective Start: 03/28/23 10:29 Freq: Status: Active Protocol: Document 05/16/23 10:35 [facility] (Rec: 05/19/23 17:48 [facility] [id number]) OP-PT Subjective Patient Comments Patient Comments Sachi notes she had a rough recovery from having her tooth pulled and has been in bed all week. She has not been able to do her exercises PT-OP-F Manual Assessment Start: 03/28/23 10:29 Freq: Status: Active Protocol: Document 03/28/23 10:30 [facility] (Rec: 04/02/23 12:49 [facility] [id number]) Manual Assessments Soft Tissue Assessment Soft Tissue Mobility Assessment decreased soft tissue mobility of the upper trapezius and pec minor for forward displacement of the shoulders B L>R Joint Mobility Assessment Joint Mobility Assessment poor posterior glide of the shoulder joint B, shoulder is in an anteriorly rotated position PT-OP-J Posture/Palpation/Skin Start: 03/28/23 10:29 Freq: Status: Active Protocol: Document 03/28/23 10:30 [facility] (Rec: 04/02/23 12:49 [facility] [id number]) Palpation Assessment Location shoulders Palpation Location posterior shoulder capsule Palpation Findings Tenderness PT-OP-K Range of Motion Start: 03/28/23 10:29 Freq: Status: Active Protocol: Document 03/28/23 10:30 [facility] (Rec: 04/02/23 12:49 [facility] [id number]) Shoulder Goniometric Range of Motion Shoulder Right Shoulder ROM WFL No Testing Position Standing Flexion 155 Extension 10 Abduction 115 External Rotation at 0 degrees Abduction 30 Internal Rotation Behind Back (text) sacrum Comments pain at end range ER Left Shoulder ROM WFL No Testing Position Standing Flexion 150 Extension 10 Abduction 110 External Rotation at 0 degrees Abduction 30 Internal Rotation Behind Back (text) sacrum Comments pain at end range ER worse in position of abduction with ER PT-OP-M Strength Start: 03/28/23 10:29 Freq: Status: Active Protocol: Document 03/28/23 10:30 [facility] (Rec: 04/02/23 12:49 [facility] [id number]) Shoulder Strength Shoulder Manual Muscle Testing Left Flexion 3 Fair Extension 3 Fair Abduction (C5) 3 Fair External Rotation 3 Fair Internal Rotation 3 Fair Right Flexion 3 Fair Extension 3 Fair Abduction (C5) 3 Fair External Rotation 3 Fair Internal Rotation 3 Fair PT-OP-Q Treatments Start: 03/28/23 10:29 Freq: Status: Active Protocol: Document 05/16/23 10:35 [facility] (Rec: 05/19/23 17:48 [facility] [id number]) Manual Therapy Treatment Soft Tissue Mobilization left upper trapzeius Body Location B upper trapezius Mobilization Type Myofascial Release Body Position Supine Comments Tightness notes bilateral upper trapezius today Manual Techniques manual upper trapezius stretch B Type manual upper trapezius stretch Body Location upper trapezius B Body Position Supine Comments left greater than right sided tightness manual pec minor stretch Body Location B pec minor Body Position Supine Comments worked on B pec minor release PT-OP-R Modalities Start: 03/28/23 10:29 Freq: Status: Active Protocol: Document 05/16/23 10:35 [facility] (Rec: 05/19/23 17:48 [facility] [id number]) Ultrasound Therapy Treatment left lateral shoulder Treatment Duration (minutes) 8 Patient Position Sidelying Coupling Medium Ultrasound Gel Applicator Size (cm2) 5 Mode Setting Continuous Intensity Setting (w/cm2) 1.5 PT-OP-T Assessment and Plan Start: 03/28/23 10:29 Freq: Status: Active Protocol: Document 05/16/23 10:35 [facility] (Rec: 05/19/23 17:48 [facility] [id number]) Physical Therapy Assessment Assessment Summary Assessment Sachi did not wish to exercise today due to still recovering from her tooth being pulled. She presented with increased tightness and guarding in her left upper trapezius today Review all exercises next visit Physical Therapy Plan Frequency and Duration Frequency of Treatment 2x/Week Duration of treatment (weeks) 8 Plan of Care Start Date 03/28/23 Plan of Care End Date 05/23/23 Therapeutic Interventions Therapeutic Interventions Home Exercise Program,Joint Mobilizations,Manual Therapy, Patient/Caregiver Education, Self-Care/Home Management,Soft Tissue Mobilization, Therapeutic Exercises Modalities Ultrasound Next Visit Focus/Plan Next Note Type Progress Note Next Visit Plan OR to MD next visit, review all exercises and encourage HEP
== END | disposition home or self-care (01) ==
LOC: PHYS 03-28 10:03
PROVIDERS: Family Provider Family Medicine; PCP Family Medicine; Referring Provider Family Medicine; Visit Provider Family Medicine
DX: M79.601 Pain in right arm (principal); M79.602 Pain in left arm; M75.82 Other shoulder lesions, left shoulder; M25.311 Other instability, right shoulder; M25.611 Stiffness of right shoulder, not elsewhere classified; M25.612 Stiffness of left shoulder, not elsewhere classified
CPT/HCPCS: 97035; 97110; 97140; 97161

== ENCOUNTER → 2024-10-19 14:45 | Outpatient (CLI) | payer MEDICARE, SELFPAY ==
--- NOTE | 2024-10-19 14:47 | DI.ECHO.S_ITS ---
[facility] : : [address] : : [place] : : [id number] : : Phone: [phone] Echocardiogram Report + + :Name: ROXANE MILLARD Study Date: 10/19/2024 Height: 64 in : :[facility] ReadingLocation: Weight: 150 lb : : Gender: Female BSA: 1.7 m2 : :: 1945 Age: 79 yrs BP: 154/91 mmHg: :Reason For Study: NONRHEUMATIC AORTIC VALVE STENOSIS : :Ordering Physician: DUSTY, : :ALDEN Performed By: Carlyle Strauss : :Referring: ALDEN MONTANO : + + Interpretation Summary Left ventricular systolic function remains normal with an estimated ejection fraction of 60 to 65% without focal abnormality. There is borderline septal hypertrophy that is slightly more prominent with a probable diastolic relaxation abnormality but normal filling pressures, likely similar to the previous exam. The right ventricle remains normal and unchanged, with a right ventricular systolic pressure estimated at 31 mmHg and a CVP of 3 mmHg. There is mild left atrial enlargement that is unchanged. There is mild mitral and mild tricuspid regurgitation that appear unchanged. There is moderate aortic stenosis, likely unchanged from the previous study, with a peak transvalvular velocity of 2.2 m/s and a mean gradient of 10 mmHg, compared to 2.5 m/s and 13 mmHg, respectively, on the previous exam. The severity ratio has remained steady at 0.37, compared to 0.34 previously. There continues to be mild aortic regurgitation that is unchanged. The ascending aorta is borderline enlarged but unchanged in size since the previous exam. Procedure: A two-dimensional transthoracic echocardiogram with color flow and Doppler was performed. The study quality was technically good. Comparison is made with the echocardiogram of 05/01/2023. The patient was in normal sinus rhythm during the exam. Left Ventricle: The left ventricle is normal in size. There is mild proximal septal thickening noted. This is slightly more prominent compared to the previous study. The estimated left ventricular end diastolic volume is 60 mL compared to the previous 53 ml. There is no ventricular septal defect visualized. Left ventricular systolic function appears normal without focal wall motion abnormalities. The ejection fraction is estimated to be 60-65%. Diastolic parameters suggest a relaxation abnormality of the left ventricle, consistent with probable normal filling pressures. This is likely similar compared to the previous study. Right Ventricle: The right ventricle is normal in size and function. This is unchanged compared to the previous study. Atria: The left atrium is mildly dilated. This is unchanged compared to the previous study. Right atrial size is normal. There is no Doppler evidence for an interatrial shunt. Mitral Valve: There is mild to moderate mitral annular calcification. The mitral valve leaflets appear mildly thickened, but open well. There is mild mitral regurgitation. This is unchanged compared to the previous study. Aortic Valve: The aortic valve is trileaflet. The aortic valve is moderately calcified. There is moderately reduced leaflet mobility. There is moderate aortic stenosis. The peak aortic velocity is 2.2 m/sec. The peak aortic velocity on the previous exam was 2.5 m/sec. The aortic valve mean gradient is 10 mmHg compared to the previous 13 mmHg. The calculated aortic valve area is 0.9 cm2. The severity ratio has remained essentially unchanged at 0.37, compared to 0.34 previously. There is mild aortic regurgitation. This is unchanged compared to the previous study. Tricuspid Valve: The tricuspid valve leaflets are thin and pliable. There is mild tricuspid regurgitation. The right ventricular systolic pressure is estimated to be at least 31 mmHg based on an estimated right atrial pressure of 3 mm Hg. This is unchanged compared to the previous study. Pulmonic Valve: The pulmonic valve is not well seen, but is grossly normal. There is trace pulmonic regurgitation. Great Vessels: The aortic root is normal size. The ascending aorta is at the upper limits of normal in size. This is unchanged compared to the previous study. The aortic arch is normal in size. The pulmonary artery is not well visualized, but is probably normal size. The IVC is of normal diameter and collapses greater than 50% with a sniff. This suggests a low right atrial pressure of 3 mm Hg. Pericardium/ Pleura There is no pericardial effusion. There is no pleural effusion. MMode/2D Measurements & Calculations LVIDd: 4.4 cm LVOT diam: 1.7 cm LVIDs: 2.9 cm Ao root diam: 3.0 cm FS: 33.2 % asc Aorta Diam: 3.5 cm EPSS: 0.62 cm Ao Arch Diam (Prox Trans): 1.6 cm IVSd: 1.2 cm LVPWd: 0.95 cm LV tovar. diameter/BSA (cm/m^2): 2.5 LV sys. diameter/BSA (cm/m^2): 1.7 LA A2 area: 21.4 cm2 RA long axis: 5.5 cm LA A4 area: 21.0 cm2 RA area: 13.4 cm2 LA length (vol): 5.7 cm RA vol: 27.7 ml LA vol: 66.6 ml RA : 16.0 ml/m2 LA vol index: 38.5 ml/m2 IVC diam: 1.8 cm RVD1 (basal): 2.7 cm RVD2 (mid): 2.4 cm TAPSE: 2.3 cm Doppler Measurements & Calculations Ao V2 max: 221.7 cm/sec LVOT Max Nnamdi: 86.9 cm/sec Ao V2 mean: 150.5 cm/sec LV V1 max P.0 mmHg Ao max P.7 mmHg LV V1 VTI: 20.6 cm Ao mean P.2 mmHg DIA(I,D): 0.85 cm2 Ao V2 VTI: 55.6 cm DIA(V,D): 0.90 cm2 sev ratio: 0.37 DIA indexed to BSA (cm^2/m^2): 0.49 MV E max nnamdi: 61.3 cm/sec TR max nnamdi: 266.8 cm/sec MV A max nnamdi: 80.5 cm/sec TR max P.5 mmHg MV E/A: 0.76 PA V2 max: 104.8 cm/sec Med Peak E' Nnamdi: 5.2 cm/sec PA V2 mean: 72.3 cm/sec E/E' med: 11.8 PA mean P.3 mmHg Lat Peak E' Nnamdi: 6.7 cm/sec PA pr(Accel): 46.5 mmHg E/E' lat: 9.2 E/e' average: 10.5 MV dec time: 0.27 sec SV(LVOT): 47.3 ml Reading Physician:09:10 AM
== END ==
LOC: ECHO 14:47
PROVIDERS: Family Provider Family Medicine; PCP Family Medicine; Referring Provider Specialist; Visit Provider Specialist
DX: I08.3 Combined rheumatic disorders of mitral, aortic and tricuspid valves (principal)
CPT/HCPCS: 93306

== ENCOUNTER 2024-10-21 11:30 | Outpatient (RCR) | payer MEDICARE, SELFPAY ==
--- NOTE | 2024-09-29 13:01 | PT.OIE ---
Current Diagnoses Pain in right shoulder (09/29/24) Stiffness of right shoulder, not elsewhere classified (09/29/24) Postural kyphosis, thoracic region (09/29/24) Weakness (09/29/24) Past Medical History (Last Updated 01/30/24 @ 17:19 by Corine Sigala DO) Atrial fibrillation (~2019) Carpal tunnel syndrome Cataracts, bilateral Chicken pox Chronic obstructive pulmonary disease (04/24/16) Deafness in left ear Essential hypertension (04/24/16) Glaucoma (~2009) History of breast cancer in female (~2012) History of kidney disease (~1973) Measles Nonrheumatic aortic valve insufficiency (04/24/16) Osteopenia Other ulcerative colitis without complication (1994) Partial blindness (~2019) Precancerous skin lesion Stroke (~2019) Past Surgical History (Last Updated 08/26/22 @ 18:45 by Jane Smith) Anesthesia History of eye surgery History of kidney surgery (~1983) History of lumpectomy History of rotator cuff surgery (~2002) Status post colonoscopy Status post tonsillectomy and adenoidectomy Visit Care Team Role Provider Type Corine Sigala DO Family Provider Physician Primary Care Provider Specialty: Medical Address: [address] [place] [address], [address], [place], [address] Email: [email or web address] An Schmidt PA-C Attending Provider Advanced Recycling Director Referring Provider Specialty: Emergency Medicine Address: [address] [place] [address], [facility] Email: [email or web address] Physical Therapy Initial Evaluation PT-OP-A Visit Information Start: 09/29/24 11:37 Freq: Status: Active Protocol: Document 09/29/24 16:05 [facility] (Rec: 09/29/24 16:07 [facility] [id number]) Out-Patient Physical Therapy Visit Information Visit Information Visit Type Initial Evaluation Visit Start Time 11:30 Visit Stop Time 12:15 Visit Number 1 Evaluation Information Evaluation Date 09/29/24 PT-OP-B Current Condition Start: 09/29/24 11:37 Freq: Status: Active Protocol: Document 09/29/24 11:30 [facility] (Rec: 09/29/24 11:47 [facility] [id number]) Current Condition History of Current Condition Onset Date symptoms began approx a month ago Current Complaints right sided thoracic pain near the bra line History of Current Condition pain on the right side of the thoracic back that occurred with reaching in to grab a gallon of milk out of the fridge. Pain was so severe it was keeping her up at night. Pt describes her pain right at the bra line on the right side. Sachi notes her pain has subsided some since she initially injured her back. She now rates her pain as a 3/ 10. She is seeking PT to further decrease her pain symptoms and to prevent a re- injury Treatment Goals Patient/Caregiver Goals Treatment goals include decreasing pain and preventing further injury Prior Functional Status Baseline Function- ADL's Independent Baseline Function- Mobility Independent Current Functional Impairments (Reported) Functional Limitations- ADL's difficulty with lifting items out in front of her and grabbing a gallon of milk out of the fridge PT-OP-C Subjective Start: 09/29/24 11:37 Freq: Status: Active Protocol: Document 09/29/24 11:30 [facility] (Rec: 09/30/24 12:59 [facility] [id number]) Patient Questionnaires Quick Dash- Upper Extremity Quick Dash UE Score 16 Quick Dash UE Impairment 1 to 19% Impaired (Score 1-19) OP-PT Pain Assessment Pain Assessment Grid Paper Pain Assessment Grid Completed Yes Location right sided thoracic pain near T 10 Intensity 3 Scale Used Numeric (0 - 10) Description Aching,Tightness,Throbbing, With Movement Frequency Frequent PT-OP-F Manual Assessment Start: 09/29/24 11:37 Freq: Status: Active Protocol: Document 09/29/24 11:30 [facility] (Rec: 09/30/24 12:42 [facility] [id number]) Manual Assessments Soft Tissue Assessment Soft Tissue Mobility Assessment tightness and muscle spasms in the right sided thoracic parapsinals, specifically at Right side of T10 there is guarding and tension Joint Mobility Assessment Joint Mobility Assessment hypomobility of the thoracic spine into extension, pt presents with thoracic kyphosis and decreased ability for the thoracic spine to extend PT-OP-J Posture/Palpation/Skin Start: 09/29/24 11:37 Freq: Status: Active Protocol: Document 09/29/24 11:30 [facility] (Rec: 09/30/24 12:42 [id number] Posture Evaluation Position Standing Evaluation View Lateral Head/C-Spine Posture Forward Head T-Spine Posture Increased Kyphosis Shoulder Posture (L) Rounded,(R) Rounded Palpation Assessment Location right thoracic paraspinals specifically T 10 Palpation Findings Soft Tissue Tightness,Spasm, Muscle Guarding PT-OP-K Range of Motion Start: 09/29/24 11:37 Freq: Status: Active Protocol: Document 09/29/24 11:30 [facility] (Rec: 09/30/24 12:42 [facility] [id number]) Shoulder Goniometric Range of Motion Shoulder Right Shoulder ROM WFL No Testing Position Standing Flexion 150 Internal Rotation Behind Back (text) L2 Comments able to place hands behind head for shoulder ER PT-OP-M Strength Start: 09/29/24 11:37 Freq: Status: Active Protocol: Document 09/29/24 11:30 [facility] (Rec: 09/30/24 12:42 [facility] [id number]) Scapula Strength Scapula Manual Muscle Testing Right Abduction 3+ Fair+ PT-OP-Q Treatments Start: 09/29/24 11:37 Freq: Status: Active Protocol: Document 09/29/24 11:30 [facility] (Rec: 09/30/24 12:44 [facility] [id number]) Therapeutic Exercises Standing Exercises theraband rows Reps/Minutes 2 x 10 reps Manual Therapy Treatment Soft Tissue Mobilization right thoracic paraspinals Mobilization Type Myofascial Release Body Position Sidelying PT-OP-T Assessment and Plan Start: 09/29/24 11:37 Freq: Status: Active Protocol: Document 09/29/24 11:30 [facility] (Rec: 09/29/24 16:07 [facility] [id number]) Physical Therapy Assessment Rehab Potential Rehabilitation Potential Good Evaluation Complexity Number of Personal Factors/Comorbidities 3 or More Number of Body Systems Impaired 3 Clinical Presentation at Evaluation Evolving Impairments Impairments Activity Tolerance,Functional Mobility,Posture,ROM,Soft Tissue Mobility,Strength Goals 3 Impairment poor postural habits creating increase stress on the spine Custodial Goal (LTG) Sachi is educated in proper posture for reaching and lifting to avoid undue strain on her back LTG Duration 8 weeks 2 Impairment weakness of thoracic extension and postural muscles Short Term Goal (STG) Sachi is educated in a home program for postural strengthening and thoracic extension STG Duration 4 weeks 1 Impairment Right sided thoracic pain rated 3/10 that increases with reaching and lifting activities Custodial Goal (LTG) Sachi reports a overall reduction with her right sided thoracic pain LTG Duration 8 weeks Assessment Summary Assessment Sachi is a 79 year old female who presents to PT with chief complaints of right sided thoracic back pain that began approx 1 month ago. Sachi feels she injured her back when reaching into the fridge to grab out a gallon of milk. She notes that her pain has been reducing since this initial injury and today she rates her pain at 3/10. She has switched to 1/2 gallon milk containers and this does feel better on her back. With evaluation today Sachi presents with a thoracic kyphosis. She has tenderness in the thoracic paraspinal especially around T 10. She is able to retract her shoulder blades and extend her spine but she is weak in her thoracic extension. Shoulders are rounded and forward and she does have a history of shoulder pain. She is a good candidate for PT working on postural strengthening, body mechanics for lifting and STM techniques for the thoracic paraspinals. Physical Therapy Plan Frequency and Duration Frequency of Treatment 1x/Week Duration of treatment (weeks) 8 Plan of Care Start Date 09/29/24 Plan of Care End Date 11/24/24 Therapeutic Interventions Therapeutic Interventions Home Exercise Program, Neuromuscular Re-education, Patient/Caregiver Education, Soft Tissue Mobilization, Therapeutic Exercises Modalities Biofeedback Next Visit Focus/Plan Next Note Type Treatment Note Next Visit Plan postural exercise and thoracic extension exercises, work on MFR techniques for the thoracic parspinals
--- NOTE | 2024-09-29 13:02 | PT.OPPOC ---
Physical, Occupational & Speech Therapy At [facility] Current Diagnoses Pain in right shoulder (09/29/24) Stiffness of right shoulder, not elsewhere classified (09/29/24) Postural kyphosis, thoracic region (09/29/24) Weakness (09/29/24) Visit Care Team Role Provider Type Corine Sigala DO Family Provider Physician Primary Care Provider Specialty: Medical Address: [address] [place] [address], [address], [place], [address] Email: [email or web address] An Schmidt PA-C Attending Provider Advanced Business Case Analyst Referring Provider Specialty: Emergency Medicine Address: [address] [place] [address], [place], [address] Email: [email or web address] Plan Of Care PT-OP-B Current Condition Start: 09/29/24 11:37 Freq: Status: Active Protocol: Document 09/29/24 11:30 [facility] (Rec: 09/29/24 11:47 [facility] [id number]) Current Condition History of Current Condition Onset Date symptoms began approx a month ago Current Complaints right sided thoracic pain near the bra line History of Current Condition pain on the right side of the thoracic back that occurred with reaching in to grab a gallon of milk out of the fridge. Pain was so severe it was keeping her up at night. Pt describes her pain right at the bra line on the right side. Sachi notes her pain has subsided some since she initially injured her back. She now rates her pain as a 3/ 10. She is seeking PT to further decrease her pain symptoms and to prevent a re- injury Treatment Goals Patient/Caregiver Goals Treatment goals include decreasing pain and preventing further injury Prior Functional Status Baseline Function- ADL's Independent Baseline Function- Mobility Independent Current Functional Impairments (Reported) Functional Limitations- ADL's difficulty with lifting items out in front of her and grabbing a gallon of milk out of the fridge PT-OP-T Assessment and Plan Start: 09/29/24 11:37 Freq: Status: Active Protocol: Document 09/29/24 11:30 [facility] (Rec: 09/29/24 16:07 [facility] [id number]) Physical Therapy Assessment Rehab Potential Rehabilitation Potential Good Evaluation Complexity Number of Personal Factors/Comorbidities 3 or More Number of Body Systems Impaired 3 Clinical Presentation at Evaluation Evolving Impairments Impairments Activity Tolerance,Functional Mobility,Posture,ROM,Soft Tissue Mobility,Strength Goals 3 Impairment poor postural habits creating increase stress on the spine Half-Way Goal (LTG) Sachi is educated in proper posture for reaching and lifting to avoid undue strain on her back LTG Duration 8 weeks 2 Impairment weakness of thoracic extension and postural muscles Short Term Goal (STG) Sachi is educated in a home program for postural strengthening and thoracic extension STG Duration 4 weeks 1 Impairment Right sided thoracic pain rated 3/10 that increases with reaching and lifting activities Half-Way Goal (LTG) Sachi reports a overall reduction with her right sided thoracic pain LTG Duration 8 weeks Assessment Summary Assessment Sachi is a 79 year old female who presents to PT with chief complaints of right sided thoracic back pain that began approx 1 month ago. Sachi feels she injured her back when reaching into the fridge to grab out a gallon of milk. She notes that her pain has been reducing since this initial injury and today she rates her pain at 3/10. She has switched to 1/2 gallon milk containers and this does feel better on her back. With evaluation today Sachi presents with a thoracic kyphosis. She has tenderness in the thoracic paraspinal especially around T 10. She is able to retract her shoulder blades and extend her spine but she is weak in her thoracic extension. Shoulders are rounded and forward and she does have a history of shoulder pain. She is a good candidate for PT working on postural strengthening, body mechanics for lifting and STM techniques for the thoracic paraspinals. Physical Therapy Plan Frequency and Duration Frequency of Treatment 1x/Week Duration of treatment (weeks) 8 Plan of Care Start Date 09/29/24 Plan of Care End Date 11/24/24 Therapeutic Interventions Therapeutic Interventions Home Exercise Program, Neuromuscular Re-education, Patient/Caregiver Education, Soft Tissue Mobilization, Therapeutic Exercises Modalities Biofeedback Next Visit Focus/Plan Next Note Type Treatment Note Next Visit Plan postural exercise and thoracic extension exercises, work on MFR techniques for the thoracic parspinals Plan of Care Dates Plan of Care Start Date 09/29/24 Plan of Care End Date 11/24/24 Electronically Signed by: Kavya Woodruff, PT 09/30/24 1302 If you are in agreement with this Plan of Care, please return a signed and dated copy. I have reviewed this Plan of Care and certify that the skilled therapy services above are required to meet the patient?s needs. Physician Signature Date Printed Name and Credentials Clinical Instructor Signature Printed Name and Credentials
--- NOTE | 2024-10-06 16:00 | PT.OTN ---
Current Diagnoses Pain in right shoulder (10/06/24) Stiffness of right shoulder, not elsewhere classified (10/06/24) Postural kyphosis, thoracic region (10/06/24) Weakness (10/06/24) Physical Therapy Treatment Note PT-OP-A Visit Information Start: 09/29/24 11:37 Freq: Status: Active Protocol: Document 10/06/24 09:45 [facility] (Rec: 10/06/24 09:49 [facility] [id number]) Out-Patient Physical Therapy Visit Information Visit Information Visit Type Treatment Note Visit Start Time 09:45 Visit Stop Time 10:30 Visit Number 3 Evaluation Information Evaluation Date 09/29/24 PT-OP-B Current Condition Start: 09/29/24 11:37 Freq: Status: Active Protocol: Document 09/29/24 11:30 [facility] (Rec: 09/29/24 11:47 [facility] [id number]) Current Condition History of Current Condition Onset Date symptoms began approx a month ago Current Complaints right sided thoracic pain near the bra line History of Current Condition pain on the right side of the thoracic back that occurred with reaching in to grab a gallon of milk out of the fridge. Pain was so severe it was keeping her up at night. Pt describes her pain right at the bra line on the right side. Sachi notes her pain has subsided some since she initially injured her back. She now rates her pain as a 3/ 10. She is seeking PT to further decrease her pain symptoms and to prevent a re- injury Treatment Goals Patient/Caregiver Goals Treatment goals include decreasing pain and preventing further injury Prior Functional Status Baseline Function- ADL's Independent Baseline Function- Mobility Independent Current Functional Impairments (Reported) Functional Limitations- ADL's difficulty with lifting items out in front of her and grabbing a gallon of milk out of the fridge PT-OP-C Subjective Start: 09/29/24 11:37 Freq: Status: Active Protocol: Document 10/06/24 09:45 [facility] (Rec: 10/06/24 09:49 [facility] [id number]) OP-PT Subjective Patient Comments Patient Comments pt is noting things are better with her upper back PT-OP-F Manual Assessment Start: 09/29/24 11:37 Freq: Status: Active Protocol: Document 09/29/24 11:30 [facility] (Rec: 09/30/24 12:42 [facility] [id number]) Manual Assessments Soft Tissue Assessment Soft Tissue Mobility Assessment tightness and muscle spasms in the right sided thoracic parapsinals, specifically at Right side of T10 there is guarding and tension Joint Mobility Assessment Joint Mobility Assessment hypomobility of the thoracic spine into extension, pt presents with thoracic kyphosis and decreased ability for the thoracic spine to extend PT-OP-J Posture/Palpation/Skin Start: 09/29/24 11:37 Freq: Status: Active Protocol: Document 09/29/24 11:30 [facility] (Rec: 09/30/24 12:42 [facility] [id number]) Posture Evaluation Position Standing Evaluation View Lateral Head/C-Spine Posture Forward Head T-Spine Posture Increased Kyphosis Shoulder Posture (L) Rounded,(R) Rounded Palpation Assessment Location right thoracic paraspinals specifically T 10 Palpation Findings Soft Tissue Tightness,Spasm, Muscle Guarding PT-OP-K Range of Motion Start: 09/29/24 11:37 Freq: Status: Active Protocol: Document 09/29/24 11:30 [facility] (Rec: 09/30/24 12:42 [facility] [id number]) Shoulder Goniometric Range of Motion Shoulder Right Shoulder ROM WFL No Testing Position Standing Flexion 150 Internal Rotation Behind Back (text) L2 Comments able to place hands behind head for shoulder ER PT-OP-M Strength Start: 09/29/24 11:37 Freq: Status: Active Protocol: Document 09/29/24 11:30 [facility] (Rec: 09/30/24 12:42 [facility] [id number]) Scapula Strength Scapula Manual Muscle Testing Right Abduction 3+ Fair+ PT-OP-Q Treatments Start: 09/29/24 11:37 Freq: Status: Active Protocol: Document 10/06/24 10:31 [facility] (Rec: 10/06/24 10:33 [facility] [id number]) Therapeutic Exercises Sitting Exercises seated shoulder ER Reps/Minutes 2 x 10 reps posterior shoulder rolls Reps/Minutes x 10 reps Standing Exercises theraband rows Equipment Used level 2 TB Reps/Minutes 2 x 10 reps Manual Therapy Treatment Soft Tissue Mobilization right thoracic paraspinals Mobilization Type Myofascial Release Body Position Sidelying PT-OP-R Modalities Start: 09/29/24 11:37 Freq: Status: Active Protocol: Document 10/06/24 10:31 [facility] (Rec: 10/06/24 10:33 [facility] [id number]) Ultrasound Therapy Treatment Right Back Patient Position Sidelying Applicator Size (cm2) 5 Duty Cycle 100% Intensity Setting (w/cm2) 1.5 Comments ultrasound over the thoracic paraspinals on the right PT-OP-T Assessment and Plan Start: 09/29/24 11:37 Freq: Status: Active Protocol: Document 10/06/24 09:45 [facility] (Rec: 10/07/24 08:38 [facility] [id number]) Physical Therapy Assessment Assessment Summary Assessment Sachi continues to progress well with PT and her pain levels are decreased today. The muscle spasms in her right thoracic spine are starting to reduce Physical Therapy Plan Frequency and Duration Frequency of Treatment 1x/Week Duration of treatment (weeks) 8 Plan of Care Start Date 09/29/24 Plan of Care End Date 11/24/24 Therapeutic Interventions Therapeutic Interventions Home Exercise Program, Neuromuscular Re-education, Patient/Caregiver Education, Soft Tissue Mobilization, Therapeutic Exercises Modalities Biofeedback Next Visit Focus/Plan Next Note Type Treatment Note Next Visit Plan add in door way stretch next visit and work on pec release with manual therapy, reassess right thoracic paraspinals
--- NOTE | 2024-10-08 16:52 | PT.OTN ---
Current Diagnoses Pain in right shoulder (10/08/24) Stiffness of right shoulder, not elsewhere classified (10/08/24) Postural kyphosis, thoracic region (10/08/24) Weakness (10/08/24) Physical Therapy Treatment Note PT-OP-A Visit Information Start: 09/29/24 11:37 Freq: Status: Active Protocol: Document 10/08/24 10:49 [facility] (Rec: 10/08/24 10:51 [facility] [id number]) Out-Patient Physical Therapy Visit Information Visit Information Visit Start Time 10:50 Visit Stop Time 11:30 Visit Number 4 PT-OP-B Current Condition Start: 09/29/24 11:37 Freq: Status: Active Protocol: Document 09/29/24 11:30 [facility] (Rec: 09/29/24 11:47 [facility] [id number]) Current Condition History of Current Condition Onset Date symptoms began approx a month ago Current Complaints right sided thoracic pain near the bra line History of Current Condition pain on the right side of the thoracic back that occurred with reaching in to grab a gallon of milk out of the fridge. Pain was so severe it was keeping her up at night. Pt describes her pain right at the bra line on the right side. Sachi notes her pain has subsided some since she initially injured her back. She now rates her pain as a 3/ 10. She is seeking PT to further decrease her pain symptoms and to prevent a re- injury Treatment Goals Patient/Caregiver Goals Treatment goals include decreasing pain and preventing further injury Prior Functional Status Baseline Function- ADL's Independent Baseline Function- Mobility Independent Current Functional Impairments (Reported) Functional Limitations- ADL's difficulty with lifting items out in front of her and grabbing a gallon of milk out of the fridge PT-OP-C Subjective Start: 09/29/24 11:37 Freq: Status: Active Protocol: Document 10/08/24 10:49 [facility] (Rec: 10/08/24 10:51 [facility] [id number]) OP-PT Subjective Patient Comments Patient Comments Sachi notes she is feeling much better overall PT-OP-F Manual Assessment Start: 09/29/24 11:37 Freq: Status: Active Protocol: Document 09/29/24 11:30 [facility] (Rec: 09/30/24 12:42 [facility] [id number]) Manual Assessments Soft Tissue Assessment Soft Tissue Mobility Assessment tightness and muscle spasms in the right sided thoracic parapsinals, specifically at Right side of T10 there is guarding and tension Joint Mobility Assessment Joint Mobility Assessment hypomobility of the thoracic spine into extension, pt presents with thoracic kyphosis and decreased ability for the thoracic spine to extend PT-OP-J Posture/Palpation/Skin Start: 09/29/24 11:37 Freq: Status: Active Protocol: Document 09/29/24 11:30 [facility] (Rec: 09/30/24 12:42 [facility] [id number]) Posture Evaluation Position Standing Evaluation View Lateral Head/C-Spine Posture Forward Head T-Spine Posture Increased Kyphosis Shoulder Posture (L) Rounded,(R) Rounded Palpation Assessment Location right thoracic paraspinals specifically T 10 Palpation Findings Soft Tissue Tightness,Spasm, Muscle Guarding PT-OP-K Range of Motion Start: 09/29/24 11:37 Freq: Status: Active Protocol: Document 09/29/24 11:30 [facility] (Rec: 09/30/24 12:42 [facility] [id number]) Shoulder Goniometric Range of Motion Shoulder Right Shoulder ROM WFL No Testing Position Standing Flexion 150 Internal Rotation Behind Back (text) L2 Comments able to place hands behind head for shoulder ER PT-OP-M Strength Start: 09/29/24 11:37 Freq: Status: Active Protocol: Document 09/29/24 11:30 [facility] (Rec: 09/30/24 12:42 [facility] [id number]) Scapula Strength Scapula Manual Muscle Testing Right Abduction 3+ Fair+ PT-OP-Q Treatments Start: 09/29/24 11:37 Freq: Status: Active Protocol: Document 10/08/24 10:45 [facility] (Rec: 10/08/24 16:52 [facility] [id number]) Manual Therapy Treatment Soft Tissue Mobilization right thoracic paraspinals Mobilization Type Myofascial Release Body Position Sidelying PT-OP-R Modalities Start: 09/29/24 11:37 Freq: Status: Active Protocol: Document 10/08/24 10:45 [facility] (Rec: 10/08/24 16:52 [facility] [id number]) Ultrasound Therapy Treatment Right Back Patient Position Sidelying Applicator Size (cm2) 5 Duty Cycle 100% Intensity Setting (w/cm2) 1.5 Comments ultrasound over the thoracic paraspinals on the right PT-OP-T Assessment and Plan Start: 04/22/25 11:37 Freq: Status: Active Protocol: Document 10/08/24 10:45 [facility] (Rec: 10/08/24 16:52 [facility] [id number]) Physical Therapy Plan Frequency and Duration Frequency of Treatment 1x/Week Duration of treatment (weeks) 8 Plan of Care Start Date 09/29/24 Plan of Care End Date 11/24/24 Therapeutic Interventions Therapeutic Interventions Home Exercise Program, Neuromuscular Re-education, Patient/Caregiver Education, Soft Tissue Mobilization, Therapeutic Exercises Modalities Biofeedback Next Visit Focus/Plan Next Note Type Treatment Note Next Visit Plan review all exercises next week and assess how Sachi does with reaching activities
--- NOTE | 2024-10-14 12:28 | PT.OTN ---
Current Diagnoses Pain in right shoulder (10/14/24) Stiffness of right shoulder, not elsewhere classified (10/14/24) Postural kyphosis, thoracic region (10/14/24) Weakness (10/14/24) Physical Therapy Treatment Note PT-OP-A Visit Information Start: 09/29/24 11:37 Freq: Status: Active Protocol: Document 10/14/24 12:25 [facility] (Rec: 10/14/24 12:28 [facility] [id number]) Out-Patient Physical Therapy Visit Information Visit Information Visit Type Treatment Note Visit Start Time 11:35 Visit Stop Time 12:15 Visit Number 5 Evaluation Information Evaluation Date 09/29/24 PT-OP-B Current Condition Start: 09/29/24 11:37 Freq: Status: Active Protocol: Document 09/29/24 11:30 [facility] (Rec: 09/29/24 11:47 [facility] [id number]) Current Condition History of Current Condition Onset Date symptoms began approx a month ago Current Complaints right sided thoracic pain near the bra line History of Current Condition pain on the right side of the thoracic back that occurred with reaching in to grab a gallon of milk out of the fridge. Pain was so severe it was keeping her up at night. Pt describes her pain right at the bra line on the right side. Sachi notes her pain has subsided some since she initially injured her back. She now rates her pain as a 3/ 10. She is seeking PT to further decrease her pain symptoms and to prevent a re- injury Treatment Goals Patient/Caregiver Goals Treatment goals include decreasing pain and preventing further injury Prior Functional Status Baseline Function- ADL's Independent Baseline Function- Mobility Independent Current Functional Impairments (Reported) Functional Limitations- ADL's difficulty with lifting items out in front of her and grabbing a gallon of milk out of the fridge PT-OP-C Subjective Start: 09/29/24 11:37 Freq: Status: Active Protocol: Document 10/14/24 12:25 [facility] (Rec: 10/14/24 12:28 [facility] [id number]) OP-PT Subjective Patient Comments Patient Comments Sachi continues to notes improvement and she has been working on lifting 1/2 gallon jugs of milk out of the fridge without pain PT-OP-F Manual Assessment Start: 09/29/24 11:37 Freq: Status: Active Protocol: Document 09/29/24 11:30 [facility] (Rec: 09/30/24 12:42 [facility] [id number]) Manual Assessments Soft Tissue Assessment Soft Tissue Mobility Assessment tightness and muscle spasms in the right sided thoracic parapsinals, specifically at Right side of T10 there is guarding and tension Joint Mobility Assessment Joint Mobility Assessment hypomobility of the thoracic spine into extension, pt presents with thoracic kyphosis and decreased ability for the thoracic spine to extend PT-OP-J Posture/Palpation/Skin Start: 09/29/24 11:37 Freq: Status: Active Protocol: Document 09/29/24 11:30 [facility] (Rec: 09/30/24 12:42 [facility] [id number]) Posture Evaluation Position Standing Evaluation View Lateral Head/C-Spine Posture Forward Head T-Spine Posture Increased Kyphosis Shoulder Posture (L) Rounded,(R) Rounded Palpation Assessment Location right thoracic paraspinals specifically T 10 Palpation Findings Soft Tissue Tightness,Spasm, Muscle Guarding PT-OP-K Range of Motion Start: 09/29/24 11:37 Freq: Status: Active Protocol: Document 09/29/24 11:30 [facility] (Rec: 09/30/24 12:42 [facility] [id number]) Shoulder Goniometric Range of Motion Shoulder Right Shoulder ROM WFL No Testing Position Standing Flexion 150 Internal Rotation Behind Back (text) L2 Comments able to place hands behind head for shoulder ER PT-OP-M Strength Start: 09/29/24 11:37 Freq: Status: Active Protocol: Document 09/29/24 11:30 [facility] (Rec: 09/30/24 12:42 [facility] [id number]) Scapula Strength Scapula Manual Muscle Testing Right Abduction 3+ Fair+ PT-OP-Q Treatments Start: 09/29/24 11:37 Freq: Status: Active Protocol: Document 10/14/24 12:25 [facility] (Rec: 10/14/24 12:28 [facility] [id number]) Therapeutic Exercises Sitting Exercises posterior shoulder rolls Reps/Minutes x 10 reps Standing Exercises theraband rows Equipment Used level 2 TB Reps/Minutes 2 x 10 reps Manual Therapy Treatment Soft Tissue Mobilization right thoracic paraspinals Mobilization Type Myofascial Release Body Position Sidelying PT-OP-R Modalities Start: 09/29/24 11:37 Freq: Status: Active Protocol: Document 10/14/24 12:25 [facility] (Rec: 10/14/24 12:28 [facility] [id number]) Ultrasound Therapy Treatment Right Back Patient Position Sidelying Applicator Size (cm2) 5 Duty Cycle 100% Intensity Setting (w/cm2) 1.5 Comments ultrasound over the thoracic paraspinals on the right PT-OP-T Assessment and Plan Start: 09/29/24 11:37 Freq: Status: Active Protocol: Document 10/14/24 12:25 [facility] (Rec: 10/14/24 12:28 [facility] [id number]) Physical Therapy Assessment Assessment Summary Assessment Sachi continues to note progress with decreased pain levels and is able to grab a 1 /2 gallon jug of milk out of the fridge without pain Physical Therapy Plan Frequency and Duration Frequency of Treatment 1x/Week Duration of treatment (weeks) 8 Plan of Care Start Date 09/29/24 Plan of Care End Date 11/24/24 Therapeutic Interventions Therapeutic Interventions Home Exercise Program, Neuromuscular Re-education, Patient/Caregiver Education, Soft Tissue Mobilization, Therapeutic Exercises Modalities Biofeedback Next Visit Focus/Plan Next Note Type Treatment Note Next Visit Plan review all exercises next week and assess how Sachi does with reaching activities
--- NOTE | 2024-10-21 12:29 | PT.OTN ---
Current Diagnoses Pain in right shoulder (10/21/24) Stiffness of right shoulder, not elsewhere classified (10/21/24) Postural kyphosis, thoracic region (10/21/24) Weakness (10/21/24) Physical Therapy Treatment Note PT-OP-A Visit Information Start: 09/29/24 11:37 Freq: Status: Active Protocol: Document 10/21/24 12:26 [facility] (Rec: 10/21/24 12:29 [facility] [id number]) Out-Patient Physical Therapy Visit Information Visit Information Visit Type Treatment Note Visit Start Time 11:30 Visit Stop Time 12:15 Visit Number 6 PT-OP-B Current Condition Start: 09/29/24 11:37 Freq: Status: Active Protocol: Document 09/29/24 11:30 [facility] (Rec: 09/29/24 11:47 [facility] [id number]) Current Condition History of Current Condition Onset Date symptoms began approx a month ago Current Complaints right sided thoracic pain near the bra line History of Current Condition pain on the right side of the thoracic back that occurred with reaching in to grab a gallon of milk out of the fridge. Pain was so severe it was keeping her up at night. Pt describes her pain right at the bra line on the right side. Sachi notes her pain has subsided some since she initially injured her back. She now rates her pain as a 3/ 10. She is seeking PT to further decrease her pain symptoms and to prevent a re- injury Treatment Goals Patient/Caregiver Goals Treatment goals include decreasing pain and preventing further injury Prior Functional Status Baseline Function- ADL's Independent Baseline Function- Mobility Independent Current Functional Impairments (Reported) Functional Limitations- ADL's difficulty with lifting items out in front of her and grabbing a gallon of milk out of the fridge PT-OP-C Subjective Start: 09/29/24 11:37 Freq: Status: Active Protocol: Document 10/21/24 12:26 [facility] (Rec: 10/21/24 12:29 [facility] [id number]) OP-PT Subjective Patient Comments Patient Comments Sachi notes she is doing well and is no longer complaining of the pain she was experiencing PT-OP-F Manual Assessment Start: 09/29/24 11:37 Freq: Status: Active Protocol: Document 09/29/24 11:30 [facility] (Rec: 09/30/24 12:42 [facility] [id number]) Manual Assessments Soft Tissue Assessment Soft Tissue Mobility Assessment tightness and muscle spasms in the right sided thoracic parapsinals, specifically at Right side of T10 there is guarding and tension Joint Mobility Assessment Joint Mobility Assessment hypomobility of the thoracic spine into extension, pt presents with thoracic kyphosis and decreased ability for the thoracic spine to extend PT-OP-J Posture/Palpation/Skin Start: 09/29/24 11:37 Freq: Status: Active Protocol: Document 09/29/24 11:30 [facility] (Rec: 09/30/24 12:42 [facility] [id number]) Posture Evaluation Position Standing Evaluation View Lateral Head/C-Spine Posture Forward Head T-Spine Posture Increased Kyphosis Shoulder Posture (L) Rounded,(R) Rounded Palpation Assessment Location right thoracic paraspinals specifically T 10 Palpation Findings Soft Tissue Tightness,Spasm, Muscle Guarding PT-OP-K Range of Motion Start: 09/29/24 11:37 Freq: Status: Active Protocol: Document 09/29/24 11:30 [facility] (Rec: 09/30/24 12:42 [facility] [id number]) Shoulder Goniometric Range of Motion Shoulder Right Shoulder ROM WFL No Testing Position Standing Flexion 150 Internal Rotation Behind Back (text) L2 Comments able to place hands behind head for shoulder ER PT-OP-M Strength Start: 09/29/24 11:37 Freq: Status: Active Protocol: Document 09/29/24 11:30 [facility] (Rec: 09/30/24 12:42 [facility] [id number]) Scapula Strength Scapula Manual Muscle Testing Right Abduction 3+ Fair+ PT-OP-Q Treatments Start: 09/29/24 11:37 Freq: Status: Active Protocol: Document 10/21/24 12:26 [facility] (Rec: 10/21/24 12:29 [facility] [id number]) Manual Therapy Treatment Soft Tissue Mobilization right thoracic paraspinals Mobilization Type Myofascial Release Body Position Sidelying PT-OP-R Modalities Start: 09/29/24 11:37 Freq: Status: Active Protocol: Document 10/21/24 12:26 [facility] (Rec: 10/21/24 12:29 [facility] [id number]) Ultrasound Therapy Treatment Right Back Patient Position Sidelying Applicator Size (cm2) 5 Frequency Setting (mHz) 1 Duty Cycle 100% Intensity Setting (w/cm2) 1.5 Comments ultrasound over the thoracic paraspinals on the right x 8 min PT-OP-T Assessment and Plan Start: 09/29/24 11:37 Freq: Status: Active Protocol: Document 10/21/24 12:26 [facility] (Rec: 10/21/24 12:29 [facility] [id number]) Physical Therapy Assessment Rehab Potential Rehabilitation Potential Good Evaluation Complexity Number of Personal Factors/Comorbidities 3 or More Number of Body Systems Impaired 3 Clinical Presentation at Evaluation Evolving Impairments Impairments Activity Tolerance,Functional Mobility,Posture,ROM,Soft Tissue Mobility,Strength Goals 3 Impairment poor postural habits creating increase stress on the spine Hand Filer Balance Wheel Goal (LTG) Sachi is educated in proper posture for reaching and lifting to avoid undue strain on her back goal met LTG Duration 8 weeks 2 Impairment weakness of thoracic extension and postural muscles Short Term Goal (STG) Sachi is educated in a home program for postural strengthening and thoracic extension goal met STG Duration 4 weeks 1 Impairment Right sided thoracic pain rated 3/10 that increases with reaching and lifting activities Hand Filer Balance Wheel Goal (LTG) Sachi reports a overall reduction with her right sided thoracic pain goal met LTG Duration 8 weeks Assessment Summary Assessment Sachi has progressed well with PT. She is working on her HEP and pain levels are down to no pain. At this point she will be discharged to a [facility] Physical Therapy Plan Discharge Physical Therapy Discharge Reasons Goals Met
== END 2024-10-21 14:46 | disposition home or self-care (01) ==
LOC: PHYS 11:30
PROVIDERS: Family Provider Family Medicine; PCP Family Medicine; Referring Provider Physician Assistant Surgical; Visit Provider Physician Assistant Surgical
DX: M25.511 Pain in right shoulder (principal); M25.611 Stiffness of right shoulder, not elsewhere classified; R53.1 Weakness; M40.04 Postural kyphosis, thoracic region
CPT/HCPCS: 97035; 97140; 97162

== ENCOUNTER → 2024-10-22 08:29 | Outpatient (CLI) | payer MEDICARE, SELFPAY ==
[2024-10-22 09:09] LABS: Hematocrit 45.2 % (36-46); Hemoglobin 15.2 g/dL (12.0-16.0); Mean Corpuscular HGB Conc 33.5 % (30-36); Mean Corpuscular Hemoglobin 30.9 PG (26-34); Mean Corpuscular Volume 92.2 fL (80-100); Platelet Count 275 X10^3/uL (150-400); Red Cell Distribution Width 14.7 % (11.6-14.8); White Blood Cell Count 5.9 X10^3/uL (4.5-11.0)
[2024-10-22 09:09] LABS: Add Manual Diff / Slide Review NO; Basophils Absolute Auto 100 /uL (0-100); Eosinophils Absolute Auto 100 /uL (0-450); Eosinophils Percent Auto 2.3 % (2-4); Hematocrit 45.3 % (36-46); Hemoglobin 15.2 g/dL (12.0-16.0); Lymphocytes Absolute Auto 1300 /uL (1100-4500); Mean Corpuscular HGB Conc 33.5 % (30-36); Mean Corpuscular Hemoglobin 30.9 PG (26-34); Mean Corpuscular Volume 92.2 fL (80-100); Monocytes Absolute Auto 400 /uL (0-900); Monocytes Percent Auto 6.8 % (3-14); Neutrophils Absolute Auto 3900 /uL (1500-7000); Neutrophils Percent Auto 66.9 % (50-75); Platelet Count 281 X10^3/uL (150-400); Red Blood Cell Count 4.91 X10^6/uL (4.0-5.2); Red Cell Distribution Width 14.8 % (11.6-14.8); White Blood Cell Count 5.8 X10^3/uL (4.5-11.0)
[2024-10-22 09:31] LABS: Alanine Aminotransferase 26 IU/L (<35); Albumin 4.5 g/dL (3.5-5.0); Albumin Globulin Ratio 2.1 (1.0-2.8); Alkaline Phosphatase 81 U/L (38-126); Aspartate Aminotransferase 35 IU/L (14-36); BUN Creatinine Ratio 23.6 (6-22); Bilirubin Total 1.6 mg/dL (0.2-1.3); Blood Urea Nitrogen 30 mg/dL (7-17); Calcium 10.1 mg/dL (8.4-10.2); Carbon Dioxide 25 mmol/L (22-32); Chloride 103 mmol/L (98-107); Cholesterol 142 mg/dL (140-199); Estimated Glomerular Filt Rate 42 mL/min (>60); Globulin 2.1 g/dL (1.7-4.1); Glucose 95 mg/dL (70-99); HDL Cholesterol 68 mg/dL (40-60); HEMOLYSIS < 15 (0-50); LDL Cholesterol Calculated 56 mg/dL (<100); Magnesium 1.9 mg/dL (1.6-2.3); Potassium 4.3 mmol/L (3.4-5.1); Sodium 137 mmol/L (137-145); Total Protein 6.6 g/dL (6.3-8.2); Triglycerides 89 mg/dL (35-150)
[2024-10-22 09:36] LABS: C-Reactive Protein Quant < 0.5 mg/dL (<1.0)
== END ==
LOC: LAB 08:31
PROVIDERS: Family Provider Family Medicine; PCP Family Medicine; Referring Provider Specialist; Visit Provider Specialist
DX: K51.90 Ulcerative colitis, unspecified, without complications (principal); I48.0 Paroxysmal atrial fibrillation; E78.2 Mixed hyperlipidemia
CPT/HCPCS: 36415; 80053; 80061; 83735; 85025; 85027; 86140

== ENCOUNTER → 2024-10-30 10:47 | Outpatient (CLI) | payer MEDICARE, SELFPAY ==
--- NOTE | 2024-10-30 10:49 | DI.RAD.S_ITS ---
PROCEDURE: XR DEXA AXIAL SKELETON INDICATIONS: screen for osteoporosis COMPARISON: , CR, XR DEXA AXIAL SKELETON, 01/02/2021, 10:31. FINDINGS: Lumbar Spine: Bone mineral density 1.028 g/cm2, T score -0.2, previously 0.4. Please note that the lowest T-scores are -1.4 and -1.3 for the L1 and L2 vertebral bodies, respectively. Left Femoral Neck: Bone mineral density 0.643 g/cm2, T score -1.9. Left Hip: Bone mineral density 0.785 g/cm2, T score -1.3, previously -1.2. Fracture Risk Calculation (when applicable): 10-year fracture risk of a major osteoporotic fracture 22 percent and of a hip fracture 7.2 percent. (T score greater or equal to -1.0 to: NORMAL) (T score from -1.1 to -2.4: OSTEOPENIA) (T score less than or equal to -2.5: OSTEOPOROSIS) IMPRESSION: 1. Normal bone density of the lumbar spine, although the L1 and L2 vertebral bodies are osteopenic. 2. Osteopenia of the left hip and femoral neck. Follow-up guidelines as follows: Osteoporosis: Consider a repeat DEXA and Vertebral Fracture Assessment (VFA) exam in 2 years or sooner if medically necessary, to reassess this patient's status. Osteopenia: Consider a repeat DEXA in 2-3 years to reassess this patient's status, or if there is a new clinical indication. Normal: Consider a repeat DEXA in 5 years or sooner, or if there is a new clinical indication. All treatment decisions require clinical judgment and consideration of individual patient factors, including patient preferences, comorbidities, previous drug use, risk factors not captured in the FRAX model (e.g., frailty, falls, vitamin D deficiency, increased bone turnover, interval significant decline in bone density ) and possible under- or over-estimation of fracture risk by FRAX. In addition, the NOF Guide recommends that FDA-approved medical therapies be considered in postmenopausal women and men age >= 50 years with a: * Hip or vertebral (clinical or morphometric) fracture * T-score of <=-2.5 at the spine or hip * Ten-year fracture probability by FRAX of >= 3% for hip fracture or >=20% for major osteoporotic fracture. Dictated by: Sundar Mercado M.D. on 10/30/2024 at 16:56 Approved by: Sundar Mercado M.D. on 10/30/2024 at 16:57
== END ==
PROVIDERS: Family Provider Family Medicine; PCP Family Medicine; Referring Provider Family Medicine; Visit Provider Family Medicine
DX: Z78.0 Asymptomatic menopausal state (principal); M85.89 Other specified disorders of bone density and structure, multiple sites
CPT/HCPCS: 77080

== ENCOUNTER → 2025-01-13 09:16 | Outpatient (CLI) | payer MEDICARE, SELFPAY ==
--- NOTE | 2025-01-13 09:17 | DI.MG.S_ITS ---
MM screening mammo BI: 01/13/2025. BI-RADS: 2 CLINICAL: 79-year old female for bilateral screening mammogram. No Tyrer-Cuzick risk score calculation due to the patient's personal history of breast cancer. Patient reports a history of right breast carcinoma diagnosed at age 68. Status-post right lumpectomy with radiation therapy, chemotherapy and hormonal therapy. No first-degree family history of breast cancer. The patient had a prior right breast biopsy. PRIOR EXAMS 01/13/2024, 01/08/2023, 01/04/2022, 01/02/2021. MAMMOGRAPHY TECHNIQUE: 2D and 3D (tomosynthesis) digital mammographic views obtained, with additional images as needed for full coverage. Current study was also evaluated with a Computer Aided Detection (CAD) system. DENSITY C. The breasts are heterogeneously dense, which may obscure small masses. MAMMOGRAPHY FINDINGS Right: Benign-appearing calcification and post-surgical changes noted on the right. There are no suspicious masses, calcifications, or other findings in the breast. Left: Benign-appearing calcification noted on the left. There are no suspicious masses, calcifications, or other findings in the breast. IMPRESSION: * No evidence of malignancy with benign findings. RECOMMENDATIONS Bilateral * Annual screening mammography. OVERALL ASSESSMENT CATEGORY BI-RADS-2: Benign. The [employer] recommends annual screening mammography beginning at age 40 for women with average risk of breast cancer. ELECTRONICALLY SIGNED: Trang Palma M.D. on 01/13/2025 at 10:54:03 AM PT Interpreting Station ID: [id number]
== END ==
PROVIDERS: PCP Family Medicine; Referring Provider Family Medicine; Visit Provider Family Medicine
DX: Z12.31 Encounter for screening mammogram for malignant neoplasm of breast (principal); R92.333 Mammographic heterogeneous density, bilateral breasts; R92.1 Mammographic calcification found on diagnostic imaging of breast; Z85.3 Personal history of malignant neoplasm of breast
CPT/HCPCS: 77063; 77067

== ENCOUNTER → 2025-02-26 07:32 | Outpatient (CLI) | payer MEDICARE, SELFPAY ==
[2025-02-26 08:00] LABS: Hematocrit 45.1 % (36-46); Hemoglobin 15.0 g/dL (12.0-16.0); Mean Corpuscular HGB Conc 33.4 % (30-36); Mean Corpuscular Hemoglobin 30.4 PG (26-34); Mean Corpuscular Volume 91.1 fL (80-100); Platelet Count 273 X10^3/uL (150-400)
[2025-02-26 08:28] LABS: Alanine Aminotransferase 18 IU/L (<35); Albumin 4.5 g/dL (3.5-5.0); Albumin Globulin Ratio 1.9 (1.0-2.8); Alkaline Phosphatase 77 U/L (38-126); Blood Urea Nitrogen 31 mg/dL (7-17); Calcium 10.3 mg/dL (8.4-10.2); Carbon Dioxide 23 mmol/L (22-32); Chloride 108 mmol/L (98-107); Cholesterol 134 mg/dL (140-199); Estimated Glomerular Filt Rate 42 mL/min (>60); Globulin 2.4 g/dL (1.7-4.1); Glucose 111 mg/dL (70-99); HDL Cholesterol 60 mg/dL (40-60); HEMOLYSIS < 15 (0-50); Magnesium 2.1 mg/dL (1.6-2.3); Potassium 4.1 mmol/L (3.4-5.1); Sodium 140 mmol/L (137-145); Total Protein 6.9 g/dL (6.3-8.2); Triglycerides 105 mg/dL (35-150)
== END ==
PROVIDERS: PCP Family Medicine; Referring Provider Family Medicine; Visit Provider Specialist
DX: E78.2 Mixed hyperlipidemia (principal); I48.0 Paroxysmal atrial fibrillation; Z79.01 Long term (current) use of anticoagulants
CPT/HCPCS: 36415; 80053; 80061; 83735; 85027

== ENCOUNTER 2025-05-18 12:03 | Emergency (ER) | payer MEDICARE, SELFPAY ==
[2025-05-18 12:09] VITALS: BP 145/72; PULSE 67; RESP 16; TEMP 36.2; O2SAT 99; BMI 26.2
--- NOTE | 2025-05-18 12:12 | EKG_ITS ---
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
--- NOTE | 2025-05-18 12:17 | DI.RAD.S_ITS ---
PROCEDURE: XR CHEST 1V INDICATIONS: Chest Pain TECHNIQUE: One view of the chest was acquired. COMPARISON: [facility], CR, XR CHEST 1V, 10/19/2019, 14:47. FINDINGS: Surgical changes and devices: Stable surgical clips in the right breast. Lungs and pleura: Lungs are clear. No pleural effusions or pneumothorax. Mediastinum: Mediastinal contours appear normal. Heart size is normal. Bones and chest wall: No suspicious bony lesions. Overlying soft tissues appear unremarkable. IMPRESSION: No acute cardiopulmonary abnormality is seen. Dictated by: Gunjan Ventura MD, PhD on 05/18/2025 at 12:43 Approved by: Gunjan Ventura MD, PhD on 05/18/2025 at 12:43
[2025-05-18 12:37] LABS: Add Manual Diff / Slide Review NO; Hematocrit 45.0 % (36-46); Hemoglobin 15.1 g/dL (12.0-16.0); Lymphocytes Absolute Auto 1300 /uL (1100-4500); Mean Corpuscular HGB Conc 33.5 % (30-36); Mean Corpuscular Hemoglobin 31.0 PG (26-34); Mean Corpuscular Volume 92.6 fL (80-100); Platelet Count 270 X10^3/uL (150-400)
[2025-05-18 12:45] LABS: INR 1.1 (0.9-1.3); Prothrombin Time 12.9 SECONDS (9.4-12.5)
[2025-05-18 12:48] LABS: PTT Partial Thromboplastin Tim 48 SECONDS (25.1-36.5)
[2025-05-18 12:49] LABS: Alanine Aminotransferase 19 IU/L (<35); Albumin 4.4 g/dL (3.5-5.0); Albumin Globulin Ratio 1.6 (1.0-2.8); Alkaline Phosphatase 77 U/L (38-126); Blood Urea Nitrogen 33 mg/dL (7-17); Calcium 10.0 mg/dL (8.4-10.2); Carbon Dioxide 19 mmol/L (22-32); Chloride 110 mmol/L (98-107); Creatine Kinase 80 U/L (30-135); Estimated Glomerular Filt Rate 42 mL/min (>60); Globulin 2.7 g/dL (1.7-4.1); Glucose 112 mg/dL (70-99); HEMOLYSIS < 15 (0-50); Lipase 135 U/L (23-300); Magnesium 1.9 mg/dL (1.6-2.3); Potassium 4.8 mmol/L (3.4-5.1); Sodium 138 mmol/L (137-145); Total Protein 7.1 g/dL (6.3-8.2)
[2025-05-18 13:01] LABS: NT-proBNP (BNP-Adult 18+) 551 pg/mL (<450); Troponin I < 0.012 ng/mL (0.01-0.034)
[2025-05-18 14:24] VITALS: BP 159/71; PULSE 61; RESP 16; O2SAT 98
--- NOTE | 2025-05-18 14:31 | EKG_ITS ---
[place] [id number] [place] [id number] Test Date: 2025-05-18 Pat Name: Sachi Garza Department: 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
[2025-05-18 14:41] LABS: Creatine Kinase 71 U/L (30-135)
[2025-05-18 14:54] LABS: Troponin I < 0.012 ng/mL (0.01-0.034)
--- NOTE | 2025-05-18 18:39 | ED.ARRPALP ---
HPI - Arrhythmia/Palpitations General Chief Complaint: Arrhythmia/Palpitations Stated Complaint: May be in Afib Time Seen by Provider: 05/18/25 12:47 Source: patient Mode of arrival: Family Vehicle History of Present Illness HPI narrative: 79-year-old female with past medical history AFib, on Eliquis presents to the ED with 1 day of flutters in the chest. Patient was [place] the post office [place], when she felt a fluttering sensation in her chest. The symptoms resolved a little while later. No fever, chills, chest pain, shortness of breath, nausea, vomiting, abdominal pain, dysuria, lightheadedness, dizziness, syncope. Related Data Home Medications ?Medication ?Instructions ?Recorded ?Confirmed mesalamine 1.2 gram tablet,delayed 1.2 gm PO Q DAY ##0 12/09/12 02/22/25 release (Lialda) omeprazole 20 mg capsule,delayed 1 tab PO DAILY ##0 09/21/17 02/22/25 release biotin 5 mg capsule 07/29/18 02/22/25 apixaban 5 mg tablet (Eliquis) 5 mg PO BID 08/27/22 02/22/25 atorvastatin 40 mg tablet 40 mg PO DAILY 08/27/22 02/22/25 cholecalciferol (vitamin D3) 50 50 mcg PO DAILY 08/27/22 02/22/25 mcg (2,000 unit) capsule melatonin 5 mg capsule 5 mg PO 08/27/22 02/22/25 metoprolol succinate 25 mg 25 mg PO BID 08/27/22 02/22/25 tablet,extended release 24 hr multivitamin 1 tab PO DAILY 08/27/22 02/22/25 vitamin B complex PO 08/27/22 02/22/25 dorzolamide 22.3 mg-timolol 6.8 1 drp EYE-RIGHT BID 12/06/22 02/22/25 mg/mL eye drops fluorometholone 0.1 % eye 1 drp ophthalmic (eye) 12/06/22 02/22/25 drops,suspension Previous Rx's ?Medication ?Instructions ?Recorded estradiol 0.01% (0.1 mg/gram) 0.5 g vaginal 2XW PRN UTI 10/21/24 vaginal cream prevention #42.5 grams propranolol 20 mg tablet 20 mg PO BID PRN Tremor #360 tabs 10/21/24 lorazepam 0.5 mg tablet (Ativan) 0.5 mg PO DAILY PRN anxiety re 02/22/25 situation #30 tabs cyclobenzaprine 5 mg tablet 2.5 - 5 mg (0.5 - 1 x 5 mg) PO 04/21/25 BEDTIME PRN muscle spasm #10 tabs Allergies Allergy/AdvReac Type Severity Reaction Status Date / Time Penicillins Allergy Unknown Verified 05/18/25 12:08 codeine AdvReac Intermediate dizzy, Verified 05/18/25 12:08 vomiting Sulfa (Sulfonamide AdvReac Intermediate Vomiting Verified 05/18/25 12:08 Antibiotics) Review of Systems Constitutional Constitutional: Denies chills, Denies fatigue, Denies fever(s), Denies frequent falls, Denies lethargy and Denies weakness Eyes Eyes: Denies change in vision, Denies eye discharge, Denies irritation and Denies loss of vision ENT Ears, Nose, Mouth, and Throat: Denies change in voice, Denies dizziness, Denies neck pain, Denies sore throat and Denies throat swelling Cardiovascular Cardiovascular: Denies chest pain, Denies irregular heart rhythm, Denies lightheadedness, Denies palpitations, Denies dyspnea, Denies dyspnea on exertion and Denies orthopnea Respiratory Respiratory: Denies cough, Denies dyspnea, Denies dyspnea on exertion and Denies wheezing Comments: Flutter in the chest Gastrointestinal Gastrointestinal: Denies abdominal pain, Denies change in bowel habits, Denies diarrhea, Denies nausea and Denies vomiting Musculoskeletal Musculoskeletal: Denies neck pain and Denies numbness Integumentary/Breasts Skin/Breast: Denies pruritus, Denies erythema, Denies rash and Denies wounds Neurologic Neurologic: Denies behavioral changes, Denies confusion, Denies dizziness, Denies frequent falls, Denies loss of vision, Denies numbness and Denies weakness Psychiatric Psychiatric: Denies anxiety, Denies behavioral changes, Denies confusion, Denies depression, Denies homicidal ideation and Denies suicidal ideation Endocrine Endocrine: Denies fatigue, Denies flushing and Denies palpitations Hematologic/Lymphatic Hematologic/Lymphatic: Denies easy bruising Allergic/Immunologic Allergic/Immunologic: Denies urticaria, Denies throat swelling and Denies wheezing Patient History Medical History Stroke (~2019) History of breast cancer in female (~2012) Precancerous skin lesion Osteopenia Carpal tunnel syndrome Measles Chicken pox Deafness in left ear Glaucoma (~2009) Cataracts, bilateral Partial blindness (~2019) History of kidney disease (~1973) Atrial fibrillation (~2019) Other ulcerative colitis without complication (1994) Nonrheumatic aortic valve insufficiency (04/24/16) Essential hypertension (04/24/16) Chronic obstructive pulmonary disease (04/24/16) Surgical History Anesthesia History of eye surgery History of rotator cuff surgery (~2002) History of kidney surgery (~1983) Status post tonsillectomy and adenoidectomy Status post colonoscopy History of lumpectomy Family History Father Malignant neoplasm of lung, unspecified laterality, unspecified part of lung ST elevation myocardial infarction (STEMI), unspecified artery Mother Emphysema, unspecified Social History Tobacco: How many years used: 20 alcohol intake: current substance use type: does not use Smoking Status: Former smoker tobacco type: cigarettes alcohol intake frequency: a few times a week Exam Narrative Exam Narrative: Const General:?cooperative, healthy appearing and comfortable [facility] Head:?normal to inspection Ears:?hearing grossly normal bilaterally Nose:?external nose normal Face and sinus:?normal facial exam and sinuses nontender Mouth:?oral mucosae normal Throat:?posterior oropharynx normal Eyes General:?appearance normal, both eyes and all related structures Neck Neck:?normal visual inspection and no lymphadenopathy noted Resp Effort & Inspection:?normal respiratory effort Auscultation:?clear to auscultation bilaterally Cardio Rate:?regular rate Rhythm:?regular rhythm Neuro General:?patient alert, patient awake and patient oriented x3 Initial Vital Signs Initial Vital Signs: Vital Signs Temperature 97.2 F L 05/18/25 12:09 Pulse Rate 67 05/18/25 12:09 Respiratory Rate 16 05/18/25 12:09 Blood Pressure 145/72 H 05/18/25 12:09 Pulse Oximetry 99 05/18/25 12:09 Oxygen Delivery Method Room Air 05/18/25 12:09 Course Orders Ordered: ED Orders 05/18/25 12:17 XR chest 1V Stat Complete Blood Count AUTO DIFF Stat Comprehensive Metabolic Panel Stat Lipase Stat Magnesium Stat NT-proBNP (BNP-Adult 18+) Stat PTT Partial Thromboplastin Rod Stat Prothrombin Time INR Stat Troponin & CK Cardiac Panel Stat EKG-12 Lead Stat 05/18/25 14:25 Troponin & CK Cardiac Panel Stat 05/18/25 14:26 EKG-12 Lead Stat Discontinued Medications Aspirin (Aspirin 81 Mg Chew Tab) 324 mg PO NOW ONE Stop: 05/18/25 12:18 Last Admin: 05/18/25 14:23 Dose: Not Given Documented By: MICHAEL Vital Signs Vital signs: Vital Signs - 8 hr 05/18/25 12:09 05/18/25 14:24 Temperature 97.2 F L Pulse Rate 67 61 Respiratory Rate 16 16 Blood Pressure 145/72 H 159/71 H Pulse Oximetry 99 98 Oxygen Delivery Method Room Air Room Air MDM - Arrhythmia/Palpitations Lab Data 05/18/25 12:17 05/18/25 12:17 Labs: Lab Results 05/18/25 05/18/25 Range/Units 12:17 14:25 WBC 7.3 (4.5-11.0) X10^3/uL RBC 4.85 (4.0-5.2) X10^6/uL Hgb 15.1 (12.0-16.0) g/dL Hct 45.0 (36-46) % MCV 92.6 (80-100) fL MCH 31.0 (26-34) PG MCHC 33.5 (30-36) % RDW 14.0 (11.6-14.8) % Plt Count 270 (150-400) X10^3/uL Neut % (Auto) 73.9 (50-75) % Lymph % (Auto) 17.8 L (25-40) % [place] % (Auto) 6.7 (3-14) % Eos % (Auto) 0.9 L (2-4) % Baso % (Auto) 0.7 (0-2) % Neut # (Auto) 5400 (5831-2387) /uL Lymph # (Auto) 1300 (1552-8078) /uL [place] # (Auto) 500 (0-900) /uL Eos # (Auto) 100 (0-450) /uL Baso # (Auto) 100 (0-100) /uL PT 12.9 H (9.4-12.5) SECONDS INR 1.1 (0.9-1.3) APTT 48 H (25.1-36.5) SECONDS Sodium 138 (137-145) mmol/L Potassium 4.8 (3.4-5.1) mmol/L Chloride 110 H (98-107) mmol/L Carbon Dioxide 19 L (22-32) mmol/L BUN 33 H (7-17) mg/dL Creatinine 1.29 H (0.52-1.04) mg/dL Estimated GFR 42 L (>60) mL/min BUN/Creatinine Ratio 25.6 H (6-22) Glucose 112 H (70-99) mg/dL Calcium 10.0 (8.4-10.2) mg/dL Magnesium 1.9 (1.6-2.3) mg/dL Total Bilirubin 1.5 H (0.2-1.3) mg/dL AST 28 (14-36) IU/L ALT 19 (<35) IU/L Alkaline Phosphatase 77 (38-126) U/L Total Creatine Kinase 80 71 (30-135) U/L Troponin I < 0.012 < 0.012 (0.01-0.034) ng/mL NT-Pro-B Natriuret Pep 551 H (<450) pg/mL Total Protein 7.1 (6.3-8.2) g/dL Albumin 4.4 (3.5-5.0) g/dL Globulin 2.7 (1.7-4.1) g/dL Albumin/Globulin Ratio 1.6 (1.0-2.8) Lipase 135 (23-300) U/L Urine Dip Bedside Urine Glucose Negative Bedside Urine Bilirubin - Negative Bedside Urine Ketone - Negative Urine Specific [place] 1.015 Bedside Urine Occult Blood - Negative Bedside Urine pH 6.0 Bedside Urine Protein - Negative Bedside Urine Urobilinogen - Negative Bedside Urine Nitrite - Negative Bedside Urine Leukocytes - Negative Esterase MDM Narrative Medical decision making narrative: 79-year-old female with past medical history AFib, on Eliquis presents to the ED with 1 day of flutters in the chest. Cardiac workup, UA obtained. EKG is normal sinus rhythm with fusion complexes. No acute ST-T T changes. Mild creatinine elevation to 1.29 which is patient's baseline. GFR 42 which is also patient's baseline. Bilirubin elevated to 1.5, also baseline. Troponin, BNP within normal limits. All other labs unremarkable. Chest x-ray with no acute cardiopulmonary abnormality. Troponin x2 within normal limits. EKG x2 unremarkable. Discussed findings with patient. Unclear what the etiology of patient's symptoms were today. Recommend good hydration. Recommend follow-up with cardiology and PCP as soon as possible. ED return precautions discussed with patient. Patient verbalized understanding. Medical records reviewed: Yes Discharge Plan Departure Patient Disposition: Home Clinical Impression: Palpitations Instructions: DI for Palpitations Activity Restrictions/Additional Instructions: You were evaluated in the ED today for a hot flutter. Your EKGs, chest x-ray, urine, labs were all normal. 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 Return to the emergency room if you have worsening symptoms, chest pain, shortness of breath. Prescriptions: No Action mesalamine [Lialda] 1.2 GM tablet,delayed release (DR/EC) 1.2 gm PO Q DAY Qty: 0 omeprazole 20 MG capsule,delayed release(DR/EC) 1 tab PO DAILY Qty: 0 Eliquis 5 mg tablet 5 mg PO BID metoprolol succinate 25 mg tablet extended release 24 hr 25 mg PO BID atorvastatin 40 mg tablet 40 mg PO DAILY multivitamin Tablet 1 tab PO DAILY vitamin B complex PO cholecalciferol (vitamin D3) 50 mcg (2,000 unit) capsule 50 mcg PO DAILY melatonin 5 mg capsule 5 mg PO dorzolamide-timolol 22.3-6.8 mg/mL drops 1 drp EYE-RIGHT BID Patient Comments: Instill 1 drop 2 times every day into right eye fluorometholone 0.1 % drops,suspension 1 drp ophthalmic (eye) propranolol 20 mg tablet 20 mg PO BID PRN (Reason: Tremor) Qty: 360 0RF estradiol 0.01 % (0.1 mg/gram) cream 0.5 g vaginal 2XW PRN (Reason: UTI prevention) Qty: 42.5 0RF Rx Instructions: Apply thin layer to irritated area of vulva and periurethra cyclobenzaprine 5 mg tablet 2.5 - 5 mg PO BEDTIME PRN (Reason: muscle spasm) Qty: 10 0RF lorazepam [Ativan] 0.5 mg tablet 0.5 mg PO DAILY PRN (Reason: anxiety re situation) Qty: 30 0RF biotin 5 mg Capsule Referrals: Corine Sigala DO [Primary Care Provider, Medical] Stand Alone Forms: Patient Portal/API
== END 2025-05-18 15:39 | disposition home or self-care (01) ==
PROVIDERS: Emergency Medicine; Emergency Provider Student in an Organized Health Care Education/Training Program; PCP Family Medicine
DX: R00.2 Palpitations (principal)
CPT/HCPCS: 36415; 71045; 80053; 81003; 82550; 83690; 83735; 83880; 84484; 85025; 85610; 85730; 93005; 93010; 99282; 99284

== ENCOUNTER → 2025-06-01 07:58 | Outpatient (CLI) | payer MEDICARE, SELFPAY ==
--- NOTE | 2025-06-01 08:00 | DI.US.S_ITS ---
PROCEDURE: US CAROTID DOPPLER BI INDICATIONS: hx of CVA TECHNIQUE: Color and pulse Doppler interrogation was performed of both carotid systems, with image documentation and velocity measurements. COMPARISON: [facility], [place], US CAROTID DOPPLER BI, 06/01/2022, 9:37. FINDINGS: Stenosis calculations are based on SRU (Society of [employer] in Ultras[employer]) criteria. FINDINGS: Stenosis calculations are based on SRU (Society of [employer] in Ultras[employer]) criteria. Right side: Common carotid artery peak systolic velocity: 53 cm/sec. Previously 78 cm/s Internal carotid artery peak systolic velocity: 54 cm/sec. Previously 75 cm/s Internal carotid artery end diastolic velocity: 18 cm/sec. Previously 13 cm/s External carotid artery peak systolic velocity: 43 cm/sec. Previously 75 cm/s ICA/CCA peak systolic ratio: 1.0 Previously 0.96 Reyes scale imaging description: Trace calcified plaque Percent internal carotid artery stenosis: Less than 50% stenosis. Vertebral artery: Flow direction is antegrade. Left side: Common carotid artery peak systolic velocity: 56 cm/sec. Previously 63 cm/s Internal carotid artery peak systolic velocity: 68 cm/sec. Previously 78 cm/s Internal carotid artery end diastolic velocity: 21 cm/sec. Previously 26 cm/s External carotid artery peak systolic velocity: 65 cm/sec. Previously 90 cm/s ICA/CCA peak systolic ratio: 1.2 Previously 1.28 Reyes scale imaging description: Mild calcified plaque Percent internal carotid artery stenosis: Less than 50% stenosis. Vertebral artery: Flow direction is antegrade. IMPRESSION: 1. In the right carotid artery, there is less than 50% stenosis based on peak systolic velocity criteria. 2. In the left carotid artery, there is less than 50% stenosis based on peak systolic velocity criteria. 3. Antegrade vertebral arteries. Dictated by: Reilly Glover M.D. on 06/01/2025 at 15:26 Approved by: Reilly Glover M.D. on 06/01/2025 at 15:31
== END ==
LOC: US 07:59
PROVIDERS: PCP Family Medicine; Referring Provider Family Medicine; Visit Provider Specialist
DX: I65.22 Occlusion and stenosis of left carotid artery (principal); Z86.73 Personal history of transient ischemic attack (TIA), and cerebral infarction without residual deficits
CPT/HCPCS: 93880